=== PATIENT | female | born 1945 | race Caucasian/White ===

== ENCOUNTER → 2016-12-17 | Outpatient (CLI) | payer OTHER ==
[~2016-12-17] MED LIST: ATOR-22 PO; CHOL1TAB42 PO; CLMTP25; CYAN10002 IM; CZR50 PO; EFFSR/75 PO; LEVO25TA5 PO; LINA72CA; OMEP40CA PO; PROG1CAP2 PO
--- NOTE | 2016-12-17 11:09 | DIAGNOSTIC IMAGING REPORT ---
RIGHT HAND MIN 3 VIEWS ROUTINE CLINICAL HISTORY: Right hand pain status post trauma COMPARISON: None. DISCUSSION: The bones are osteopenic. There are erosive osteoarthritic changes most pronounced the level of the distal interphalangeal joints. There is a 4.5 mm intra-articular chip fracture arising from the radial base of the proximal phalanx of the fifth finger. The fracture fragment is distracted x 2 mm. IMPRESSION: 1. Intra-articular chip fracture arising from the radial base of the proximal phalanx of the fifth finger 2. Osteopenia 3. Erosive osteoarthritic changes Electronically signed by: Raúl Hurley M.D. 12/17/2016 11:07 AM Dictated Date/Time: 12/17/2016 11:05 AM
== END | disposition home or self-care (01) ==
LOC: C.RADBC 10:35
PROVIDERS: ATTEND Anesthesiology
DX: M79.641 Pain in right hand (principal); W19.XXXA Unspecified fall, initial encounter

== ENCOUNTER 2023-07-24 12:31 | Observation (INO) ==
[2023-07-24 13:34] LABS: Basophils # (auto) 0.05 K/uL (0.00-0.20); Basophils % (auto) 0.5 %; Eosinophils # (auto) 0.09 K/uL (0.00-0.50); Eosinophils % (auto) 0.8 %; Hematocrit (blood only) 44.8 % (37.0-47.0); Hemoglobin 15.6 g/dl (12.0-16.0); Immature Granulocytes # (auto) 0.22 K/uL (0.01-0.20); Immature Granulocytes % (auto) 2.1 %; Lymphocytes # (auto) 1.42 K/uL (1.20-3.40); Lymphocytes % (auto) 13.3 %; Mean Corpuscular Hemoglobin 32.4 pg (25.0-34.0); Mean Corpuscular Hgb Conc 34.8 g/dL (32.0-36.0); Mean Corpuscular Volume 92.9 fL (80.0-100.0); Mean Platelet Volume 9.3 fL (9.4-12.4); Monocytes # (auto) 0.79 K/uL (0.11-0.59); Monocytes % (auto) 7.4 %; Neutrophils # (auto) 8.09 K/uL (1.40-6.50); Neutrophils % (auto) 75.9 %; Platelet Count 365 K/uL (130-400); RDW Coefficient of Variation 14.3 % (11.5-14.5); RDW Standard Deviation 49.1 fL (36.4-46.3); Red Blood Count 4.82 M/uL (4.20-5.40); White Blood Count 10.66 K/ul (4.8-10.8)
[2023-07-24] MEDS: dilTIAZem HCl 5 MG/ML 5 ML VIAL IV STA ×2 (13:57→16:45)
--- NOTE | 2023-07-24 14:01 | Emergency Department Note ---
Impression & Plan Atrial flutter with rapid ventricular response, Weakness ED Provider Note Provider: Denver Corona MD DATE OF SERVICE: 07/24/2023 CHIEF COMPLAINT: Weakness, medication changes, dyspnea on exertion/sweating HISTORY OF PRESENT ILLNESS: Patient is a 77-year-old female history of hypertension, anxiety, TIA, and hypothyroidism presenting here today complaining of weakness issues. States that over the last several weeks she has been having significant increased weakness. Did run out of her thyroid medicine for a week or 2 and thinks this may be related. To 2 extra tablets after she refilled her prescription of thyroid medicine yesterday. Denies chest pain. Does report some dyspnea on exertion and sweating when she goes to even do minimal activities. Again no chest pain. Some slight lower abdominal cramping at times but no significant continuous abdominal pain. Not eating or drinking very much. No significant leg swelling. Has had a slight cough recently. Training her dog and not weak enough to walk around with the clinical trainer yesterday or even help her self up off the ground. No significant trauma or falls reported. No significant cardiac disease reported. Noted her heart was elevated and called her doctor and referred here today. Unsure how long her heart rate may have been elevated. PAST MEDICAL HISTORY: As noted above MEDICATIONS: Reviewed home medications just restarted Synthroid SOCIAL HISTORY: PHYSICAL EXAM: GENERAL: alert and oriented in no acute distress on stretcher Head: normocephalic and atraumatic EYES: No injection, discharge or icterus. NECK: Trachea midline. ENT: Mucous membranes pink and moist. LUNGS: Airway patent. No retractions. Breath sounds clear HEART: Regular tachycardia rate and rhythm. No chest wall tenderness ABDOMEN: Soft and non-tender, without guarding or rebound. SKIN: Acyanotic, warm, dry, without rashes EXTREMITIES: Without swelling, tenderness or deformity NEUROLOGICAL: No focal deficits. No aphasia. No facial droop or slurred speech. Ambulatory. EK bpm with appears to be atrial flutter with no notable PVC and a right bundle branch block noted. Question of some anterior T wave inversions. EK bpm appears to be in atrial flutter variable conduction without acute ST segment elevation and nonspecific T wave changes right bundle branch block. EK bpm atrial flutter variable conduction without acute ST segment elevation or depression. Right bundle branch block persist as well as a QTc of 470. CONTINUOUS CARDIAC MONITORING: was ordered and showed a heart rate of 80s-140s bpm in atrial flutter Patient's laboratory studies and imaging reviewed. Differential includes Infection, dehydration, metabolic abnormality, hypo/hyperglycemia, electrolyte disturbance, anemia, hypoxia, cardiac sources, intracerebral event, toxicologic, neurologic, as well as other pathologies. IMPRESSION/MEDICAL DECISION MAKING: Patient with generalized weakness and some fast heart beating sensation over the past week. Heart rate steady at 140 with little variability. Believe likely represents a flutter. Trial of a dose of diltiazem does affect heart rate improvement and what appears to be flutter waves. Given some IV fluid. Will place on a diltiazem drip and heparin drip for anticoagulation and some rate control. Given that she is not in anticoagulation and has been in this rhythm for an unknown amount of time and possibly a week not pursue aggressive cardioversion scheme at this time. Has had some changes of dosing of her thyroid medicine and took extra yesterday. Unsure if related. TSH sent. Electrolytes and blood work completed as she has had some decreased intake. Benign abdomen on exam. Lower suspicion for URI but has had a slight cough. There and respiratory viral panel sent. Chest x-ray per radiology report reviewed without significant acute pulmonary findings. Doubt this represents dissection or PE. Doubt acute intra-abdominal pathology given her reassuring abdominal exam. Troponin minimally elevated likely demand rather than true ACS. No severe electrolyte abnormalities. TSH actually returns normal. This time will bring in for her symptomatic new onset rapid atrial flutter. Will likely need long- term rate control and anticoagulation. For tonight again heparin drip and diltiazem will be utilized. Hospitalist team contacted. Will titrate diltiazem drip for rate control and bolus as needed DIAGNOSIS: New onset atrial flutter with rapid ventricular response, weakness DISPOSITION: Hospitalist will evaluate Patient was agreeable with this plan. Critical Care I have personally spent 44 minutes of critical care time in the direct management of this patient. This includes bedside care, interpretation of diagnostic studies, and testing, discussion with consultants, patient, and family members, and other required patient management activities. These 44 minutes is in excess of all separately billable procedures. Past Med/Surg History Medical History (Updated 07/24/23 @ 16:16 by MERLY Lockhart) New onset atrial fibrillation Atrial fibrillation Hypothyroidism Osteoporosis HTN (hypertension) Surgical History History of tonsillectomy and adenoidectomy 1950 H/O hernia repair 2007 Hx of appendectomy 2006 S/P cholecystectomy 2004 Family History Father Hearing loss Stroke Prostate cancer Mother Hypertension Aunt Pancreatic cancer Other No family history of adverse response to anesthesia No family history of bleeding disorder Social History Smoking Status: Never smoker Do You Dip or Chew Tobacco: No; Hx Alcohol Use: No Hx Substance Use: No Preferred Language: Portuguese marital status: current occupational status: employed 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 Feels Safe at Home: Yes Allergies Allergies Allergy/AdvReac Type Severity Reaction Status Date / Time iodine Allergy Unknown Verified 09/13/20 11:34 shellfish derived AdvReac Mild NAUSEA/VOMI Verified 09/13/20 11:34 TTING Cephalosporins AdvReac Unknown UPSET Verified 09/13/20 11:34 STOMACH WITH CEPHALEXIN Home Meds Home Medications Medication Instructions Recorded Confirmed losartan 50 mg tablet 50 mg PO QAM 10/06/19 07/24/23 cholecalciferol (vitamin D3) 125 125 mcg PO DAILY 07/24/23 07/24/23 mcg (5,000 unit) capsule diclofenac sodium 1 % topical gel 2 g topical QID PRN Pain 07/24/23 07/24/23 fish, borage, flaxseed oils-omega 1,200 cap PO DAILY 07/24/23 07/24/23 3,6,9 comb no.1 1,200 mg capsule (Forrest 3-6-9) magnesium citrate,mag oxide 250 mg 500 mg PO BID 07/24/23 07/24/23 capsule melatonin 5 mg tablet 5 mg PO HS PRN Pain 07/24/23 07/24/23 venlafaxine 37.5 mg 37.5 mg PO QAM 07/24/23 07/24/23 capsule,extended release 24 hr venlafaxine 75 mg capsule,extended 75 mg PO QAM 07/24/23 07/24/23 release 24 hr (Effexor XR) vitamins A,C,G-eprm-yhcxla 4,296 1 cap PO QAM 07/24/23 07/24/23 mcg-226 mg-90 mg capsule (PreserVision AREDS) vortioxetine 5 mg tablet 20 mg PO 5XWK 07/24/23 07/24/23 (Trintellix) Previous Rx's Medication Instructions Recorded prednisone 10 mg tablet 10 mg PO DAILY #34 tabs 12/18/22 tizanidine 4 mg tablet 4 mg PO BID PRN muscle spasticity 12/30/22 #30 tabs tramadol 50 mg tablet 50 mg PO BID PRN pain #30 tabs 12/30/22 Results & Data (ED) Vital Signs Vital Signs - 24 hr 07/24/23 12:40 07/24/23 12:40 07/24/23 12:45 Temperature 36.3 C L Temperature Source Temporal Artery Scan Pulse Rate 142 H 141 H Pulse Rate from SpO2 Sensor Respiratory Rate 22 Respiratory Effort / Characteristics Non-Labored Respiratory Depth Normal Blood Pressure 101/92 Blood Pressure Mean 95 Pulse Oximetry 98 98 100 Oxygen Delivery Method Room Air Room Air Oxygen Flow Rate 0 Sepsis Recent Fever Within 48 Hours No Sepsis New/Unexplained Change in Mental Status N/A Sepsis Action Taken by Nursing No Action Required 07/24/23 13:37 07/24/23 13:41 07/24/23 13:50 Temperature Temperature Source Pulse Rate 143 H 142 H 140 H Pulse Rate from SpO2 Sensor 142 H 140 H Respiratory Rate 15 19 Respiratory Effort / Characteristics Respiratory Depth Blood Pressure 128/94 Blood Pressure Mean 105 Pulse Oximetry 100 98 Oxygen Delivery Method Oxygen Flow Rate Sepsis Recent Fever Within 48 Hours Sepsis New/Unexplained Change in Mental Status Sepsis Action Taken by Nursing 07/24/23 14:00 07/24/23 14:00 07/24/23 14:03 Temperature Temperature Source Pulse Rate 114 H Pulse Rate from SpO2 Sensor 116 H Respiratory Rate 18 Respiratory Effort / Characteristics Respiratory Depth Blood Pressure 144/89 H 144/91 H Blood Pressure Mean 118 98 Pulse Oximetry 100 Oxygen Delivery Method Oxygen Flow Rate Sepsis Recent Fever Within 48 Hours Sepsis New/Unexplained Change in Mental Status Sepsis Action Taken by Nursing 07/24/23 14:03 07/24/23 14:06 07/24/23 14:06 Temperature Temperature Source Pulse Rate 112 H 114 H Pulse Rate from SpO2 Sensor 113 H 116 H Respiratory Rate 24 16 Respiratory Effort / Characteristics Respiratory Depth Blood Pressure 140/103 H Blood Pressure Mean 105 Pulse Oximetry 96 99 Oxygen Delivery Method Oxygen Flow Rate Sepsis Recent Fever Within 48 Hours Sepsis New/Unexplained Change in Mental Status Sepsis Action Taken by Nursing 07/24/23 14:10 07/24/23 14:10 07/24/23 14:20 Temperature Temperature Source Pulse Rate 94 H 105 H Pulse Rate from SpO2 Sensor 96 H 100 H Respiratory Rate 18 24 Respiratory Effort / Characteristics Respiratory Depth Blood Pressure 152/79 H Blood Pressure Mean 83 Pulse Oximetry 99 87 L Oxygen Delivery Method Oxygen Flow Rate Sepsis Recent Fever Within 48 Hours Sepsis New/Unexplained Change in Mental Status Sepsis Action Taken by Nursing 07/24/23 14:30 07/24/23 14:30 07/24/23 14:40 Temperature Temperature Source Pulse Rate 107 H 107 H Pulse Rate from SpO2 Sensor 107 H 104 H Respiratory Rate 11 L 18 Respiratory Effort / Characteristics Respiratory Depth Blood Pressure 147/99 H Blood Pressure Mean 120 Pulse Oximetry 99 98 Oxygen Delivery Method Oxygen Flow Rate Sepsis Recent Fever Within 48 Hours Sepsis New/Unexplained Change in Mental Status Sepsis Action Taken by Nursing Laboratory Data 07/24/23 12:44 07/24/23 12:44 Lab Results 07/24/23 07/24/23 07/24/23 Range/Units 12:44 12:44 12:44 WBC 10.66 (4.8-10.8) K/ul RBC 4.82 (4.20-5.40) M/uL Hgb 15.6 (12.0-16.0) g/dl Hct 44.8 (37.0-47.0) % MCV 92.9 (80.0-100.0) fL MCH 32.4 (25.0-34.0) pg MCHC 34.8 (32.0-36.0) g/dL RDW Std Deviation 49.1 H (36.4-46.3) fL RDW Coeff of Ish 14.3 (11.5-14.5) % Plt Count 365 (130-400) K/uL MPV 9.3 L (9.4-12.4) fL Immature Gran % (Auto) 2.1 % Neut % (Auto) 75.9 % Lymph % (Auto) 13.3 % Howell % (Auto) 7.4 % Eos % (Auto) 0.8 % Baso % (Auto) 0.5 % Neut # (Auto) 8.09 H (1.40-6.50) K/uL Lymph # (Auto) 1.42 (1.20-3.40) K/uL Howell # (Auto) 0.79 H (0.11-0.59) K/uL Eos # (Auto) 0.09 (0.00-0.50) K/uL Baso # (Auto) 0.05 (0.00-0.20) K/uL Immature Gran # (Auto) 0.22 H (0.01-0.20) K/uL PT 10.8 (9.0-12.0) Seconds INR 1.0 (0.9-1.1) APTT 26 (21-31) Seconds PTT Ratio 0.9 Sodium 133 L (136-145) mmol/L Potassium 4.1 (3.5-5.1) mmol/L Chloride 100 (98-107) mmol/L Carbon Dioxide 23 (21-32) mmol/L Anion Gap 10 (3-11) BUN 17 (6-23) mg/dl Creatinine 0.84 (0.6-1.2) mg/dl Est Cr Clr Drug Dosing Not Reportable Est GFR ( Amer) 77.2 ml/min Est GFR (Non-Af Amer) 66.6 ml/min BUN/Creatinine Ratio 20.2 H (10-20) Glucose 110 H (70-99(Fasting)) mg/dl Calcium 9.4 (8.6-10.3) mg/dl Magnesium 2.2 Cancelled (1.7-2.4) mg/dl Total Bilirubin 1.0 (0.2-1.0) mg/dl AST 27 (13-39) U/L ALT 29 (7-52) U/L Alkaline Phosphatase 112 H (34-104) U/L Total Creatine Kinase 38 Cancelled (26-192) U/L Troponin I High Sens 34.6 H (0-14) pg/ml Total Protein 7.9 (6.0-8.3) gm/dl Albumin 4.1 (3.4-5.0) gm/dl Globulin 3.8 (2.5-4.0) gm/dl Albumin/Globulin Ratio 1.1 (0.9-2) Lipase 25 (11-82) U/L TSH (0.300-4.500) uIu/ml Adenovirus (PCR) (NotDetected) B. pertussis DNA (PCR) (NotDetected) B.parapertussis DNA PCR (NotDetected) C. pneumoniae DNA (PCR) (NotDetected) Coronavirus OC43 (PCR) (NotDetected) Coronavirus HKU1 (PCR) (NotDetected) Coronavirus 229E (PCR) (NotDetected) SARS-CoV-2 (PCR) (NotDetected) Coronavirus NL63 (PCR) (NotDetected) Human Metapneumovir PCR (NotDetected) Influenza Type A (PCR) (NotDetected) Influenza Type B (PCR) (NotDetected) M. pneumoniae (PCR) (NotDetected) Parainfluenza 1 (PCR) (NotDetected) Parainfluenza 2 (PCR) (NotDetected) Parainfluenza 3 (PCR) (NotDetected) Parainfluenza 4 (PCR) (NotDetected) RSV (PCR) (NotDetected) Entero/Rhino (PCR) (NotDetected) 07/24/23 07/24/23 07/24/23 Range/Units 12:44 12:44 Unknown WBC (4.8-10.8) K/ul RBC (4.20-5.40) M/uL Hgb (12.0-16.0) g/dl Hct (37.0-47.0) % MCV (80.0-100.0) fL MCH (25.0-34.0) pg MCHC (32.0-36.0) g/dL RDW Std Deviation (36.4-46.3) fL RDW Coeff of Ish (11.5-14.5) % Plt Count (130-400) K/uL MPV (9.4-12.4) fL Immature Gran % (Auto) % Neut % (Auto) % Lymph % (Auto) % Howell % (Auto) % Eos % (Auto) % Baso % (Auto) % Neut # (Auto) (1.40-6.50) K/uL Lymph # (Auto) (1.20-3.40) K/uL Howell # (Auto) (0.11-0.59) K/uL Eos # (Auto) (0.00-0.50) K/uL Baso # (Auto) (0.00-0.20) K/uL Immature Gran # (Auto) (0.01-0.20) K/uL PT (9.0-12.0) Seconds INR (0.9-1.1) APTT (21-31) Seconds PTT Ratio Sodium (136-145) mmol/L Potassium (3.5-5.1) mmol/L Chloride (98-107) mmol/L Carbon Dioxide (21-32) mmol/L Anion Gap (3-11) BUN (6-23) mg/dl Creatinine (0.6-1.2) mg/dl Est Cr Clr Drug Dosing Est GFR ( Amer) ml/min Est GFR (Non-Af Amer) ml/min BUN/Creatinine Ratio (10-20) Glucose (70-99(Fasting)) mg/dl Calcium (8.6-10.3) mg/dl Magnesium (1.7-2.4) mg/dl Total Bilirubin (0.2-1.0) mg/dl AST (13-39) U/L ALT (7-52) U/L Alkaline Phosphatase (34-104) U/L Total Creatine Kinase (26-192) U/L Troponin I High Sens (0-14) pg/ml Total Protein (6.0-8.3) gm/dl Albumin (3.4-5.0) gm/dl Globulin (2.5-4.0) gm/dl Albumin/Globulin Ratio (0.9-2) Lipase Cancelled (11-82) U/L TSH 2.936 Cancelled (0.300-4.500) uIu/ml Adenovirus (PCR) Not Detected (NotDetected) B. pertussis DNA (PCR) Not Detected (NotDetected) B.parapertussis DNA PCR Not Detected (NotDetected) C. pneumoniae DNA (PCR) Not Detected (NotDetected) Coronavirus OC43 (PCR) Not Detected (NotDetected) Coronavirus HKU1 (PCR) Not Detected (NotDetected) Coronavirus 229E (PCR) Not Detected (NotDetected) SARS-CoV-2 (PCR) Not Detected (NotDetected) Coronavirus NL63 (PCR) Not Detected (NotDetected) Human Metapneumovir PCR Not Detected (NotDetected) Influenza Type A (PCR) Not Detected (NotDetected) Influenza Type B (PCR) Not Detected (NotDetected) M. pneumoniae (PCR) Not Detected (NotDetected) Parainfluenza 1 (PCR) Not Detected (NotDetected) Parainfluenza 2 (PCR) Not Detected (NotDetected) Parainfluenza 3 (PCR) Not Detected (NotDetected) Parainfluenza 4 (PCR) Not Detected (NotDetected) RSV (PCR) Not Detected (NotDetected) Entero/Rhino (PCR) Not Detected (NotDetected) Administered Medications Diltiazem HCl (Diltiazem Hcl 5 Mg/Ml 5 Ml Vial) 5 mg IV NOW STA Stop: 07/24/23 16:44 Last Admin: 07/24/23 16:45 Dose: 5 mg Documented By: ANNIE Co-signed By: SKINNY Diltiazem HCl 125 mg/ Dextrose 125 mls @ 5 mls/hr IV .Q24H LEXII; Protocol Stop: 08/23/23 15:14 Last Admin: 07/24/23 16:39 Dose: 5 mg/hr, 5 mls/hr Documented By: ANNIE Co-signed By: JUDI Ondansetron HCl (Ondansetron Inj 2 Mg/Ml 2 Ml Vial) 4 mg IV Q6H PRN PRN Reason: Nausea Stop: 08/23/23 15:55 Last Admin: 07/24/23 16:20 Dose: 4 mg Documented By: ANNIE Discontinued Medications Diltiazem HCl (Diltiazem Hcl 5 Mg/Ml 5 Ml Vial) 10 mg IV NOW STA Stop: 07/24/23 13:53 Last Admin: 07/24/23 13:57 Dose: 10 mg Documented By: ANNIE Co-signed By: JORGE Sodium Chloride (Nss) 500 mls @ 999 mls/hr IV .Q31M ONE Stop: 07/24/23 14:27 Last Infusion: 07/24/23 14:32 Dose: Infused Documented By: Admin: 07/24/23 14:03 Dose: 999 mls/hr Documented By: ANNIE Imaging Data Radiologist's Impression: Chest X-Ray 07/24/23 12:45 XR chest 1V not portable HISTORY: 77 years-old Female Chest pain, nonspecific COMPARISON: 03/24/2020 TECHNIQUE: PA view of the chest FINDINGS: Cardiac silhouette is unchanged. Calcified mediastinal and hilar lymph nodes are redemonstrated. Unchanged biapical predominant pulmonary nodules. No pneumothorax, large pleural effusion or overt pulmonary edema. Cholecystectomy. Degenerative changes of the shoulders and spine. IMPRESSION: 1. No acute process. 2. Prior granulomatous disease with unchanged biapical predominant pulmonary nodules. ACT 112: Negative or not required by law. The above report was generated using voice recognition software. It may contain grammatical, syntax or spelling errors. Electronically signed by: Tono Lorenzo M.D. 07/24/2023 2:23 PM Discharge Plan Visit Data Chief Complaint: Shortness of Breath/Dyspnea Stated Complaint: TROUBLE BREATHING, 140 BPM, LIGHT HEADED ED Provider: Denver Corona Discharge Problem: Atrial flutter with rapid ventricular response, Weakness Patient Disposition: Being Evaluated by Hospitalist Forms Stand Alone Forms: [facility] Prescriptions Prescriptions: No Action prednisone 10 mg tablet 10 mg PO DAILY Qty: 34 0RF Rx Instructions: 3 by mouth twice a day for 3 days, then 2 by mouth twice a day for 3 days, then 1 by mouth twice a day for 2 days, then stop tizanidine 4 mg tablet 4 mg PO BID PRN (Reason: muscle spasticity) Qty: 30 1RF tramadol 50 mg tablet 50 mg PO BID PRN (Reason: pain) Qty: 30 0RF Rx Instructions: In addition to the tramadol, take acetaminophen either regular strength or extra, 2 pills. losartan 50 mg Tablet 50 mg PO QAM venlafaxine [Effexor XR] 75 mg capsule,extended release 24hr 75 mg PO QAM Rx Instructions: take with 37.5 mg every morning. MUST BE NAME BRAND. venlafaxine 37.5 mg Capsule,Extended Release 24hr 37.5 mg PO QAM Rx Instructions: TAKE WITH 75MG IN AM. MUST BE NAME BRAND. Trintellix 5 mg Tablet 20 mg PO 5XWK Rx Instructions: TAKE FOUR 5 MG TABLETS FRIDAY THRU FRIDAY diclofenac sodium 1 % Gel 2 g TOPICAL QID PRN (Reason: Pain) melatonin 5 mg Tablet 5 mg PO HS PRN (Reason: Pain) magnesium citrate,mag oxide 250 mg Capsule 500 mg PO BID cholecalciferol (vitamin D3) 125 mcg (5,000 unit) Capsule 125 mcg PO DAILY PreserVision AREDS 4,296 mcg-226 mg-90 mg Capsule 1 cap PO QAM Forrest 3-6-9 1,200 mg Capsule 1,200 cap PO DAILY Referrals Referrals: Evangelista Moran MD [Primary Care Provider] -
[2023-07-24] MEDS: SODIUM CHLORIDE 0.9% 500 ML IV ONE (14:03)
--- NOTE | 2023-07-24 14:24 | XRay Report ---
XR chest 1V not portable HISTORY: 77 years-old Female Chest pain, nonspecific COMPARISON: 03/24/2020 TECHNIQUE: PA view of the chest FINDINGS: Cardiac silhouette is unchanged. Calcified mediastinal and hilar lymph nodes are redemonstrated. Unch anged biapical predominant pulmonary nodules. No pneumothorax, large pleural effusion or overt pulmon nadiya edema. Cholecystectomy. Degenerative changes of the shoulders and spine. IMPRESSION: 1. No acute process. 2. Prior granulomatous disease with unchanged biapical predominant pulmonary nodules. ACT 112: Negative or not required by law. The above report was generated using voice recognition software. It may contain grammatical, syntax o r spelling errors. Electronically signed by: Tono Lorenzo M.D. 07/24/2023 2:23 PM
[2023-07-24 14:40] LABS: Partial Thromboplastin Ratio 0.9; Partial Thromboplastin Time 26 Seconds (21-31); Prothrombin Time 10.8 Seconds (9.0-12.0)
[2023-07-24 14:41] LABS: Albumin Level 4.1 gm/dl (3.4-5.0); Anion Gap 10 (3-11); Calcium 9.4 mg/dl (8.6-10.3); Carbon Dioxide 23 mmol/L (21-32); Chloride 100 mmol/L (98-107); Magnesium 2.2 mg/dl (1.7-2.4); Potassium 4.1 mmol/L (3.5-5.1); Sodium 133 mmol/L (136-145)
[2023-07-24 14:47] LABS: Alanine Aminotransferase 29 U/L (7-52); Albumin Globulin Ratio 1.1 (0.9-2); Alkaline Phosphatase 112 U/L (34-104); Aspartate Aminotransferase 27 U/L (13-39); BUN Creatinine Ratio 20.2 (10-20); Blood Urea Nitrogen 17 mg/dl (6-23); Creatine Kinase 38 U/L (26-192); Est GFR (African American) 77.2 ml/min; Est GFR (Non-African American) 66.6 ml/min; Globulin 3.8 gm/dl (2.5-4.0); Glucose 110 mg/dl (70-99(Fasting)); Lipase 25 U/L (11-82); Total Protein 7.9 gm/dl (6.0-8.3)
[2023-07-24 14:49] LABS: Troponin I High Sensitivity 34.6 pg/ml (0-14)
[2023-07-24 14:58] LABS: Thyroid Stimulating Hormone 2.936 uIu/ml (0.300-4.500)
[2023-07-24] MEDS ORDERED: Heparin IV Adult Wt-Based Low-Dose w/ INITIAL Bolus Protocol IV STA (15:13)
[2023-07-24] MEDS ORDERED: HEPARIN SOD (PORCINE) 1000 UNIT/ML IV ONE (15:28)
[2023-07-24] MEDS ORDERED: MAGNESIUM HYDROXIDE SUSP 30 ML UDC PO PRN (15:56)
[2023-07-24] MEDS ORDERED: ALUMINUM/MAGNESIUM SUSP 30 ML UDC PO PRN (15:56)
[2023-07-24] MEDS ORDERED: POLYETHYLENE (MIRALAX) 17 GM PACK PO PRN (15:56)
[2023-07-24] MEDS ORDERED: ACETAMINOPHEN 325 MG TAB PO PRN (15:56)
[2023-07-24 16:04] LABS: Adenovirus PCR Not Detected (NotDetected); Bordetella parapertussis PCR Not Detected (NotDetected); Bordetella pertussis PCR Not Detected (NotDetected); Chlamydia pneumoniae PCR Not Detected (NotDetected); Coronavirus 229E PCR Not Detected (NotDetected); Coronavirus CoV-2 (COVID19)PCR Not Detected (NotDetected); Coronavirus HKU1 PCR Not Detected (NotDetected); Coronavirus NL63 PCR Not Detected (NotDetected); Coronavirus OC43PCR Not Detected (NotDetected); Human Metapneumovirus PCR Not Detected (NotDetected); Influenza A PCR Not Detected (NotDetected); Influenza B PCR Not Detected (NotDetected); Mycoplasma pneumoniae PCR Not Detected (NotDetected); Parainfluenza Virus 1 PCR Not Detected (NotDetected); Parainfluenza Virus 2 PCR Not Detected (NotDetected); Parainfluenza Virus 3 PCR Not Detected (NotDetected); Parainfluenza Virus 4 PCR Not Detected (NotDetected); Respiratory Syncytial VirusPCR Not Detected (NotDetected); Rhinovirus/Enterovirus PCR Not Detected (NotDetected)
--- NOTE | 2023-07-24 16:06 | History & Physical Report ---
Date of Service July 24, 2023 Assessment & Plan (1) New onset atrial fibrillation: (2) Weakness: (3) HTN (hypertension): (4) Hypothyroidism: (5) Hyperlipidemia: (6) Depression: Plan Ms. Tapia presented to the ED today with symptoms including QUIGLEY and weakness. She snowbirds in [place] and stopped taking her levothyroxine approximately 5-6 weeks ago. Over the past few days started to have increased weakness and fatigu e with each day feeling worse and worse; including worsening appetite. Additional PMH includes H/O TIA x3 (20 years ago), Left brain aneurysm 12/2021 (s/p stent/coil x2 and one remaining smaller aneurysm on the right), HTN, hypothyroidism, H/O T12 compression fracture s/p kyphoplasty, and osteoporosis. In the ED, slight leukocytosis WBC 10.66, otherwise BMP and CBC unremarkable. Troponin slightly elevated 34.6; suspect more ischemic demand, rather than ACS. TSH 2.9 and BioFire and lactate pending.CHaDs VaSC: 4. No previous AMI or CVA. Pt denies tobacco, alcohol, and recreational drug use. Patients father had a CVA. ECG first degree AVB with bigeminy and underlying conduction disease. Patient will be admitted to PCU for further evaluation and management of new onset AF. Started on Diltiazem gtt with 10 mg IV bolus, ordered metoprolol 25 mg p.o. twice daily. Due to the patient's history of brain aneurysm in [address] prior to heparin drip initiation. Will order ECHO, trend troponin, check Mg+/Phos+ and await biofire results. Will keep NPO after MN pending any procedures with cardiology. Discussed on the phone with Dr. Cardenas. New onset atrial fibrillation: acute suspect secondary to not taking levothyroxine; however, TSH 2.9 Continue to rule out organic causes Chads Vasc: 4 moderate to high risk of CVA. No history of AMI or CVA HR 140s on arrival Diltiazem 10 mg IV once in ED and started on a Diltiazem gtt Heparin gtt pending negative head CT Started Metoprolol 25 mg once now; will continue BID CXR negative for acute cardiopulmonary process ECHO ordered Cardiology consult placed H/O TIA: Chronic 20 + years ago Does not follow with Neurology H/O Brain aneurysm: Chronic s/p stent/coil x 2 One smaller aneurysm remains Was taking Plavix; stopped 07/04 Takes baby aspirin; continue Follows with [facility] Most recent MRA 06/2022 HTN: chronic takes losartan; continue Hypothyroidism: chronic possible contributor to new onset af TSH 2.9 Takes levothyroxine; stopped 6 weeks ago; restarted yesterday when she returned [place] Depression: chronic takes Effexor; continue Disposition: PCP: Dr. Moran Code Status: Full code VTE Prophylaxis: Heparin gtt once head ct done I spent a total of 87 minutes coordinating, documenting, and providing care for this patient excluding time spent in the performance of separately billed services. All of the aforementioned completed while collaborating with the assigned attending physician for a full treatment plan. Please see their addendum for further details. History of Present Illness Chief Complaint: new onset atrial fibrillation Primary Care Provider: Evangelista Moran MD Ms. Tapia presented to the ED today with symptoms including QUIGLEY and weakness. She snow[place] in [place] and stopped taking her levothyroxine approximately 5-6 weeks ago. Over the past few days started to have increased weakness and fatigue with each day feeling worse and worse; including worsening appetite. Additional PMH includes H/O TIA x3 (20 years ago), Left brain aneurysm 12/2021 (s/p stent/coil x2 and one remaining smaller aneurysm on the right), HTN, hypothyroidism, H/O T12 compression fracture s/p kyphoplasty, and osteoporosis. In the ED, slight leukocytosis WBC 10.66, otherwise BMP and CBC unremarkable. Troponin slightly elevated 34.6; suspect more ischemic demand, rather than ACS. TSH 2.9 and BioFire and lactate pending. CHaDs VaSC: 4; indicating moderate to high stroke risk (age, sex, HTN). No known history of AMI or CVA. Pt denies tobacco, alcohol, and recreational drug use. Patients father had a CVA. ECG first degree AVB with bigeminy and underlying conduction disease. Patient complains of temporal/ocular headache, denies dizziness, shortness of breath, chest pain, palpitations, nausea, vomiting, diarrhea, dysuria, bowel or bladder changes, recent falls or trauma. She is sitting in her hospital bed in no apparent distress; heart monitor showing 130-140 despite Diltiazem gtt. She is euvolemic on examination. CTA lung sounds and irregular heart sounds. Patient will be admitted to PCU for further evaluation and management of new onset AF. Started on Diltiazem gtt with 10 mg IV bolus, ordered metoprolol 25 mg p.o. twice daily. Due to the patient's history of brain aneurysm in [address] prior to heparin drip initiation. Will order ECHO, trend troponin, check Mg+/Phos+ and await biofire results. Will keep NPO after MN pending any procedures with cardiology. Discussed on the phone with Dr. Cardenas. Allergies Allergy/AdvReac Type Severity Reaction Status Date / Time shellfish derived AdvReac Mild NAUSEA/VOMI Verified 07/24/23 17:12 TTING Cephalosporins AdvReac Unknown UPSET Verified 07/24/23 17:13 STOMACH WITH CEPHALEXIN amoxicillin [From Augmentin] AdvReac Vomiting Verified 07/24/23 17:14 clavulanic acid AdvReac Vomiting Verified 07/24/23 17:14 [From Augmentin] ezetimibe [From Zetia] AdvReac Weakness Verified 07/24/23 17:13 Home Medications Medication Instructions Recorded Confirmed Type losartan 50 mg tablet 50 mg PO QAM 10/06/19 07/24/23 History aspirin 81 mg tablet,delayed 81 mg PO DAILY 07/24/23 07/24/23 History release calcium 275 mg-D3 12.5 mcg-K2 2 cap PO QAM 07/24/23 07/24/23 History 22.5 mcg and choline-silicon capsules cholecalciferol (vitamin D3) 125 125 mcg PO DAILY 07/24/23 07/24/23 History mcg (5,000 unit) capsule cyanocobalamin (vitamin B-12) 1,000 mcg IM MONTHLY 07/24/23 07/24/23 History 1,000 mcg/mL injection solution diclofenac sodium 1 % topical gel 2 g topical QID PRN Pain 07/24/23 07/24/23 History fish, borage, flaxseed oils-omega 1,200 cap PO DAILY 07/24/23 07/24/23 History 3,6,9 comb no.1 1,200 mg capsule ([place] 3-6-9) ibuprofen 400 mg tablet 400 mg PO Q8H PRN Pain 07/24/23 07/24/23 History ibuprofen 600 mg tablet 600 mg PO Q8H PRN Pain 07/24/23 07/24/23 History levothyroxine 50 mcg tablet 50 mcg PO DAILYBB 07/24/23 07/24/23 History magnesium citrate,mag oxide 250 mg 500 mg PO BID 07/24/23 07/24/23 History capsule melatonin 5 mg tablet 5 mg PO HS PRN Pain 07/24/23 07/24/23 History venlafaxine 37.5 mg 37.5 mg PO QAM 07/24/23 07/24/23 History capsule,extended release 24 hr venlafaxine 75 mg capsule,extended 75 mg PO QAM 07/24/23 07/24/23 History release 24 hr (Effexor XR) vitamins A,C,U-rsyj-elrlck 4,296 1 cap PO QAM 07/24/23 07/24/23 History mcg-226 mg-90 mg capsule (PreserVision AREDS) vortioxetine 5 mg tablet 20 mg PO 5XWK 07/24/23 07/24/23 History (Trintellix) Past Med/Surg History Medical History New onset atrial fibrillation Atrial fibrillation Hypothyroidism Osteoporosis HTN (hypertension) Surgical History History of tonsillectomy and adenoidectomy 1950 H/O hernia repair 2007 Hx of appendectomy 2006 S/P cholecystectomy 2004 Family History Father Hearing loss Stroke Prostate cancer Mother Hypertension Aunt Pancreatic cancer Other No family history of adverse response to anesthesia No family history of bleeding disorder Social History Smoking Status: Never smoker Do You Dip or Chew Tobacco: No; Hx Alcohol Use: Yes Alcohol type: wine Hx Substance Use: No Preferred Language: Turkish Communication Ability: Effective Spooling 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 Operator Required: No Beliefs That Will Affect Care: None marital status: Current Living Situation: Spouse Current Living Situation Comment: Single level condo current occupational status: employed 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 Feels Safe at Home: Yes Safety Concerns: Feels Safe At This Time Assistive Devices: None Review of Systems Review of Systems: Neuro: (-) Falls, trauma, slurred speech HEENT: (+) [place]U, (-) dizziness, dysphagia, visual or auditory changes CV: (-) CP, palpitations, swelling Resp: (-) SOB GI: (-) appetite changes, N/V/D, bowel changes : (-) urinary changes Skin: (-) rashes Psych: (-) anxiety, depression Physical Exam Physical Exam: Neuro: AAOx4, PERRLA, no aphagia, memory changes, CNII-XII grossly intact HEENT: head normocephalic, moist mucus membranes CV: Irregularly irregular, (-) M/G/R, (-) edema, cap refill < 3 seconds Resp: Lungs CTA in all holliday. On RA GI: Abdomen S/NT/ND, Ax4 bowel sounds, (-) CVA tenderness Musculoskeletal: 5/5 B/L UE strength, 5/5 B/L LE strength. No gait disturbance Skin: (-) rashes , (-) erythema. Psych: euthymic mood Results & Data Results & Data Vital Signs (Past 12 Hours) Vital Signs Temp Pulse Resp BP Pulse Ox O2 Del Method O2 Flow Rate 07/24/23 14:40 107 H 18 98 07/24/23 14:30 107 H 11 L 99 07/24/23 14:30 147/99 H 07/24/23 14:20 105 H 24 87 L 07/24/23 14:10 94 H 18 99 07/24/23 14:10 152/79 H 07/24/23 14:06 140/103 H 07/24/23 14:06 114 H 16 99 07/24/23 14:03 112 H 24 96 07/24/23 14:03 144/91 H 07/24/23 14:00 114 H 18 100 07/24/23 14:00 144/89 H 07/24/23 13:50 140 H 19 98 07/24/23 13:41 142 H 07/24/23 13:37 143 H 15 128/94 100 07/24/23 12:45 141 H 100 Room Air 07/24/23 12:40 98 Room Air 0 07/24/23 12:40 36.3 C L 142 H 22 101/92 98 Laboratory Results Short CBC 07/24/23 Range/Units 12:44 WBC 10.66 (4.8-10.8) K/ul Hgb 15.6 (12.0-16.0) g/dl Hct 44.8 (37.0-47.0) % Plt Count 365 (130-400) K/uL BMP 07/24/23 12:44 Sodium 133 L Potassium 4.1 Chloride 100 Carbon Dioxide 23 BUN 17 Creatinine 0.84 Glucose 110 H Calcium 9.4 Cardiac Enzymes 07/24/23 03 Range/Units 12:44 12:44 Total Creatine Kinase 38 Cancelled (26-192) U/L Liver Function 07/24/23 Range/Units 12:44 Total Bilirubin 1.0 (0.2-1.0) mg/dl AST 27 (13-39) U/L ALT 29 (7-52) U/L Alkaline Phosphatase 112 H (34-104) U/L Albumin 4.1 (3.4-5.0) gm/dl Diagnostic Findings Chest X-Ray 07/24/23 12:45 XR chest 1V not portable HISTORY: 77 years-old Female Chest pain, nonspecific COMPARISON: 03/24/2020 TECHNIQUE: PA view of the chest FINDINGS: Cardiac silhouette is unchanged. Calcified mediastinal and hilar lymph nodes are redemonstrated. Unchanged biapical predominant pulmonary nodules. No pneumothorax, large pleural effusion or overt pulmonary edema. Cholecystectomy. Degenerative changes of the shoulders and spine. IMPRESSION: 1. No acute process. 2. Prior granulomatous disease with unchanged biapical predominant pulmonary nodules. ACT 112: Negative or not required by law. The above report was generated using voice recognition software. It may contain grammatical, syntax or spelling errors. Electronically signed by: Tono Lorenzo M.D. 07/24/2023 2:23 PM Code Status & VTE Plan Code Status Full Code in the event of cardiac or respiratory arrest VTE Prophylaxis Plan VTE Prophylaxis will be ordered: Yes Supervising Physician Co-Signing Physician Notes Pt was seen and examined. Agreed with Shirin MORELAND exam, assessment and plan. 77 yo khmer Female with PMH TIA, left brain aneurysm, HTN, hypothyroidism, osteoporosis presented to the ED to the ER with generalized weakness and SOB w ith minimal exertion. Pt said that she has been feeling weak in the last 2 weeks. She denies any chest pain or palpitation. She said that she did not take her Levothyroxine for about 5 weeks. Denies any recent infection, chest pain, dysuria, diarrhea, palpitation. EKG on admission showed atrial flutter. Started on cardizem drip. Will get a CT head to r/o any intracranial bleeding due to ongoing headache before resuming the heparin drip. Cardiology consult. Will start on Metoprol 25mg BID. Will get resting echo. Will make NPO after midnight. Will continue monitor closely in telemetry. MD Jana (3) HTN (hypertension) Hypertension type: unspecified Qualified Code(s): I10 - Essential (primary) hypertension
[2023-07-24] MEDS: ONDANSETRON INJ 2 MG/ML 2 ML VIAL IV PRN (16:20)
[2023-07-24] MEDS: dilTIAZem HCL 125 MG in DEXTROSE 5% 100 ML IV SCH (16:39)
[2023-07-24] MEDS: HEPARIN SODIUM/DEXTROSE 25,000 UNITS/500 ML BAG IV SCH (17:25)
[2023-07-24] MEDS: HEPARIN SOD (PORCINE) 1000 UNIT/ML IV ONE (17:26)
[2023-07-24] MEDS: METOPROLOL SUCC 25MG EXT REL TAB PO ONE (17:29)
[2023-07-24 18:00] LABS: Chol HDL Ratio 2.4 (0-5); Magnesium 2.2 mg/dl (1.7-2.4); Phosphorus 2.5 mg/dl (2.5-4.9)
[2023-07-24 18:07] LABS: Troponin I High Sensitivity 32.3 pg/ml (0-14)
[2023-07-24] MEDS ORDERED: MELATONIN 3 MG TAB PO PRN (18:30)
[2023-07-24] MEDS: STAT IV Infusion **Titration per Protocol STA (18:41)
--- NOTE | 2023-07-24 19:08 | CT Scan Report ---
CT OF THE HEAD WITHOUT CONTRAST CLINICAL HISTORY: previous aneurysm COMPARISON STUDY: Head CT November 22, 2011. CT DOSE: 547.75 mGy.cm TECHNIQUE: Helical axial images of the head were obtained without IV contrast. Automated exposure con trol was utilized for the study. A dose lowering technique was utilized adhering to the principles o f ALARA. FINDINGS: No acute intracranial hemorrhage, midline shift or mass effect is present. Ventricular syst em is normal. Basal cisterns are patent. There are no extra axial collections. White matter hypodensi ties suggest small vessel disease. There is moderate intracranial vascular calcification. Vascular st ent within the left cavernous carotid extending into the proximal left MCA is noted. There is an minh tional intraluminal device within the left MCA. There are postoperative findings within the sinuses. No calvarial fractures are present. IMPRESSION: 1. No acute intracranial findings. 2. Postprocedural findings within the left cavernous carotid and MCA, as described above. ACT 112: Negative or not required by law. Electronically signed by: Te Joy M.D. 07/24/2023 7:06 PM
[2023-07-24] MEDS: METOPROLOL SUCC 25MG EXT REL TAB PO SCH (21:51)
[2023-07-24] MEDS: MAGNESIUM OXIDE 400 MG TAB PO SCH (21:51)
[2023-07-24 23:46] LABS: ANTI-Xa, UFH(UnfractionatedHep 0.32 IU/ml (0.3-0.7)
[2023-07-25] MEDS ORDERED: APIXABAN 5 MG TABLET PO SCH
[2023-07-25] MEDS: LEVOTHYROXINE SODIUM 50 MCG TABLET PO SCH (06:37)
[2023-07-25 07:51] LABS: Hemoglobin 12.7 g/dl (12.0-16.0); Mean Corpuscular Hemoglobin 32.2 pg (25.0-34.0); Mean Corpuscular Hgb Conc 35.3 g/dL (32.0-36.0); Mean Corpuscular Volume 91.1 fL (80.0-100.0); Platelet Count 297 K/uL (130-400); RDW Coefficient of Variation 14.2 % (11.5-14.5); RDW Standard Deviation 47.7 fL (36.4-46.3); Red Blood Count 3.95 M/uL (4.20-5.40); White Blood Count 7.61 K/ul (4.8-10.8)
[2023-07-25 08:08] LABS: Albumin Globulin Ratio 1.3 (0.9-2); Albumin Level 3.4 gm/dl (3.4-5.0); BUN Creatinine Ratio 20.8 (10-20); Bilirubin,Total 0.7 mg/dl (0.2-1.0); Calcium 8.6 mg/dl (8.6-10.3); Creatinine Clr Calc Pharmacy 60.5 ml/min; Est GFR (Non-African American) 80.2 ml/min; Globulin 2.7 gm/dl (2.5-4.0); Potassium 4.1 mmol/L (3.5-5.1); Total Protein 6.1 gm/dl (6.0-8.3)
[2023-07-25 08:11] LABS: ANTI-Xa, UFH(UnfractionatedHep 0.19 IU/ml (0.3-0.7)
[2023-07-25] MEDS: ASPIRIN 81 MG ECTAB PO SCH (08:15)
[2023-07-25] MEDS: CHOLECALCIFEROL 125 MCG (5,000 UNITS) TAB PO SCH (08:19)
[2023-07-25] MEDS: LOSARTAN POTASSIUM 50 MG TAB PO SCH (08:19)
[2023-07-25] MEDS: VENLAFAXINE HCL XR 75 MG CAPXR PO SCH (08:21)
[2023-07-25] MEDS: VENLAFAXINE HCL XR 37.5 MG CAPXR PO SCH (08:21)
[2023-07-25] MEDS ORDERED: HEPARIN SOD (PORCINE) 1000 UNIT/ML IV ONE (08:52)
--- NOTE | 2023-07-25 09:46 | Cardiology Consultation ---
Date of Consultation July 25, 2023 Assessment & Plan (1) Atrial flutter with rapid ventricular response: (2) TIA (transient ischemic attack): Plan New onset atrial fibrillation/atrial flutter noted. Patient's [id number] score is 4 given risk factors of age over than 75 years (2 points) hypertension, and female sex. This predicts a moderate to high risk of cardioembolic stroke in the setting of atrial fibrillation/flutter. Patient does have a history of cerebral aneurysms with embolization of two areas as noted performed in 2021. The patient follows with neurosurgery at [facility]. She had recently had a repeat MRA performed in [place] and she states that she received word back from her provider at the clinic clinic that the findings were stable. A CT of the brain last evening revealed stable findings. Continue aspirin for now. Patient is on heparin for stroke prophylaxis with likely plan to transition her to a direct oral anticoagulation such as Eliquis. Patient has a history of bifascicular block (left anterior fascicular block plus right bundle branch block) as noted on previous EKG dating back to November,. Thus far she has tolerated IV diltiazem which is infusing at 5 mg/h as well as addition of metoprolol succinate 25 mg twice daily. Patient with symptoms of debilitating shortness of breath with exertion x 2 weeks in duration. High-sensitivity troponin levels minimally elevated likely due to myocardial strain in setting of tachycardia. Echocardiogram reveals no regional wall motion abnormalities normal LVEF. Recommend proceeding with a transesophageal echocardiogram guided direct-current cardioversion. Anesthesia has been consulted, and will hopefully be able to accommodate ending the procedure onto the schedule today. Patient is to be n.p.o. in the meantime. Her blood pressure is well-controlled on her outpatient regimen including losartan 50 mg daily, and as noted the metoprolol diltiazem has been added acutely. The patient's cholesterol is much improved compared to the previous outpatient measurement with LDL cholesterol in the 170s at the time of previous outpatient measurement several months ago. History of Present Illness Attending Physician: Giovanna Barnes MD History of Present Illness Keisha Tapia is a 77 year old female seen in cardiology consultation per the request of MERLY De for the evaluation of shortness of breath with exertion and newly diagnosed atrial fibrillation/ flutter. Patient seen in outpatient cardiology consultation by Dr Simmons in November with history as noted below. Had recently spent two months in [place], [place] and noted that she self weaned her levothyroxine over a one month interval in June. She present to the ED at [place] on 07/23/22 with history of progressive shortness of breath with exertion x 2 weeks. Denies octavio chest discomfort or subjective palpitations. Found to be in atrial fibrillation / flutter with rapid ventricular response with ventricular rates in the 140s on initial EKG. Rate improved to the 70s overnight and is currently comfortable in bed on a diltiazem infusion at 5 mg /hr. Past Cardiac / Vascular History: 1. Hypertension 2. Hyperlipidemia with markedly elevated LDL with statin intolerance -declined PCSK9 inhibitor therapy in 2022. 3. Multiple brain aneurysms. Right ICA, left MCA and Left supraclinoid status post web embolization left middle cerebral artery bifurcation aneurysm and stenting of the left supraclinoid aneurysm , January, 4. 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 Granulomatous lung disease/sarcoid 6. Bifascicular heart block right bundle-branch block, left anterior fascicular 7. 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 Allergies Allergy/AdvReac Type Severity Reaction Status Date / Time shellfish derived AdvReac Mild NAUSEA/VOMI Verified 07/24/23 17:12 TTING Cephalosporins AdvReac Unknown UPSET Verified 07/24/23 17:13 STOMACH WITH CEPHALEXIN amoxicillin [From Augmentin] AdvReac Vomiting Verified 07/24/23 17:14 clavulanic acid AdvReac Vomiting Verified 07/24/23 17:14 [From Augmentin] ezetimibe [From Zetia] AdvReac Weakness Verified 07/24/23 17:13 Home Medications Medication Instructions Recorded Confirmed Type losartan 50 mg tablet 50 mg PO QAM 10/06/19 07/24/23 History aspirin 81 mg tablet,delayed 81 mg PO DAILY 07/24/23 07/24/23 History release calcium 275 mg-D3 12.5 mcg-K2 2 cap PO QAM 07/24/23 07/24/23 History 22.5 mcg and choline-silicon capsules cholecalciferol (vitamin D3) 125 125 mcg PO DAILY 07/24/23 07/24/23 History mcg (5,000 unit) capsule cyanocobalamin (vitamin B-12) 1,000 mcg IM MONTHLY 07/24/23 07/24/23 History 1,000 mcg/mL injection solution diclofenac sodium 1 % topical gel 2 g topical QID PRN Pain 07/24/23 07/24/23 History fish, borage, flaxseed oils-omega 1,200 cap PO DAILY 07/24/23 07/24/23 History 3,6,9 comb no.1 1,200 mg capsule ([place] 3-6-9) ibuprofen 400 mg tablet 400 mg PO Q8H PRN Pain 07/24/23 07/24/23 History ibuprofen 600 mg tablet 600 mg PO Q8H PRN Pain 07/24/23 07/24/23 History levothyroxine 50 mcg tablet 50 mcg PO DAILYBB 07/24/23 07/24/23 History magnesium citrate,mag oxide 250 mg 500 mg PO BID 07/24/23 07/24/23 History capsule melatonin 5 mg tablet 5 mg PO HS PRN Pain 07/24/23 07/24/23 History venlafaxine 37.5 mg 37.5 mg PO QAM 07/24/23 07/24/23 History capsule,extended release 24 hr venlafaxine 75 mg capsule,extended 75 mg PO QAM 07/24/23 07/24/23 History release 24 hr (Effexor XR) vitamins A,C,V-auab-nmyssv 4,296 1 cap PO QAM 07/24/23 07/24/23 History mcg-226 mg-90 mg capsule (PreserVision AREDS) vortioxetine 5 mg tablet 20 mg PO 5XWK 07/24/23 07/24/23 History (Trintellix) Patient History Medical History New onset atrial fibrillation Atrial fibrillation Hypothyroidism Osteoporosis HTN (hypertension) Surgical History History of tonsillectomy and adenoidectomy 1950 H/O hernia repair 2007 Hx of appendectomy 2006 S/P cholecystectomy 2004 Family History Father Hearing loss Stroke Prostate cancer Mother Hypertension Aunt Pancreatic cancer Other No family history of adverse response to anesthesia No family history of bleeding disorder Social History Smoking Status: Never smoker Do You Dip or Chew Tobacco: No; Hx Alcohol Use: Yes Alcohol type: wine Hx Substance Use: No Preferred Language: Lao Communication Ability: Effective Breaker Tender Required: No Beliefs That Will Affect Care: None marital status: Current Living Situation: Spouse Current Living Situation Comment: Single level condo current occupational status: employed 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 Feels Safe at Home: Yes Safety Concerns: Feels Safe At This Time Assistive Devices: None Review of Systems Review of Systems: All systems reviewed & are unremarkable except as noted in HPI & below Physical Exam Constitutional: WD/WN, vitals as above Eyes: PERRL, conjunctivae normal, anicteric sclerae Respiratory: normal respiratory effort, lungs clear to auscultation Cardiovascular: RRR, no murmur, no edema Gastrointestinal (Abdomen): normal bowel sounds, soft, nontender, no hepatosplenomegaly Neurologic: PERRL, EOMI, accommodation nl, no face palsy, no dysarthria Results & Data Vital Signs (Past 12 Hours) Vital Signs Temp Pulse Pulse Resp BP Pulse Ox O2 Del Method 07/25/23 08:00 76 07/25/23 07:58 36.7 C 75 19 128/80 97 Room Air 07/25/23 03:04 36.7 C 75 18 119/79 96 Room Air 07/24/23 23:21 36.9 C 101 H 20 133/74 93 Room Air 07/24/23 22:00 100 H Laboratory Results Cardiac Enzymes 07/24/23 07/24/23 07/25/23 Range/Units 12:44 17:17 07:07 AST 27 23 (13-39) U/L Troponin I High Sens 34.6 H 32.3 H (0-14) pg/ml Coagulation 07/24/23 Range/Units 12:44 PT 10.8 (9.0-12.0) Seconds APTT 26 (21-31) Seconds Lipids 07/24/23 Range/Units 17:17 Triglycerides 111 (0-150) mg/dl Cholesterol 244 H (0-200) mg/dl HDL Cholesterol 102 mg/dl Cholesterol/HDL Ratio 2.4 (0-5) CBC 07/24/23 07/25/23 Range/Units 12:44 07:07 WBC 10.66 7.61 (4.8-10.8) K/ul RBC 4.82 3.95 L (4.20-5.40) M/uL Hgb 15.6 12.7 D (12.0-16.0) g/dl Hct 44.8 36.0 L (37.0-47.0) % Plt Count 365 297 (130-400) K/uL Neut # (Auto) 8.09 H (1.40-6.50) K/uL Lymph # (Auto) 1.42 (1.20-3.40) K/uL Bacon # (Auto) 0.79 H (0.11-0.59) K/uL Eos # (Auto) 0.09 (0.00-0.50) K/uL Baso # (Auto) 0.05 (0.00-0.20) K/uL Comprehensive Metabolic Panel 07/24/23 07/25/23 Range/Units 12:44 07:07 Sodium 133 L 135 L (136-145) mmol/L Potassium 4.1 4.1 (3.5-5.1) mmol/L Chloride 100 107 (98-107) mmol/L Carbon Dioxide 23 22 (21-32) mmol/L BUN 17 15 (6-23) mg/dl Creatinine 0.84 0.72 (0.6-1.2) mg/dl Glucose 110 H 105 H (70-99(Fasting)) mg/dl Calcium 9.4 8.6 (8.6-10.3) mg/dl AST 27 23 (13-39) U/L ALT 29 26 (7-52) U/L Alkaline Phosphatase 112 H 87 (34-104) U/L Total Protein 7.9 6.1 D (6.0-8.3) gm/dl Albumin 4.1 3.4 (3.4-5.0) gm/dl Total cholesterol 244 LDL 120 HDL 102 TGs 111 TSH: 2.936 Viral respiratory panel is normal Diagnostic Findings Non contrast CT head 07/23/22: FINDINGS: No acute intracranial hemorrhage, midline shift or mass effect is present. Ventricular system is normal. Basal cisterns are patent. There are no extra axial collections. White matter hypodensities suggest small vessel disease. There is moderate intracranial vascular calcification. Vascular stent within the left cavernous carotid extending into the proximal left MCA is noted. There is an additional intraluminal device within the left MCA. There are postoperative findings within the sinuses. No calvarial fractures are present. Chest X ray: no acute cardiopulmonary process, prior granulomatous disease with unchanged biapical predominant pulmonary nodules EKG tracings performed x 3 on 07/24/2023 revealed atrial fibrillation/flutter with rapid ventricular response in the 140s initially and down to 94 bpm, right bundle branch block Echocardiogram performed 07/25/2023: Borderline concentric left ventricular hypertrophy LVEF in the range of 55-60 Moderate tricuspid regurgitation The pulmonary artery systolic pressure is estimated be 35 mmHg (upper limit of normal).
[2023-07-25] MEDS: HEPARIN IV BOLUS 2,000 UNITS in SYRINGE 0 ML IV ONE (09:59)
[2023-07-25] MEDS: BENZOCAINE/TETRACAIN/BUTAM 50 APPLN/5 GM CAN EXT ONE (11:17)
--- NOTE | 2023-07-25 11:17 | Anesthesiology Consultation ---
Date of Service July 25, 2023 Assessment & Plan Chart Review Chart Review: Acceptable Risk for Surgery and Patient NOT seen in Pre Admission Testing Consults Requested none ASA ASA2 Proposed Anesthesia Anesthesia Type: MAC Risk / Benefits Reviewed With: PT / POA / Parent / Guardian, Accepts Plan and Informed Consent Obtained History Surgery Operation Date: 07/25/23 13:00 Proposed Procedures p Cardioversion [facility] Specialist w/Anesthesia - Eric Cardenas DO s Transesophageal Echo w/Anesthesia - Eric Cardenas DO Height/Weight Height: 5 ft 1 in Weight: 77.1 kg Allergies Allergy/AdvReac Type Severity Reaction Status Date / Time shellfish derived AdvReac Mild NAUSEA/VOMI Verified 07/24/23 17:12 TTING Cephalosporins AdvReac Unknown UPSET Verified 07/24/23 17:13 STOMACH WITH CEPHALEXIN amoxicillin [From Augmentin] AdvReac Vomiting Verified 07/24/23 17:14 clavulanic acid AdvReac Vomiting Verified 07/24/23 17:14 [From Augmentin] ezetimibe [From Zetia] AdvReac Weakness Verified 07/24/23 17:13 Medications Home Medications Medication Instructions Recorded Confirmed Last Taken losartan 50 mg tablet 50 mg PO QAM 10/06/19 07/24/23 10/06/19 aspirin 81 mg tablet,delayed 81 mg PO DAILY 07/24/23 07/24/23 Unknown release calcium 275 mg-D3 12.5 mcg-K2 2 cap PO QAM 07/24/23 07/24/23 Unknown 22.5 mcg and choline-silicon capsules cholecalciferol (vitamin D3) 125 125 mcg PO DAILY 07/24/23 07/24/23 Unknown mcg (5,000 unit) capsule cyanocobalamin (vitamin B-12) 1,000 mcg IM MONTHLY 07/24/23 07/24/23 Unknown 1,000 mcg/mL injection solution diclofenac sodium 1 % topical gel 2 g topical QID PRN Pain 07/24/23 07/24/23 Unknown fish, borage, flaxseed oils-omega 1,200 cap PO DAILY 07/24/23 07/24/23 Unknown 3,6,9 comb no.1 1,200 mg capsule ([place] 3-6-9) ibuprofen 400 mg tablet 400 mg PO Q8H PRN Pain 07/24/23 07/24/23 Unknown ibuprofen 600 mg tablet 600 mg PO Q8H PRN Pain 07/24/23 07/24/23 Unknown levothyroxine 50 mcg tablet 50 mcg PO DAILYBB 07/24/23 07/24/23 Unknown magnesium citrate,mag oxide 250 mg 500 mg PO BID 07/24/23 07/24/23 Unknown capsule melatonin 5 mg tablet 5 mg PO HS PRN Pain 07/24/23 07/24/23 Unknown venlafaxine 37.5 mg 37.5 mg PO QAM 07/24/23 07/24/23 Unknown capsule,extended release 24 hr venlafaxine 75 mg capsule,extended 75 mg PO QAM 07/24/23 07/24/23 Unknown release 24 hr (Effexor XR) vitamins A,C,C-aipb-nromul 4,296 1 cap PO QAM 07/24/23 07/24/23 Unknown mcg-226 mg-90 mg capsule (PreserVision AREDS) vortioxetine 5 mg tablet 20 mg PO 5XWK 07/24/23 07/24/23 Unknown (Trintellix) Active Medications Generic Name Dose Route Start Last Admin Trade Name Freq PRN Reason Stop Dose Admin Aspirin 81 mg 07/25/23 09:00 07/25/23 08:15 Aspirin 81 Mg Ectab PO 08/24/23 08:59 Not Given DAILY LEXII Diltiazem HCl 125 mg/ Dextrose 125 mls @ 5 mls/hr 07/24/23 15:15 07/25/23 07:05 IV 08/23/23 15:14 5 mg/hr .Q24H LEXII 5 mls/hr Titration Protocol 5 MG/HR Heparin Sodium/Dextrose 25,000 units in 500 mls @ 16 mls/hr 07/24/23 15:30 07/25/23 08:54 Heparin Sodium/Dextrose IV 08/23/23 15:29 800 units/hr .Q24H LEXII 16 mls/hr Titration Protocol 800 UNITS/HR Levothyroxine Sodium 50 mcg 07/25/23 06:30 07/25/23 06:37 Levothyroxine Sodium 50 Mcg Tablet PO 08/24/23 06:29 50 mcg DAILYBB LEXII Administration Losartan Potassium 50 mg 07/25/23 09:00 07/25/23 08:19 Losartan Potassium 50 Mg Tab PO 08/24/23 08:59 50 mg QAM LEXII Administration Magnesium Oxide 400 mg 07/24/23 21:00 07/25/23 08:18 Magnesium Oxide 400 Mg Tab PO 08/23/23 20:59 400 mg BID LEXII Administration Metoprolol Succinate 25 mg 07/24/23 21:00 07/25/23 08:18 Metoprolol Succ 25mg Ext Rel Tab PO 08/23/23 20:59 25 mg BID LEXII Administration Miscellaneous 1 each 07/25/23 00:00 07/25/23 08:20 Order Awaiting Action: Vortioxetine [Trintellix] 5 Mg Tablet N/A 08/24/23 00:00 Not Given QS LEXII Ondansetron HCl 4 mg 07/24/23 15:56 07/24/23 16:20 Ondansetron Inj 2 Mg/Ml 2 Ml Vial IV 08/23/23 15:55 4 mg Q6H PRN Administration Nausea Venlafaxine HCl 37.5 mg 07/25/23 09:00 07/25/23 08:21 Venlafaxine Hcl Xr 37.5 Mg Capxr PO 08/24/23 08:59 Not Given QAM LEXII Venlafaxine HCl 75 mg 07/25/23 09:00 07/25/23 08:21 Venlafaxine Hcl Xr 75 Mg Capxr PO 08/24/23 08:59 Not Given QAM LEXII Vitamin D 125 mcg 07/25/23 09:00 07/25/23 08:19 Cholecalciferol 125 Mcg (5,000 Units) Tab PO 08/24/23 08:59 125 mcg DAILY LEXII Administration Past Medical History Medical History New onset atrial fibrillation Atrial fibrillation Hypothyroidism Osteoporosis HTN (hypertension) Exercise / Class Metabolic Activity II 4-5 Yardwork/Stairs/Walk up hill Past Family History Family History Father Hearing loss Stroke Prostate cancer Mother Hypertension Aunt Pancreatic cancer Other No family history of adverse response to anesthesia No family history of bleeding disorder Past Surgical History Surgical History History of tonsillectomy and adenoidectomy 1950 H/O hernia repair 2007 Hx of appendectomy 2006 S/P cholecystectomy 2004 Past Anesthesia History No Hx of Anesthesia Complications and No Family Hx of Anesthesia Complications History of PONV No Hx of PONV and No Hx of Motion Sickness Social History Smoking Status: Never smoker Do You Dip or Chew Tobacco: No Hx Alcohol Use: Yes Alcohol type: wine alcohol intake frequency: a few times a week Hx Substance Use: No Physical Exam Vital Signs Last Vital Signs Temp 36.5 C 07/25/23 10:48 Pulse 77 07/25/23 11:11 Resp 16 07/25/23 11:11 BP 134/73 07/25/23 11:11 Pulse Ox 96 07/25/23 11:11 O2 Del Method Room Air 07/25/23 11:11 O2 Flow Rate 0 07/24/23 12:40 ENMT Mouth: no dentition abnormality Thyromental Distance: > or= 3.5 Finger Breadths Mallampati Class: II Neck normal visual inspection Respiratory normal respiratory effort Auscultation: lungs clear to auscultation bilaterally Cardiovascular Rate/Rhythm: regular rate; + abnormal rhythm (aflutter on monitor) Psychiatric Orientation: alert Testing Laboratory Results 07/25/23 07:07 07/25/23 07:07 PT 10.8 Seconds (9.0-12.0) 07/24/23 12:44 INR 1.0 (0.9-1.1) 07/24/23 12:44 APTT 26 Seconds (21-31) 07/24/23 12:44
--- NOTE | 2023-07-25 11:56 | Cardioversion ---
Date of Service July 25, 2023 Electrical Cardioversion Rpt Electrical Cardioversion Report Operation Date: 07/25/23 13:00 Procedure Preprocedure diagnosis: Symptomatic atrial flutter with rapid ventricular response, rule out left atrial/left atrial appendage thrombus Post procedure diagnosis: No left atrial appendage or left atrial thrombus, successful conversion to sinus rhythm Transesophageal echocardiogram direct-current cardioversion procedure note: After informed consent was obtained and a timeout was performed the patient was sedated with the assistance of the anesthesia service. A focused, goal-directed transesophageal echocardiogram was performed for risk stratification prior to direct-current cardioversion. The KEISHA probe was initially placed, and then removed due to transient hypoxia that required supplemental oxygen via [id number] performed by Dr. Rooney of anesthesia. With stabilization of the oxygen saturation, the transesophageal echocardiogram was once again placed in the midesophagus. The left atrial appendage was well-visualized with no evidence of thrombus. The left atrial appendage was hypercontractile. Direct-current cardioversion was then performed with the patient receiving a single dose of 200 J of biphasic energy with successful conversion to sinus rhythm. Enterostomal Nurse Eric Cardenas DO Shade Maker Bianca Leavitt, IZZY Estimated Blood Loss 0 Findings Consistent with Post-Op Diagnosis as noted above Complications none
--- NOTE | 2023-07-25 12:00 | Communication Note ---
Date of Service: July 25, 2023 Post procedure EKG revealed sinus rhythm in the 60s to 70s with right bundle branch block. Plan: Continue metoprolol succinate 25 mg twice daily Discontinue IV diltiazem. Continue unfractionated heparin at current dose. Plan to start first dose of Eliquis this evening at 1800 at which time heparin infusion will be discontinued. If patient does well recovering today, anticipate discharge to home after the 1800 dose of Eliquis. Armando Cardenas, DO
--- NOTE | 2023-07-25 12:01 | Anesthesiology Progress Note ---
Date of Service July 25, 2023 Anesthesia Post Procedure Vital Signs Vital Signs: Temp Pulse Pulse Resp BP BP BP 07/25/23 11:55 72 16 104/69 07/25/23 11:40 67 16 94/60 L 07/25/23 11:11 77 16 134/73 07/25/23 10:48 36.5 C 78 20 145/81 H 07/25/23 08:00 76 07/25/23 07:58 36.7 C 75 19 128/80 07/25/23 03:04 36.7 C 75 18 119/79 07/24/23 23:21 36.9 C 101 H 20 133/74 07/24/23 22:00 100 H 07/24/23 19:10 36.6 C 110 H 18 108/79 07/24/23 17:43 126 H 07/24/23 15:58 124 H 20 07/24/23 14:40 107 H 18 07/24/23 14:30 107 H 11 L 07/24/23 14:30 147/99 H 07/24/23 14:20 105 H 24 07/24/23 14:10 94 H 18 07/24/23 14:10 152/79 H 07/24/23 14:06 140/103 H 07/24/23 14:06 114 H 16 07/24/23 14:03 112 H 24 07/24/23 14:03 144/91 H 07/24/23 14:00 114 H 18 07/24/23 14:00 144/89 H 07/24/23 13:50 140 H 19 07/24/23 13:41 142 H 07/24/23 13:37 143 H 15 128/94 07/24/23 12:45 141 H 07/24/23 12:40 07/24/23 12:40 36.3 C L 142 H 22 101/92 Pulse Ox O2 Del Method O2 Flow Rate 07/25/23 11:55 96 Room Air 07/25/23 11:40 96 Room Air 07/25/23 11:11 96 Room Air 07/25/23 10:48 95 Room Air 07/25/23 08:00 07/25/23 07:58 97 Room Air 07/25/23 03:04 96 Room Air 07/24/23 23:21 93 Room Air 07/24/23 22:00 07/24/23 19:10 92 Room Air 07/24/23 17:43 07/24/23 15:58 94 Room Air 07/24/23 14:40 98 07/24/23 14:30 99 07/24/23 14:30 07/24/23 14:20 87 L 07/24/23 14:10 99 07/24/23 14:10 07/24/23 14:06 07/24/23 14:06 99 07/24/23 14:03 96 07/24/23 14:03 07/24/23 14:00 100 07/24/23 14:00 07/24/23 13:50 98 07/24/23 13:41 07/24/23 13:37 100 07/24/23 12:45 100 Room Air 07/24/23 12:40 98 Room Air 0 07/24/23 12:40 98 Transfer of Care Handoff Completed per policy Notes Mental Status: alert / awake / arousable Patient Amnestic to Procedure: Yes Nausea / Vomiting: adequately controlled Pain: adequately controlled Airway Patency, RR, SpO2: stable & adequate BP & HR: stable & adequate Hydration State: stable & adequate Anesthetic Complications: no major complications apparent
[2023-07-25] MEDS: PROPOFOL IV EMULSION 10 MG/ML 20 ML VIAL IV ONE (12:05)
[2023-07-25] MEDS: fentaNYL citrate PF 100 MCG/2 ML VIAL ONE (12:05)
[2023-07-25] MEDS: LIDOCAINE 2% 2 ML VIAL/AMP(20MG/ML) INFIL ONE (12:05)
--- OUTSIDE RECORDS SUMMARY | 2023-07-25 13:58 | External Medical Summary | Summary of Care ---
Author Name Unknown Organization [facility] Address [address] [place] [address] Phone [phone] Care Team Providers Care Hosiery Knitter Name Role Phone Evangelista Moran MD Primary Care Provider + Encounter Details Date Type Department Care Team (Late st Contact Info) Description 07/16/2023 11:30 AM EST Nurse Only Ancillary [facility] [address] [place] [id number] Nurse, [facility] Med [address] [facility] [place] [address] Allergies Active Allergy Reactions Criticality Noted Date Comments Cephalexin Low 04/28/1997 GI upset Corticosteroids Medium 03/08/2019 Palpitations Shellfish Allergy Nausea/vomiting Medium 06/25/2010 Hard shelled shell fish Ezetimibe 04/10/2022 Myalgias documented as of this encounter (statuses as of 07/16/2023) Medications Medication Sig Dispensed Refills Start Date End Date Status VITAMIN D3 5000 UNIT PO CAPS one daily 0 Active Magnesium 500 MG Capsule Take 1 Capsule by mouth in the morning. 1000mg daily. 60 Cap 0 03/31/2017 Active Multiple Vitamins-Minerals (PRESERVISION AREDS) Tablet Take 1 Tablet by mouth in the morning. 0 Active Melatonin 5 MG Tablet Take 1 Tablet by mouth at bedtime. 0 Active [place]-3 Fatty Acids (FISH OIL CONCENTRATE) 1000 MG CAPS Take 1300 mg by mouth daily. 0 Active Misc Natural Products (TURMERIC CURCUMIN) CAPS 1200 mg by mouth daily 0 Active Trintellix 5 MG Oral Tablet (Vortioxetine HBr) Take 4 Tablets by mouth in the morning. 0 Active Nurtec 75 MG Oral Tablet Disintegrating As needed 0 03/06/2022 Act dave Diclofenac Sodium 1 % External Gel (Voltaren)Indications :Generalized osteoarthritis APPLY 2 GRAMS TO JOINT 4 TIMES A DAY NEEDED FOR PAIN 350 g 1 03/27/2022 Active Mometasone Furoate 0.1 % External Solution (Elocon)Indications:I tching in the vaginal area Apply topically to affected area daily. To affected area. 30 mL 5 03/27/2022 Active Additional Information Patient taking differently:Topical Daily(AM),To affected area. As needed, Reported on 09/27/2022 Levothyroxine Sodium 50 MCG Oral Tablet (Levoxyl)Indications: Acquired hypothyroidism Take 1 Tablet by mouth daily first thing in the morning. (at least 30 min prior to breakfast or other meds) 90 Tablet 3 11/22/2022 Active Ibuprofen 600 MG Oral Tablet (Motrin) TAKE BY MOUTH 1 TABLET EVERY 8 HOURS NEEDED (PAIN). WITH FOOD FOR PAIN 90 Tablet 1 01/06/2023 Active Ventolin HFA 108 (90 Base) MCG/ACT Inhalation Aerosol SolutionIndications:A cute bronchitis, antibiotics not indicated Inhale 2 Puffs by mouth every 4 hours as needed for Wheezing. 8 g 0 03/04/2023 Active Ibuprofen 400 MG Oral Tablet (Motrin) Take 1 Tablet by mouth every 8 hours as needed for Pain, Severe. Do not take the same day you take 600 mg tablets 30 Tablet 6 03/20/2023 Active Losartan Potassium 50 MG Oral Tablet (Cozaar)Indications:H TN, goal below 140/90 TAKE 1 TABLET BY MOUTH EVERY DAY IN THE MORNING 90 Tablet 1 03/22/2023 Active Aspirin 81 MG Oral Capsule Take by mouth. 0 Active Venlafaxine HCl ER 75 MG Oral Capsule Extended Release 24 Hour (Effexor XR) Take 1 Capsule by mouth in the morning. Take with 37.5. 0 Active Venlafaxine HCl ER 37.5 MG Oral Capsule Extended Release 24 Hour (Effexor XR) Take 1 Capsule by mouth in the morning. Take with 75mg. 0 Active Calcium 600+D3 Plus Minerals 600-800 MG-UNIT Oral Tablet Take by mouth. 0 A ctive Cyanocobalamin 1000 MCG/ML Injection Solution (Cyanocobalamin)Indic ations:Vitamin B12 deficiency Inject 1,000 mcg as directed every 30 days. 1 mL 2 04/24/2023 Active Syringe/Needle (Disp) 23G X 1" 3 MLIndications:Vitamin B12 deficiency Use to inject Vitamin B12 monthly 1 Each 11 04/24/2023 Active Hospital, Clinic, or Other Facility Administered Medication Ordered Dose Route Frequency Start Date End Date Status vitamin b-12 (Cyanocobalamin) inj 1,000 mcgIndications:Vitamin B12 deficiency 1000 mcg IM [id number] 04/24/2023 03/25/2024 Active documented as of this encounter (statuses as of 07/16/2023) Active Problems Problem Noted Date Diagnosed Date Age-related osteoporosis with current pathologic al fracture 02/06/2023 Senile osteoporosis 02/06/2023 Prediabetes 10/21/2022 Overview: Per Prediabetes protocol Migraine without aura 03/27/2022 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 11/08/2021 Overview: 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 11/08/2021 Overview: 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 Overview: Left side Non ruptured Vitamin B12 deficiency 10/05/2021 JANIA (generalized anxiety disorder) 08/30/2021 Fibromyalgia 04/24/2021 Obesity, Class I, BMI 30.0-34.9 (see actual BMI) 09/20/2020 Recurrent major depressive disorder, in partial remission 09/04/2020 Pulmonary sarcoidosis 02/23/2020 Granulomatous lung disease 10/27/2019 Mixed hyperlipidemia 03/31/2019 Hx of actinic keratosis 10/12/2018 Chronic insomnia 09/07/2018 Acquired hypothyroidism 08/20/2017 Hx of nonmelanoma skin cancer 01/31/2017 Overview: SCCIS R chest 10/2018, SCCIS R wrist 01/2017,BCC L neck 09/2016, SCC L chest 2015 Generalized osteoarthritis 05/08/2015 HTN, goal below 140/90 08/14/1998 documented as of this encounter (statuses as of 07/16/2023) Resolved Problems Problem Noted Date Diagnosed Date Resolved Date Disorder of arteries and art erioles, unspecified 08/30/2021 08/30/2021 Lung granuloma 01/06/2020 11/29/2020 Major depression in partial remission 04/14/2019 03/27/2022 Chronic right hip pain 04/14/201903/27 High risk for fracture due t o osteoporosis by DEXA scan 10/20/2018 04/24/2023 Adverse effect of hydrochlorothiazide 05/13/2018 07/17/2018 Overview: Muscle aches Iatrogenic [place]'s syndrome 10/14/2017 12/09/2018 Alcohol ingestion, 1-4 drink s per day on alcohol screening 08/20/2017 09/25/2017 Pure hypercholesterolemia 03/31/2017 Pes anserine bursitis 12/16/20162021 Osteoarthrosis, localized, p rimary, involving lower leg 05/08/2015 03/27/2022 Overview: ICD-10 update of inactive term Anxiety state 04/28/2015 08/30/2021 Hyperlipidemia 04/28/2015 03/31/2017 BMI 35-39 ISOLATED (SEE ACTUAL BMI) 08/07/2009 04/24/2023 Overview: Per Obesity Taxonomy Dyslipidemia, goal to be determined 04/26/2009 04/09/2013 Overview: Per Lipid Taxonomy. Incisional hernia 09/08/2006 07/17/2018 ADVANCE DIRECTIVE INFORMATION 09/06/2004 11/17/2017 Overview: Yes, Patient instructed to provide copy of advance directive for provider to review and to be scanned into Electronic Medical Record Calculus of gallbladder with out mention of cholecystitis or obstruction 01/06/2003 03/08/2003 Mixed dyslipidemia 12/03/2001 9 Overview: Per Lipid Taxonomy. Menopause 12/30/2000 04/24/2023 OBESITY, UNSPECIFIED 01/11/1999 010 Overview: Per Obesity Taxonomy ANXIETY STATE NOS 08/14/1998 04/28/2015 Myalgia and myositis 08/14/1998 018 documented as of this encounter (statuses as of 07/16/2023) Immunizations Name Administration Dates Next Due COVID-19 mRNA, LNP-s, No Pre serve, 2-Dose Series (Pfizer) 08/16/2020,07/26/2020 Pneumococcal Conjugate Vacc, 13 Valent (Prevnar) 04/28/2015 Pneumococcal Polysaccharide PPV23 (Pneumovax) 11/22/2009,05/12/2004 Seasonal Influenza, Quadriva lent Hd (Fluzone Hd) 02/26/2023 Seasonal Influenza, Split, I IV3, With Preserve, Inj 02/19/2014,02/08/2013,03/10/2012,01/11,01/22/2010,01/30/2009,02/23/20 08,03/12/2007 03/08/2004 Seasonal Influenza, Trivalen t, High Dose, No Preserve, IM 03/20/2022,03/10/2015 TDAP (age 11 and older)(Adacel) 06/21/2008 Varicella Zoster Vaccine (Adult) 10/21/2004 Zoster Vaccine Recombinant (Shingrix) 02/08/2019 ,12/07/2018 documented as of this encounter Social History Tobacco Use Types Packs/Day Years Used Date Smoking Tobacco: Never Smokeless Tobacco: Never Alcohol Use Standard Drinks/Week Comments Yes 14 (1 standard drink = 0.6 oz pu re alcohol) Occ. PHQ-2 Answer Date Recorded PHQ Adult Total Score 0 03/27/2022 Hunger Vital Sign Answer Date Recorded Worried About Running Out of Food in the Last Ye ar Never true 02/25/2020 Ran Out of Food in the Last Year Never true 02/25/2020 Sex and Gender Information Value Date Recorded Sex Assigned at Female 09/07/2018 1:43 PM EDT Gender Identity Female 09/07/2018 1:43 PM EDT Sexual Orientation Straight 09/07/2018 1: 43 PM EDT Job Start Date Occupation Industry Not on file Not on file Not on file documented as of this encounter Nursing Notes * Brittany Alcazar LPN - 07/16/2023 11:43 AM EST Pre-Administration Time Out Procedure Performed: Yes Patient Identified (Ask Name/Date of ): Yes Does the patient have a fever greater than 101 degrees today? No Patient allergic to latex? No Has the patient ever fainted after receiving an injection? No VFC Stock: No Injection(s) verified: Yes, Injection Name: B-12 Verified Side and Site: Yes Verified Shot(s) with Parent(s)/Patient: Yes documented in this encounter Plan of Treatment Upcoming Encounters Date Type Department Care Team (Late st Contact Info) Description 08/13/2023 11:30 AM EDT Nurse Only Ancillary [facility] [place] [address] [facility] [place] [address] Nurse, Int Med [address] [place] [address] 08/29/2023 2:45 PM EDT Office Visit Dermatology [facility] [place] [address] [place] [address] Evangelista Barraza MD [address] [facility] [place] [address] 09/10/2023 11:30 AM EDT Nurse Only Ancillary [facility] [place] [address] [place] [address] Nurse, Int Med [address] [place] [address] 10/08/2023 11:30 AM EDT Nurse Only Ancillary [facility] [place] [address] [place] [address] Nurse, Int Med [address] [place] [address] 10/29/2023 2:40 PM EDT Office Visit General Internal Medicine [facility] [place] [address] [place] [address] Evangelista Moran MD [address] [facility] [place] [address] 11/05/2023 11:30 AM EDT Nurse Only Ancillary [facility] [place] [address] [place] [address] Nurse, Int Med [address] [facility] [place] [address] 02/09/2024 1:20 PM EDT Office Visit Rheumatology [place] [address] [facility] [place] [address] Karl Conrad MD [address] [place] [address] Health Maintenance Due Date Last Done Comments DTaP,Tdap,and Td Vaccines (2 - Td or Tdap) 06/21/2018 06/21/2008 COVID-19 Vaccine (3 - season) 2023 08/16/2020, 07/26/2020 TSH 10/15/2023 10/14/2022, 09/09, 05/14/2022, Additional history exists GFR 01/22/2024 01/21/2023, 09/09, 01/29/2022, Additional history exists HbA1c 01/22/2024 01/21/2023, 09/2022, 08/30/2021, Additional history exists Depression Screening 04/24/2024 04/24/2023 DXA Scan 04/23/2025 04/23/2023, 10/10, 10/19/2018, Additional history exists Albumin/Creatinine Ratio 05/14/2025 05/14/2022 Pneumococcal Vaccine: 65+ Years Completed 04/28/2015, 11/22/2009, 05/12/2004 Zoster Vaccines Completed 02/08/2019, 11/10, 10/21/2004 VITAMIN D LEVEL ONCE IN A LIFETIME-USE SMARTSET# [id number] Completed 01/21/2023, 08/30/2021, 10/27/2019, Additional history exists Influenza Vaccine (FLU shot) Completed , 03/20/2022, 03/20/2022, Additional history exists GARDASIL-HPV IMMUNIZATION SERIES Aged Out No longer eligible based on patient's age to complete this topic Hepatitis B Aged Out No longer eligi ble based on patient's age to complete this topic MENINGOCOCCAL (MENACTRA/MENVEO) Aged Out No longer eligible based on patient's age to complete this topic documented as of this encounter Medical Devices Implanted Type Area Dry Mixer Device Identifier Shelf Expiration Date Model / Serial / Lot Lens Intraoc 22.0 - [id number] - [id number] Implanted:Qty: 1 on 09/29/2019 by Edwin Carbone MD at OR [facility] Left: Eye [employer]CH [employer]OMB 03/11/2024 [id number] / [id number] / [id number] Lens Intraoc 20.5 - [id number] - [id number] Implanted:Qty: 1 on 10/05/2019 by Edwin Carbone MD at OR [facility] Right: Eye [employer] LOMB 03/11/2024 [id number] / [id number] / [id number] Cement Hv-R C01a - [id number] Implanted:Qty: 1 on 01/29/2023 by Mak Galloway MD at OR [facility] Spine Thoracic [employer] : NEURO CARE 07/09/2025 [id number] / / [id number] Description:1.5 ml right 1.5 ml left documented as of this encounter Visit Diagnoses Diagnosis Vitamin B12 deficiency- Primary Other B-complex deficiencies documented in this encounter Administered Medications Active Administered Medications - up to 3 most recent administrations Medication Order MAR Action Action Date Dose Rate Site vitamin b-12 (Cyanocobalamin) inj 1,000 mcg 1,000 mcg, Intramuscular, [id number], First dose on Nu 04/24/23 at 1445, Last dose on Nu 02/26/24 at 1445, For 12 doses Given 07/16/2023 11:39 AM EST 1,000 mcg Deltoid Left Lower Given 04/24/2023 2:14 PM EST 1,000 mcg De ltoid Left Upper documented in this encounter Advance Directives Latest Code Status on File Code Status Date Activated Date Inactivated Comments Full Code 01/29/2023 12:32 PM 01/29/2023 7:58 PM This order reflects the patients wishes and were consensually agreed upon. Question Answer Comments Discussion of Advance Directives occurred with: Patient Care Teams Hosiery Knitter Relationship Specialty Start Date End Date Evangelista Moran MD [address] [place] [address] PCP - General Internal Medicine 08/27/17 documented as of this encounter
--- OUTSIDE RECORDS SUMMARY | 2023-07-25 13:58 | External Medical Summary | Summary of Care ---
Author Name Unknown Organization [facility] Address [address] [place] [address] Phone [phone] Care Team Providers Care Press Tender Short Goods Name Role Phone Evangelista Moran MD Primary Care Provider + Reason for Visit * Reason Comments Follow Up 6 month follow up. P atient denied any new concerns. 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; Mixed hyperlipidemia; Pulmonary sarcoidosis (HCC); Granulomatous lung disease (HCC); Recurrent major depressive disorder, in partial remission (HCC); Vitamin B12 deficiency Allergies Active Allergy Reactions Criticality Noted Date Comments Cephalexin Low 04/28/1997 GI upset Corticosteroids Medium 03/08/2019 Palpitations Shellfish Allergy Nausea/vomiting Medium 06/25/2010 Hard shelled shell fish Ezetimibe 04/10/2022 Myalgias documented as of this encounter (statuses as of 04/24/2023) Medications Medication Sig Dispensed Refills Start Date End Date Status VITAMIN D3 5000 UNIT PO CAPS one daily 0 Active Magnesium 500 MG Capsule Take 1 Capsule by mouth in the morning. 1000mg daily. 60 Cap 0 7 Active Multiple Vitamins-Minerals (PRESERVISION AREDS) Tablet Take 1 Tablet by mouth in the morning. 0 Active Melatonin 5 MG Tablet Take 1 Tablet by mouth at bedtime. 0 Active Ramona-3 Fatty Acids (FISH OIL CONCENTRATE) 1000 MG CAPS Take 1300 mg by mouth daily. 0 Active Misc Natural Products (TURMERIC CURCUMIN) CAPS 1200 mg by mouth daily 0 Active Trintellix 5 MG Oral Tablet (Vortioxetine HBr) Take 4 Tablets by mouth in the morning. 0 Active Nurtec 75 MG Oral Tablet Disintegrating As needed 0 2 Active Diclofenac Sodium 1 % External Gel (Voltaren)Indicati ons:Generalized osteoarthritis APPLY 2 GRAMS TO JOINT 4 TIMES A DAY NEEDED FOR PAIN 350 g 1 2 Active Mometasone Furoate 0.1 % External Solution (Elocon)Indication s:Itching in the vaginal area Apply topically to affected area daily. To affected area. 30 mL 5 2 Active Additional Information Patient taking differently:Topical Daily(AM),To affected area. As needed, Reported on 09/27/2022 Levothyroxine Sodium 50 MCG Oral Tablet (Levoxyl)Indicatio ns:Acquired hypothyroidism Take 1 Tablet by mouth daily first thing in the morning. (at least 30 min prior to breakfast or other meds) 90 Tablet 3 3 Active Ibuprofen 600 MG Oral Tablet (Motrin) TAKE BY MOUTH 1 TABLET EVERY 8 HOURS NEEDED (PAIN). WITH FOOD FOR PAIN 90 Tablet 1 3 Active Ventolin HFA 108 (90 Base) MCG/ACT Inhalation Aerosol SolutionIndication s:Acute bronchitis, antibiotics not indicated Inhale 2 Puffs by mouth every 4 hours as needed for Wheezing. 8 g 0 3 Active Ibuprofen 400 MG Oral Tablet (Motrin) Take 1 Tablet by mouth every 8 hours as needed for Pain, Severe. Do not take the same day you take 600 mg tablets 30 Tablet 6 3 Active Losartan Potassium 50 MG Oral Tablet (Cozaar)Indication s:HTN, goal below 140/90 TAKE 1 TABLET BY MOUTH EVERY DAY IN THE MORNING 90 Tablet 1 3 Active Aspirin 81 MG Oral Capsule Take [...] MG-UNIT Oral Tablet Take by mouth. 0 Active Cyanocobalamin 1000 MCG/ML Injection Solution (Cyanocobalamin)In dications:Vitamin B12 deficiency Inject 1,000 mcg as directed every 30 days. 1 mL 2 3 Active Syringe/Needle (Disp) 23G X 1" 3 MLIndications:Esther min B12 deficiency Use to inject Vitamin B12 monthly 1 Each 11 3 Active EFFEXOR XR 75 MG CP24 1 Capsule. Takes with a 37.5 mg daily 2 8 023 Discontinued Famotidine 20 MG Oral Tablet (Pepcid) Take 1 Tablet by mouth every night at bedtime. 34 Tablet 5 3 023 Discontinued(Pa tient preference/disc ontinuation) Syringe/Needle (Disp) 23G X 1" 3 MLIndications:Esther min B12 deficiency Use to inject Vitamin B12 monthly 1 Each 11 3 023 Discontinued(Re fill) Aspirin 325 MG Oral Tablet Take 1 Tablet by mouth in the morning. 30 Tablet 5 3 023 Discontinued(Pa tient preference/disc ontinuation) Amoxicillin-Pot Clavulanate 875-125 MG Oral Tablet (Augmentin)Indicat ions:Acute bronchitis, antibiotics not indicated Take 1 Tablet by mouth in the morning and 1 Tablet before bedtime. Do all this for 10 days. 20 Tablet 0 3 023 Discontinued(Pa tient preference/disc ontinuation) Benzonatate 100 MG Oral Capsule (Tessalon Perles)Indications :Acute bronchitis, antibiotics not indicated Take 1 Capsule by mouth 3 times a day as needed for Cough. Do not cut, crush, or chew. 50 Capsule 1 3 023 Discontinued(Pa tient preference/disc ontinuation) Cephalexin 500 MG Oral Capsule (Keflex) 1 capsule twice daily for 1 week 14 Capsule 0 3 023 Discontinued(Pa tient preference/disc ontinuation) Hospital, Clinic, or Other Facility Administered Medication Ordered Dose Route Frequency Start Date End Date Status vitamin b-12 (Cyanocobalamin) inj 1,000 mcgIndications:Vitami n B12 deficiency 1000 mcg IM [id number] 04/24/2023 03/25/2024 Active vitamin b-12 (Cyanocobalamin) inj 1,000 mcgIndications:Vitami n B12 deficiency 1000 mcg IM [id number] 01/19/2023 04/24/2023 Disconti nued documented as of this encounter (statuses as of 04/24/2023) Active Problems Problem Noted Date Diagnosed Date [...] 01/2017,BCC L neck 09/2016, SCC L chest 2016 Generalized osteoarthritis 05/08/2015 HTN, goal below 140/90 08/14/1998 documented as of this encounter (statuses as of 04/24/2023) Resolved Problems Problem Noted Date Diagnosed Date Resolved Date Disorder of arteries and art erioles, unspecified 08/30/2021 08/30/2021 Lung granuloma 01/06/2020 11/29/2020 Major depression in partial remission 04/14/2019 03/27/2022 Chronic right hip pain 04/14/201903/27 High risk for fracture due t o osteoporosis by DEXA scan 10/20/2018 04/24/2023 Adverse effect of hydrochlorothiazide 05/13/2018 07/17/2018 Overview: Muscle aches 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 12/09/2018 Alcohol ingestion, 1-4 drink [...] as of this encounter (statuses as of 04/24/2023) Immunizations Name Administration Dates Next Due COVID-19 [...] Date Smoking Tobacco: Never Smokeless Tobacco: Never Tobacco Cessation:Counseling Given: Not Answered Alcohol Use Standard Drinks/Week Comments Yes 14 [...] on file documented as of this encounter Last Filed Vital Signs Vital Sign Reading Time Taken Comments Blood Pressure 120/68 04/24/2023 1:42 PM EST Pulse 92 04/24/2023 1:42 PM EST Temperature 36.5 C (97.7 F) 04/24/2023 1:42 PM ES T Respiratory Rate - - Oxygen Saturation 98% 04/24/2023 1:42 PM EST Inhaled Oxygen Concentration - - Weight 80.4 kg (177 lb 3.2 oz) 04/24/2023 1:42 P M EST Height 152.4 cm (5') 04/24/2023 1:42 PM EST Body Mass Index 34.61 04/24/2023 1:42 PM EST documented in this encounter Patient Instructions * Patient Instructions* Tam Pittman CMA - 04/24/2023 1:45 PM EST Patient Instructions - Fall Prevention (This education is for all patients over 65 regardless of symptoms) Remember to take your current medications as prescribed. In order to prevent falls, you are encouraged to: Exercise Utilize assistive/adaptive devices Avoid multifocal lenses when walking Avoid hazards in home Maintain a regular toileting schedule Any questions please contact our office. Preventing Falls in the Home (This education is for all patients over 65 regardless of symptoms) As you get older, falls are more likely. Thats because your reaction time slows. Your muscles and joints may also get stiffer, making them less flexible. Illness, medications, and vision changes can also affect your balance. A fall could leave you unable to live on your own. To make your home safer, follow these tips: Floors Put nonskid pads under area rugs Remove throw rugs Replace worn floor coverings Tack carpets firmly to each step on carpeted stairs. Put nonskid strips on the edges of uncarpeted stairs Keep floors and stairs free of clutter and cords Arrange furniture so there are clear pathways Clean up any spills right away Bathrooms Install grab bars in the tub or shower Apply nonskid strips or put a nonskid rubber mat in the tub or shower Sit on a bath chair to bathe Use bathmats with nonskid backing Lighting Keep a flashlight in each room Put a nightlight along the pathway between the bedroom and the bathroom [employer] Patient Education Copyright 2008 - 2010 [employer] except where otherwise noted Preventing Falls: Exercises to Improve Balance, Flexibility, Strength, and Staying Power (This education is for all patients over 65 regardless of symptoms) Certain types of exercises may help make you less likely to fall. Try the ones below. Or do other exercises that your healthcare provider suggests. Depending on your health, you may need to start slowly. Dont let that stop you. Even small amounts of exercise can help you. Be sure to talk to yourhealthcare provider before starting any exercise program. Improve Balance Many types of exercise can help improve balance. Matt chi and yoga are good examples. Heres another one to try. You can do it anytime and almost anywhere. Stand next to a counter or solid support. Push yourself up onto your tiptoes. Hold for 5 seconds. If you start to lose your balance, hold on to the counter. Rest and repeat 5 times. Work up to holding for 20 to 30 seconds, if you can. Increase Flexibility Being more flexible makes it easier for you to move around safely. Try exercises like the seated hamstring stretch. Sit in a chair and put one foot on a stool. Straighten your leg and reach with both hands down either side of your leg. Reach as far down your leg as you can. Hold for about 20 seconds. Go back to the starting position. Then repeat 5 times. Switch legs. Build Strength Resistance exercises help build strength. You can do them without equipment. Or you can use weights, elastic bands, or special machines. One such exercise is called the biceps curl. You can hold a 1 pound weight or even a can of soup. Do this exercise at least 3 times a week. Strive for everyday. Sit up straight in a chair. Keep your elbow close to your body and your wrist straight. Bend your arm, moving your hand up to your shoulder. Then slowly lower your arm. Repeat 5 times. Switch to the other arm. Build Your Staying Power Aerobic exercises make your heart and lungs stronger so you can keep moving longer. Walking and swimming are two of the best types of exercises you can do. Using a stationary bike is great, too. Find an aerobic exercise that you enjoy. Start slowly and build up. Even 5 minutes is helpful. Aimfor a goal of 30 minutes, at least 3 times a week. You dont have to do 30 minutes in one session. Break it up and walk a little throughout the day. More Helpful Tips Start easy. Slowly work up to doing more. Talk with your healthcare provider about the best exercises for you. Call senior centers or health clubs about exercise programs. If needed, have a family member watch you walk every so often to check your stability. Exercise with a friend. Choose an activity you both enjoy. Try exercises that you can do anytime, anywhere. Here are two examples. Have someone with you when you first try these: Practice walking by placing one foot right in front of the other. Stand up and sit down 10 times. Repeat this throughout the day. [employer] Patient Education Copyright 2009 - 2010 [employer] except where otherwise noted. Preventing Falls: Moving Safely Using a Cane or Walker (This education is for all patients over 65 regardless of symptoms) Keep the cane away from your feet so you dont trip. A walking aid, such as a cane or walker, can help you stay more independent and avoid falls. Remember to keep your walking aid within easy reach when youre in a chair or in bed. And learn how to use it safely so you dont injure yourself. Using a Cane If you have a stronger side, hold the cane on that side. Get your balance. Move the cane and your weaker leg forward. Support your weight on both the cane and your weaker side. Step with your stronger leg. Start again from step 1. If youre using a folding walker, be sure you know how to lock it open. Check that its locked open before each use. Using a Walker Roll the walker (or lift it, if youre using one without wheels) forward about 12 inches. Step forward with your weaker leg first. Use the walker to help keep your balance. Bring your other foot forward to the center of the walker. Start again from step 1. Helpful Tips Check with your healthcare provider about the right walking aid to use. Ask about a walker with a seat attached. Check the tips of your cane or walker to make sure they have nonskid covers. Move slowly from room to room. Dont moreno. Sit down to get dressed. Use a gonzalo pack or backpack to keep your hands free. Get help for jobs that mean climbing, even on a stepstool. [employer] Patient Education Copyright 2008 - 2010 [employer] except where otherwise noted. Urinary Incontinence Plan of Care Documentation: (This education is for all patients over 65 regardless of symptoms) Current medications reconciled. Patient encouraged to: Practice kegal exercises Provide education materials Use the restroom every 2 hours throughout the day Limit caffeine, alcohol, spicy foods and acidic foods Keep a bladder diary Limit fluid intake 3-4 hours before bed Lose weight Prevent constipation Take fluid pills at a time when you can get to the bathroom quickly Control sugar better if diabetic Limit fluid intake to 60 oz. per day Wear support stockings (TEDs)if you have edema Tam Pittman CMA 04/24/2023 Kegel Exercises Kegel exercises dont require special clothing or equipment. Theyre easy to learn and simple to do. And if you do them right, no one can tell youre doing them, so they can be done almost anywhere. Your doctor, nurse, or physical therapist can answer any questions you have and help you get started. A Weak Pelvic Floor The pelvic floor muscles may weaken due to aging, and vaginal childbirth, injury, surgery, chronic cough, or lack of exercise. If the pelvic floor is weak, your bladder and other pelvic organs may sag out of place. The urethra may also open too easily and allow urine to leak out. Kegel exercises can help you strengthen your pelvic floor muscles so they can better support the pelvic organs and control urine flow. How Kegel Exercises Are Done Try each of the Kegel exercises described below. When youre doing them, try not to move your leg, buttock, or stomach muscles. While youre urinating, try to stop the flow of urine. Start and stop it as often as you can. Contract as if you were stopping your urine stream, but do it when youre not urinating. Tighten your rectum as if trying not to pass gas. Contract your anus, but dont move your buttocks. Helpful Hints Do your Kegels as often as you can. The more you do them, the faster youll feel the results. Pick an activity you do often as a reminder. For instance, do your Kegels every time you sit down. Tighten your pelvic floor before you sneeze, get up from a chair, cough, laugh, or lift. This protects your pelvic floor from injury and can help prevent urine leakage. Try to hold each Kegel for a slow count to five. You probably wont be able to hold them for thatlong at first, but keep practicing. It will get easier as your pelvic floor gets stronger. Eventually, special weights that you place in your vagina may be recommended to help make your Kegels even more effective. [employer] Patient Education Copyright 2008 - 2010 [employer] except where otherwise noted. Here are some helpful tips for your urinary incontinence: (This education is for all patients over 65 regardless of symptoms) Practice Kegel exercises Use the restroom every 2 hours throughout the day Limit caffeine, alcohol, spicy foods, and acidic foods Keep a bladder diary Limit fluid intake 3-4 hours before bed Lose weight Prevent constipation Take fluid pills at a time when can get to the bathroom quickly Control sugar better if diabetic Limit fluid intake to 60 oz. per day Any questions, please feel free to contact our office. documented in this encounter Progress Notes * Evangelista Moran MD - 04/24/2023 2:20 PM EST Chief Complaint Patient presents with Follow Up 6 month follow up. Patient denied any new concerns. SUBJECTIVE: Keisha Tapia is a 77 year old female with PMH as below who presents for follow up htn, hypothyroidism, osteoporosis, sarcoid. No cp, pressure, palpitations. Feels a little deconditioned since had a fall this spring and then back pain from t12 compression fx, did pt and then needed surgery 01/29/23 (had kyphoplasty), pain has resolved there, but wasn't walking as much when had severe pain t12, so feels a little deconditioned. No cough, wheezing, sob. Mood is good, getting new psychiatrist soon as Mela Ralph is moving on. No n/v/d. Is seeing hiroc here and [facility] for osteoporosis, aware she has and med needed, but deferring after sees dmd next week wants their opinion. Has decided not to take Repatha or more med for lipids. Anxiety is stable. Chronic lower back pain better with massage, and pt, will see specialist when goes to [place]. Tremor also improved. 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 1000mg daily. 60 Cap 0 Multiple Vitamins-Minerals (PRESERVISION AREDS) Tablet Take 1 Tablet by mouth in the morning. Melatonin 5 MG Tablet Take 1 Tablet by mouth at bedtime. Ramona-3 Fatty Acids (FISH OIL CONCENTRATE) 1000 MG CAPS Take 1300 mg by mouth daily. Misc Natural Products (TURMERIC CURCUMIN) CAPS 1200 mg by mouth daily Trintellix 5 MG Oral Tablet (Vortioxetine HBr) Take 4 Tablets by mouth in the morning. Levothyroxine Sodium 50 MCG Oral Tablet (Levoxyl) Take 1 Tablet by mouth daily first thing in the morning. (at least 30 min prior to breakfast or other meds) 90 Tablet 3 Ibuprofen 600 MG Oral Tablet (Motrin) TAKE BY MOUTH 1 TABLET EVERY 8 HOURS NEEDED (PAIN). WITH FOOD FOR PAIN 90 Tablet 1 Ibuprofen 400 MG Oral Tablet (Motrin) Take 1 Tablet by mouth every 8 hours as needed for Pain, Severe. Do not take the same day you take 600 mg tablets 30 Tablet 6 Losartan Potassium 50 MG Oral Tablet (Cozaar) TAKE 1 TABLET BY MOUTH EVERY DAY IN THE MORNING 90 Tablet 1 Aspirin 81 MG Oral Capsule Take by mouth. Venlafaxine HCl ER 75 MG Oral Capsule Extended Release 24 Hour (Effexor XR) Take 1 Capsule by mouthin the morning. Take with 37.5. Venlafaxine HCl ER 37.5 MG Oral Capsule Extended Release 24 Hour (Effexor XR) Take 1 Capsule by mouth in the morning. Take with 75mg. Calcium 600+D3 Plus Minerals 600-800 MG-UNIT Oral Tablet Take by mouth. Cyanocobalamin 1000 MCG/ML Injection Solution (Cyanocobalamin) Inject 1,000 mcg as directed every 30 days. 1 mL 2 Syringe/Needle (Disp) 23G X 1" 3 ML Use to inject Vitamin B12 monthly 1 Each 11 Nurtec 75 MG Oral Tablet Disintegrating As needed (Patient not taking: Reported on 03/04/2023) Diclofenac Sodium 1 % External Gel (Voltaren) APPLY 2 GRAMS TO JOINT 4 TIMES A DAY NEEDED FOR PAIN 350 g 1 Mometasone Furoate 0.1 % External Solution (Elocon) Apply topically to affected area daily. To affected area. (Patient taking differently: Apply topically to affected area daily. To affected area. Asneeded) 30 mL 5 Ventolin HFA 108 (90 Base) MCG/ACT Inhalation Aerosol Solution Inhale 2 Puffs by mouth every 4 hours as needed for Wheezing. 8 g 0 Current Facility-Administered Medications Medication Dose Route Frequency Provider Last Rate Last Admin vitamin b-12 (Cyanocobalamin) inj 1,000 mcg 1,000 mcg Intramuscular Q4 Weeks Evangelista Moran MD 1,000 mcg at 04/24/23 1414 Review of patient's allergies indicates: Allergen Reactions Corticosteroids Palpitations Shellfish Allergy Nausea/vomiting Hard shelled shell fish Zetia [Ezetimibe] Myalgias Cephalexin GI upset Health Maintenance Due Topic Date Due DTaP,Tdap,and Td Vaccines (2 - Td or Tdap) 06/21/2018 *BISPHONATE OR OTHER ACCEPTABLE MEDICATION NEEDED FOR OSTEOPOROSIS (REFER TO SMARTSET #1146) Never done COVID-19 Vaccine () 01/10/2023 Depression Screening 03/27/2023 ROS: CONSTITUTIONAL: No change in weight, No weakness, and No fevers, sweats, or chills EYE: No recent significant change in vision, No eye pain, redness, discharge, and No diplopia EARS: No ear pain, No drainage, No tinnitus or vertigo, and No recent change in hearing PULMONARY: No recent change in breathing CARDIOVASCULAR: No chest pain, No orthopnea, No paroxysmal nocturnal dyspnea, No edema, No palpitations, and No syncope GASTROINTESTINAL: No abdominal pain, No change in bowel habits, No significant heartburn, No significant change in appetite, No nausea, vomiting, diarrhea, or constipation, No hematemesis, No blood in stools or black tarry stools, No abdominal bloating or early satiety, and No dysphagia ALL OTHER SYSTEMS NEGATIVE I reviewed social, PMH, PSH, and family history and updated where needed. Social History Socioeconomic History Marital status: Spouse name: Anastacio Number of children: 2 Years of education: Not on file Highest education level: Not on file Occupational History Occupation: [employer] Employer: [employer] Tobacco Use Smoking status: Never Smokeless tobacco: Never Vaping Use Vaping Use: Never used Substance and Sexual Activity Alcohol use: Yes Alcohol/week: 14.0 standard drinks of alcohol Types: 14 5 oz of wine per week Comment: Occ. Drug use: No Sexual activity: Yes Partners: Male Other Topics Concern Service Not Asked Blood Transfusions Not Asked Caffeine Concern Not Asked Occupational Exposure Not Asked Hobby Hazards Not Asked Sleep Concern Not Asked Stress Concern Not Asked Weight Concern Not Asked Special Diet Yes Comment: milk, no Ca, Takes Vit d Back Care Not Asked Exercise Yes Comment: walks 40 min Bike Helmet Not Asked Seat Belt Not Asked Self-Exams Not Asked Social History Narrative Not on file Social Determinants of Health Financial Resource Strain: Not on file Food Insecurity: No Food Insecurity (02/25/2020) Hunger Vital Sign Worried About Running Out of Food in the Last Year: Never true Ran Out of Food in the Last Year: Never true Transportation Needs: Not on file Physical Activity: Not on file Stress: Not on file Social Connections: Not on file Intimate Partner Violence: Not on file Housing Stability: Not on file Past Medical History: Diagnosis Date Acquired hypothyroidism 08/20/2017 Adverse effect of hydrochlorothiazide 05/13/2018 Anxiety state Calculus of gallbladder without mention of cholecystitis or obstruction 01/2003 Gallstones marie 01/2003 CAMPOS II (cervical intraepithelial neoplasia II) Generalized osteoarthritis 05/08/2015 Genital warts Granulomatous lung disease (HCC) 10/27/2019 High risk for fracture due to osteoporosis by DEXA scan 10/20/2018 HTN, goal below 140/90 Hx of nonmelanoma skin cancer 01/31/2017 SCCIS R chest 10/2018, SCCIS R wrist 01/2017, BCC L neck 09/2016, SCC L chest 2016 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 Major depression in partial remission (HCC) 04/14/2019 Menopause Mixed hyperlipidemia 03/31/2019 Sarcoidosis Vitamin B12 deficiency 10/05/2021 Past Surgical History: Procedure Laterality Date BRAIN ANEURYSM,CAROTID CMPLX 01/2022 she underwent DSA with successful WEB embolization of left MCA bifurcation aneurysm and Surpass Evolve stent to left supraclinoid aneurysm at CAROTID (INTERNAL) ARTERY CATHETHER PLACEMENT Right 11/08/2021 CATHETER PLACEMENT INTERNAL CAROTID ARTERY performed by Manuelito Land [place] [facility] [place]COPY 05/16/2005 normal [facility], repeat 10 years COLONOSCOPY, DIAGNOSTIC (RECTUM) 10/27/2015 diverticulitis, diverticulosis/COLONOSCOPY FLEXIBLE PROXIMAL DIAGNOSTIC performed by Isabella Truong MD at ENDOSCOPY [facility] CORONARY ANGIOGRAPHY W/LEFT HEART CATH 08/16/2010 CORONARY ANGIOGRAPHY W/LEFT HEART CATH performed by SKYLAR NEGRON at [place] DEXA SCAN/BONE MINERAL AXIAL 06/14/2013 done in [place] DILATION AND CURETTAGE (D&C) D&C EGD, FLEXIBLE, DIAGNOSTIC 10/21/2015 , repeat 3 mo/inpt [facility] EGD, FLEXIBLE, DIAGNOSTIC 01/16/2016 mild inflammation on bx, gastric polyps/ESOPHAGOGASTRODUODENOSCOPY (EGD), FLEXIBLE, TRANSORAL, DIAGNOSTIC performed by Jermain Harding DO at ENDOSCOPY [facility] INJECTION LUMBAR/SACRAL 11/09/2014 INJECTION SPINE LUMBAR OR SACRAL performed by Hurst Jim Kenney, DO at OR [facility] INJECTION LUMBAR/SACRAL 11/23/2014 INJECTION SPINE LUMBAR OR SACRAL performed by Hurst Jim Kenney, DO at OR [facility] INJECTION LUMBAR/SACRAL 05/23/2015 INJECTION SPINE LUMBAR OR SACRAL performed by Jaxon Jim Kenney, DO at OR [facility] INJECTION LUMBAR/SACRAL 02/22/2016 INJECTION SPINE LUMBAR OR SACRAL performed by [facility] Pablito, DO at OR [facility] IR VERTEBRAL AUGMENTATION THORACIC N/A 01/29/2023 PERCUTANEOUS VERTEBRAL AUGMENTATION THORACIC KYPHOPLASTY performed by Mak Galloway MD at OR [facility] LAPAROSCOPY, CHOLECYSTECTOMY WITH CHOLANGIOGRAPHY 01/12/2003 Cholecystectomy, Laproscopic with cholangiogram with Dr. Pereyra, [facility] [place] MISCELLANEOUS ORDER 1981 Tubal Ligation 1980 PUNCTURE DRAINAGE BREAST CYST Right 2007 benign REMOVAL OF APPENDIX 12/2004 done in [place] REMOVE CATARACT, INSERT LENS PROSTH Left 09/29/2019 left EXTRACAPSULAR CATARACT REMOVAL WITH INTRAOCULAR LENS performed by Edwin Carbone MD at OR [facility] REMOVE CATARACT, INSERT LENS PROSTH Right 10/05/2019 right EXTRACAPSULAR CATARACT REMOVAL WITH INTRAOCULAR LENS performed by Edwin Carbone MD at OR [facility] SACROILIAC JOINT INJECT W/GUIDANCE Left 12/12/2015 INJECTION SACROILIAC JOINT performed by Jaxon Kenney, at OR [facility] STRESS ECHO (EXERCISE) 04/11/2005 normal, [facility], Dr Poonam Simmons UNLISTED LAPAROSCOPY;HERNIA 09/10/[address] Pereyra VERTEBRAL ARTERY CATHETER PLACEMENT Right 11/08/2021 CATHETER PLACEMENT VERTEBRAL ARTERY, performed by Manuelito Land MD [place] [facility] Family History Problem Relation Age of Onset Hypertension Mother Mental Disorder Mother bipolar Allergies Mother Osteo Eye Problems Mother Macular Degeneration Thyroid Disorder Mother Nodule- thyroid removed 40 years ago Cancer Father prostate Heart Disorder Father Stroke Father Stroke in late 70's Cancer Aunt (Unspecified) Maternal pancreatic Mental Disorder Sister depression OBJECTIVE: PHYSICAL EXAM: BP 120/68 | Pulse 92 | Temp 36.5 C (97.7 F) | Ht 1.524 m (5') | Wt 80.4 kg (177 lb 3.2 oz) | SpO2 98% | BMI 34.61 kg/m | BSA 1.84 m General: alert, healthy, and no distress Head: Normocephalic, No masses, lesions, tenderness or abnormalities Eye Exam: conjunctiva are pink and non-injected, sclera clear Ears: External ears normal, Canals clear, TM's Normal Nose: no mucosal erythema, no mucosal edema, no purulent discharge Oropharynx: no exudate, no erythema, lips, buccal mucosa, and tongue normal, and mucous membranes are moist Heart: regular rate & rhythm, no murmur, no gallops, PMI non-displaced, S-1 normal, and S-2 normal Lungs: normal respiratory rate and rhythm, lungs clear to auscultation Back: no large masses, or redness Psych: normal affect, no flight of ideas or tangential thought, good eye contact, no pressured speech 04/23/23 dexa: 1. The fracture risk is HIGH (based on T-score at or below -2.5) 2. The quality of the examination is GOOD. 3. No previous study for comparison. 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 E78.2 Mixed hyperlipidemia D86.0 Pulmonary sarcoidosis (HCC) J84.10 Granulomatous lung disease (HCC) F33.41 Recurrent major depressive disorder, in partial remission (HCC) E53.8 Vitamin B12 deficiency PLAN: Age-related osteoporosis with current pathological fracture with routine healing, subsequent encounter (Primary) Still high risk, also had compression fx (albeit with fall) so would recommend treatment, she is awaiting dmd visit and will get back to us Compression fracture of T12 vertebra, sequela S/p kyphoplasty, doing well Chronic bilateral low back pain without sciatica Sees specialist in [place] Cont massage HTN, goal below 140/90 Cont losartan Risk and functional assessment Acquired hypothyroidism - TSH; Future; Expected date: 04/24/2023 Cont levothyroxine 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 - Syringe/Needle (Disp) 23G X 1" 3 ML; Use to inject Vitamin B12 monthly Follow Up: Return in about 6 months (around 10/24/2023), or if symptoms worsen or fail to improve, for Labs Today. | For: Labs Today Evangelista Moran MD documented in this encounter Nursing Notes * Tam Pittman CMA - 04/24/2023 1:36 PM EST Chief Complaint Patient presents with Follow Up 6 month follow up. Patient denied any new concerns. documented in this encounter Plan of Treatment Upcoming Encounters Date Type Department Care Team (Late st Contact Info) Description 07/16/2023 11:30 AM EST Nurse Only Ancillary [facility] [place] [address] [facility] [address] [place] [address] Nurse, Int Med [address] [facility] [place] [address] 08/27/2023 10:00 AM EDT Office Visit Cardiology, [facility] [address] [facility] [place] [address] Lizz Mcnally PA-C [address] [facility] [place] [address] 10/29/2023 2:40 PM EDT Office Visit General Internal Medicine [facility] [place] [address] [facility] [place] [address] Evangelista Moran MD [address] [facility] [place] [address] 02/09/2024 1:20 PM EDT Office Visit Rheumatology [address] [place] [address] Karl Conrad MD [facility] [place] [address] Scheduled Orders Name Type Priority Associated Diagnoses Orde r Schedule TSH Lab Routine Acquired hypothyroidism Expected: 04/24/2023 (Approximate), Expires: 04/23/2024 VITAMIN B12 Lab Routine Vitamin B12 deficiency Expected: 04/24/2023 (Approximate), Expires: 04/23/2024 Health Maintenance Due Date Last Done Comments DTaP,Tdap,and Td Vaccines (2 - Td or Tdap) 06/21/2018 06/21/2008 *BISPHONATE OR OTHER ACCEPTABLE MEDICATION NEEDED FOR OSTEOPOROSIS (REFER TO SMARTSET #1146) 10/22/2018 COVID-19 Vaccine (3 - season) 2023 08/16/2020, 07/26/2020 Depression Screening 03/27/2023 04/24/2023 TSH 10/15/2023 10/14/2022, 09/09, 05/14/2022, Additional history exists GFR 01/22/2024 01/21/2023, 09/09, 01/29/2022, Additional history exists HbA1c 01/22/2024 01/21/2023, 09/2022, 08/30/2021, Additional history exists DXA Scan 04/23/2025 04/23/2023, 10/10, 10/19/2018, Additional history exists Albumin/Creatinine Ratio 05/14/2025 05/14/2022 Pneumococcal Vaccine: 65+ Years Completed 04/28/2015, 11/22/2009, 05/12/2004 Zoster Vaccines Completed 02/08/2019, 11/10, 10/21/2004 VITAMIN D LEVEL ONCE IN A LIFETIME-USE SMARTSET# [id number] Completed 01/21/2023, 08/30/2021, 10/27/2019, Additional history exists [...] this encounter Medical Devices Implanted Type Area Maintenance Supervisor Mechanical Device Identifier Shelf Expiration Date Model / Serial / Lot Lens Intraoc 22.0 - [id number] - [id number] Implanted:Qty: 1 on 09/29/2019 by Edwin Carbone MD at OR [facility] Left: Eye [employer]OM[employer] 03/11/2024 [id number] / [id number] / [id number] Lens Intraoc 20.5 - [id number] - [id number] Implanted:Qty: 1 on 10/05/2019 by Edwin Carbone MD at OR [facility] Right: Eye [employer]OMB 03/11/2024 [id number] / [id number] / [id number] Cement Hv-R C01a - [id number] Implanted:Qty: 1 on 01/29/2023 by Mak Galloway MD at OR [facility] Spine Thoracic [employer] : NEURO CARE 07/09/2025 C01A / / [id number] Description:1.5 ml right 1.5 ml left documented as of this encounter Visit Diagnoses Diagnosis Age-related osteoporosis with current pathological fracture with routine healing, subsequent encounter- Primary Compression fracture of T12 vertebra, sequela Chronic bilateral low back pain without sciatica HTN, goal below 140/90 Unspecified essential hypertension Risk and functional assessment Screening for unspecified condition Acquired hypothyroidism Unspecified hypothyroidism 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 Mixed hyperlipidemia Pulmonary sarcoidosis (HCC) Sarcoidosis Granulomatous lung disease (HCC) Other diseases of lung, not elsewhere classified Recurrent major depressive disorder, in partial remission (HCC) Vitamin B12 deficiency Other B-complex deficiencies documented in this encounter Administered Medications Active Administered Medications - up to 3 most recent administrations Medication Order MAR Action Action Date Dose Rate Site vitamin b-12 (Cyanocobalamin) inj 1,000 mcg 1,000 mcg, Intramuscular, [id number], First dose on Fri04/24/23 at 1445, Last dose on Fri02/26/24 at 1445, For 12 doses Given 04/24/2023 2:14 PM EST 1,000 mcg Deltoid Left Upper documented in this encounter Advance Directives Latest Code Status on File Code Status Date Activated Date Inactivated Comments Full Code 01/29/2023 12:32 PM 01/29/2023 7:58 PM This order reflects the patients wishes and were consensually agreed upon. Question Answer Comments Discussion of Advance Directives occurred with: Patient Care Teams Press Tender Short Goods Relationship Specialty Start Date End Date Evangelista Moran MD [address] [place] [address] PCP - General Internal Medicine 08/27/17 documented as of this encounter
--- OUTSIDE RECORDS SUMMARY | 2023-07-25 13:59 | External Medical Summary | Summary of Care ---
Author Name Unknown Organization [facility] [address] [facility] [address] Phone [phone] Care Team Providers Care Line Servicer Name Role Phone Evangelista Moran MD Primary Care Provider + Reason for Visit * Reason Onset Date Comments Test Results 03/28/2023 Encounter Details Date Type Department Care Team (Late st Contact Info) Description 03/28/2023 Telephone Cardiology, [facility] [address] [place] [address] Dayton Simmons MD [address] [place] [address] Test Results Allergies Active Allergy Reactions Criticality Noted Date Comments Cephalexin Low 04/28/1997 GI upset Corticosteroids Medium 03/08/2019 Palpitations Shellfish Allergy Nausea/vomiting Medium 06/25/2010 Hard shelled shell fish Ezetimibe 04/10/2022 Myalgias documented as of this encounter (statuses as of 03/28/2023) Medications Medication Sig Dispensed Refills Start Date End Date Status VITAMIN D3 5000 UNIT PO CAPS one daily 0 Active Magnesium 500 MG Capsule Take 1 Capsule by mouth in the morning. 1000mg daily. 60 Cap 0 03/31/2017 Active Multiple Vitamins-Minerals (PRESERVISION AREDS) Tablet Take 1 Tablet by mouth in the morning. 0 Active EFFEXOR XR 75 MG CP24 1 Capsule. Takes with a 37.5 mg daily 2 03/30/2018 Active Melatonin 5 MG Tablet Take 1 Tablet by mouth at bedtime. 0 Active Howe-3 Fatty Acids (FISH OIL CONCENTRATE) 1000 MG CAPS Take 1300 mg by mouth daily. 0 Active Misc Natural Products (TURMERIC CURCUMIN) CAPS 1200 mg by mouth daily 0 Active Trintellix 5 MG Oral Tablet (Vortioxetine HBr) Take 4 Tablets by mouth in the morning. 0 Active Nurtec 75 MG Oral Tablet Disintegrating As needed 0 03/06/2022 Active Diclofenac Sodium 1 % External Gel (Voltaren)Indication s:Generalized osteoarthritis APPLY 2 GRAMS TO JOINT 4 TIMES A DAY NEEDED FOR PAIN 350 g 1 03/27/2022 Active Mometasone Furoate 0.1 % External Solution (Elocon)Indications: Itching in the vaginal area Apply topically to affected area daily. To affected area. 30 mL 5 03/27/2022 Active Additional Information Patient taking differently:Topical Daily(AM),To affected area. As needed, Reported on 09/27/2022 Famotidine 20 MG Oral Tablet (Pepcid) Take 1 Tablet by mouth every night at bedtime. 34 Tablet 5 11/08/2022 Active Syringe/Needle (Disp) 23G X 1" 3 MLIndications:Vitami n B12 deficiency Use to inject Vitamin B12 monthly 1 Each 11 11/22/2022 Active Levothyroxine Sodium 50 MCG Oral Tablet (Levoxyl)Indications :Acquired hypothyroidism Take 1 Tablet by mouth daily first thing in the morning. (at least 30 min prior to breakfast or other meds) 90 Tablet 3 11/22/2022 Active Aspirin 325 MG Oral Tablet Take 1 Tablet by mouth in the morning. 30 Tablet 5 11/26/2022 Active Additional Information Patient taking differently: 81 mgOral Daily(AM), Reported on 01/23/2023 Ibuprofen 600 MG Oral Tablet (Motrin) TAKE BY MOUTH 1 TABLET EVERY 8 HOURS NEEDED (PAIN). WITH FOOD FOR PAIN 90 Tablet 1 01/06/2023 Active Ventolin HFA 108 (90 Base) MCG/ACT Inhalation Aerosol SolutionIndications: Acute bronchitis, antibiotics not indicated Inhale 2 Puffs by mouth every 4 hours as needed for Wheezing. 8 g 0 03/04/2023 Active Benzonatate 100 MG Oral Capsule (Tessalon Perles)Indications:A cute bronchitis, antibiotics not indicated Take 1 Capsule by mouth 3 times a day as needed for Cough. Do not cut, crush, or chew. 50 Capsule 1 03/10/2023 Active Cephalexin 500 MG Oral Capsule (Keflex) 1 capsule twice daily for 1 week 14 Capsule 0 03/13/2023 Active Ibuprofen 400 MG Oral Tablet (Motrin) Take 1 Tablet by mouth every 8 hours as needed for Pain, Severe. Do not take the same day you take 600 mg tablets 30 Tablet 6 03/20/2023 Active Losartan Potassium 50 MG Oral Tablet (Cozaar)Indications: HTN, goal below 140/90 TAKE 1 TABLET BY MOUTH EVERY DAY IN THE MORNING 90 Tablet 1 03/22/2023 Active Hospital, Clinic, or Other Facility Administered Medication Ordered Dose Route Frequency Start Date End Date Status vitamin b-12 (Cyanocobalamin) inj 1,000 mcgIndications:Vitamin B12 deficiency 1000 mcg IM [id number] 01/19/2023 12/21/2023 Active documented as of this encounter (statuses as of 03/28/2023) Active Problems Problem Noted Date Diagnosed Date [...] Granulomatous lung disease 10/27/2019 Mixed hyperlipidemia 03/31/2019 High risk for fracture due to osteoporosis by DE XA scan 10/20/2018 Hx of actinic keratosis 10/12/2018 Chronic insomnia 09/07/2018 Acquired hypothyroidism 08/20/2017 Hx of nonmelanoma skin cancer 01/31/2017 Overview: SCCIS R chest 10/2018, SCCIS R wrist 01/2017,BCC L neck 09/2016, SCC L chest 2016 Generalized osteoarthritis 05/08/2015 BMI 35-39 ISOLATED (SEE ACTUAL BMI) 08/07/2009 Overview: Per Obesity Taxonomy Menopause 12/30/2000 HTN, goal below 140/90 08/14/1998 documented as of this encounter (statuses as of 03/28/2023) Resolved Problems Problem Noted Date Diagnosed Date Resolved Date Disorder of arteries and art erioles, unspecified 08/30/2021 08/30/2021 Lung granuloma 01/06/2020 11/29/2020 Major depression in partial remission 04/14/2019 03/27/2022 Chronic right hip pain 04/14/201903/27 Adverse effect of hydrochlorothiazide 05/13/2018 07/17/2018 Overview: Muscle aches Iatrogenic [place]'s syndrome 10/14/2017 12/09/2018 Alcohol ingestion, 1-4 drink s per day on alcohol screening 08/20/2017 09/25/2017 Pure hypercholesterolemia 03/31/2017 Pes anserine bursitis 12/16/20162021 Osteoarthrosis, localized, p rimary, involving lower leg 05/08/2015 03/27/2022 Overview: ICD-10 update of inactive term Anxiety state 04/28/2015 08/30/2021 Hyperlipidemia 04/28/2015 03/31/2017 Dyslipidemia, goal to be determined 04/26/2009 04/09/2013 Overview: Per Lipid Taxonomy. Incisional hernia 09/08/2006 07/17/2018 ADVANCE DIRECTIVE INFORMATION 09/06/2004 11/17/2017 Overview: Yes, Patient instructed to provide copy of advance directive for provider to review and to be scanned into Electronic Medical Record Calculus of gallbladder with out mention of cholecystitis or obstruction 01/06/2003 03/08/2003 Mixed dyslipidemia 12/03/2001 12/16/200 9 Overview: Per Lipid Taxonomy. OBESITY, UNSPECIFIED 01/11/1999 010 Overview: Per Obesity Taxonomy ANXIETY STATE NOS 08/14/1998 04/28/2015 Myalgia and myositis 08/14/1998 018 documented as of this encounter (statuses as of 03/28/2023) Immunizations Name Administration Dates Next Due COVID-19 [...] on file documented as of this encounter Miscellaneous Notes * Telephone Encounter - Mel Torres CMA - 03/28/2023 12:26 PM EST Scheduled for August. Message to pt to confirm. * Telephone Encounter - Mel Torres CMA - 03/28/2023 12:24 PM EST ----- Message from Dayton Simmons MD sent at 03/27/2023 12:36 PM EST ----- Cardiology appointment 3 to 6 months ----- Message ----- From: Shakira Cook [facility] Sent: 03/13/2023 9:26 AM EST To: Dayton Simmons MD; Evangelista Moran MD Will forward to PCP and cardiology provider Patient declined PCSK9 (see myG messages) and doesn't wish to follow with MTM any longer documented in this encounter Plan of Treatment Upcoming Encounters Date Type Department Care Team (Late st Contact Info) Description 04/22/2023 10:45 AM EST Office [facility] [address] [place] [address] [place] [address] Mak Galloway MD [address] [place] [address] [place] [address] 04/23/2023 2:30 PM EST Imaging Radiology, [facility] [address] [place] [address] 04/24/2023 1:40 PM EST Office Visit General Internal Medicine [facility] [place] [address] [place] [address] Evangelista Moran MD [address] [facility] [place] [address] 05/16/2023 10:45 AM EST Office Visit Orthopaedics Spine Surgery, [facility] [address] [facility] [place] [address] Mak Galloway MD [address] [place] [address] [place] [address] 08/27/2023 10:00 AM EDT Office Visit Cardiology, [facility] [address] [facility] [place] [address] Lizz Mcnally PA-C [address] [place] [id number] 02/09/2024 1:20 PM EDT Office Visit Rheumatology [place] [address] [employer] [place] [address] Karl Conrad MD [facility] [employer] [place] [address] Health Maintenance Due Date Last Done Comments DTaP,Tdap,and Td Vaccines (2 - Td or Tdap) 06/21/2018 06/21/2008 *BISPHONATE OR OTHER ACCEPTABLE MEDICATION NEEDED FOR OSTEOPOROSIS (REFER TO SMARTSET #1146) 10/22/2018 DXA Scan 10/19/2020 10/19/2018, 10/10, 01/09/2010, Additional history exists COVID-19 Vaccine ( season) 2023 08/16/2020, 07/26/2020 Depression Screening 03/27/2023 03/27/2022 TSH 10/15/2023 10/14/2022, 09/09, 05/14/2022, Additional history exists GFR 01/22/2024 01/21/2023, 09/09, 01/29/2022, Additional history exists HbA1c 01/22/2024 01/21/2023, 06/09/2022, 08/30/2021, Additional history exists Albumin/Creatinine Ratio 05/14/2025 05/14/2022 Pneumococcal Vaccine: 65+ Years Completed 04/28/2015, 11/22/2009, 05/12/2004 Zoster Vaccines Completed 02/08/2019, 11/10, 10/21/2004 VITAMIN D LEVEL ONCE IN A LIFETIME-USE SMARTSET# [id number] Completed 01/21/2023, 08/30/2021, 10/27/2019, Additional history exists [...] this encounter Medical Devices Implanted Type Area Curtains And Draperies Salesperson Device Identifier Shelf Expiration Date Model / Serial / Lot Lens Intraoc 22.0 - [id number] - [id number] Implanted:Qty: 1 on 09/29/2019 by Edwin Carbone MD at OR [facility] Left: Eye [employer]OM[employer] 03/11/2024 [id number] / [id number] / [id number] Lens Intraoc 20.5 - [id number] - [id number] Implanted:Qty: 1 on 10/05/2019 by Edwin Carbone MD at OR [facility] Right: Eye [employer] LOMB 03/11/2024 [id number] / [id number] / [id number] Cement Hv-R C01a - [id number] Implanted:Qty: 1 on 01/29/2023 by Mak Galloway MD at OR [facility] Spine Thoracic [employer] : NEURO CARE 07/09/2025 C01A / / [id number] Description:1.5 ml right 1.5 ml left documented as of this encounter Advance Directives Latest Code Status on File Code Status Date Activated Date Inactivated Comments Full Code 01/29/2023 12:32 PM 01/29/2023 7:58 PM This order reflects the patients wishes and were consensually agreed upon. Question Answer Comments Discussion of Advance Directives occurred with: Patient Care Teams Line Servicer Relationship Specialty Start Date End Date Evangelista Moran MD [address] [facility] [place] [address] PCP - General Internal Medicine 08/27/17 documented as of this encounter
--- OUTSIDE RECORDS SUMMARY | 2023-07-25 13:59 | External Medical Summary | Summary of Care ---
Author Name Unknown Organization [facility] Address [address] [place] [address] Phone [phone] Care Team Providers Care Yarder Name Role Phone Evangelista Moran MD Primary Care Provider + Encounter Details Date Type Department Care Team (Late st Contact Info) Description 03/21/2023 Patient Reported Data Patient Survey Ortho OBERD Allergies Active Allergy Reactions Criticality Noted Date Comments Cephalexin Low 04/28/1997 GI upset Corticosteroids Medium 03/08/2019 Palpitations Shellfish Allergy Nausea/vomiting Medium 06/25/2010 Hard shelled shell fish Ezetimibe 04/10/2022 Myalgias documented as of this encounter (statuses as of 03/21/2023) Medications Medication Sig Dispensed Refills Start Date [...] Tablet by mouth at bedtime. 0 Active [place]-3 Fatty Acids (FISH OIL CONCENTRATE) 1000 MG [...] FOR PAIN 90 Tablet 1 01/06/2023 Active Losartan Potassium 50 MG Oral Tablet (Cozaar)Indications: HTN, goal below 140/90 TAKE 1 TABLET BY MOUTH EVERY DAY IN THE MORNING 90 Tablet 1 01/31/2023 Active Ventolin HFA 108 (90 Base) MCG/ACT [...] mg tablets 30 Tablet 6 03/20/2023 Active Hospital, Clinic, or Other Facility Administered Medication Ordered Dose Route Frequency Start Date End Date Status vitamin b-12 (Cyanocobalamin) inj 1,000 mcgIndications:Vitamin B12 deficiency 1000 mcg IM [id number] 01/19/2023 12/21/2023 Active documented as of this encounter (statuses as of 03/21/2023) Active Problems Problem Noted Date Diagnosed Date [...] SCC L chest 2015 Generalized osteoarthritis 05/08/2015 BMI 35-39 ISOLATED (SEE ACTUAL BMI) 08/07/2009 Overview: Per Obesity Taxonomy Menopause 12/30/2000 HTN, goal below 140/90 08/14/1998 documented as of this encounter (statuses as of 03/21/2023) Resolved Problems Problem Noted Date Diagnosed Date Resolved Date Disorder of arteries and art erioles, unspecified 08/30/2021 08/30/2021 Lung granuloma 01/06/2020 11/29/2020 Major depression in partial remission 04/14/2019 03/27/2022 Chronic right hip pain 04/14/201903/27 Adverse effect of hydrochlorothiazide 05/13/2018 07/17/2018 Overview: Muscle aches 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 OBESITY, UNSPECIFIED 01/11/1999 010 Overview: Per Obesity Taxonomy ANXIETY STATE NOS 08/14/1998 04/28/2015 Myalgia and myositis 08/14/1998 018 documented as of this encounter (statuses as of 03/21/2023) Immunizations Name Administration Dates Next Due COVID-19 [...] on file documented as of this encounter Plan of Treatment Upcoming Encounters Date Type Department Care Team (Late st Contact Info) Description 04/22/2023 10:45 AM EST Office Visit Orthopaedics Spine Surgery, [facility] [address] [place] [address] Mak Galloway MD [address] [place] [address] [place] [address] 04/23/2023 2:30 PM EST Imaging Radiology, [address] [place] [address] 04/24/2023 1:40 PM EST Office Visit General Internal Medicine [facility] [address] [facility] [place] [address] Evangelista Moran MD [address] [facility] [place], [place] [address] 05/16/2023 10:45 AM EST Office Visit Orthopaedics Spine Surgery, [facility] [address] [place] [address] Mak Galloway MD [address] [place] [address] 02/09/2024 1:20 PM EDT Office Visit Rheumatology [address] [place], [place] [address] Karl Conrad MD [address] [place] [address] [place], [place] [address] Health Maintenance Due Date Last Done Comments DTaP,Tdap,and Td Vaccines (2 - Td or Tdap) 06/21/2018 06/21/2008 *BISPHONATE OR OTHER ACCEPTABLE MEDICATION NEEDED FOR OSTEOPOROSIS (REFER TO SMARTSET #1146) 10/22/2018 DXA Scan 10/19/2020 10/19/2018, 12/12, 01/09/2010 COVID-19 Vaccine ( season) 2023 08/16/2020, 07/26/2020 Depression Screening 03/27/2023 03/27/2022 TSH 10/15/2023 10/14/2022, 09/09, 05/14/2022, Additional history exists GFR 01/22/2024 01/21/2023, 09/09, 01/29/2022, Additional history exists HbA1c 01/22/2024 01/21/2023, 09/2022, 08/30/2021, Additional history exists Albumin/Creatinine Ratio 05/14/2025 05/14/2022 Pneumococcal Vaccine: 65+ Years Completed 04/28/2015, 11/22/2009, 05/12/2004 Zoster Vaccines Completed 02/08/2019, 11/10, 10/21/2004 VITAMIN D LEVEL ONCE IN A LIFETIME-USE SMARTSET# [id number] Completed 01/21/2023, 08/30/2021, 10/27/2019, Additional history exists Influenza Vaccine (FLU shot) Completed , 03/20/2022, 03/10/2015, Additional history exists GARDASIL-HPV IMMUNIZATION SERIES Aged Out No longer eligible based on patient's age to complete this topic Hepatitis B Aged Out No longer eligi ble based on patient's age to complete this topic MENINGOCOCCAL (MENACTRA/MENVEO) Aged Out No longer eligible based on patient's age to complete this topic documented as of this encounter Medical Devices Implanted Type Area Deep Submergence Vehicle Operator Device Identifier Shelf Expiration Date Model / Serial / Lot Lens Intraoc 22.0 - [id number] - [id number] Implanted:Qty: 1 on 09/29/2019 by Edwin Carbone MD at OR [facility] Left: Eye BAUSCH & LOMB 03/11/2024 [id number] / [id number] / [id number] Lens Intraoc 20.5 - [id number] - [id number] Implanted:Qty: 1 on 10/05/2019 by Edwin Carbone MD at OR [facility] Right: Eye BAUSCH & LOMB 03/11/2024 [id number] / [id number] / [id number] Cement Hv-R C01a - [id number] Implanted:Qty: 1 on 01/29/2023 by Mak Galloway MD at OR [facility] Spine Thoracic [employer] : NEURO CARE 07/09/2025 C01A / / [id number] Description:1.5 ml right 1.5 ml left documented as of this encounter Advance Directives Latest Code Status on File Code Status Date Activated Date Inactivated Comments Full Code 01/29/2023 12:32 PM 01/29/2023 7:58 PM This order reflects the patients wishes and were consensually agreed upon. Question Answer Comments Discussion of Advance Directives occurred with: Patient Care Teams Yarder Relationship Specialty Start Date End Date Evangelista Moran MD [address] [place] [address] PCP - General Internal Medicine 08/27/17 documented as of this encounter
--- OUTSIDE RECORDS SUMMARY | 2023-07-25 13:59 | External Medical Summary | Summary of Care ---
Author Name Unknown Organization [facility] Address [address] [place] [address] Phone [phone] Care Team Providers Care Pegger Dobby Looms Name Role Phone Evangelista Moran MD Primary Care Provider + Reason for Visit * Reason Onset Date Comments Adult Annual Wellness Visit, Initial Visit 02/20 Encounter Details Date Type Department Care Team (Late st Contact Info) Description 02/20/2023 Telephone Ancillary [facility] [place] [address] [place] [address] Elba Vergara, JACKIE Adult Annual Wellness Visit, Initial Visit Allergies Active Allergy Reactions Criticality Noted Date Comments Cephalexin Low 04/28/1997 GI upset Corticosteroids Medium 03/08/2019 Palpitations Shellfish Allergy Nausea/vomiting Medium 06/25/2010 Hard shelled shell fish Ezetimibe 04/10/2022 Myalgias documented as of this encounter (statuses as of 03/24/2023) Medications Medication Sig Dispensed Refills Start Date [...] Tablet by mouth at bedtime. 0 Active [place]-3 Fatty Acids (FISH OIL CONCENTRATE) 1000 MG [...] Active Levothyroxine Sodium 50 MCG Oral Tablet (Levoxyl)Indications: [...] FOR PAIN 90 Tablet 1 01/06/2023 Active Hospital, Clinic, or Other Facility Administered Medication Ordered Dose Route Frequency Start Date End Date Status vitamin b-12 (Cyanocobalamin) inj 1,000 mcgIndications:Vitamin B12 deficiency 1000 mcg IM [id number] 01/19/2023 12/21/2023 Active documented as of this encounter (statuses as of 03/24/2023) Active Problems Problem Noted Date Diagnosed Date [...] as of this encounter (statuses as of 03/24/2023) Resolved Problems Problem Noted Date Diagnosed Date [...] as of this encounter (statuses as of 03/24/2023) Immunizations Name Administration Dates Next Due COVID-19 mRNA, LNP-s, No Pre serve, 2-Dose Series (Pfizer) 08/16/2020,07/26/2020 Pneumococcal Conjugate Vacc, 13 Valent (Prevnar) 04/28/2015 Pneumococcal Polysaccharide PPV23 (Pneumovax) 11/22/2009,05/12/2004 Seasonal Influenza, Split, I IV3, With Preserve, [...] Orthopaedics Spine Surgery, [facility] [address] [place] [address] [place] [address] Mak Galloway MD [address] [place] [address] [place] [address] 04/23/2023 2:30 PM EST Imaging Radiology, [facility] [address] [facility] [place] [address] 04/24/2023 1:40 PM EST Office Visit General Internal Medicine [facility] [address] [place], [place] [address] Evangelista Moran MD 200 [facility] [place], [place] [address] 05/16/2023 10:45 AM EST Office Visit Orthopaedics Spine Surgery, [address] [place] [address] Mak Galloway MD [address] [place] [address] [place] [address] 02/09/2024 1:20 PM EDT Office Visit Rheumatology [place] [address] [facility] [place] [address] Karl Conrad MD [address] [place] [address] Health Maintenance Due Date Last Done Comments DTaP,Tdap,and Td Vaccines (2 - Td or Tdap) 06/21/2018 06/21/2008 *BISPHONATE OR OTHER ACCEPTABLE MEDICATION NEEDED FOR OSTEOPOROSIS (REFER TO SMARTSET #1146) 10/22/2018 DXA Scan 10/19/2020 10/19/2018, 12/12, 01/09/2010 COVID-19 Vaccine (2022- season) 2023 08/16/2020, 07/26/2020 Depression Screening 03/27/2023 03/27/2022 TSH 10/15/2023 10/14/2022, 09/09, 05/14/2022, Additional history exists GFR 01/22/2024 01/21/2023, 09/09, 01/29/2022, Additional history exists HbA1c 01/22/2024 01/21/2023, 0609/2022, 08/30/2021, Additional history exists Albumin/Creatinine Ratio 05/14/2025 05/14/2022 Pneumococcal Vaccine: 65+ Years Completed 04/28/2015, 11/22/2009, 05/12/2004 Zoster Vaccines Completed 02/08/2019, 11/10, 10/21/2004 VITAMIN D LEVEL ONCE IN A LIFETIME-USE SMARTSET# [id number] Completed 01/21/2023, 08/30/2021, 10/27/2019, Additional history exists [...] this encounter Medical Devices Implanted Type Area Cashier Device Identifier Shelf Expiration Date Model / Serial / Lot Lens Intraoc 22.0 - [id number] - [id number] Implanted:Qty: 1 on 09/29/2019 by Edwin Carbone MD at OR [facility] Left: Eye BAUSCH & LOMB 03/11/2024 [id number] / [id number] / [id number] Lens Intraoc 20.5 - [id number] - [id number] Implanted:Qty: 1 on 10/05/2019 by Edwin Carbone MD at OR [facility] Right: Eye BAUSCH & LOMB 03/11/2024 [id number] / [id number] / [id number] Cement Hv-R C01a - [id number] Implanted:Qty: 1 on 01/29/2023 by Mak Galloway MD at OR [facility] Spine Thoracic [employer] : NEURO CARE 07/09/2025 C01A / / [id number] Description:1.5 ml right 1.5 ml left documented as of this encounter Additional Health Concerns Infection Onset Date Last Indicated Resolved Time Respiratory Rule-Out 03/04/2023 03/04/2023 023 5:43 PM EDT documented as of this encounter Advance Directives Latest Code Status on File Code Status Date Activated Date Inactivated Comments Full Code 01/29/2023 12:32 PM 01/29/2023 7:58 PM This order reflects the patients wishes and were consensually agreed upon. Question Answer Comments Discussion of Advance Directives occurred with: Patient Care Teams Pegger Dobby Looms Relationship Specialty Start Date End Date Evangelista Moran MD [address] [place] [address] PCP - General Internal Medicine 08/27/17 documented as of this encounter
--- OUTSIDE RECORDS SUMMARY | 2023-07-25 13:59 | External Medical Summary | Summary of Care ---
Author Name Unknown Organization [facility] Address [address] [place] [facility] [place] [address] Phone [phone] Care Team Providers Care Transmission Engineer Name Role Phone Evangelista Moran MD Primary Care Provider + Encounter Details Date Type Department Care Team (Late st Contact Info) Description 12/31/2022 Telephone [facility] Critical Care Medicine [address] [facility] [place] [address] Marquez Reyes MD [address] [facility] [place] [id number] Allergies Active Allergy Reactions Criticality Noted Date Comments Cephalexin Low 04/28/1997 GI upset Corticosteroids Medium 03/08/2019 Palpitations Shellfish Allergy Nausea/vomiting Medium 06/25/2010 Hard shelled shell fish Ezetimibe 04/10/2022 Myalgias documented as of this encounter (statuses as of 04/01/2023) Medications Medication Sig Dispensed Refills Start Date [...] Tablet by mouth at bedtime. 0 Active [place]-3 Fatty Acids (FISH OIL CONCENTRATE) 1000 MG [...] differently: 81 mgOral Daily(AM), Reported on 01/23/2023 documented as of this encounter (statuses as of 04/01/2023) Active Problems Problem Noted Date Diagnosed Date [...] as of this encounter (statuses as of 04/01/2023) Resolved Problems Problem Noted Date Diagnosed Date [...] as of this encounter (statuses as of 04/01/2023) Immunizations Name Administration Dates Next Due COVID-19 [...] drink = 0.6 oz pu re alcohol) PHQ-2 Answer Date Recorded PHQ Adult Total [...] [address] [place] [address] Mak Galloway MD [address] [place] [address] [place] [address] 04/23/2023 2:30 PM EST Imaging Radiology, [facility] [address] [facility] [place] [address] 04/24/2023 1:40 PM EST Office Visit General Internal Medicine [facility] 200 [facility] [place] [address] Evangelista Moran MD [address] [facility] [place] [address] 05/16/2023 10:45 AM EST Office Visit Orthopaedics Spine Surgery, [facility] [address] [facility] [place] [address] Mak Galloway MD [address] [place] [address] [place] [address] 08/27/2023 10:00 AM EDT Office Visit Cardiology, [facility] [address] [facility] [place] [address] Lizz Mcnally PA-C [address] [place] [id number] 02/09/2024 1:20 PM EDT Office Visit Rheumatology [place] [address] [facility] [place] [address] Karl Conrad MD [facility] [place] [address] Health Maintenance Due Date Last Done Comments [...] D LEVEL ONCE IN A LIFETIME-USE SMARTSET# [id number] Completed 01/21/2023, 08/30/2021, 10/27/2019, Additional history exists [...] encounter Medical Devices Implanted Type Area Dry Pan Operator Device Identifier Shelf Expiration Date Model / Serial / Lot Lens Intraoc 22.0 - [id number] - [id number] Implanted:Qty: 1 on 09/29/2019 by Edwin Carbone MD at OR [facility] Left: Eye BAUSCH & LOMB 03/11/2024 [id number] / [id number] / [id number] Lens Intraoc 20.5 - [id number] - [id number] Implanted:Qty: 1 on 10/05/2019 by Ediwn Carbone MD at OR [facility] Right: Eye BAUSCH & LOMB 03/11/2024 [id number] / [id number] / [id number] Cement Hv-R C01a - [id number] Implanted:Qty: 1 on 01/29/2023 by Mak Galloway MD at OR [facility] Spine Thoracic [employer] : NEURO CARE 07/09/2025 C01A / / [id number] Description:1.5 ml right 1.5 ml left documented [...] Advance Directives occurred with: Patient Care Teams Transmission Engineer Relationship Specialty Start Date End Date Evangelista Moran MD [address] [place] [address] PCP - General Internal Medicine 08/27/17 documented as of this encounter
--- OUTSIDE RECORDS SUMMARY | 2023-07-25 13:59 | External Medical Summary | Summary of Care ---
Author Name Unknown Organization [facility] Address [address] [place] [address] Phone [phone] Care Team Providers Care Environmental Tech Name Role Phone Evangelista Moran MD Primary Care Provider + Encounter Details Date Type Department Care Team ([facility] st Contact Info) Description 12/25/2022 Telephone [facility], [address] [address] Medication, [facility], [address] [address] Allergies Active Allergy Reactions Criticality Noted Date Comments Cephalexin Low 04/28/1997 GI upset Corticosteroids Medium 03/08/2019 Palpitations Shellfish Allergy Nausea/vomiting Medium 06/25/2010 Hard shelled shell fish Ezetimibe 04/10/2022 Myalgias documented as of this encounter (statuses as of 03/26/2023) Medications Medication Sig Dispensed Refills Start Date [...] Tablet by mouth at bedtime. 0 Active [place]-3 Fatty Acids (FISH OIL CONCENTRATE) 1000 MG [...] as of this encounter (statuses as of 03/26/2023) Active Problems Problem Noted Date Diagnosed Date [...] as of this encounter (statuses as of 03/26/2023) Resolved Problems Problem Noted Date Diagnosed Date [...] as of this encounter (statuses as of 03/26/2023) Immunizations Name Administration Dates Next Due COVID-19 mRNA, LNP-s, No Pre serve, 2-Dose Series (Virtualmin) 08/16/2020,07/26/2020 Pneumococcal Conjugate Vacc, 13 Valent (Prevnar) [...] [facility] Hebert [address] [place] [address] Mak Galloway MD [address] [place] [address] [place] [address] 04/23/2023 2:30 PM EST Imaging Radiology, [address] [place] [address] 04/24/2023 1:40 PM EST Office Visit General Internal Medicine [facility] [address] [place] [address] Evangelista Moran MD 200 [facility] [place] [address] 05/16/2023 10:45 AM EST Office Visit Orthopaedics Spine Surgery, [facility] [address] [facility] [place] [address] Mak Galloway MD [address] [place] [address] 02/09/2024 1:20 PM EDT Office Visit Rheumatology [place] [address] [address] [place] [address] Karl Conrad MD [address] [employer] [place] [address] Health Maintenance Due Date Last Done Comments [...] D LEVEL ONCE IN A LIFETIME-USE SMARTSET# [id number] Completed 01/21/2023, 08/30/2021, 10/27/2019, Additional history exists [...] this encounter Medical Devices Implanted Type Area Septic Tank Cleaner Device Identifier Shelf Expiration Date Model / Serial / Lot Lens Intraoc 22.0 - [id number] - [id number] Implanted:Qty: 1 on 09/29/2019 by Edwin Carbone MD at OR [facility] Left: Eye BAUSCH & LOMB 03/11/2024 [id number] / [id number] / [id number] Lens Intraoc 20.5 - [id number] - [id number] Implanted:Qty: 1 on 10/05/2019 by Edwin Carbone MD at OR [facility] Right: Eye BAUSCH & LOMB 03/11/2024 [id number] / [id number] / [id number] Cement Hv-R C01a - [id number] Implanted:Qty: 1 on 01/29/2023 by Mak Galloway MD at OR [facility] Spine Thoracic [employer] : NEURO CARE 07/09/2025 C01A / / [id number] Description:1.5 ml right 1.5 ml left documented [...] Advance Directives occurred with: Patient Care Teams Environmental Tech Relationship Specialty Start Date End Date Evangelista Moran MD [address] [place] [address] PCP - General Internal Medicine 08/27/17 documented as of this encounter
--- OUTSIDE RECORDS SUMMARY | 2023-07-25 13:59 | External Medical Summary | Summary of Care ---
Author Name Unknown Organization [facility] Address [address] [place] [address] Phone [phone] Care Team Providers Care German Professor Name Role Phone Evangelista Moran MD Primary Care Provider + Reason for Visit * Reason Onset Date Comments Order Request 01/17/2023 B12 Encounter Details Date Type Department Care Team (Late st Contact Info) Description 01/17/2023 Telephone General Internal Medicine [facility] [address] [place] [address] Evangelista Moran MD [address] [place] [address] Order Request (B12) Allergies Active Allergy Reactions Criticality Noted Date Comments Cephalexin Low 04/28/1997 GI upset Corticosteroids Medium 03/08/2019 Palpitations Shellfish Allergy Nausea/vomiting Medium 06/25/2010 Hard shelled shell fish Ezetimibe 04/10/2022 Myalgias documented as of this encounter (statuses as of 04/18/2023) Medications Medication Sig Dispensed Refills Start Date End Date Status VITAMIN D3 5000 UNIT PO CAPS one daily 0 Active Magnesium 500 MG Capsule Take 1 Capsule by mouth in the morning. 1000mg daily. 60 Cap 0 03/31/20 17 Active Multiple Vitamins-Minerals (PRESERVISION AREDS) Tablet Take 1 Tablet by mouth in the morning. 0 Active EFFEXOR XR 75 MG CP24 1 Capsule. Takes with a 37.5 mg daily 2 03/30/20 18 Active Melatonin 5 MG Tablet Take 1 Tablet by mouth at bedtime. 0 Active [place]-3 Fatty Acids (FISH OIL CONCENTRATE) 1000 MG CAPS Take 1300 mg by mouth daily. 0 Active Misc Natural Products (TURMERIC CURCUMIN) CAPS 1200 mg by mouth daily 0 Active Trintellix 5 MG Oral Tablet (Vortioxetine HBr) Take 4 Tablets by mouth in the morning. 0 Active Nurtec 75 MG Oral Tablet Disintegrating As needed 0 03/06/20 22 Active Diclofenac Sodium 1 % External Gel (Voltaren)Indicati ons:Generalized osteoarthritis APPLY 2 GRAMS TO JOINT 4 TIMES A DAY NEEDED FOR PAIN 350 g 1 03/27/20 22 Active Mometasone Furoate 0.1 % External Solution (Elocon)Indication s:Itching in the vaginal area Apply topically to affected area daily. To affected area. 30 mL 5 03/27/20 22 Active Additional Information Patient taking differently:Topical Daily(AM),To affected area. As needed, Reported on 09/27/2022 Famotidine 20 MG Oral Tablet (Pepcid) Take 1 Tablet by mouth every night at bedtime. 34 Tablet 5 11/09/19 23 Active Syringe/Needle (Disp) 23G X 1" 3 MLIndications:Esther min B12 deficiency Use to inject Vitamin B12 monthly 1 Each 11 11/23/19 23 Active Levothyroxine Sodium 50 MCG Oral Tablet (Levoxyl)Indicatio ns:Acquired hypothyroidism Take 1 Tablet by mouth daily first thing in the morning. (at least 30 min prior to breakfast or other meds) 90 Tablet 3 11/23/19 23 Active Aspirin 325 MG Oral Tablet Take 1 Tablet by mouth in the morning. 30 Tablet 5 11/27/19 23 Active Additional Information Patient taking differently: 81 mgOral Daily(AM), Reported on 01/23/2023 Ibuprofen 600 MG Oral Tablet (Motrin) TAKE BY MOUTH 1 TABLET EVERY 8 HOURS NEEDED (PAIN). WITH FOOD FOR PAIN 90 Tablet 1 01/07/20 23 Active Vitamin C 1000 MG Oral Tablet Take 1 Tablet by mouth in the morning. 0 023 Discontinued Oopnvydcft-CDTT-Hr ffeine 50-325-40 MG Oral CapsuleIndications :Other vascular headache Take by mouth 1 Capsule every 8 hours as needed for Headache. 18 Capsule 0 02/23/20 22 023 Discontinued Eysuvis 0.25 % Ophthalmic Suspension 0 03/27/20 22 023 Discontinued Cyanocobalamin 1000 MCG/ML Injection Solution (Cyanocobalamin)In dications:Vitamin B12 deficiency Inject 1,000 mcg as directed every 30 days. 3 mL 3 05/08/20 22 023 Discontinued(Me dication/Dose Changed) Ibuprofen 400 MG Oral Tablet (Motrin) Take 1 Tablet by mouth every 8 hours as needed for Pain, Severe. 30 Tablet 6 11/09/19 23 023 Discontinued Azelastine HCl 0.1 % Nasal Solution (Astelin) Administer 1 Daykin into nostril in the morning and 1 Daykin before bedtime. 30 mL 12 11/09/19 23 023 Discontinued Losartan Potassium 50 MG Oral Tablet (Cozaar)Indication s:HTN, goal below 140/90 TAKE 1 TABLET BY MOUTH EVERY DAY IN THE MORNING 90 Tablet 0 11/23/19 23 023 Discontinued Celecoxib 200 MG Oral Capsule (CeleBREX)Indicati ons:Generalized osteoarthritis Take 1 Capsule by mouth in the morning. For pain. 30 Capsule 5 11/23/19 23 023 Discontinued Repatha SureClick 140 MG/ML Subcutaneous Solution Auto-injector (evolocumab) Inject 140 mg (1 pen) under the skin every 14 days. Remove from refrigerator 30 minutes prior to injection. 6 mL 3 12/26/19 23 023 Discontinued tiZANidine HCl 4 MG Oral Capsule Take 1 Capsule by mouth in the morning and 1 Capsule at noon and 1 Capsule before bedtime. 0 023 Discontinued Hospital, Clinic, or Other Facility Administered Medication Ordered Dose Route Frequency Start Date End Date Status vitamin b-12 (Cyanocobalamin) inj 1,000 mcgIndications:Vitamin B12 deficiency 1000 mcg IM [id number] 01/19/2023 12/21/2023 Active documented as of this encounter (statuses as of 04/18/2023) Active Problems Problem Noted Date Diagnosed Date [...] as of this encounter (statuses as of 04/18/2023) Resolved Problems Problem Noted Date Diagnosed Date Resolved Date Disorder of arteries and art erioles, unspecified 08/30/2021 08/30/2021 Lung granuloma 01/06/2020 11/29/2020 Major depression in partial remission 04/14/2019 03/27/2022 Chronic right hip pain 04/14/201903/27 Adverse effect of hydrochlorothiazide 05/13/2018 07/17/2018 Overview: Muscle aches 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 Check when patient had her last shot and schedule 4 weeks from thatdate. * Telephone Encounter - Rebecca Moreno MD - 01/19/2023 10:12 PM EDT Done * Telephone Encounter - Alla Nicole OSA - 01/17/2023 11:16 AM EDT Pt is requesting an order for a B12 shot added to her chart. Last seen by PCP 09/2022//has been doing them at home//now would rather be seen in clinic by nurse Please place order//check with head nurse SP she is aware documented in this encounter Plan of Treatment Upcoming Encounters Date Type Department Care Team (Late st Contact Info) Description 04/23/2023 2:30 PM EST Imaging Radiology, [place] [id number] [facility] [place] [address] 04/24/2023 1:40 PM EST Office Visit General Internal Medicine [facility] [address] [facility] [place] [address] Evangelista Moran MD [address] [facility] [place] [address] 08/27/2023 10:00 AM EDT Office Visit Cardiology, [facility] [address] [facility] [place] [address] Lizz Mcnally PA-C [address] [place] [address] 02/09/2024 1:20 PM EDT Office Visit Rheumatology [address] [place] [address] Karl Conrad MD [address] [place] [address] [place] [address] Health Maintenance Due Date Last Done Comments [...] D LEVEL ONCE IN A LIFETIME-USE SMARTSET# [id number] Completed 01/21/2023, 08/30/2021, 10/27/2019, Additional history exists [...] this encounter Medical Devices Implanted Type Area Collections Technician Device Identifier Shelf Expiration Date Model / Serial / Lot Lens Intraoc 22.0 - [id number] - [id number] Implanted:Qty: 1 on 09/29/2019 by Edwin Carbone MD at OR [facility] Left: Eye BAUSCH & LOMB 03/11/2024 [id number] / [id number] / [id number] Lens Intraoc 20.5 - [id number] - [id number] Implanted:Qty: 1 on 10/05/2019 by Edwin Carbone MD at OR [facility] Right: Eye BAUSCH & LOMB 03/11/2024 [id number] / [id number] / [id number] Cement Hv-R C01a - [id number] Implanted:Qty: 1 on 01/29/2023 by Mak Galloway MD at OR [facility] Spine Thoracic [employer] : NEURO CARE 07/09/2025 C01A / / [id number] Description:1.5 ml right 1.5 ml left documented as of this encounter Visit Diagnoses Diagnosis Vitamin B12 deficiency- Primary Other B-complex deficiencies documented in this encounter Additional Health Concerns Infection Onset [...] Advance Directives occurred with: Patient Care Teams German Professor Relationship Specialty Start Date End Date Evangelista Moran MD [address] [place] [address] PCP - General Internal Medicine 08/27/17 documented as of this encounter
--- OUTSIDE RECORDS SUMMARY | 2023-07-25 13:59 | External Medical Summary | Summary of Care ---
Author Name Unknown Organization [facility] Address [address] [place] [address] Phone [phone] Care Team Providers Care Manager Gas Name Role Phone Evangelista Moran MD Primary Care Provider + Reason for Visit * Reason Onset Date Comments Medication Refill 03/21/2023 Encounter Details Date Type Department Care Team (Late st Contact Info) Description 03/21/2023 Refill General Internal Medicine [facility] [place] 200 [facility] [place] [address] Rebecca Moreno MD 200 [place] [address] HTN, goal below 140/90 Allergies Active Allergy Reactions Criticality Noted Date Comments Cephalexin Low 04/28/1997 GI upset Corticosteroids Medium 03/08/2019 Palpitations Shellfish Allergy Nausea/vomiting Medium 06/25/2010 Hard shelled shell fish Ezetimibe 04/10/2022 Myalgias documented as of this encounter (statuses as of 03/22/2023) Medications Medication Sig Dispensed Refills Start Date [...] Tablet by mouth at bedtime. 0 Active [place]-3 Fatty Acids (FISH OIL CONCENTRATE) 1000 MG CAPS Take 1300 mg by mouth daily. 0 Active Misc Natural Products (TURMERIC CURCUMIN) CAPS 1200 mg by mouth daily 0 Active Trintellix 5 MG Oral Tablet (Vortioxetine HBr) Take 4 Tablets by mouth in the morning. 0 Active Nurtec 75 MG Oral Tablet Disintegrating As needed 0 03/06/2022 Active Diclofenac Sodium 1 % External Gel (Voltaren)Indicatio ns:Generalized osteoarthritis APPLY 2 GRAMS TO JOINT 4 TIMES A DAY NEEDED FOR PAIN 350 g 1 03/27/2022 Active Mometasone Furoate 0.1 % External Solution (Elocon)Indications :Itching in the vaginal area Apply topically to affected area daily. To affected area. 30 mL 5 03/27/2022 Active Additional Information Patient taking differently:Topical Daily(AM),To affected area. As needed, Reported on 09/27/2022 Famotidine 20 MG Oral Tablet (Pepcid) Take 1 Tablet by mouth every night at bedtime. 34 Tablet 5 11/08/2022 Active Syringe/Needle (Disp) 23G X 1" 3 MLIndications:Vitam in B12 deficiency Use to inject Vitamin B12 monthly 1 Each 11 11/22/2022 Active Levothyroxine Sodium 50 MCG Oral Tablet (Levoxyl)Indication s:Acquired hypothyroidism Take 1 Tablet by mouth daily [...] HFA 108 (90 Base) MCG/ACT Inhalation Aerosol SolutionIndications :Acute bronchitis, antibiotics not indicated Inhale 2 Puffs by mouth every 4 hours as needed for Wheezing. 8 g 0 03/04/2023 Active Benzonatate 100 MG Oral Capsule (Tessalon Perles)Indications: Acute bronchitis, antibiotics not indicated Take 1 Capsule [...] Active Losartan Potassium 50 MG Oral Tablet (Cozaar)Indications :HTN, goal below 140/90 TAKE 1 TABLET BY MOUTH EVERY DAY IN THE MORNING 90 Tablet 1 03/22/2023 Active Losartan Potassium 50 MG Oral Tablet (Cozaar)Indications :HTN, goal below 140/90 TAKE 1 TABLET BY MOUTH EVERY DAY IN THE MORNING 90 Tablet 1 01/31/2023 3 Discontinu ed(Refill) Hospital, Clinic, or Other Facility Administered Medication Ordered Dose Route Frequency Start Date End Date Status vitamin b-12 (Cyanocobalamin) inj 1,000 mcgIndications:Vitamin B12 deficiency 1000 mcg IM [id number] 01/19/2023 12/21/2023 Active documented as of this encounter (statuses as of 03/22/2023) Active Problems Problem Noted Date Diagnosed Date [...] as of this encounter (statuses as of 03/22/2023) Resolved Problems Problem Noted Date Diagnosed Date [...] as of this encounter (statuses as of 03/22/2023) Immunizations Name Administration Dates Next Due COVID-19 [...] encounter Miscellaneous Notes * Telephone Encounter - [facility] - 03/22/2023 7:17 AM ESTSigned Prescriptions: Disp Refills Losartan Potassium 50 MG Oral Tablet (Coza*90 Tab*1 Sig: TAKE 1 TABLET BY MOUTH EVERY DAY IN THE MORNINGAuthorizing Provider: Francis MORENO User: ANANT MCQUEEN * Telephone Encounter - [facility] - 03/22/2023 7:17 AM EST Rx resent. documented in this encounter Plan of Treatment Upcoming Encounters Date Type Department Care Team (Late st Contact Info) Description 04/22/2023 10:45 AM EST Office Visit Orthopaedics Spine Surgery, [facility] [address] [place] [address] [place] [address] Mak Galloway MD [address] [place] [address] [place] [address] 04/23/2023 2:30 PM EST Imaging Radiology, [facility] [address] [facility] [place] [address] 04/24/2023 1:40 PM EST Office Visit General Internal Medicine [facility] [address] [place] [address] Evangelista Moran MD [address] [place] [address] 05/16/2023 10:45 AM EST Office Visit Orthopaedics Spine Surgery, [facility] 132 [facility] [place] [address] Mak Galloway MD [address] [place] [address] [place] [address] 02/09/2024 1:20 PM EDT Office Visit Rheumatology [facility] [address] [employer] [place], [place] [address] Karl Conrad MD [address] [place], [place] [address] Health Maintenance Due Date Last Done Comments [...] D LEVEL ONCE IN A LIFETIME-USE SMARTSET# [id number] Completed 01/21/2023, 08/30/2021, 10/27/2019, Additional history exists [...] this encounter Medical Devices Implanted Type Area Air Brake Adjuster Device Identifier Shelf Expiration Date Model / Serial / Lot Lens Intraoc 22.0 - [id number] - [id number] Implanted:Qty: 1 on 09/29/2019 by Edwin Carbone MD at OR [facility] Left: Eye BAUSCH & LOMB 03/11/2024 [id number] / [id number] / [id number] Lens Intraoc 20.5 - [id number] - [id number] Implanted:Qty: 1 on 10/05/2019 by Edwin Carbone MD at OR [facility] Right: Eye BAUSCH & LOMB 03/11/2024 [id number] / [id number] / [id number] Cement Hv-R C01a - [id number] Implanted:Qty: 1 on 01/29/2023 by Mak Galloway MD at OR [facility] Spine Thoracic [employer] : NEURO CARE 07/09/2025 C01A / / [id number] Description:1.5 ml right 1.5 ml left documented as of this encounter Visit Diagnoses Diagnosis HTN, goal below 140/90 Unspecified essential hypertension documented in this encounter Advance Directives Latest Code Status on File Code Status Date Activated Date Inactivated Comments Full Code 01/29/2023 12:32 PM 01/29/2023 7:58 PM This order reflects the patients wishes and were consensually agreed upon. Question Answer Comments Discussion of Advance Directives occurred with: Patient Care Teams Manager Gas Relationship Specialty Start Date End Date Evangelista Moran MD [address] [place] [address] [place], [place] [address] PCP - General Internal Medicine 08/27/17 documented as of this encounter
--- OUTSIDE RECORDS SUMMARY | 2023-07-25 14:00 | External Medical Summary | Summary of Care ---
Author Name Unknown Organization [facility] Address [address] [place] [address] Phone [phone] Care Team Providers Care Product Development Consultant Name Role Phone Evangelista Moran MD Primary [...] Tablet by mouth at bedtime. 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 12/09/2018 Alcohol ingestion, 1-4 drink [...] [address] [place] [address] [place] [address] 04/23/2023 2:30 PM EST Imaging Radiology, [address] [place] [address] 04/24/2023 1:40 PM EST Office Visit General Internal Medicine [facility] [address] [facility] [place] [address] Evangelista Moran MD [address] [facility] [place], [place] [address] 05/16/2023 10:45 AM EST Office Visit Orthopaedics Spine Surgery, [facility] 132 [place] [address] Mak Galloway MD [address] [place] [address] [place] [address] 02/09/2024 1:20 PM EDT Office Visit Rheumatology [address] [place], [place] [address] Karl Conrad MD [address] [place] [address] [place], [place] [address] Health Maintenance Due Date Last Done Comments [...] D LEVEL ONCE IN A LIFETIME-USE SMARTSET# [id number] Completed 01/21/2023, 08/30/2021, 10/27/2019, Additional history exists [...] this encounter Medical Devices Implanted Type Area Assistant Produce Manager Device Identifier Shelf Expiration Date Model / Serial / Lot Lens Intraoc 22.0 - [id number] - [id number] Implanted:Qty: 1 on 09/29/2019 by Edwin Carbone MD at OR [facility] Left: Eye BAUSCH & LOMB 03/11/2024 [id number] / [id number] / [id number] Lens Intraoc 20.5 - [id number] - [id number] Implanted:Qty: 1 on 10/05/2019 by Edwin Carbone MD at OR [facility] Right: Eye BAUSCH & LOMB 03/11/2024 [id number] / [id number] / [id number] Cement Hv-R C01a - [id number] Implanted:Qty: 1 on 01/29/2023 by Mak Galloway MD at OR [facility] Spine Thoracic [employer] : NEURO CARE 07/09/2025 C01A / / [id number] Description:1.5 ml right 1.5 ml left documented as of this encounter Advance Directives Latest Code Status on File Code Status Date Activated Date Inactivated Comments Full Code 01/29/2023 12:32 PM 01/29/2023 7:58 PM This order reflects the patients wishes and were consensually agreed upon. Question Answer Comments Discussion of Advance Directives occurred with: Patient Care Teams Product Development Consultant Relationship Specialty Start Date End Date Evangelista Moran MD [address] [place] [address] PCP - General Internal Medicine 08/27/17 documented as of this encounter
--- OUTSIDE RECORDS SUMMARY | 2023-07-25 14:00 | External Medical Summary | Summary of Care ---
Author Name Unknown Organization [facility] Address [address] [place] [address] Phone [phone] Care Team Providers Care Retail Client Solutions Analyst Name Role Phone Evangelista Moran MD Primary [...] Tablet by mouth at bedtime. 0 Active [place]-3 Fatty Acids (FISH OIL CONCENTRATE) 1000 MG [...] 1,000 mcgIndications:Vitamin B12 deficiency 1000 mcg IM [id number] 01/19/2023 12/21/2023 Active documented as of this [...] hydrochlorothiazide 05/13/2018 07/17/2018 Overview: Muscle aches Iatrogenic [place]'s syndrome 10/14/2017 12/09/2018 Alcohol ingestion, 1-4 drink [...] [address] [place] [address] [place] [address] 04/23/2023 2:30 PM EST Imaging Radiology, [address] [place] [address] 04/24/2023 1:40 PM EST Office Visit General Internal Medicine [facility] [address] [facility] [place] [address] Evangelista Moran MD [address] [facility] [place], [place] [address] 05/16/2023 10:45 AM EST Office Visit Orthopaedics Spine Surgery, [facility] 132 [place] [address] Mak Galloway MD [address] [place] [address] [place] [address] 02/09/2024 1:20 PM EDT Office Visit Rheumatology [address] [place], [place] [address] Karl Conrad MD [address] [place] [address] [place], [place] [address] Health Maintenance Due Date Last Done Comments [...] D LEVEL ONCE IN A LIFETIME-USE SMARTSET# [id number] Completed 01/21/2023, 08/30/2021, 10/27/2019, Additional history exists [...] this encounter Medical Devices Implanted Type Area Research Environmental Scientist Device Identifier Shelf Expiration Date Model / Serial / Lot Lens Intraoc 22.0 - [id number] - [id number] Implanted:Qty: 1 on 09/29/2019 by Edwin Carbone MD at OR [facility] Left: Eye BAUSCH & LOMB 03/11/2024 [id number] / [id number] / [id number] Lens Intraoc 20.5 - [id number] - [id number] Implanted:Qty: 1 on 10/05/2019 by Edwin Carbone MD at OR [facility] Right: Eye BAUSCH & LOMB 03/11/2024 [id number] / [id number] / [id number] Cement Hv-R C01a - [id number] Implanted:Qty: 1 on 01/29/2023 by Mak Galloway MD at OR [facility] Spine Thoracic [employer] : NEURO CARE 07/09/2025 C01A / / [id number] Description:1.5 ml right 1.5 ml left documented as of this encounter Advance Directives Latest Code Status on File Code Status Date Activated Date Inactivated Comments Full Code 01/29/2023 12:32 PM 01/29/2023 7:58 PM This order reflects the patients wishes and were consensually agreed upon. Question Answer Comments Discussion of Advance Directives occurred with: Patient Care Teams Retail Client Solutions Analyst Relationship Specialty Start Date End Date Evangelista Moran MD [address] [facility] [place] [address] PCP - General Internal Medicine 08/27/17 documented as of this encounter
--- OUTSIDE RECORDS SUMMARY | 2023-07-25 14:00 | External Medical Summary | Summary of Care ---
Author Name Unknown Organization [facility] Address [address] [place] [address] Phone [phone] Care Team Providers Care Cassandra Consultant Name Role Phone Evangelista Moran MD Primary Care Provider + Reason for Visit * Reason Onset Date Comments Test Results Biopsy 03/17/2023 Encounter Details Date Type Department Care Team (Late st Contact Info) Description 03/17/2023 Telephone Dermatology [facility] [place] [address] [facility] [place] [address] Lidya Jackson MD 200 [place] [address] Test Results Biopsy Allergies Active Allergy Reactions Criticality Noted Date Comments Cephalexin Low 04/28/1997 GI upset Corticosteroids Medium 03/08/2019 Palpitations Shellfish Allergy Nausea/vomiting Medium 06/25/2010 Hard shelled shell fish Ezetimibe 04/10/2022 Myalgias documented as of this encounter (statuses as of 03/17/2023) Medications Medication Sig Dispensed Refills Start Date [...] Tablet by mouth at bedtime. 0 Active [place]-3 Fatty Acids (FISH OIL CONCENTRATE) 1000 MG [...] to inject Vitamin B12 monthly 1 Each 11/22/2022 Active Levothyroxine Sodium 50 MCG Oral [...] 1 week 14 Capsule 0 03/13/2023 Active Hospital, Clinic, or Other Facility Administered Medication Ordered Dose Route Frequency Start Date End Date Status vitamin b-12 (Cyanocobalamin) inj 1,000 mcgIndications:Vitamin B12 deficiency 1000 mcg IM [id number] 01/19/2023 12/21/2023 Active documented as of this encounter (statuses as of 03/17/2023) Active Problems Problem Noted Date Diagnosed Date [...] as of this encounter (statuses as of 03/17/2023) Resolved Problems Problem Noted Date Diagnosed Date Resolved Date Disorder of arteries and art erioles, unspecified 08/30/2021 08/30/2021 Lung granuloma 01/06/2020 11/29/2020 Major depression in partial remission 04/14/2019 03/27/2022 Chronic right hip pain 04/14/201903/27 Adverse effect of hydrochlorothiazide 05/13/2018 07/17/2018 Overview: Muscle aches 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 Told her that the culture came back as a staph infection. She saidthat the area on her ankle is not as red and so far that is the only difference she sees. She says she will give the antibiotic another couple of days and if it isn't much of a change she will let usknow. She said she doesn't want another antibiotic right now she will be patient and see what this one does. Oriana Stiles LPN 03/17/2023 3:10 PM * Telephone Encounter - Oriana Stiles LPN - 03/17/2023 3:09 PM EST ----- Message from Lidya Jackson MD sent at 03/17/2023 2:48 PM EST ----- Patient Phone Numbers Please let pt know staph infx culture, are things improving with Abx? documented in this encounter Plan of Treatment Upcoming Encounters Date Type Department Care Team (Late st Contact Info) Description 04/22/2023 10:45 AM EST Office Visit Orthopaedics Spine Surgery, [facility] [address] [place] [address] [place] [address] Mak Galloway MD [address] [place] [address] [place] [address] 04/23/2023 2:30 PM EST Imaging Radiology, [facility] [address] [facility] [place] [address] 04/24/2023 1:40 PM EST Office Visit General Internal Medicine [facility] [place] [address] [place] [address] Evangelista Moran MD [address] [facility] [place] [address] 05/16/2023 10:45 AM EST Office Visit Orthopaedics Spine Surgery, [facility] [address] [facility] [place] [address] Mak Galloway MD [address] [place] [address] [place] [address] 02/09/2024 1:20 PM EDT Office Visit Rheumatology [place] [address] [employer] [place] [address] Karl Conrad MD [address] [place] [address] Health Maintenance Due Date Last Done Comments [...] D LEVEL ONCE IN A LIFETIME-USE SMARTSET# [id number] Completed 01/21/2023, 08/30/2021, 10/27/2019, Additional history exists [...] this encounter Medical Devices Implanted Type Area Telephone Quotation Clerk Device Identifier Shelf Expiration Date Model / Serial / Lot Lens Intraoc 22.0 - [id number] - [id number] Implanted:Qty: 1 on 09/29/2019 by Edwin Carbone MD at OR [facility] Left: Eye BAUSCH & LOMB 03/11/2024 [id number] / [id number] / [id number] Lens Intraoc 20.5 - [id number] - [id number] Implanted:Qty: 1 on 10/05/2019 by Edwin Carbone MD at OR [facility] Right: Eye BAUSCH & LOMB 03/11/2024 [id number] / [id number] / [id number] Cement Hv-R C01a - [id number] Implanted:Qty: 1 on 01/29/2023 by Mak Galloway MD at OR [facility] Spine Thoracic [employer] : NEURO CARE 07/09/2025 C01A / / [id number] Description:1.5 ml right 1.5 ml left documented as of this encounter Advance Directives Latest Code Status on File Code Status Date Activated Date Inactivated Comments Full Code 01/29/2023 12:32 PM 01/29/2023 7:58 PM This order reflects the patients wishes and were consensually agreed upon. Question Answer Comments Discussion of Advance Directives occurred with: Patient Care Teams Cassandra Consultant Relationship Specialty Start Date End Date Evangelista Moran MD 200 [facility] [place] [address] PCP - General Internal Medicine 08/27/17 documented as of this encounter
--- OUTSIDE RECORDS SUMMARY | 2023-07-25 14:00 | External Medical Summary | Summary of Care ---
Author Name Unknown Organization [facility] Address [address] [place] [address] Phone [phone] Care Team Providers Care Handkerchief Folder Name Role Phone Evangelista Moran MD Primary [...] Tablet by mouth at bedtime. 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 10/14/2017 12/09/2018 Alcohol ingestion, 1-4 drink [...] [address] [place] [address] [place] [address] 04/23/2023 2:30 PM EST Imaging Radiology, [address] [place] [address] 04/24/2023 1:40 PM EST Office Visit General Internal Medicine [facility] 200 [facility] [place] [address] Evangelista Moran MD 200 [facility] [place], [place] [address] 05/16/2023 10:45 AM EST Office Visit Orthopaedics Spine Surgery, [facility] [address] [place] [address] Mak Galloway MD [address] [place] [address] 02/09/2024 1:20 PM EDT Office Visit Rheumatology [address] [place], [place] [address] Karl Conrad MD [address] [place] [address] [place], [place] [address] Health Maintenance Due Date Last Done Comments [...] D LEVEL ONCE IN A LIFETIME-USE SMARTSET# [id number] Completed 01/21/2023, 08/30/2021, 10/27/2019, Additional history exists [...] this encounter Medical Devices Implanted Type Area Field Nurse Case Manager Device Identifier Shelf Expiration Date Model / Serial / Lot Lens Intraoc 22.0 - [id number] - [id number] Implanted:Qty: 1 on 09/29/2019 by Edwin Carbone MD at OR [facility] Left: Eye BAUSCH [employer] LOMB 03/11/2024 [id number] / [id number] / [id number] Lens Intraoc 20.5 - [id number] - [id number] Implanted:Qty: 1 on 10/05/2019 by Edwin Carbone MD at OR [facility] Right: Eye BAUSCH & LOMB 03/11/2024 [id number] / [id number] / [id number] Cement Hv-R C01a - [id number] Implanted:Qty: 1 on 01/29/2023 by Mak Galloway MD at OR [facility] Spine Thoracic [employer] : NEURO CARE 07/09/2025 C01A / / [id number] Description:1.5 ml right 1.5 ml left documented as of this encounter Advance Directives Latest Code Status on File Code Status Date Activated Date Inactivated Comments Full Code 01/29/2023 12:32 PM 01/29/2023 7:58 PM This order reflects the patients wishes and were consensually agreed upon. Question Answer Comments Discussion of Advance Directives occurred with: Patient Care Teams Handkerchief Folder Relationship Specialty Start Date End Date Evangelista Moran MD 200 [place] [address] PCP - General Internal Medicine 08/27/17 documented as of this encounter
--- OUTSIDE RECORDS SUMMARY | 2023-07-25 14:01 | External Medical Summary ---
Author Name Unknown Address Unknown Organization K09:[facility] [place] [address] Laboratory Report Ordering Provider Test Date Status TORI CRUZ 03/12/2023 11:22:13 Final Observation Date Value Abnormality Reference (Units ) Status Phosphate 03/12/2023 11:22:13 4.7 2.5-4.8 (m g/dL) Final Performing Location [facility] [place] [address]
--- OUTSIDE RECORDS SUMMARY | 2023-07-25 14:01 | External Medical Summary | Summary of Care ---
Author Name Unknown Organization [facility] Address [address] [place] [address] Phone [phone] Care Team Providers Care Underground Conduit Installer Name Role Phone Evangelista Moran MD Primary Care Provider + Reason for Visit * Reason Comments Outpatient Testing Encounter Details Date Type Department Care Team (Late st Contact Info) Description 03/12/2023 11:10 AM EDT Laboratory Laboratory [facility] [address] [place] [phone] [facility] Lab Scen[address] [place] [address] Mixed hyperlipidemia; Age-related osteoporosis with current pathological fracture, initial encounter; Osteoporosis Allergies Active Allergy Reactions Criticality Noted Date Comments Cephalexin Low 04/28/1997 GI upset Corticosteroids Medium 03/08/2019 Palpitations Shellfish Allergy Nausea/vomiting Medium 06/25/2010 Hard shelled shell fish Ezetimibe 04/10/2022 Myalgias documented as of this encounter (statuses as of 03/12/2023) Medications Medication Sig Dispensed Refills Start Date [...] Tablet by mouth at bedtime. 0 Active [place]-3 Fatty Acids (FISH OIL CONCENTRATE) 1000 MG [...] for Wheezing. 8 g 0 03/04/2023 Active Amoxicillin-Pot Clavulanate 875-125 MG Oral Tablet (Augmentin)Indicatio ns:Acute bronchitis, antibiotics not indicated Take 1 Tablet by mouth in the morning and 1 Tablet before bedtime. Do all this for 10 days. 20 Tablet 0 03/05/2023 Active Benzonatate 100 MG Oral Capsule (Shazia Escalante)Indications:A cute bronchitis, antibiotics not indicated Take 1 Capsule by mouth 3 times a day as needed for Cough. Do not cut, crush, or chew. 50 Capsule 1 03/10/2023 Active Hospital, Clinic, or Other Facility Administered Medication Ordered Dose Route Frequency Start Date End Date Status vitamin b-12 (Cyanocobalamin) inj 1,000 mcgIndications:Vitamin B12 deficiency 1000 mcg IM [id number] 01/19/2023 12/21/2023 Active documented as of this encounter (statuses as of 03/12/2023) Active Problems Problem Noted Date Diagnosed Date [...] as of this encounter (statuses as of 03/12/2023) Resolved Problems Problem Noted Date Diagnosed Date Resolved Date Disorder of arteries and art erioles, unspecified 08/30/2021 08/30/2021 Lung granuloma 01/06/2020 11/29/2020 Major depression in partial remission 04/14/2019 03/27/2022 Chronic right hip pain 04/14/201903/27 Adverse effect of hydrochlorothiazide 05/13/2018 07/17/2018 Overview: Muscle aches 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 10/14/2017 12/09/2018 Alcohol ingestion, 1-4 drink [...] as of this encounter (statuses as of 03/12/2023) Immunizations Name Administration Dates Next Due COVID-19 [...] [address] [place] [address] [place] [address] Mak Galloway MD [address] [place] [address] [place] [address] 04/23/2023 2:30 PM EST Imaging Radiology, [address] [place], [place] [address] 04/24/2023 1:40 PM EST Office Visit General Internal Medicine [facility] 200 [facility] [place] [address] Evangelista Moran MD 200 [facility] [place] [address] 05/16/2023 10:45 AM EST Office Visit Orthopaedics Spine Surgery, [facility] [address] [place] [address] Mak Galloway MD [address] [place] [address] [place] [address] 02/09/2024 1:20 PM EDT Office Visit Rheumatology [address] [place], [place] [address] Karl Conrad MD [address] [place] [address] [place] [address] Pending Results Name Type Priority Associated Diagnoses Date /Time LIPID PANEL WITH DIRECT LDL IF TG IS HIGH Lab Routine Mixed hyperlipidemia 03/12/2023 11:07 AM EDT PTH Lab Routine Age-related osteoporosis with current pathological fracture, initial encounter 03/12/2023 11:07 AM EDT PHOSPHORUS Lab Routine Osteoporosis 03/12/2023 11:22 AM EDT PTH Lab Routine Osteoporosis 03/12/2023 11:22 AM EDT Health Maintenance Due Date Last Done Comments DTaP,Tdap,and Td Vaccines (2 - Td or Tdap) 06/21/2018 06/21/2008 *BISPHONATE OR OTHER ACCEPTABLE MEDICATION NEEDED FOR OSTEOPOROSIS (REFER TO SMARTSET #1146) 10/22/2018 DXA Scan 10/19/2020 10/19/2018, 12/12, 01/09/2010 COVID-19 Vaccine (3 - season) 2023 08/16/2020, 07/26/2020 Depression Screening 03/27/2023 03/27/2022 TSH 10/15/2023 10/14/2022, 09/09, 05/14/2022, Additional history exists GFR 01/22/2024 01/21/2023, 09/09, 01/29/2022, Additional history exists HbA1c 01/22/2024 01/21/2023, 09/2022, 08/30/2021, Additional history exists Albumin/Creatinine Ratio 05/14/2025 05/14/2022 Pneumococcal Vaccine: 65+ Years Completed 04/28/2015, 11/22/2009, 05/12/2004 Zoster Vaccines Completed 02/08/2019, 11/10, 10/21/2004 VITAMIN D LEVEL ONCE IN A LIFETIME-USE SMARTSET# [id number] Completed 01/21/2023, 08/30/2021, 10/27/2019, Additional history exists [...] this encounter Medical Devices Implanted Type Area Button Sawyer Device Identifier Shelf Expiration Date Model / Serial / Lot Lens Intraoc 22.0 - [id number] - [id number] Implanted:Qty: 1 on 09/29/2019 by Edwin Carbone MD at OR [facility] Left: Eye BAUSCH & LOMB 03/11/2024 [id number] / [id number] / [id number] Lens Intraoc 20.5 - [id number] - [id number] Implanted:Qty: 1 on 10/05/2019 by Edwin Carbone MD at OR [facility] Right: Eye BAUSCH & LOMB 03/11/2024 [id number] / [id number] / [id number] Cement Hv-R C01a - [id number] Implanted:Qty: 1 on 01/29/2023 by Mak Galloway MD at OR [facility] Spine Thoracic [employer] : NEURO CARE 07/09/2025 C01A / / [id number] Description:1.5 ml right 1.5 ml left documented as of this encounter Visit Diagnoses Diagnosis Mixed hyperlipidemia Age-related osteoporosis with current pathological fracture, initial encounter Osteoporosis Osteoporosis, unspecified documented in this encounter Advance Directives Latest Code Status on File Code Status Date Activated Date Inactivated Comments Full Code 01/29/2023 12:32 PM 01/29/2023 7:58 PM This order reflects the patients wishes and were consensually agreed upon. Question Answer Comments Discussion of Advance Directives occurred with: Patient Care Teams Underground Conduit Installer Relationship Specialty Start Date End Date Evangelista Moran MD 200 [facility] [place] [address] PCP - General Internal Medicine 08/27/17 documented as of this encounter
--- OUTSIDE RECORDS SUMMARY | 2023-07-25 14:01 | External Medical Summary | Summary of Care ---
Author Name Unknown Organization [facility] Address [address] [place] [address] Phone [phone] Care Team Providers Care Safety Patrol Officer Name Role Phone Evangelista Moran MD Primary Care Provider + Reason for Visit * Reason Comments Outpatient Testing Encounter Details Date Type Department Care Team (Late st Contact Info) Description 03/12/2023 11:10 AM EDT Laboratory Laboratory [facility] [address] [place] [phone] [facility] Lab Scenery [address] [place] [address] Mixed hyperlipidemia; Age-related osteoporosis with current pathological [...] Tablet by mouth at bedtime. 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 10/14/2017 12/09/2018 Alcohol ingestion, 1-4 drink [...] [address] [place] [address] [place] [address] Mak Galloway MD [address] [place] [address] [place] [address] 04/23/2023 2:30 PM EST Imaging Radiology, [address] [place], [place] [address] 04/24/2023 1:40 PM EST Office Visit General Internal Medicine [facility] 200 [facility] [place] [address] Evangelista Moran MD 200 [facility] [place] [address] 05/16/2023 10:45 AM EST Office Visit Orthopaedics Spine Surgery, [facility] [address] [place] [address] Mak Galloway MD [address] [place] [address] [place] [address] 02/09/2024 1:20 PM EDT Office Visit Rheumatology [address] [place], [place] [address] Karl Conrad MD [address] [place] [address] [place] [address] Pending Results Name Type Priority Associated Diagnoses [...] D LEVEL ONCE IN A LIFETIME-USE SMARTSET# [id number] Completed 01/21/2023, 08/30/2021, 10/27/2019, Additional history exists [...] this encounter Medical Devices Implanted Type Area Ms Sql Dba Device Identifier Shelf Expiration Date Model / Serial / Lot Lens Intraoc 22.0 - [id number] - [id number] Implanted:Qty: 1 on 09/29/2019 by Edwin Carobne MD at OR [facility] Left: Eye BAUSCH & LOMB 03/11/2024 [id number] / [id number] / [id number] Lens Intraoc 20.5 - [id number] - [id number] Implanted:Qty: 1 on 10/05/2019 by Edwin Carbone MD at OR [facility] Right: Eye BAUSCH & LOMB 03/11/2024 [id number] / [id number] / [id number] Cement Hv-R C01a - [id number] Implanted:Qty: 1 on 01/29/2023 by Mak Galloway MD at OR [facility] Spine Thoracic [employer] : NEURO CARE 07/09/2025 C01A / / [id number] Description:1.5 ml right 1.5 ml left documented [...] Advance Directives occurred with: Patient Care Teams Safety Patrol Officer Relationship Specialty Start Date End Date Evangelista Moran MD 200 [place] [address] PCP - General Internal Medicine 08/27/17 documented as of this encounter
--- OUTSIDE RECORDS SUMMARY | 2023-07-25 14:01 | External Medical Summary | Summary of Care ---
Author Name Unknown Organization [facility] Address [address] [place] [address] Phone [phone] Care Team Providers Care Sales Product Manager Name Role Phone Evangelista Moran MD Primary Care Provider + Encounter Details Date Type Department Care Team (Late st Contact Info) Description 03/12/[address] [facility] [address] [place] [address] Aline Guadarrama CRNP [address] [place] [address] Osteoporosis* Allergies Active Allergy Reactions Criticality Noted Date [...] Tablet by mouth at bedtime. 0 Active [place]-3 Fatty Acids (FISH OIL CONCENTRATE) 1000 MG [...] 1,000 mcgIndications:Vitamin B12 deficiency 1000 mcg IM [id number] 01/19/2023 12/21/2023 Active documented as of this [...] [address] [place] [address] [place] [address] Mak Galloway MD [address] [place] [address] [place] [address] 04/23/2023 2:30 PM EST Imaging Radiology, [address] [place] [address] 04/24/2023 1:40 PM EST Office Visit General Internal Medicine [facility] 200 [facility] [place] [address] Evangelista Moran MD 200 [facility] [place] [address] 05/16/2023 10:45 AM EST Office Visit Orthopaedics [address]ine Surgery, [address] [address] Mak Galloway MD [address] [place] [address] [facility] [place] [address] 02/09/2024 1:20 PM EDT Office Visit Rheumatology [address] [place] [address] Karl Conrad MD [address] [place] [address] [place], [place] [address] Pending Results Name Type Priority Associated Diagnoses Date /Time PTH Lab Routine Osteoporosis 03/12/2023 11:22 AM EDT Scheduled Orders Name Type Priority Associated Diagnoses Orde r Schedule PTH Lab Routine Osteoporosis Expected: 03/12/2023, Expires: Health Maintenance Due Date Last Done Comments DTaP,Tdap,and Td Vaccines (2 - Td or Tdap) 06/21/2018 06/21/2008 *BISPHONATE OR OTHER ACCEPTABLE MEDICATION NEEDED FOR OSTEOPOROSIS (REFER TO SMARTSET #1146) 10/22/2018 DXA Scan 10/19/2020 10/19/2018, 0805/2009, 01/09/2010 COVID-19 Vaccine ( season) 2023 08/16/2020, 07/26/2020 Depression Screening 03/27/2023 03/27/2022 TSH 10/15/2023 10/14/2022, 09/09, 05/14/2022, Additional history exists GFR 01/22/2024 01/21/2023, 09/09, 01/29/2022, Additional history exists HbA1c 01/22/2024 01/21/2023, 09/2022, 08/30/2021, Additional history exists Albumin/Creatinine Ratio 05/14/2025 05/14/2022 Pneumococcal Vaccine: 65+ Years Completed 04/28/2015, 11/22/2009, 05/12/2004 Zoster Vaccines Completed 02/08/2019, 11/10, 10/21/2004 VITAMIN D LEVEL ONCE IN A LIFETIME-USE SMARTSET# [id number] Completed 01/21/2023, 08/30/2021, 10/27/2019, Additional history exists [...] this encounter Medical Devices Implanted Type Area Financial Dealers Device Identifier Shelf Expiration Date Model / Serial / Lot Lens Intraoc 22.0 - [id number] - [id number] Implanted:Qty: 1 on 09/29/2019 by Edwin Carbone MD at [facility] Left: Eye BAUSCH & LOMB 03/11/2024 [id number] / [id number] / [id number] Lens Intraoc 20.5 - [id number] - [id number] Implanted:Qty: 1 on 10/05/2019 by Edwin Carbone MD at OR [facility] Right: Eye BAUSCH & LOMB 03/11/2024 [id number] / [id number] / [id number] Cement Hv-R C01a - [id number] Implanted:Qty: 1 on 01/29/2023 by Mak Galloway MD at OR [facility] Spine Thoracic [employer] : NEURO CARE 07/09/2025 C01A / / [id number] Description:1.5 ml right 1.5 ml left documented as of this encounter Results * PHOSPHORUS (03/12/2023 11:22 AM EDT) Phosphorus 4.7 2.5 - 4.8 mg/dL 03/12/2023 12:18 PM EDT [facility] 56-02 Blood Venous blood specimen / Unknown Venipuncture / Unknown 03/12/2023 11:22 AM EDT 03/12/2023 11:22 AM EDT Aline [facility] B LOOD ORDERABLES [facility] 56-02 [address] [facility] [address] documented in this encounter Visit Diagnoses Diagnosis Osteoporosis- Primary Osteoporosis, unspecified documented in this encounter Advance Directives Latest Code Status on File Code Status Date Activated Date Inactivated Comments Full Code 01/29/2023 12:32 PM 01/29/2023 7:58 PM This order reflects the patients wishes and were consensually agreed upon. Question Answer Comments Discussion of Advance Directives occurred with: Patient Care Teams Sales Product Manager Relationship Specialty Start Date End Date Evangelista Moran MD [facility] [id number] PCP - General Internal Medicine 08/27/17 documented as of this encounter
--- OUTSIDE RECORDS SUMMARY | 2023-07-25 14:01 | External Medical Summary | Summary of Care ---
Author Name Unknown Organization [facility] Address [address] [place] [address] Phone [phone] Care Team Providers Care Business Support Liaison Name Role Phone Evangelista Moran MD Primary Care Provider + Reason for Visit * Reason Comments Outpatient Testing Encounter Details Date Type Department Care Team (Late st Contact Info) Description 03/12/2023 11:10 AM EDT Laboratory Laboratory [facility] [address] [place] [id number] [facility] [address] [place] [address] Mixed hyperlipidemia; Age-related osteoporosis with current pathological [...] Tablet by mouth at bedtime. 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 [address] [facility] [place] [address] Evangelista Moran MD [address] [facility] [place] [address] 05/16/2023 10:45 AM EST Office Visit Orthopaedics Spine Surgery, [facility] [address] [place] [address] Mak Galloway MD [address] [place] [address] [place] [address] 02/09/2024 1:20 PM EDT Office Visit Rheumatology [address] [place], [place] [address] Karl Conrad MD [address] [place] [address] [place] [address] Pending Results Name Type Priority Associated Diagnoses [...] D LEVEL ONCE IN A LIFETIME-USE SMARTSET# [id number] Completed 01/21/2023, 08/30/2021, 10/27/2019, Additional history exists [...] this encounter Medical Devices Implanted Type Area Elevator Constructor Supervisor Device Identifier Shelf Expiration Date Model / Serial / Lot Lens Intraoc 22.0 - [id number] - [id number] Implanted:Qty: 1 on 09/29/2019 by Edwin Carbone MD at OR [facility] Left: Eye BAUSCH & LOMB 03/11/2024 [id number] / [id number] / [id number] Lens Intraoc 20.5 - [id number] - [id number] Implanted:Qty: 1 on 10/05/2019 by Edwin Carbone MD at OR [facility] Right: Eye BAUSCH & LOMB 03/11/2024 [id number] / [id number] / [id number] Cement Hv-R C01a - [id number] Implanted:Qty: 1 on 01/29/2023 by Mak Galloway MD at OR [facility] Spine Thoracic [employer] : NEURO CARE 07/09/2025 C01A / / [id number] Description:1.5 ml right 1.5 ml left documented [...] Advance Directives occurred with: Patient Care Teams Business Support Liaison Relationship Specialty Start Date End Date Evangelista Moran MD [address] [place] [address] PCP - General Internal Medicine 08/27/17 documented as of this encounter
--- OUTSIDE RECORDS SUMMARY | 2023-07-25 14:01 | External Medical Summary ---
Author Name Unknown Address Unknown Organization [id number]:LABORATORY [facility] - [address] [facility] [address] Laboratory Report Ordering Provider Test Date Status FELECIA MAR 03/12/2023 11:07:57 Final Observation Date Value Abnormality Reference (Units ) Status Triglyceride 03/12/2023 11:07:57 231 Above high normal <=174 (mg/dL) Final Triglyceride Reference Range s (mg/dL):
<150 Acceptable
150-174 Borderline high
175-499 High
>=500 Very high Cholesterol 03/12/2023 11:07:57 285 Above high normal <200 (mg/dL) Final Total Cholesterol Reference Ranges (mg/dL):
<200 Desirable
200-239 Borderline high
>=240 High HDL 03/12/2023 11:07:57 65 >49 (mg/dL ) Final HDL Cholesterol Reference Ra nges (mg/dL):
>=60 High (Desirable)
<50 Low (Undesirable) For Females
<40 Low (Undesirable) For Males NON-HDL CHOLESTEROL 03/12/2023 11:07:57 220 Above high normal <=159 (mg/dL) Final Non-HDL Cholesterol Referenc e Range (mg/dL):
<100 Target level for high risk ASCVD patient
<130 Optimal for general population
130-159 Near optimal for general population
160-189 Borderline High
190-219 High
>=220 Very High LDL, (calculated) 03/12/2023 11:07:57 174 Above high n ormal <=129 (mg/dL) Final LDL Cholesterol Reference Ra nges (mg/dL):
<70 Target level for high risk ASCVD patient
<100 Optimal for general population
100-129 Near optimal for general population
130-159 Borderline high
160-189 High
>=190 Very high Performing Location LABORATORY [facility] - [address] [facility] [address]
--- OUTSIDE RECORDS SUMMARY | 2023-07-25 14:01 | External Medical Summary ---
Author Name Unknown Address Unknown Organization K01:LABORATORY [facility] - [address] [place] [address] Laboratory Report Ordering Provider Test Date Status ABDIRASHID CHAU 03/13/2023 14:45:52 Final Light growth normal mari Observation Date Value Abnormality Reference (Units) Status Bacteria identified in Specimen by Culture 03/13/2023 14:45:52 [id number]^STAPHYLOCO CCUS LUGDUNENSIS Abnormal Final Few Staphylococcus lugdunens is Performing Location LABORATORY [facility] - [address] [facility] [address] [place] [address] Ordering Provider Test Date Status ABDIRASHID CHAU 03/13/2023 14:45:52 Final Observation Date Value Abnormality Reference (Units ) Status Clindamycin 03/13/2023 14:45:52 <=0.25 Susceptible Final Erythromycin susceptibility 03/13/2023 14:45:52 <=0.25 Susceptible Final Oxacillinsusceptibility 03/13/2023 14:45:52 0.5 Susceptible Final Penicillin susceptibility 03/13/2023 14:45:52 Resistant Final Tetracyclinesusceptibility 03/13/2023 14:45:52 <=1 Susceptible Final TMP-SMZ susceptibility 03/13/2023 14:45:52 <=10 Susceptible Final Vancomycinsusceptibility 03/13/2023 14:45:52 <=0.5 Susceptible Final Test: Culture, Wound, Super ficial, Aerobic
Specimen Source: Leg, Right
Specimen Type: Superficial Wound
Specimen Date: 03/13/2023 2:45 PM
Result Date: 03/16/2023 1:23 PM
Result Status: Final result
Abnormal: Yes
Resulting Lab: LABORATORY [facility]
[address]
[place] [address]

CULTURE

Few Staphylococcus lugdunensis (Abnormal)

Light growth normal mari

SUSCEPTIBILITY

Staphylococcus
lugdunensis
METHOD MICROBROTH
DILUTIONS

CLINDAMYCIN <=0.25 Susceptible
ERYTHROMYCIN <=0.25 Susceptible
OXACILLIN 0.5 Susceptible
PENICILLIN G -- Resistant
TETRACYCLINE <=1 Susceptible
TRIMETH/SULFAMETHOXAZOLE <=10 Susceptible
VANCOMYCIN <=0.5 Susceptible

[facility] Location LABORATORY [facility] - [address] [facility] [address]
--- OUTSIDE RECORDS SUMMARY | 2023-07-25 14:01 | External Medical Summary | Summary of Care ---
Author Name Unknown Organization [facility] Address [address] [facility] [place] [address] Phone [phone] Care Team Providers Care Reproduction Artist Name Role Phone Evangelista Moran MD Primary Care Provider + Reason for Visit * Reason Comments Wound Recheck Pt here for recheck of wounds on right shoulder and left lower leg. Encounter Details Date Type Department Care Team (Late st Contact Info) Description 03/13/2023 2:00 PM EDT Nurse Only Dermatology [facility] [address] [facility] [place] [place] [address] Sp, Nurse Dermatology 200 [facility] [place] [address] Wound Recheck (Pt here for recheck of woun... Allergies Active Allergy Reactions Criticality Noted Date Comments Cephalexin Low 04/28/1997 GI upset Corticosteroids Medium 03/08/2019 Palpitations Shellfish Allergy Nausea/vomiting Medium 06/25/2010 Hard shelled shell fish Ezetimibe 04/10/2022 Myalgias documented as of this encounter (statuses as of 03/13/2023) Medications Medication Sig Dispensed Refills Start Date [...] Tablet by mouth at bedtime. 0 Active [place]-3 Fatty Acids (FISH OIL CONCENTRATE) 1000 MG [...] 03/05/2023 Active Benzonatate 100 MG Oral Capsule (Tessalthomas Perloswaldo)Indications:A cute bronchitis, antibiotics not indicated Take 1 [...] 1,000 mcgIndications:Vitamin B12 deficiency 1000 mcg IM [id number] 01/19/2023 12/21/2023 Active documented as of this encounter (statuses as of 03/13/2023) Active Problems Problem Noted Date Diagnosed Date [...] as of this encounter (statuses as of 03/13/2023) Resolved Problems Problem Noted Date Diagnosed Date Resolved Date Disorder of arteries and art erioles, unspecified 08/30/2021 08/30/2021 Lung granuloma 01/06/2020 11/29/2020 Major depression in partial remission 04/14/2019 03/27/2022 Chronic right hip pain 04/14/201903/27 Adverse effect of hydrochlorothiazide 05/13/2018 07/17/2018 Overview: Muscle aches 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 Wound on shoulder is healing , no present s/s of infection. No drainage noted. vaseline applied to healing wound. Wound on left lower leg was painful and red, Dr Jackson ordered antibiotic and swab taken. Instructed on continued wound care. No further concerns. Will call if problems or concerns arise. Scheduled for return visit documented in this encounter Plan of Treatment Upcoming Encounters Date Type Department Care Team (Late st Contact Info) Description 04/22/2023 10:45 AM EST Office Visit Orthopaedics Spine Surgery, [facility] [address] [place] [address] [place] [address] Mak Galloway MD [address] [place] [address] [place] [address] 04/23/2023 2:30 PM EST Imaging Radiology, [facility] [address] [facility] [place] [address] 04/24/2023 1:40 PM EST Office Visit General Internal Medicine [facility] [address] [facility] [place] [address] Evangelista Moran MD [address] [facility] [place] [address] 05/16/2023 10:45 AM EST Office Visit Orthopaedics Spine Surgery, [address] [place] [address] Mak Galloway MD [address] [place] [address] [place] [address] 02/09/2024 1:20 PM EDT Office Visit Rheumatology [facility] [address] [place] [address] Karl Conrad MD [address] [place] [address] Scheduled Orders Name Type Priority Associated Diagnoses Orde r Schedule CULTURE, WOUND, SUPERFICIAL, AEROBIC Lab Routine Secondary impetiginization Ordered: 03/13/2023 Health Maintenance Due Date Last Done Comments [...] D LEVEL ONCE IN A LIFETIME-USE SMARTSET# [id number] Completed 01/21/2023, 08/30/2021, 10/27/2019, Additional history exists [...] this encounter Medical Devices Implanted Type Area Machine Trimmer Device Identifier Shelf Expiration Date Model / Serial / Lot Lens Intraoc 22.0 - [id number] - [id number] Implanted:Qty: 1 on 09/29/2019 by Edwin Carbone MD at OR [facility] Left: Eye BAUSCH & LOMB 03/11/2024 [id number] / [id number] / [id number] Lens Intraoc 20.5 - [id number] - [id number] Implanted:Qty: 1 on 10/05/2019 by Edwin Carbone MD at OR [facility] Right: Eye BAUSCH & LOMB 03/11/2024 [id number] / [id number] / [id number] Cement Hv-R C01a - [id number] Implanted:Qty: 1 on 01/29/2023 by Mak Galloway MD at OR [facility] Spine Thoracic [employer] : NEURO CARE 07/09/2025 C01A / / [id number] Description:1.5 ml right 1.5 ml left documented as of this encounter Visit Diagnoses Diagnosis Secondary impetiginization- Primary Impetigo documented in this encounter Advance Directives Latest Code Status on File Code Status Date Activated Date Inactivated Comments Full Code 01/29/2023 12:32 PM 01/29/2023 7:58 PM This order reflects the patients wishes and were consensually agreed upon. Question Answer Comments Discussion of Advance Directives occurred with: Patient Care Teams Reproduction Artist Relationship Specialty Start Date End Date Evangelista Moran MD [address] [facility] [place] [address] PCP - General Internal Medicine 08/27/17 documented as of this encounter
--- OUTSIDE RECORDS SUMMARY | 2023-07-25 14:01 | External Medical Summary ---
Author Name Unknown Address Unknown Organization K01:LABORATORY [facility] - [address] [facility] [place] [address] Laboratory Report Ordering Provider Test Date Status TORI CRUZ 03/12/2023 11:22:13 Final Observation Date Value Abnormality Reference (Units ) Status Parathyrin.intact [Mass/volume] in Serum or Plasma 03/12/2023 11:22:13 39 15-65 (pg/mL) Final Performing Location LABORATORY [facility] - [address] [facility] [address]
--- OUTSIDE RECORDS SUMMARY | 2023-07-25 14:01 | External Medical Summary ---
Author Name Unknown Address Unknown Organization K01:[facility] - [address] [facility] [place] [address] Laboratory Report Ordering Provider Test Date Status EZIO STRATTON 03/12/2023 11:07:57 Final Observation Date Value Abnormality Reference (Units ) Status Parathyrin.intact [Mass/volume] in Serum or Plasma 03/12/2023 11:07:57 38 15-65 (pg/mL) Final Performing Location [facility] - [address] [facility] [address]
--- OUTSIDE RECORDS SUMMARY | 2023-07-25 14:02 | External Medical Summary | Summary of Care ---
Author Name Unknown Organization [facility] Address [address] [place] [address] Phone [phone] Care Team Providers Care Plug Cutter Name Role Phone Evangelista Moran MD Primary Care Provider + Reason for Visit * Reason Onset Date Comments Medical Records Request 03/06/[address] Connor Arthur Encounter Details Date Type Department Care Team (Late st Contact Info) Description 03/06/2023 Telephone General Internal Medicine [facility] [address] [place] [address] Evangelista Moran MD 200 [facility] [place] [address] Medical Records Request (Med Rec from ... Allergies Active Allergy Reactions Criticality Noted Date Comments Cephalexin Low 04/28/1997 GI upset Corticosteroids Medium 03/08/2019 Palpitations Shellfish Allergy Nausea/vomiting Medium 06/25/2010 Hard shelled shell fish Ezetimibe 04/10/2022 Myalgias documented as of this encounter (statuses as of 03/06/2023) Medications Medication Sig Dispensed Refills Start Date [...] Tablet by mouth at bedtime. 0 Active [place]-3 Fatty Acids (FISH OIL CONCENTRATE) 1000 MG [...] for 10 days. 20 Tablet 0 03/05/2023 03/15/2023 Active Hospital, Clinic, or Other Facility Administered Medication Ordered Dose Route Frequency Start Date End Date Status vitamin b-12 (Cyanocobalamin) inj 1,000 mcgIndications:Vitamin B12 deficiency 1000 mcg IM [id number] 01/19/2023 12/21/2023 Active documented as of this encounter (statuses as of 03/06/2023) Active Problems Problem Noted Date Diagnosed Date [...] as of this encounter (statuses as of 03/06/2023) Resolved Problems Problem Noted Date Diagnosed Date Resolved Date Disorder of arteries and art erioles, unspecified 08/30/2021 08/30/2021 Lung granuloma 01/06/2020 11/29/2020 Major depression in partial remission 04/14/2019 03/27/2022 Chronic right hip pain 04/14/201903/27 Adverse effect of hydrochlorothiazide 05/13/2018 07/17/2018 Overview: Muscle aches 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 10/14/2017 12/09/2018 Alcohol ingestion, 1-4 drink [...] as of this encounter (statuses as of 03/06/2023) Immunizations Name Administration Dates Next Due COVID-19 [...] encounter Miscellaneous Notes * Telephone Encounter - Hakan Alcazar, [employer] - 03/06/2023 10:41 AM EDT Medical Record Request Med Rec from Connor Arthur in Anesthesiology Med Rec forwarded to G/ documented in this encounter Plan of Treatment Upcoming Encounters Date Type Department Care Team (Late st Contact Info) Description 04/22/2023 10:45 AM EST Office Visit Orthopaedics Spine Surgery, [place] [address] [place] [address] [place] [address] Mak Galloway MD [address] [place] [address] [facility] [place] [address] 04/23/2023 2:30 PM EST Imaging Radiology, [address] [place], [place] [address] 04/24/2023 1:40 PM EST Office Visit General Internal Medicine [facility] 200 [facility] [place] [address] Evangelista Moran MD [address] [facility] [place], [place] [address] 05/16/2023 10:45 AM EST Office Visit Orthopaedics Spine Surgery, [address] [place] [address] Mak Galloway MD [address] [place] [address] 02/09/2024 1:20 PM EDT Office Visit Rheumatology [address] [place] [address] Karl Conrad MD [address] [place] [address] [place] [address] Health Maintenance Due Date Last Done Comments [...] D LEVEL ONCE IN A LIFETIME-USE SMARTSET# [id number] Completed 01/21/2023, 08/30/2021, 10/27/2019, Additional history exists [...] this encounter Medical Devices Implanted Type Area Spooler Operator Device Identifier Shelf Expiration Date Model / Serial / Lot Lens Intraoc 22.0 - [id number] - [id number] Implanted:Qty: 1 on 09/29/2019 by Edwin Carbone MD at [facility] Left: Eye BAUSCH & LOMB 03/11/2024 [id number] / [id number] / [id number] Lens Intraoc 20.5 - [id number] - [id number] Implanted:Qty: 1 on 10/05/2019 by Edwin Carbone MD at OR [facility] Right: Eye BAUSCH & LOMB 03/11/2024 [id number] / [id number] / [id number] Cement Hv-R C01a - [id number] Implanted:Qty: 1 on 01/29/2023 by Mak Galloway MD at OR [facility] Spine Thoracic [employer] : NEURO CARE 07/09/2025 C01A / / [id number] Description:1.5 ml right 1.5 ml left documented as of this encounter Advance Directives Latest Code Status on File Code Status Date Activated Date Inactivated Comments Full Code 01/29/2023 12:32 PM 01/29/2023 7:58 PM This order reflects the patients wishes and were consensually agreed upon. Question Answer Comments Discussion of Advance Directives occurred with: Patient Care Teams Plug Cutter Relationship Specialty Start Date End Date Evangelista Moran MD 200 [facility] [place] [address] PCP - General Internal Medicine 08/27/17 documented as of this encounter
--- OUTSIDE RECORDS SUMMARY | 2023-07-25 14:02 | External Medical Summary | Summary of Care ---
Author Name Unknown Organization [facility] Address [address] [place] [address] Phone [phone] Care Team Providers Care Organizational Effectiveness Director Name Role Phone Evangelista Moran MD Primary Care Provider + Reason for Visit * Reason Onset Date Comments Test Results Biopsy 03/04/2023 Encounter Details Date Type Department Care Team (Late st Contact Info) Description 03/04/[address] [facility] [place] [address] [facility] [place] [address] Lidya Jackson MD [address] [facility] [place] [address] Test Results Biopsy Allergies Active Allergy Reactions Criticality Noted Date Comments Cephalexin Low 04/28/1997 GI upset Corticosteroids Medium 03/08/2019 Palpitations Shellfish Allergy Nausea/vomiting Medium 06/25/2010 Hard shelled shell fish Ezetimibe 04/10/2022 Myalgias documented as of this encounter (statuses as of 03/04/2023) Medications Medication Sig Dispensed Refills Start Date [...] Tablet by mouth at bedtime. 0 Active [place]-3 Fatty Acids (FISH OIL CONCENTRATE) 1000 MG [...] for Wheezing. 8 g 0 03/04/2023 Active Hospital, Clinic, or Other Facility Administered Medication Ordered Dose Route Frequency Start Date End Date Status vitamin b-12 (Cyanocobalamin) inj 1,000 mcgIndications:Vitamin B12 deficiency 1000 mcg IM [id number] 01/19/2023 12/21/2023 Active documented as of this encounter (statuses as of 03/04/2023) Active Problems Problem Noted Date Diagnosed Date [...] as of this encounter (statuses as of 03/04/2023) Resolved Problems Problem Noted Date Diagnosed Date [...] as of this encounter (statuses as of 03/04/2023) Immunizations Name Administration Dates Next Due COVID-19 mRNA, LNP-s, No Pre serve, 2-Dose Series (Pfizer) 08/16/2020,07/26/2020 Pneumococcal Conjugate Vacc, 13 Valent (Prevnar) 04/28/2015 Pneumococcal Polysaccharide PPV23 (Pneumovax) 11/22/2009,05/12/2004 Seasonal Influenza, Quadriva lent Hd (Fluzone Hd) 02/26/2023 Seasonal Influenza, Split, I IV3, With Preserve, Inj 02/19/2014,02/08/2013,03/10/2012,01/11,01/22/2010,01/30/2009,02/23/20,03/12/2007 03/08/2004 Seasonal Influenza, Trivalen t, High Dose, [...] Telephone Encounter - Oriana Stiles LPN - 03/04/2023 11:46 AM EDT Patient returned my call and I gave her biopsy results. She said the only area that is bothering her is her shoulder since that was a larger area. She said it's just sore. I told her to keep the vaseline on it and that will help with the healing process. Oriana Stiles LPN 03/04/2023 11:47 AM * Telephone Encounter - Oriana Stiles LPN - 03/04/2023 11:46 AM EDT ----- Message from Lidya Jackson MD sent at 03/04/2023 10:08 AM EDT ----- Patient Phone Numbers Please let pt know scalp was precancer, R arm was early basal cell, and L leg early squamous cell, but all 3 were curetted at visit and will be monitored at F/U. Is everything healing well? A. Skin, crown, shave: Actinic keratosis B. Skin, R upper arm/shoulder, shave: Basal cell carcinoma, superficial multifocal type, pigmented, with background solar lentigo (see comment) Comment: Sox10 highlights junctional melanocytes, without demonstrating confluence or upward scatter within the lentigo. C. 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, consistent with Lee subtype documented in this encounter Plan of Treatment Upcoming Encounters Date Type Department Care Team (Late st Contact Info) Description 04/22/2023 10:45 AM EST Office Visit Orthopaedics Spine Surgery, [facility] [address] [place] [address] [place] [address] Mak Galloway MD [address] [place] [address] [place] [address] 04/23/2023 2:30 PM EST Imaging Radiology, [facility] [address] [facility] [place] [address] 04/24/2023 1:40 PM EST Office Visit General Internal Medicine [facility] [address] [place] [address] Evangelista Moran MD 200 [facility] [place] [address] 05/16/2023 10:45 AM EST Office Visit Orthopaedics Spine Surgery, [facility] [address] [facility] [place] [address] Mak Galloway MD [address] [place] [address] [place] [address] 02/09/2024 1:20 PM EDT Office Visit Rheumatology [place] [id number] [facility] [place] [address] Karl Conrad MD [address] [place] [address] Health Maintenance Due Date Last Done Comments [...] D LEVEL ONCE IN A LIFETIME-USE SMARTSET# [id number] Completed 01/21/2023, 08/30/2021, 10/27/2019, Additional history exists [...] this encounter Medical Devices Implanted Type Area Operator Receptionist Device Identifier Shelf Expiration Date Model / Serial / Lot Lens Intraoc 22.0 - [id number] - [id number] Implanted:Qty: 1 on 09/29/2019 by Edwin Carbone MD at OR [facility] Left: Eye BAUSCH & LOMB 03/11/2024 [id number] / [id number] / [id number] Lens Intraoc 20.5 - [id number] - [id number] Implanted:Qty: 1 on 10/05/2019 by Edwin Carbone MD at OR [facility] Right: Eye BAUSCH & LOMB 03/11/2024 [id number] / [id number] / [id number] Cement Hv-R C01a - [id number] Implanted:Qty: 1 on 01/29/2023 by Mak Galloway MD at OR [facility] Spine Thoracic [employer] : NEURO CARE 07/09/2025 C01A / / [id number] Description:1.5 ml right 1.5 ml left documented as of this encounter Additional Health Concerns Infection Onset Date Last Indicated Resolved Time Respiratory Rule-Out 03/04/2023 03/04/2023 documented as of this encounter Advance Directives Latest Code Status on File Code Status Date Activated Date Inactivated Comments Full Code 01/29/2023 12:32 PM 01/29/2023 7:58 PM This order reflects the patients wishes and were consensually agreed upon. Question Answer Comments Discussion of Advance Directives occurred with: Patient Care Teams Organizational Effectiveness Director Relationship Specialty Start Date End Date Evangelista Moran MD [address] [place] [address] PCP - General Internal Medicine 08/27/17 documented as of this encounter
--- OUTSIDE RECORDS SUMMARY | 2023-07-25 14:02 | External Medical Summary | Summary of Care ---
Author Name Unknown Organization [facility] Address [address] [place] [address] Phone [phone] Care Team Providers Care Mail Machine Operator Name Role Phone Evangelista Moran MD Primary Care Provider + Reason for Visit * Reason Comments Congestion X's 5 days Cough Sore Throat Achiness Encounter Details Date Type Department Care Team (Late st Contact Info) Description 03/04/2023 11:20 AM EDT Office Visit General Internal Medicine [facility] [address] [place] [address] Jayy Levin PA-C [address] [place] [address] Acute bronchitis, antibiotics not indicated* Allergies Active Allergy Reactions Criticality Noted Date [...] with a 37.5 mg daily 2 8 Active Melatonin 5 MG Tablet Take 1 Tablet by mouth at bedtime. 0 Active [place]-3 Fatty Acids (FISH OIL CONCENTRATE) 1000 MG [...] night at bedtime. 34 Tablet 5 3 Active Syringe/Needle (Disp) 23G X 1" 3 MLIndications:Vitam in B12 deficiency Use to inject Vitamin B12 monthly 1 Each 3 Active Levothyroxine Sodium 50 MCG Oral Tablet (Levoxyl)Indication s:Acquired hypothyroidism Take 1 Tablet by mouth daily first thing in the morning. (at least 30 min prior to breakfast or other meds) 90 Tablet 3 3 Active Aspirin 325 MG Oral Tablet Take 1 Tablet by mouth in the morning. 30 Tablet 5 3 Active Additional Information Patient taking differently: 81 mgOral Daily(AM), Reported on 01/23/2023 Ibuprofen 600 MG Oral Tablet (Motrin) TAKE BY MOUTH 1 TABLET EVERY 8 HOURS NEEDED (PAIN). WITH FOOD FOR PAIN 90 Tablet 1 3 Active Losartan Potassium 50 MG Oral Tablet (Cozaar)Indications :HTN, goal below 140/90 TAKE 1 TABLET BY MOUTH EVERY DAY IN THE MORNING 90 Tablet 1 3 Active Ventolin HFA 108 (90 Base) MCG/ACT Inhalation Aerosol SolutionIndications :Acute bronchitis, antibiotics not indicated Inhale 2 Puffs by mouth every 4 hours as needed for Wheezing. 8 g 0 3 Active Ibuprofen 400 MG Oral Tablet (Motrin) Take 1 Tablet by mouth every 8 hours as needed for Pain, Severe. 30 Tablet 6 3 03/04/20 23 Discontinued Hospital, Clinic, or Other Facility Administered Medication Ordered Dose Route Frequency Start Date End Date Status vitamin b-12 (Cyanocobalamin) inj 1,000 mcgIndications:Vitamin B12 deficiency 1000 mcg IM [id number] 01/19/2023 12/21/2023 Active documented as of this [...] Sign Reading Time Taken Comments Blood Pressure 128/78 03/04/2023 11:16 AM EDT Pulse 83 03/04/2023 11:16 AM EDT Temperature 37.9 C (100.2 F) 03/04/2023 11:16 AM EDT Respiratory Rate - - Oxygen Saturation 99% 03/04/2023 11:16 AM EDT Inhaled Oxygen Concentration - - Weight 81 kg (178 lb 9.6 oz) 03/04/2023 11:16 AM EDT Height 153.7 cm (5' 0.51") 03/04/2023 11:16 AM E DT Body Mass Index 34.29 03/04/2023 11:16 AM EDT documented in this encounter Progress Notes * Jayy Levin PA-C - 03/04/2023 11:18 AM EDT Subjective: Keisha Tapia is a 77 year old female. Chief Complaint Patient presents with Congestion X's 5 days Cough Sore Throat Achiness HPI: 77 y/o female with HTN, hypothyroidism, insomnia, osteoporosis, sarcoidosis, HLD, JANIA, fibromyalgia seen today with complaint of sore throat, achy, chills, cough. Did lose voice, but returning. Taking 600 mg BID. Started last . Worst Friday and Friday. PMH: Patient Active Problem List Diagnosis Code HTN, goal below 140/90 I10 Menopause Z78.0 BMI 35-39 ISOLATED (SEE ACTUAL BMI) E66.9 Generalized osteoarthritis M15.9 Hx of nonmelanoma skin cancer Z85.828 Acquired hypothyroidism E03.9 Chronic insomnia F51.04 Hx of actinic keratosis Z87.2 High risk for fracture due to osteoporosis by DEXA scan M81.0 Mixed hyperlipidemia E78.2 Granulomatous lung disease (HCC) [...] 1 Tablet by mouth in the morning. EFFEXOR XR 75 MG CP24 1 Capsule. Takes with a 37.5 mg daily 2 Melatonin 5 MG Tablet Take 1 Tablet by mouth at bedtime. [place]-3 Fatty Acids (FISH OIL CONCENTRATE) 1000 MG CAPS Take 1300 mg by mouth daily. Misc Natural Products (TURMERIC CURCUMIN) CAPS 1200 mg by mouth daily Trintellix 5 MG Oral Tablet (Vortioxetine HBr) Take 4 Tablets by mouth in the morning. Diclofenac Sodium 1 % External Gel (Voltaren) APPLY 2 GRAMS TO JOINT 4 TIMES A DAY NEEDED FOR PAIN 350 g 1 Mometasone Furoate 0.1 % External Solution (Elocon) Apply topically to affected area daily. To affected area. (Patient taking differently: Apply topically to affected area daily. To affected area. Asneeded) 30 mL 5 Famotidine 20 MG Oral Tablet (Pepcid) Take 1 Tablet by mouth every night at bedtime. 34 Tablet 5 Syringe/Needle (Disp) 23G X 1" 3 ML Use to inject Vitamin B12 monthly 1 Each 11 Levothyroxine Sodium 50 MCG Oral Tablet (Levoxyl) Take 1 Tablet by mouth daily first thing in the morning. (at least 30 min prior to breakfast or other meds) 90 Tablet 3 Aspirin 325 MG Oral Tablet Take 1 Tablet by mouth in the morning. (Patient taking differently: Take81 mg by mouth in the morning.) 30 Tablet 5 Ibuprofen 600 MG Oral Tablet (Motrin) TAKE BY MOUTH 1 TABLET EVERY 8 HOURS NEEDED (PAIN). WITH FOOD FOR PAIN 90 Tablet 1 Losartan Potassium 50 MG Oral Tablet (Cozaar) TAKE 1 TABLET BY MOUTH EVERY DAY IN THE MORNING 90 Tablet 1 Ventolin HFA 108 (90 Base) MCG/ACT Inhalation Aerosol Solution Inhale 2 Puffs by mouth every 4 hours as needed for Wheezing. 8 g 0 Nurtec 75 MG Oral Tablet Disintegrating As needed (Patient not taking: Reported on 03/04/2023) Current Facility-Administered Medications Medication Dose Route Frequency Provider Last Rate Last Admin vitamin b-12 (Cyanocobalamin) inj 1,000 mcg 1,000 mcg Intramuscular Q4 Weeks Rebecca Moreno MD 1,000 mcg at 02/19/23 1050 Review of patient's allergies indicates: Allergen Reactions Corticosteroids Palpitations Shellfish Allergy Nausea/vomiting Hard shelled shell fish Zetia [Ezetimibe] Myalgias Cephalexin GI upset All other review of systems reviewed and negative other than mentioned in HPI. Objective: BP 128/78 | Pulse 83 | Temp 37.9 C (100.2 F) | Ht 1.537 m (5' 0.51") | Wt 81 kg (178 lb 9.6 oz)| SpO2 99% | BMI 34.29 kg/m | BSA 1.86 m Physical Exam Constitutional: General: She is not in acute distress. Appearance: Normal appearance. She is normal weight. She is not ill-appearing or toxic-appearing. HENT: Head: Normocephalic and atraumatic. Right Ear: Tympanic membrane normal. Left Ear: Tympanic membrane normal. Mouth/Throat: Mouth: Mucous membranes are moist. Pharynx: Oropharynx is clear. No oropharyngeal exudate or posterior oropharyngeal erythema. Eyes: Extraocular Movements: Extraocular movements intact. Conjunctiva/sclera: Conjunctivae normal. Pupils: Pupils are equal, round, and reactive to light. Cardiovascular: Rate and Rhythm: Normal rate and regular rhythm. Heart sounds: Normal heart sounds. No murmur heard. No friction rub. No gallop. Pulmonary: Effort: Pulmonary effort is normal. Breath sounds: Wheezing present. No rhonchi or rales. Abdominal: General: Bowel sounds are normal. There is no distension. Palpations: Abdomen is soft. There is no mass. Tenderness: There is no abdominal tenderness. There is no guarding or rebound. Neurological: Mental Status: She is alert. ASSESSMENT: Acute bronchitis, antibiotics not indicated (Primary) - RESPIRATORY PATHOGEN PANEL, PCR; Future; Expected date: 03/04/2023 - Ventolin HFA 108 (90 Base) MCG/ACT Inhalation Aerosol Solution; Inhale 2 Puffs by mouth every 4 hours as needed for Wheezing. - RESPIRATORY PATHOGEN PANEL, PCR Does not tolerate steroids well so will hold off and use albuterol. Obtain above to evaluate. Can add in therapy pending result. Follow Up: Return if symptoms worsen or fail to improve. Jayy Levin PA-C documented in this encounter Nursing Notes * Kathryn Carrillo LPN - 03/04/2023 11:16 AM EDT Chief Complaint Patient presents with Congestion X's 5 days Cough Sore Throat Achiness documented in this encounter Plan of Treatment Upcoming Encounters Date Type Department Care Team (Late st Contact Info) Description 04/22/2023 10:45 AM EST Office Visit Orthopaedics Spine Surgery, [facility] [address] [place] [address] [place] [address] Mak Galloway MD [address] [place] [address] [place] [address] 04/23/2023 2:30 PM EST Imaging Radiology, [address] [place] [address] 04/24/2023 1:40 PM EST Office Visit General Internal Medicine [facility] [address] [facility] [place] [address] Evangelista Moran MD [address] [facility] [place] [address] 05/16/2023 10:45 AM EST Office Visit Orthopaedics Spine Surgery, [address] [place] [address] Mak Galloway MD [address] [place] [address] [place] [address] 02/09/2024 1:20 PM EDT Office Visit Rheumatology [address] [place] [address] Karl Conrad MD [facility] [employer] [place] [address] Pending Results Name Type Priority Associated Diagnoses Date /Time RESPIRATORY PATHOGEN PANEL, PCR Lab Routine Acute bronchitis, antibiotics not indicated 03/04/2023 11:36 AM EDT Scheduled Orders Name Type Priority Associated Diagnoses Orde r Schedule RESPIRATORY PATHOGEN PANEL, PCR Lab Routine Acute bronchitis, antibiotics not indicated Expected: 03/04/2023 (Approximate), Expires: 03/03/2024 Health Maintenance Due Date Last Done Comments [...] D LEVEL ONCE IN A LIFETIME-USE SMARTSET# [id number] Completed 01/21/2023, 08/30/2021, 10/27/2019, Additional history exists [...] this encounter Medical Devices Implanted Type Area District Engineer Device Identifier Shelf Expiration Date Model / Serial / Lot Lens Intraoc 22.0 - [id number] - [id number] Implanted:Qty: 1 on 09/29/2019 by Edwin Carbone MD at OR [facility] Left: Eye BAUSCH [employer] LOMB 03/11/2024 [id number] / [id number] / [id number] Lens Intraoc 20.5 - [id number] - [id number] Implanted:Qty: 1 on 10/05/2019 by Edwin Carbone MD at OR [facility] Right: Eye BAUSCH & LOMB 03/11/2024 [id number] / [id number] / [id number] Cement Hv-R C01a - [id number] Implanted:Qty: 1 on 01/29/2023 by Mak Galloway MD at OR [facility] Spine Thoracic [employer] : NEURO CARE 07/09/2025 C01A / / [id number] Description:1.5 ml right 1.5 ml left documented as of this encounter Visit Diagnoses Diagnosis Acute bronchitis, antibiotics not indicated- Primary Acute bronchitis documented in this encounter Additional Health Concerns [...] Advance Directives occurred with: Patient Care Teams Mail Machine Operator Relationship Specialty Start Date End Date Evangelista Moran MD [address] [facility] [place], [place] [address] PCP - General Internal Medicine 08/27/17 documented as of this encounter
--- OUTSIDE RECORDS SUMMARY | 2023-07-25 14:02 | External Medical Summary | Summary of Care ---
Author Name Unknown Organization [facility] Address [address] [place] [address] Phone [phone] Care Team Providers Care Psychological Operations Name Role Phone Evangelista Moran MD Primary Care Provider + Reason for Visit * Reason Comments Congestion X's 5 days Cough Sore Throat Achiness Encounter Details Date Type Department Care Team (Late st Contact Info) Description 03/04/2023 11:20 AM EDT Office Visit General Internal Medicine [facility] [address] [place] [address] Jayy Levin PA-C [address] [place] [address] Acute bronchitis, antibiotics not indicated* Allergies Active [...] Tablet by mouth at bedtime. 0 Active [place]-3 Fatty Acids (FISH OIL CONCENTRATE) 1000 MG [...] 1,000 mcgIndications:Vitamin B12 deficiency 1000 mcg IM [id number] 01/19/2023 12/21/2023 Active documented as of this [...] Take 1 Tablet by mouth at bedtime. [place]-3 Fatty Acids (FISH OIL CONCENTRATE) 1000 MG [...] [address] [place] [address] [place] [address] Mak Galloway MD [address] [place] [address] [place] [address] 04/23/2023 2:30 PM EST Imaging Radiology, [address] [place] [address] 04/24/2023 1:40 PM EST Office Visit General Internal Medicine [facility] [address] [facility] [place] [address] Evangelista Moran MD [address] [facility] [place] [address] 05/16/2023 10:45 AM EST Office Visit Orthopaedics Spine Surgery, [address] [place] [address] Mak Galloway MD [address] [place] [address] [place] [address] 02/09/2024 1:20 PM EDT Office Visit Rheumatology [address] [place] [address] Karl Conrad MD [facility] [employer] [place] [address] Pending Results Name Type Priority Associated Diagnoses [...] D LEVEL ONCE IN A LIFETIME-USE SMARTSET# [id number] Completed 01/21/2023, 08/30/2021, 10/27/2019, Additional history exists [...] this encounter Medical Devices Implanted Type Area Industrial Truck Mechanic Device Identifier Shelf Expiration Date Model / Serial / Lot Lens Intraoc 22.0 - [id number] - [id number] Implanted:Qty: 1 on 09/29/2019 by Edwin Carbone MD at OR [facility] Left: Eye BAUSCH & LOMB 03/11/2024 [id number] / [id number] / [id number] Lens Intraoc 20.5 - [id number] - [id number] Implanted:Qty: 1 on 10/05/2019 by Edwin Carbone MD at OR [facility] Right: Eye BAUSCH & LOMB 03/11/2024 [id number] / [id number] / [id number] Cement Hv-R C01a - [id number] Implanted:Qty: 1 on 01/29/2023 by Mak Galloway MD at OR [facility] Spine Thoracic [employer] : NEURO CARE 07/09/2025 C01A / / [id number] Description:1.5 ml right 1.5 ml left documented [...] Advance Directives occurred with: Patient Care Teams Psychological Operations Relationship Specialty Start Date End Date Evangelista Moran MD [address] [facility] [place], [place] [address] PCP - General Internal Medicine 08/27/17 documented as of this encounter
--- OUTSIDE RECORDS SUMMARY | 2023-07-25 14:02 | External Medical Summary | Summary of Care ---
Author Name Unknown Organization [facility] Address [address] [place] [address] Phone [phone] Care Team Providers Care Wastewater Treatment Supervisor Name Role Phone Evangelista Moran MD Primary Care Provider + Reason for Visit * Reason Comments Congestion X's 5 days Cough Sore Throat Achiness Encounter Details Date Type Department Care Team (Late st Contact Info) Description 03/04/2023 11:20 AM EDT Office Visit General Internal Medicine [facility] [address] [facility] [place] [address] Jef Tejeda PA-C [address] [facility] [place] [address] Acute bronchitis, antibiotics not indicated* Allergies Active Allergy Reactions Criticality Noted Date Comments Cephalexin Low 04/28/1997 GI upset Corticosteroids Medium 03/08/2019 Palpitations Shellfish Allergy Nausea/vomiting Medium 06/25/2010 Hard shelled shell fish Ezetimibe 04/10/2022 Myalgias documented as of this encounter (statuses as of 03/05/2023) Medications Medication Sig Dispensed Refills Start Date [...] Tablet by mouth at bedtime. 0 Active [place]-3 Fatty Acids (FISH OIL CONCENTRATE) 1000 MG [...] for Wheezing. 8 g 0 3 Active Amoxicillin-Pot Clavulanate 875-125 MG Oral Tablet (Augmentin)Indicati ons:Acute bronchitis, antibiotics not indicated Take 1 Tablet by mouth in the morning and 1 Tablet before bedtime. Do all this for 10 days. 20 Tablet 0 3 03/15/20 23 Active Ibuprofen 400 MG Oral Tablet (Motrin) Take 1 Tablet by mouth every 8 hours as needed for Pain, Severe. 30 Tablet 6 3 03/04/20 23 Discontinued Hospital, Clinic, or Other Facility Administered Medication Ordered Dose Route Frequency Start Date End Date Status vitamin b-12 (Cyanocobalamin) inj 1,000 mcgIndications:Vitamin B12 deficiency 1000 mcg IM [id number] 01/19/2023 12/21/2023 Active documented as of this encounter (statuses as of 03/05/2023) Active Problems Problem Noted Date Diagnosed Date [...] as of this encounter (statuses as of 03/05/2023) Resolved Problems Problem Noted Date Diagnosed Date Resolved Date Disorder of arteries and art erioles, unspecified 08/30/2021 08/30/2021 Lung granuloma 01/06/2020 11/29/2020 Major depression in partial remission 04/14/2019 03/27/2022 Chronic right hip pain 04/14/201903/27 Adverse effect of hydrochlorothiazide 05/13/2018 07/17/2018 Overview: Muscle aches 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 [place]-3 Fatty Acids (FISH OIL CONCENTRATE) 1000 MG [...] if symptoms worsen or fail to improve. Jef Tejeda PA-C documented in this encounter Nursing Notes * Kathryn Carrillo LPN - 03/04/2023 11:16 AM EDT Chief Complaint Patient presents with Congestion X's 5 days Cough Sore Throat Achiness documented in this encounter Miscellaneous Notes * Addendum Note - Jef Tejeda PA-C - 03/05/2023 9:07 AM EDTAddended by: JEF TEJEDA on: 03/05/2023 09:07 AM Modules accepted: Orders documented in this encounter Plan of Treatment Upcoming Encounters Date Type Department Care Team (Late st Contact Info) Description 04/22/2023 10:45 AM EST Office Visit Orthopaedics Spine Surgery, [facility] [address] [place] [address] [place] [address] Mak Galloway MD [address] [place] [address] [facility] [place] [address] 04/23/2023 2:30 PM EST Imaging Radiology, [facility] [address] [facility] [place], [place] [address] 04/24/2023 1:40 PM EST Office Visit General Internal Medicine [facility] [place] [address] [facility] [place] [address] Evangelista Moran MD 200 [facility] [place] [address] 05/16/2023 10:45 AM EST Office Visit Orthopaedics Spine Surgery, [facility] [address] [facility] [place] [address] Mak Galloway MD [address] [place] [address] [place] [address] 02/09/2024 1:20 PM EDT Office [address] [place] [address] Karl Conrad MD [address] [place] [address] Health Maintenance Due Date Last Done Comments [...] D LEVEL ONCE IN A LIFETIME-USE SMARTSET# [id number] Completed 01/21/2023, 08/30/2021, 10/27/2019, Additional history exists [...] this encounter Medical Devices Implanted Type Area Director Of Institutional Research Device Identifier Shelf Expiration Date Model / Serial / Lot Lens Intraoc 22.0 - [id number] - [id number] Implanted:Qty: 1 on 09/29/2019 by Edwin Carbone MD at OR [facility] Left: Eye [employer]OM[employer] 03/11/2024 [id number] / [id number] / [id number] Lens Intraoc 20.5 - [id number] - [id number] Implanted:Qty: 1 on 10/05/2019 by Edwin Carbone MD at OR [facility] Right: Eye BAUSCH [employer] LOMB 03/11/2024 [id number] / [id number] / [id number] Cement Hv-R C01a - [id number] Implanted:Qty: 1 on 01/29/2023 by Mak Galloway MD at OR [facility] Spine Thoracic [employer] : NEURO CARE 07/09/2025 C01A / / [id number] Description:1.5 ml right 1.5 ml left documented as of this encounter Procedures Procedure Name Priority Date/Time Associated Diagnosis Comments RESPIRATORY PATHOGEN PANEL, PCR Routine 03/04/2023 11:36 AM EDT Acute bronchitis, antibiotics not indicated documented in this encounter Results * RESPIRATORY PATHOGEN PANEL, PCR (03/04/2023 11:36 AM EDT) Adenovirus by PCR Negative Negative 023 5:43 PM EDT [facility] Coronavirus 229E by PCR Negative Negative 03/04/2023 5:43 PM EDT [facility] Coronavirus HKU1 by PCR Negative Negative 03/04/2023 5:43 PM EDT [facility] Coronavirus NL63 by PCR Negative Negative 03/04/2023 5:43 PM EDT [facility] Coronavirus OC43 by PCR Negative Negative 03/04/2023 5:43 PM EDT [facility] Coronavirus SARS-CoV-2 by PCR Negative Negative 03/04/2023 5:43 PM EDT [facility] Human Metapneumovirus by PCR Negative Negative 03/04/2023 5:43 PM EDT [facility] Rhinovirus/Enterovi roque by PCR Negative Negative 03/04/2023 5:43 PM EDT [facility] Influenza A Virus by PCR Negative Negative 03/04/2023 5:43 PM EDT [facility] Influenza B Virus by PCR Negative Negative 03/04/2023 5:43 PM EDT [facility] Parainfluenza Virus 1 by PCR Negative Negative 03/04/2023 5:43 PM EDT [facility] Parainfluenza Virus 2 by PCR Negative Negative 03/04/2023 5:43 PM EDT [facility] Parainfluenza Virus 3 by PCR Negative Negative 03/04/2023 5:43 PM EDT [facility] Parainfluenza Virus 4 by PCR Negative Negative 03/04/2023 5:43 PM EDT [facility] Respiratory Syncytial Virus by PCR Negative Negative 03/04/2023 5:43 PM EDT [facility] Bordetella pertussis by PCR Negative Negative 03/04/2023 5:43 PM EDT [facility] Chlamydia pneumoniae by PCR Negative Negative 03/04/2023 5:43 PM EDT [facility] Mycoplasma pneumoniae by PCR Negative Negative 03/04/2023 5:43 PM EDT [facility] Bordetella parapertussis by PCR Negative Negative 03/04/2023 5:43 PM EDT [facility] Comment: The primers that detect Rhinovirus may cross react with some Enterorviruses. The validation of bronchial specimens, tracheal aspirates, and throats for this assay was developed and performance characteristics determined by [employer]. The validation of alternate specimen types has not been cleared or approved by the U.S. Food and Drug Administration (FDA). It has been determined that such clearance or approval is not necessary. Upper Respiratory Nasopharyngeal swab / Unknown Non-blood Collection / Unknown 03/04/2023 11:36 AM EDT 03/04/2023 11:41 AM EDT Jef Tejeda PA-C LAB MICRO - GENERA L ORDERABLES [facility] [address] [place] [address] documented in this encounter Visit Diagnoses Diagnosis Acute bronchitis, [...] Advance Directives occurred with: Patient Care Teams Wastewater Treatment Supervisor Relationship Specialty Start Date End Date Evangelista Moran MD [address] [facility] [place] [address] PCP - General Internal Medicine 08/27/17 documented as of this encounter
--- OUTSIDE RECORDS SUMMARY | 2023-07-25 14:02 | External Medical Summary | Summary of Care ---
Author Name Unknown Organization [facility] [address] [facility] [address] Phone [phone] Care Team Providers Care Ballistic Technician Name Role Phone Evangelista Moran MD Primary Care Provider + Reason for Visit * Reason Onset Date Comments FYI 03/05/2023 Encounter Details Date Type Department Care Team (Late st Contact Info) Description 03/05/2023 Telephone Orthopaedics Spine Surgery, [facility] [address] [place] [address] Mak Galloway MD [address] [place] [address] FYI Allergies Active Allergy Reactions Criticality Noted Date [...] Tablet by mouth at bedtime. 0 Active [place]-3 Fatty Acids (FISH OIL CONCENTRATE) 1000 MG [...] 1,000 mcgIndications:Vitamin B12 deficiency 1000 mcg IM [id number] 01/19/2023 12/21/2023 Active documented as of this [...] encounter Miscellaneous Notes * Telephone Encounter - NATO Escalera - 03/05/2023 3:22 PM EDT Call received from [facility] requesting the pain medicine referral and the last office notes for the patient. Referral and office notes printed and faxed to [phone] documented in this encounter Plan of Treatment Upcoming Encounters Date Type Department Care Team (Late st Contact Info) Description 04/22/2023 10:45 AM EST Office Visit Orthopaedics Spine Surgery, [facility] He[facility] [address] [place] [address] [place] [address] Mak Galloway MD [address] [facility] [place] [address] 04/23/2023 2:30 PM EST Imaging Radiology, [address] [place] [address] 04/24/2023 1:40 PM EST Office Visit General Internal Medicine [facility] [address] [facility] [place] [address] Evangelista Moran MD [address] [facility] [place] [address] 05/16/2023 10:45 AM EST Office Visit Orthopaedics Spine Surgery, [address] [address] Mak Galloway MD [address] [place] [address] 02/09/2024 1:20 PM EDT Office Visit Rheumatology [address] [place] [address] Karl Conrad MD [address] [place] [address] [place] [address] Health Maintenance Due Date Last Done Comments [...] D LEVEL ONCE IN A LIFETIME-USE SMARTSET# [id number] Completed 01/21/2023, 08/30/2021, 10/27/2019, Additional history exists [...] this encounter Medical Devices Implanted Type Area Shellfish Bed Worker Device Identifier Shelf Expiration Date Model / Serial / Lot Lens Intraoc 22.0 - [id number] - [id number] Implanted:Qty: 1 on 09/29/2019 by Edwin Carbone MD at [facility] Left: Eye [employer]OMB 03/11/2024 [id number] / [id number] / [id number] Lens Intraoc 20.5 - [id number] - [id number] Implanted:Qty: 1 on 10/05/2019 by Edwin Carbone MD at OR [facility] Right: Eye BAUSCH [employer] LOMB 03/11/2024 [id number] / [id number] / [id number] Cement Hv-R C01a - [id number] Implanted:Qty: 1 on 01/29/2023 by Mak Galloway MD at OR [facility] Spine Thoracic [employer] : NEURO CARE 07/09/2025 C01A / / [id number] Description:1.5 ml right 1.5 ml left documented as of this encounter Advance Directives Latest Code Status on File Code Status Date Activated Date Inactivated Comments Full Code 01/29/2023 12:32 PM 01/29/2023 7:58 PM This order reflects the patients wishes and were consensually agreed upon. Question Answer Comments Discussion of Advance Directives occurred with: Patient Care Teams Ballistic Technician Relationship Specialty Start Date End Date Evangelista Moran MD [address] [facility] [place] [address] PCP - General Internal Medicine 08/27/17 documented as of this encounter
--- OUTSIDE RECORDS SUMMARY | 2023-07-25 14:03 | External Medical Summary | Summary of Care ---
Author Name Unknown Organization [facility] Address [address] [place] [address] Phone [phone] Care Team Providers Care Children'S Tutor Name Role Phone Evangelista Moran MD Primary Care Provider + Reason for Visit * Reason Onset Date Comments Test Results Biopsy 03/04/2023 Encounter Details Date Type Department Care Team (Late st Contact Info) Description 03/04/2023 Telephone Dermatology [facility] [place] [address] [facility] [place] [address] Lidya Jackson MD 200 [place] [address] Test Results Biopsy Allergies Active Allergy Reactions [...] Tablet by mouth at bedtime. 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 Oriana Stiles LPN 03/04/2023 11:25 AM * Telephone Encounter - Oriana Stiles LPN - 03/04/2023 11:25 AM EDT ----- Message from Lidya Jackson [...] [address] [place] [address] Mak Galloway MD [address] [place] [address] 04/23/2023 2:30 PM EST Imaging Radiology, [address] [place] [address] 04/24/2023 1:40 PM EST Office Visit General Internal Medicine [facility] [place] [address] Evangelista Moran MD 200 [facility] [place] [address] 05/16/2023 10:45 AM EST Office Visit Orthopaedics Spine Surgery, [facility] [address] [facility] [place] [address] Mak Galloway MD [address] [place] [address] [place] [address] 02/09/2024 1:20 PM EDT Office Visit Rheumatology [facility] [address] [facility] [place] [address] Karl Conrad MD [address] [facility] [place] [address] Health Maintenance Due Date Last Done Comments [...] D LEVEL ONCE IN A LIFETIME-USE SMARTSET# [id number] Completed 01/21/2023, 08/30/2021, 10/27/2019, Additional history exists [...] this encounter Medical Devices Implanted Type Area Tester Sound Device Identifier Shelf Expiration Date Model / Serial / Lot Lens Intraoc 22.0 - [id number] - [id number] Implanted:Qty: 1 on 09/29/2019 by Edwin Carbone MD at OR [facility] Left: Eye BAUSCH [employer] LOMB 03/11/2024 [id number] / [id number] / [id number] Lens Intraoc 20.5 - [id number] - [id number] Implanted:Qty: 1 on 10/05/2019 by Edwin Carbone MD at OR [facility] Right: Eye BAUSCH & LOMB 03/11/2024 [id number] / [id number] / [id number] Cement Hv-R C01a - [id number] Implanted:Qty: 1 on 01/29/2023 by Mak Galloway MD at OR [facility] Spine Thoracic [employer] : NEURO CARE 07/09/2025 C01A / / [id number] Description:1.5 ml right 1.5 ml left documented as of this encounter Advance Directives Latest Code Status on File Code Status Date Activated Date Inactivated Comments Full Code 01/29/2023 12:32 PM 01/29/2023 7:58 PM This order reflects the patients wishes and were consensually agreed upon. Question Answer Comments Discussion of Advance Directives occurred with: Patient Care Teams Children'S Tutor Relationship Specialty Start Date End Date Evangelista Moran MD [address] [place] [address] PCP - General Internal Medicine 08/27/17 documented as of this encounter
--- OUTSIDE RECORDS SUMMARY | 2023-07-25 14:03 | External Medical Summary | Summary of Care ---
Author Name Unknown Organization [facility] Address [address] [facility] [address] Phone [phone] Care Team Providers Care Coffee Grower Name Role Phone Evangelista Moran MD Primary Care Provider + Reason for Visit * Reason Onset Date Comments Advice 02/21/2023 Family Concerns 02/21/2023 Encounter Details Date Type Department Care Team Description 02/21/2023 Telephone Orthopaedics Spine Surgery, [facility] [address] [place] [address] Mak Galloway MD [address] [place] [address] Advice; Family Concerns Allergies Active Allergy Reactions Severity Noted Date Comments Cephalexin Low 04/28/1997 GI upset Corticosteroids Medium 03/08/2019 Palpitations Shellfish Allergy Nausea/vomiting Medium 06/25/2010 Hard shelled shell fish Ezetimibe 04/10/2022 Myalgias documented as of this encounter (statuses as of 02/21/2023) Medications Medication Sig Dispensed Refills Start Date [...] Tablet by mouth at bedtime. 0 Active [place]-3 Fatty Acids (FISH OIL CONCENTRATE) 1000 MG [...] at bedtime. 34 Tablet 5 11/08/2022 Active Ibuprofen 400 MG Oral Tablet (Motrin) Take 1 Tablet by mouth every 8 hours as needed for Pain, Severe. 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 11/08/2021 Overview: Non ruptured Incedental Aneurysm of intracranial portion of righ t internal carotid artery 11/08/2021 Overview: 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 Vitamin B12 deficiency 10/05/2021 JANIA (generalized anxiety disorder) 08/30 Fibromyalgia 04/24/2021 Obesity, Class I, BMI 30.0-34.9 (see act ual BMI) 09/20/2020 Recurrent major depressive disorder, in partial remission 09/04/2020 Pulmonary sarcoidosis 02/23/2020 Granulomatous lung disease 10/27/2019 Mixed hyperlipidemia 03/31/2019 High risk for fracture due to osteoporos is by DEXA scan 10/20/2018 Hx of actinic keratosis 10/12/2018 Chronic insomnia 09/07/2018 Acquired hypothyroidism 08/20/2017 Hx of nonmelanoma skin cancer 01/31/2017 Overview: SCCIS R chest 10/2018, SCCIS R wrist 01/2017,BCC L neck 09/2016, SCC L chest 2015 Generalized osteoarthritis 05/08/2015 BMI 35-39 ISOLATED (SEE ACTUAL BMI) 07/11 Overview: Per Obesity Taxonomy Menopause 12/30/2000 HTN, goal below 140/90 08/14/1998 documented as of this encounter (statuses as of 02/21/2023) Resolved Problems Problem Noted Date Resolved Date Disorder of arteries and arterioles, unspecified 08/30/2021 08/30/2021 Lung granuloma 01/06/2020 11/29/2020 Major depression in partial remission 04/14/2019 03/27/2022 Chronic right hip pain 04/14/2019 2 Adverse effect of hydrochlorothiazide 05/13/2018 07/17/2018 Overview: Muscle aches 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 Incisional hernia 09/08/2006 07/17/2018 ADVANCE DIRECTIVE INFORMATION 09/06/2004 Overview: Yes, Patient instructed to provide copy of advance directive for provider to review and to be scanned into Electronic Medical Record Calculus of gallbladder with out mention of cholecystitis or obstruction 01/06/2003 03/08/2003 Mixed dyslipidemia 12/03/2001 04/26/2009 Overview: Per Lipid Taxonomy. OBESITY, UNSPECIFIED 01/11/1999 08/07/2009 Overview: Per Obesity Taxonomy ANXIETY STATE NOS 08/14/1998 04/28/2015 Myalgia and myositis 08/14/1998 11/17/2017 documented as of this encounter (statuses as of 02/21/2023) Immunizations Name Administration Dates Next Due COVID-19 mRNA, LNP-s, No Pre serve, 2-Dose Series (Petnet) 08/16/2020,07/26/2020 Pneumococcal Conjugate Vacc, 13 Valent (Prevnar) [...] = 0.6 oz pu re alcohol) Occ. Food Insecurity Answer Date Recorded Within the past 12 months, y ou worried that your food would run out before you got money to buy more. Never true 02/25/2020 Within the past 12 months, t he food you bought just didn't last and you didn't have money to get more. Never true 02/25/2020 Sex Assigned at Date Recorded Female 09/07/2018 1:43 PM EDT Job Start Date Occupation Industry Not on file Not on file Not on file documented as of this encounter Miscellaneous Notes * Telephone Encounter - NATO Best - 02/21/2023 1:14 PM EDT Forms are at every check-in/out desk. Will be ready to assist in filling out form. * Telephone Encounter - Evangelista Moran MD - 02/21/2023 10:52 AM EDT Please see below and assist * Telephone Encounter - NATO Escalera - 02/21/2023 10:42 AM EDT Patient called [facility] office asking about having her records sent [place] [facility]. Patient stated that it is closer for her to go to her PCP,'s office to fill out and sign the authorization to release medical information form . Would someone in your office/ motel front desk clerk be able to have the form ready for her if she comes in to your office? documented in this encounter Plan of Treatment Upcoming Encounters Date Type Specialty Care Team Description 02/25/2023 Office Visit Dermatology Lidya Jackson MD [address] [facility] [place] [address] 02/26/2023 Immunization Ancillary Sp, Flu Shot Clinic [address] [facility] [place] [address] 03/28/2023 Office Visit Cardiology [facility] Cardiology Fl[place] [address] [place] [address] 04/15/2023 Office Visit Pain Medicine Danny Wallace DO [address] [place] [phone] 04/22/2023 Office Visit Orthopedic Surgery Mak Galloway MD [address] [place] [address] 04/23/2023 Imaging Radiology 04/24/2023 Office Visit Internal Medicine Evangelista Moran MD [address] [facility] [place] [address] 05/16/2023 Office Visit Orthopedic Surgery Mak Galloway MD [address] [place] [address] 02/09/2024 Office Visit Rheumatology Karl Conrad MD [address] [facility], [place] [address] Health Maintenance Due Date Last Done Comments DTaP,Tdap,and Td Vaccines (2 - Td or Tdap) 06/21/2018 06/21/2008 *BISPHONATE OR OTHER ACCEPTABLE MEDICATION NEEDED FOR OSTEOPOROSIS (REFER TO SMARTSET #1146) 10/22/2018 DXA Scan 10/19/2020 10/19/2018, 12/12, 01/09/2010 COVID-19 Vaccine ( season) 2023 08/16/2020, 07/26/2020 Influenza Vaccine (FLU shot) (#1) 2023 03/20/2022, 03/10/2015, 02/19/2014, Additional history exists Depression Screening 03/27/2023 03/27/2022 TSH 10/15/2023 10/14/2022, 09/09, 05/14/2022, Additional history exists GFR 01/22/2024 01/21/2023, 09/09, 01/29/2022, Additional history exists HbA1c 01/22/2024 01/21/2023, 0609/2022, 08/30/2021, Additional history exists Albumin/Creatinine Ratio 05/14/2025 05/14/2022 Pneumococcal Vaccine: 65+ Years Completed 04/28/2015, 11/22/2009, 05/12/2004 Zoster Vaccines Completed 02/08/2019, 11/10, 10/21/2004 VITAMIN D LEVEL ONCE IN A LIFETIME-USE SMARTSET# [id number] Completed 01/21/2023, 08/30/2021, 10/27/2019, Additional history exists GARDASIL-HPV IMMUNIZATION SERIES Aged Out No longer eligible based on patient's age to complete this topic Hepatitis B Aged Out No longer eligi ble based on patient's age to complete this topic MENINGOCOCCAL (MENACTRA/MENVEO) Aged Out No longer eligible based on patient's age to complete this topic documented as of this encounter Medical Devices Implanted Type Area Milieu Coordinator Device Identifier Shelf Expiration Date Model / Serial / Lot Lens Intraoc 22.0 - [id number] - [id number] Implanted:Qty: 1 on 09/29/2019 by Edwin Carbone MD at OR [facility] Left: Eye [employer]OMB 03/11/2024 [id number] / [id number] / [id number] Lens Intraoc 20.5 - [id number] - [id number] Implanted:Qty: 1 on 10/05/2019 by Edwin Carbone MD at OR [facility] Right: Eye [employer] LOMB 03/11/2024 [id number] / [id number] / [id number] Cement Hv-R C01a - [id number] Implanted:Qty: 1 on 01/29/2023 by Mak Galloway MD at OR [facility] Spine Thoracic [employer] : NEURO CARE 07/09/2025 C01A / / [id number] Description:1.5 ml right 1.5 ml left documented as of this encounter Advance Directives Latest Code Status on File Code Status Date Activated Date Inactivated Comments Full Code 01/29/2023 12:32 PM 01/29/2023 7:58 PM This order reflects the patients wishes and were consensually agreed upon. Question Answer Comments Discussion of Advance Directives occurred with: Patient Care Teams Coffee Grower Relationship Specialty Start Date End Date Evangelista Moran MD [address] [place] [address], [place] [address] PCP - General Internal Medicine 08/27/17 documented as of this encounter
--- OUTSIDE RECORDS SUMMARY | 2023-07-25 14:03 | External Medical Summary | Summary of Care ---
Author Name Unknown Organization [facility] Address [address] [facility] [address] Phone [phone] Care Team Providers Care Hat Cone Inspector Name Role Phone Evangelista Moran MD Primary Care Provider + Reason for Visit * Reason Onset Date Comments Advice 02/21/2023 Family Concerns 02/21/2023 Encounter Details Date Type Department Care Team Description 02/21/2023 Telephone Orthopaedics Spine Surgery, [facility] [address] [place] [address] Mak Galloway MD [address] [employer] [address] [place] [address] Advice; Family Concerns Allergies Active Allergy [...] by mouth at bedtime. 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 Patient stated that it is closer for her to go to her PCP,'s office to fill out and sign the authorization to release medical information form . Would someone in your office/ front desk team member be able to have the form ready for her if she comes in to your office? documented in this encounter Plan of Treatment Upcoming Encounters Date Type Specialty Care Team Description 02/25/2023 Office Visit Dermatology Lidya Jackson MD [address] [facility] [place] [address] 02/26/2023 Immunization Ancillary Sp, Flu Shot Clinic [address] [facility] [place] [address] 03/28/2023 Office Visit Cardiology [facility] Cardiology Fl[place] [address] [place] [address] 04/15/2023 Office Visit Pain Medicine Danny Wallace DO [address] [place] [phone] 04/22/2023 Office Visit Orthopedic Surgery Mak Galloway MD [address] [place] [address] 04/23/2023 Imaging Radiology 04/24/2023 Office Visit Internal Medicine Evangelista Moran MD [address] [facility] [place] [address] 05/16/2023 Office Visit Orthopedic Surgery Mak Galloway MD [address] [place] [address] 02/09/2024 Office Visit Rheumatology Karl Conrad MD [address] [place] [address] [place], [place] [address] Health Maintenance Due Date Last Done Comments [...] D LEVEL ONCE IN A LIFETIME-USE SMARTSET# [id number] Completed 01/21/2023, 08/30/2021, 10/27/2019, Additional history exists [...] this encounter Medical Devices Implanted Type Area Structural Steel Equipment Erector Device Identifier Shelf Expiration Date Model / Serial / Lot Lens Intraoc 22.0 - [id number] - [id number] Implanted:Qty: 1 on 09/29/2019 by Edwin Carbone MD at OR [facility] Left: Eye [employer]USCH [employer] LOMB 03/11/2024 [id number] / [id number] / [id number] Lens Intraoc 20.5 - [id number] - [id number] Implanted:Qty: 1 on 10/05/2019 by Edwin Carbone MD at OR [facility] Right: Eye BAUSCH [employer] LOMB 03/11/2024 [id number] / [id number] / [id number] Cement Hv-R C01a - [id number] Implanted:Qty: 1 on 01/29/2023 by Mak Galloway MD at OR [facility] Spine Thoracic [employer] : NEURO CARE 07/09/2025 C01A / / [id number] Description:1.5 ml right 1.5 ml left documented as of this encounter Advance Directives Latest Code Status on File Code Status Date Activated Date Inactivated Comments Full Code 01/29/2023 12:32 PM 01/29/2023 7:58 PM This order reflects the patients wishes and were consensually agreed upon. Question Answer Comments Discussion of Advance Directives occurred with: Patient Care Teams Hat Cone Inspector Relationship Specialty Start Date End Date Evangelista Moran MD [address] [place] [address] [place] [address] PCP - General Internal Medicine 08/27/17 documented as of this encounter
--- OUTSIDE RECORDS SUMMARY | 2023-07-25 14:03 | External Medical Summary | Summary of Care ---
Author Name Unknown Organization [facility] Address [address] [facility] [address] Phone [phone] Care Team Providers Care Mimeographer Name Role Phone Evangelista Moran MD Primary Care Provider + Reason for Visit * Reason Onset Date Comments Advice 02/21/2023 Family Concerns 02/21/2023 Encounter Details Date Type Department Care Team Description 02/21/2023 Telephone Orthopaedics Spine Surgery, [facility] [address] [place] [address] Mak Galloway MD [address] [place] [address] Advice; Family Concerns Allergies Active Allergy [...] Tablet by mouth at bedtime. 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 Alcohol ingestion, 1-4 drinks per [...] mRNA, LNP-s, No Pre serve, 2-Dose Series ([email or web address]) 08/16/2020,07/26/2020 Pneumococcal Conjugate Vacc, 13 Valent (Prevnar) [...] at Date Recorded Female 09/07/2018 1:43 PM E DT Job Start Date Occupation Industry Not on file Not on file Not on file documented as of this encounter Miscellaneous Notes * Telephone Encounter - Evangelista Moarn MD - 02/21/2023 10:52 AM EDT Please see below and assist * Telephone Encounter - NATO Escalera - 02/21/2023 10:42 AM EDT Patient called [facility] office asking about having her records sent to [facility]. Patient stated that it is closer for her to go to her PCP,'s office to fill out and sign the authorization to release medical information form . Would someone in your office/ front end drupal developer be able to have the form ready for her if she comes in to your office? documented in this encounter Plan of Treatment Upcoming Encounters Date Type Specialty Care Team Description 02/25/2023 Office Visit Dermatology Lidya Jackson MD [address] [facility] [place] [address] 02/26/2023 Immunization Ancillary Sp, Flu Shot Clinic [address] [facility] [place] [address] 03/28/2023 Office Visit Cardiology [facility] Cardiology Fl[place] [address] [place] [address] 04/15/2023 Office Visit Pain Medicine Danny Wallace DO [address] [place] [phone] 04/22/2023 Office Visit Orthopedic Surgery Mak Galloway MD [address] [place] [address] 04/23/2023 Imaging Radiology 04/24/2023 Office Visit Internal Medicine Evangelista Moran MD [address] [facility] [place] [address] 05/16/2023 Office Visit Orthopedic Surgery Mak Galloway MD [address] [facility] [place] [address] 02/09/2024 Office Visit Rheumatology Karl Conrad MD [address] [place] [address] [place], [place] [address] Health Maintenance Due Date Last Done Comments [...] D LEVEL ONCE IN A LIFETIME-USE SMARTSET# [id number] Completed 01/21/2023, 08/30/2021, 10/27/2019, Additional history exists [...] this encounter Medical Devices Implanted Type Area Quality Assurance Supervisor Chassis Device Identifier Shelf Expiration Date Model / Serial / Lot Lens Intraoc 22.0 - [id number] - [id number] Implanted:Qty: 1 on 09/29/2019 by Edwin Carbone MD at OR [facility] Left: Eye BAUSCH & LOMB 03/11/2024 [id number] / [id number] / [id number] Lens Intraoc 20.5 - [id number] - [id number] Implanted:Qty: 1 on 10/05/2019 by Edwin Carbone MD at OR [facility] Right: Eye BAUSCH & LOMB 03/11/2024 [id number] / [id number] / [id number] Cement Hv-R C01a - [id number] Implanted:Qty: 1 on 01/29/2023 by Mak Galloway MD at OR [facility] Spine Thoracic [employer] : NEURO CARE 07/09/2025 C01A / / [id number] Description:1.5 ml right 1.5 ml left documented as of this encounter Advance Directives Latest Code Status on File Code Status Date Activated Date Inactivated Comments Full Code 01/29/2023 12:32 PM 01/29/2023 7:58 PM This order reflects the patients wishes and were consensually agreed upon. Question Answer Comments Discussion of Advance Directives occurred with: Patient Care Teams Mimeographer Relationship Specialty Start Date End Date Evangelista Moran MD [address] [place] [address] [place] [address] PCP - General Internal Medicine 08/27/17 documented as of this encounter
--- OUTSIDE RECORDS SUMMARY | 2023-07-25 14:03 | External Medical Summary | Summary of Care ---
Author Name Unknown Organization [facility] Address [address] [facility] [place] [address] Phone [phone] Care Team Providers Care Maintenance Worker Name Role Phone Evangelista Moran MD Primary Care Provider + Reason for Visit * Reason Comments Follow Up * Evaluate & Treat - Unlimited Visits (Within 30 days (routine)) - Authorized Specialty Diagnoses / Procedures Referred By Sheridan cristobal Referred To Contact Otolaryngology Diagnoses Impacted cerumen, unspecified laterality Rebecca Moreno MD [address] [place] [address] Referral ID Status Reason Start Date Expiration Date Visits Requested Visits Authorized [id number] Authorized Specialty Services Required 01/17/2023 999 999 Encounter Details Date Type Department Care Team Description 02/19/2023 Office Visit Otolaryngology [facility] [address] [facility] [place] [address] Hakan Olivas DO 132 [facility] [place] [address] Bilateral impacted cerumen*; Impacted cerumen, unspecified laterality [H61.20 (ICD-10-CM)] Allergies Active Allergy Reactions Severity Noted Date Comments Cephalexin Low 04/28/1997 GI upset Corticosteroids Medium 03/08/2019 Palpitations Shellfish Allergy Nausea/vomiting Medium 06/25/2010 Hard shelled shell fish Ezetimibe 04/10/2022 Myalgias documented as of this encounter (statuses as of 02/19/2023) Medications Medication Sig Dispensed Refills Start Date [...] Tablet by mouth at bedtime. 0 Active [place]-3 Fatty Acids (FISH OIL CONCENTRATE) 1000 MG [...] 1,000 mcgIndications:Vitamin B12 deficiency 1000 mcg IM [id number] 01/19/2023 12/21/2023 Active documented as of this encounter (statuses as of 02/19/2023) Active Problems Problem Noted Date Age-related osteoporosis [...] as of this encounter (statuses as of 02/19/2023) Resolved Problems Problem Noted Date Resolved Date Disorder of arteries and arterioles, unspecified 08/30/2021 08/30/2021 Lung granuloma 01/06/2020 11/29/2020 Major depression in partial remission 04/14/2019 03/27/2022 Chronic right hip pain 04/14/2019 Adverse effect of hydrochlorothiazide 05/13/2018 07/17/2018 Overview: Muscle aches 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 Alcohol ingestion, 1-4 drinks per [...] as of this encounter (statuses as of 02/19/2023) Immunizations Name Administration Dates Next Due COVID-19 [...] Sign Reading Time Taken Comments Blood Pressure - - Pulse - - Temperature 36.9 C (98.5 F) 02/19/2023 11:37 AM E DT Respiratory Rate - - Oxygen Saturation - - Inhaled Oxygen Concentration - - Weight 80.3 kg (177 lb) 02/19/2023 11:37 AM EDT Height 153.7 cm (5' 0.51") 02/19/2023 11:37 AM E DT Body Mass Index 33.99 02/19/2023 11:37 AM EDT documented in this encounter Progress Notes * Hakan Olivas DO - 02/19/2023 12:00 PM EDT Otolaryngology Head and Neck Surgery. 02/19/2023 Procedure: Cerumen removal Attention directed to the right ear. Under brendan-microscopic guidance the impacted cerumen was removed with a suction atraumatically. The tympanic membrane was intact and the middle ear was healthy appearing. The same procedure was performed on the other side. Patient tolerated the procedure well. Procedure: In order to assess ears in further detail, the patient was brought to the microscope room and the ears were evaluated under the operating microscope. The findings are as noted in the above procedure note Assessment: 77-year-old female with bilateral cerumen impaction. Plan: Cerumen removed as above Follow-up p.r.n. documented in this encounter Nursing Notes * Natasha Glover LPN - 02/19/2023 11:38 AM EDT Patient presents today for wax removal. States she has decreased hearing. Has hearing aids but is not using them. documented in this encounter Plan of Treatment Upcoming Encounters Date Type Specialty Care Team Description 02/25/2023 Office Visit Dermatology Lidya Jacksno MD 200 [place] [address] 02/26/2023 Immunization Ancillary Sp, Flu Shot Clinic 200 [place] [address] 03/28/[address] [facility] Cardiology Florencio [address] [place] [address] 04/22/2023 Office Visit Orthopedic Surgery Mak Galloway MD [address] [place] [address] [place] [address] 04/23/2023 Imaging Radiology 04/24/2023 Office Visit Internal Medicine Evangelista Moran MD [address] [place] [address] 05/16/2023 Office Visit Orthopedic Surgery Mak Galloway MD [address] [place] [address] [facility] [address] 02/09/2024 Office Visit Rheumatology Karl Conrad MD [facility] [place] [address] Scheduled Referrals Name Type Priority Associated Diagnoses Orde r Schedule OTOLARYNGOLOGY REFERRAL OP Referral Within 30 days (routine) Impacted cerumen, unspecified laterality Ordered: 01/17/2023 Health Maintenance Due Date Last Done Comments [...] D LEVEL ONCE IN A LIFETIME-USE SMARTSET# 91249 Completed 01/21/2023, 08/30/2021, 10/27/2019, Additional history exists [...] this encounter Medical Devices Implanted Type Area Top Steep Tender Device Identifier Shelf Expiration Date Model / Serial / Lot Lens Intraoc 22.0 - [id number] - [id number] Implanted:Qty: 1 on 09/29/2019 by Edwin Carbone MD at OR [facility] Left: Eye BAUSCH & LOMB 03/11/2024 [id number] / [id number] / [id number] Lens Intraoc 20.5 - [id number] - [id number] Implanted:Qty: 1 on 10/05/2019 by Edwin Carbone MD at OR [facility] Right: Eye BAUSCH & LOMB 03/11/2024 [id number] / [id number] / [id number] Cement Hv-R C01a - [id number] Implanted:Qty: 1 on 01/29/2023 by Mak Galloway MD at OR [facility] Spine Thoracic [employer] : NEURO CARE 07/09/2025 C01A / / [id number] Description:1.5 ml right 1.5 ml left documented as of this encounter Visit Diagnoses Diagnosis Bilateral impacted cerumen- Primary Impacted cerumen Impacted cerumen, unspecified laterality [H61.20 (ICD-10-CM)] documented in this encounter Advance Directives Latest Code Status on File Code Status Date Activated Date Inactivated Comments Full Code 01/29/2023 12:32 PM 01/29/2023 7:58 PM This order reflects the patients wishes and were consensually agreed upon. Question Answer Comments Discussion of Advance Directives occurred with: Patient Care Teams Maintenance Worker Relationship Specialty Start Date End Date Evangelista Moran MD [address] [place] [address] [id number] PCP - General Internal Medicine 08/27/17 documented as of this encounter
--- OUTSIDE RECORDS SUMMARY | 2023-07-25 14:03 | External Medical Summary | Summary of Care ---
Author Name Unknown Organization [facility] Address [address] [facility] [address] Phone [phone] Care Team Providers Care Grain Elevator Operator Name Role Phone Evangelista Moran MD Primary Care Provider + Reason for Visit * Reason Onset Date Comments Advice 02/21/2023 Family Concerns 02/21/2023 Encounter Details Date Type Department Care Team Description 02/21/2023 Telephone Orthopaedics Spine Surgery, Laurence He[facility] [address] [place] [address] Mak Galloway MD [address] [place] [address] Advice; Family Concerns Allergies Active Allergy Reactions Severity Noted Date Comments Cephalexin Low 04/28/1997 GI upset Corticosteroids Medium 03/08/2019 Palpitations Shellfish Allergy Nausea/vomiting Medium 06/25/2010 Hard shelled shell fish Ezetimibe 04/10/2022 Myalgias documented as of this encounter (statuses as of 02/26/2023) Medications Medication Sig Dispensed Refills Start Date [...] Tablet by mouth at bedtime. 0 Active [place]-3 Fatty Acids (FISH OIL CONCENTRATE) 1000 MG [...] 1,000 mcgIndications:Vitamin B12 deficiency 1000 mcg IM [id number] 01/19/2023 12/21/2023 Active documented as of this encounter (statuses as of 02/26/2023) Active Problems Problem Noted Date Age-related osteoporosis [...] as of this encounter (statuses as of 02/26/2023) Resolved Problems Problem Noted Date Resolved Date Disorder of arteries and arterioles, unspecified 08/30/2021 08/30/2021 Lung granuloma 01/06/2020 11/29/2020 Major depression in partial remission 04/14/2019 03/27/2022 Chronic right hip pain 04/14/2019 2 Adverse effect of hydrochlorothiazide 05/13/2018 07/17/2018 Overview: Muscle aches 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 Patient stated that it is closer for her to go to her PCP,'s office to fill out and sign the authorization to release medical information form . Would someone in your office/ front office medical assistant be able to have the form ready for her if she comes in to your office? documented in this encounter Plan of Treatment Upcoming Encounters Date Type Specialty Care Team Description 02/26/2023 Immunization Ancillary Sp, Flu Shot Clinic 200 [facility] [place] [address] 03/28/2023 Office Visit Cardiology [facility] Cardiology [facility] [address] [place] [address] 04/15/2023 Office Visit Pain Medicine Danny Wallace DO [address] [place] [phone] 04/22/2023 Office Visit Orthopedic Surgery Mak Galloway MD [address] [place] [address] [place] [address] 04/23/2023 Imaging Radiology 04/24/2023 Office Visit Internal Medicine Evangelista Moran MD [address] [facility] [place] [address] 05/16/2023 Office Visit Orthopedic Surgery Mak Galloway MD [address] [place] [address] 02/09/2024 Office Visit Rheumatology Karl Conrad MD [address] [place] [address] [place] [address] Health Maintenance Due Date Last Done Comments DTaP,Tdap,and Td Vaccines (2 - Td or Tdap) 06/21/2018 06/21/2008 *BISPHONATE OR OTHER ACCEPTABLE MEDICATION NEEDED FOR OSTEOPOROSIS (REFER TO SMARTSET #1146) 10/22/2018 DXA Scan 10/19/2020 10/19/2018, 12/12, 01/09/2010 COVID-19 Vaccine (3 - season) 2023 08/16/2020, 07/26/2020 Influenza Vaccine (FLU shot) (#1) 2023 03/20/2022, 03/10/2015, 02/19/2014, Additional history exists Depression Screening 03/27/2023 03/27/2022 TSH 10/15/2023 10/14/2022, 09/09, 05/14/2022, Additional history exists GFR 01/22/2024 01/21/2023, 09/09, 01/29/2022, Additional history exists HbA1c 01/22/2024 01/21/2023, 06/0 09/2022, 08/30/2021, Additional history exists Albumin/Creatinine Ratio 05/14/2025 05/14/2022 Pneumococcal Vaccine: 65+ Years Completed 04/28/2015, 11/22/2009, 05/12/2004 Zoster Vaccines Completed 02/08/2019, 11/10, 10/21/2004 VITAMIN D LEVEL ONCE IN A LIFETIME-USE SMARTSET# [id number] Completed 01/21/2023, 08/30/2021, 10/27/2019, Additional history exists [...] this encounter Medical Devices Implanted Type Area Pmp Certified Project Manager Device Identifier Shelf Expiration Date Model / Serial / Lot Lens Intraoc 22.0 - [id number] - [id number] Implanted:Qty: 1 on 09/29/2019 by Edwin Carbone MD at OR [facility] Left: Eye BAUSCH & LOMB 03/11/2024 [id number] / [id number] / [id number] Lens Intraoc 20.5 - [id number] - [id number] Implanted:Qty: 1 on 10/05/2019 by Edwin Carbone MD at OR [facility] Right: Eye BAUSCH & LOMB 03/11/2024 [id number] / [id number] / [id number] Cement Hv-R C01a - [id number] Implanted:Qty: 1 on 01/29/2023 by Mak Galloway MD at OR [facility] Spine Thoracic [employer] : NEURO CARE 07/09/2025 C01A / / [id number] Description:1.5 ml right 1.5 ml left documented as of this encounter Advance Directives Latest Code Status on File Code Status Date Activated Date Inactivated Comments Full Code 01/29/2023 12:32 PM 01/29/2023 7:58 PM This order reflects the patients wishes and were consensually agreed upon. Question Answer Comments Discussion of Advance Directives occurred with: Patient Care Teams Grain Elevator Operator Relationship Specialty Start Date End Date Evangelista Moran MD [address] [place] [address], [place] [address] PCP - General Internal Medicine 08/27/17 documented as of this encounter
--- OUTSIDE RECORDS SUMMARY | 2023-07-25 14:03 | External Medical Summary | Summary of Care ---
Author Name Unknown Organization [facility] Address [address] [place] [address] Phone [phone] Care Team Providers Care Scuba Dive Training Instructor Name Role Phone Evangelista Moran MD Primary Care Provider + Reason for Visit * Reason Comments Follow Up Pt here for 5 month f/u for full skin exam. Hx of non-melanoma skin cancer. Pt concerned with lesions on chest, back, and L ankle. Pt states that back and ankle lesions were previously frozen, but came back. Encounter Details Date Type Department Care Team Description 02/25/2023 Office Visit Dermatology [facility] [address] [place] [address] Lidya Jackson MD [address] [place] [address] Scar*; Hx of actinic keratosis; Inflamed seborrheic keratosis; Hx of nonmelanoma skin cancer; Skin tumor Allergies Active Allergy Reactions Severity Noted Date Comments Cephalexin Low 04/28/1997 GI upset Corticosteroids Medium 03/08/2019 Palpitations Shellfish Allergy Nausea/vomiting Medium 06/25/2010 Hard shelled shell fish Ezetimibe 04/10/2022 Myalgias documented as of this encounter (statuses as of 02/25/2023) Medications Medication Sig Dispensed Refills Start Date [...] Tablet by mouth at bedtime. 0 Active [place]-3 Fatty Acids (FISH OIL CONCENTRATE) 1000 MG [...] 1,000 mcgIndications:Vitamin B12 deficiency 1000 mcg IM [id number] 01/19/2023 12/21/2023 Active documented as of this encounter (statuses as of 02/25/2023) Active Problems Problem Noted Date Age-related osteoporosis [...] as of this encounter (statuses as of 02/25/2023) Resolved Problems Problem Noted Date Resolved Date [...] as of this encounter (statuses as of 02/25/2023) Immunizations Name Administration Dates Next Due COVID-19 [...] on file documented as of this encounter Progress Notes * Lidya Jackson MD - 02/25/2023 1:28 PM EDT SUBJECTIVE: History of Present Illness: Keisha Tapia is a 77 year old female seen today for follow up - skin check. Date Last Appointment: 09/23/2022 (in office), Visit date not found (telemedicine) A few new scaly spots on upper body x months. 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 HEME/LYMPH: No new or enlarging lumps or bumps. MEDICA TIONS: Current Outpatient Medications Medication Sig Dispense Refill [...] Take 1 Tablet by mouth at bedtime. [place]-3 Fatty Acids (FISH OIL CONCENTRATE) 1000 MG CAPS Take 1300 mg by mouth daily. Misc Natural Products (TURMERIC CURCUMIN) CAPS 1200 mg by mouth daily Trintellix 5 MG Oral Tablet (Vortioxetine HBr) Take 4 Tablets by mouth in the morning. Nurtec 75 MG Oral Tablet Disintegrating As needed Diclofenac Sodium 1 % External Gel (Voltaren) [...] every night at bedtime. 34 Tablet 5 Ibuprofen 400 MG Oral Tablet (Motrin) Take 1 Tablet by mouth every 8 hours as needed for Pain, Severe. 30 Tablet 6 Syringe/Needle (Disp) 23G X 1" 3 ML [...] DAY IN THE MORNING 90 Tablet 1 Current Facility-Administered Medications Medication Dose Route Frequency Provider Last Rate Last Admin vitamin b-12 (Cyanocobalamin) inj 1,000 mcg 1,000 mcg Intramuscular Q4 Weeks Rebecca Moreno MD 1,000 mcg at 02/19/23 1050 ALLERG IES: Corticosteroids, Shellfish allergy, Zetia [ezetimibe], and Cephalexin OBJECTIVE: GEN: Healthy, alert, no distress, appears oriented, pleasant, and cooperative. SKIN: Detailed exam of hair, face including lids and lips, neck, chest, abdomen, back, bilateral upper ext. (arm, hand, fingers), bilateral lower ext. (leg, foot, toes), and palpation of scalp completed and are normal except: [place] - lichenified scaly pink-murguia 4 mm papule R upper arm border of scar has scaly pink papules 3. L medial lower leg - multilobed scaly pink 5 mm plaque 4. Scars - upper body 5. Forehead, upper chest - waxy murguia papules ASSESS MENT/PLAN: 1. AK vs. NMSC vs. LSC or SK 2. Site of prior ISK and AK - R/O NMSC 3. NMSC vs. AK vs. ISK vs. Lichenoid - Shave of the lesion noted above to remove and confirm diagnosis. The procedure, risks, benefits, alternatives and expected outcomes were discussed with the patient and consent was obtained. Time out called. Patient identified, procedure verified, site identified and verified. Patient and staff present in agreement. Area prepped with alcohol and anesthetized using 0.5% lidocaine with epinephrine at 1:200,000 concentration. Shave of lesion performed. 20% AlCl and bandaging applied. Specimen sent to pathology. Patient instructed in routine post-op care. *curetted afterward - hold billing for path, final length of wound 6 mm, 2 cm, 8 mm 4. Scars - Hx NMSC - no evidence of recurrence Discussed sun protection with patient including proper use of sunscreens and protective clothing. ABCDs explained. 5. ISK - Cryosurgery explained to the patient, verbal consent obtained, patient, site and procedureverified, time-out called, and then cryotherapy was performed with Liquid Nitrogen via cryo spray unit to 2 lesions. Location noted in physical exam. Post op course explained. Follow-up: 6 months There were no barriers tolearning and no other pain was related to today's visit. The patient and/or person accompanying patient demonstrates understanding of the visit and treatment. Lidya Jackson MD 02/25/2023 1:28 PM documented in this encounter Nursing Notes * Ambika Kilgore LPN - 02/25/2023 1:18 PM EDT Patient identified by full name and date of Chief Complaint Patient presents with Follow Up Pt here for 5 month f/u for full skin exam. Hx of non-melanoma skin cancer. Pt concerned with lesions on chest, back, and L ankle. Pt states that back and ankle lesions were previously frozen, but came back. documented in this encounter Plan of Treatment Upcoming Encounters Date Type Specialty Care Team Description 02/26/2023 Immunization Ancillary Sp, Flu Shot Clinic 200 [facility] [place] [address] 03/28/2023 Office Visit Cardiology [facility] Cardiology Flore[place]io [address] [place] [address] 04/15/2023 Office Visit Pain Medicine Danny Wallace DO [address] [place] [phone] 04/22/2023 Office Visit Orthopedic Surgery Mak Galloway MD [address] [place] [address] [place] [id number] 04/23/2023 Imaging Radiology 04/24/2023 Office Visit Internal Medicine Evangelista Moran MD [address] [facility] [place] [address] 05/16/2023 Office Visit Orthopedic Surgery Mak Galloway MD [address] [place] [address] 02/09/2024 Office Visit Rheumatology Karl Conrad MD [address] [place] [address] Pending Results Name Type Priority Associated Diagnoses Date /Time SURGICAL PATHOLOGY Pathology Routine Skin tumor 02/25/2023 2:15 PM EDT Health Maintenance Due Date Last Done [...] D LEVEL ONCE IN A LIFETIME-USE SMARTSET# [id number] Completed 01/21/2023, 08/30/2021, 10/27/2019, Additional history exists [...] this encounter Medical Devices Implanted Type Area Ebay Reseller Device Identifier Shelf Expiration Date Model / Serial / Lot Lens Intraoc 22.0 - [id number] - [id number] Implanted:Qty: 1 on 09/29/2019 by Edwin Carbone MD at OR [facility] Left: Eye BAUSCH & LOMB 03/11/2024 [id number] / [id number] / [id number] Lens Intraoc 20.5 - [id number] - [id number] Implanted:Qty: 1 on 10/05/2019 by Edwin Carbone MD at OR [facility] Right: Eye BAUSCH & LOMB 03/11/2024 [id number] / [id number] / [id number] Cement Hv-R C01a - [id number] Implanted:Qty: 1 on 01/29/2023 by Mak Galloway MD at OR [facility] Spine Thoracic [employer] : NEURO CARE 07/09/2025 C01A / / [id number] Description:1.5 ml right 1.5 ml left documented as of this encounter Visit Diagnoses Diagnosis Scar- Primary Scar condition and fibrosis of skin Hx of actinic keratosis Personal history of diseases of skin and subcutaneous tissue Inflamed seborrheic keratosis Hx of nonmelanoma skin cancer Personal history of other malignant neoplasm of skin Skin tumor Neoplasm of uncertain behavior of skin documented in this encounter Advance Directives Latest Code Status on File Code Status Date Activated Date Inactivated Comments Full Code 01/29/2023 12:32 PM 01/29/2023 7:58 PM This order reflects the patients wishes and were consensually agreed upon. Question Answer Comments Discussion of Advance Directives occurred with: Patient Care Teams Scuba Dive Training Instructor Relationship Specialty Start Date End Date Evangelista Moran MD [address] [facility] [place] [address] PCP - General Internal Medicine 08/27/17 documented as of this encounter
--- OUTSIDE RECORDS SUMMARY | 2023-07-25 14:03 | External Medical Summary ---
Author Name Unknown Address Unknown Organization K01:LABORATORY [facility] - [address] [facility] [address] Laboratory Report Ordering Provider Test Date Status NIKHIL FUCHS 03/04/2023 11:36:46 Final Observation Date Value Abnormality Reference (Units ) Status Adenovirus DNA [Presence] in Nasopharynx by ANGLE with non-probe detection 03/04/2023 11:36:46 Negative Negative Final Human coronavirus 229E RNA [Presence] in Nasopharynx by ANGLE with non-probe detection 03/04/2023 11:36:46 Negative Negative Final Human coronavirus HKU1 RNA [Presence] in Nasopharynx by ANGLE with non-probe detection 03/04/2023 11:36:46 Negative Negative Final Human coronavirus NL63 RNA [Presence] in Nasopharynx by ANGLE with non-probe detection 03/04/2023 11:36:46 Negative Negative Final Human coronavirus OC43 RNA [Presence] in Nasopharynx by ANGLE with non-probe detection 03/04/2023 11:36:46 Negative Negative Final SARS-CoV-2 (COVID-19) RNA [Presence] in Nasopharynx by ANGLE with non-probe detection 03/04/2023 11:36:46 Negative Negative Final Human metapneumovirus RNA [Presence] in Nasopharynx by ANGLE with non-probe detection 03/04/2023 11:36:46 Negative Negative Final Rhinovirus+Enterovirus RNA [Presence] in Nasopharynx by ANGLE with non-probe detection 03/04/2023 11:36:46 Negative Negative Final Influenza virus A RNA [Presence] in Nasopharynx by ANGLE with non-probe detection 03/04/2023 11:36:46 Negative Negative Final Influenza virus B RNA [Presence] in Nasopharynx by ANGLE with non-probe detection 03/04/2023 11:36:46 Negative Negative Final Parainfluenza virus 1 RNA [Presence] in Nasopharynx by ANGLE with non-probe detection 03/04/2023 11:36:46 Negative Negative Final Parainfluenza virus 2 RNA [Presence] in Nasopharynx by ANGLE with non-probe detection 03/04/2023 11:36:46 Negative Negative Final Parainfluenza virus 3 RNA [Presence] in Nasopharynx by ANGLE with non-probe detection 03/04/2023 11:36:46 Negative Negative Final Parainfluenza virus 4 RNA [Presence] in Nasopharynx by ANGLE with non-probe detection 03/04/2023 11:36:46 Negative Negative Final Respiratory syncytial virus RNA [Presence] in Nasopharynx by ANGLE with non-probe detection 03/04/2023 11:36:46 Negative Negative Final Bordetella pertussis.pertussis toxin promoter region [Presence] in Nasopharynx by ANGLE with non-probe detection 03/04/2023 11:36:46 Negative Negative Final Chlamydophila pneumoniae DNA [Presence] in Nasopharynx by ANGLE with non-probe detection 03/04/2023 11:36:46 Negative Negative Final Mycoplasma pneumoniae DNA [Presence] in Nasopharynx by ANGLE with non-probe detection 03/04/2023 11:36:46 Negative Negative Final Bordetella parapertussis [id number] DNA [Presence] in Nasopharynx by ANGLE with non-probe detection 03/04/2023 11:36:46 Negative Negative Final
The primers that detect Rhinovirus may cross react with some Enterorviruses. The validation of bronchial specimens, tracheal aspirates, and throats for this assay was developed and performance characteristics determined by [employer]. The validation of alternate specimen types has not been cleared or approved by the U.S. Food and Drug Administration (FDA). It has been determined that such clearance or approval is not necessary. [facility] - [address] [facility] [address] [facility] [address]
--- OUTSIDE RECORDS SUMMARY | 2023-07-25 14:03 | External Medical Summary | Summary of Care ---
Author Name Unknown Organization [facility] Address [address] [place] [address] Phone [phone] Care Team Providers Care Chair Frame Builder Name Role Phone Evangelista Moran MD Primary Care Provider + Encounter Details Date Type Department Care Team Description 02/26/2023 Immunization Ancillary [facility] 200 [facility] [place] [address] Sp, Flu Shot Clinic 200 [place] [address] Arrived Allergies Active Allergy Reactions Severity Noted Date [...] Tablet by mouth at bedtime. 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 Alcohol ingestion, 1-4 drinks per [...] Encounters Date Type Specialty Care Team Description 03/28/2023 Office Visit Cardiology [facility] Cardiology [place] [address] [place] [address] 04/15/2023 Office Visit Pain Medicine Danny Wallace DO [address] [place] [phone] 04/22/2023 Office Visit Orthopedic Surgery Mak Galloway MD [address] [place] [address] [place] [address] 04/23/2023 Imaging Radiology 04/24/2023 Office Visit Internal Medicine Evangelista Moran, MD [address] [facility] [place] [address] 05/16/2023 Office Visit Orthopedic Surgery Mak Galloway MD [address] [place] [address] [place] [address] 02/09/2024 Office Visit Rheumatology Karl Conrad MD [address] [facility] [place] [place] [address] Health Maintenance Due Date Last Done Comments DTaP,Tdap,and Td Vaccines (2 - Td or Tdap) 06/21/2018 06/21/2008 *BISPHONATE OR OTHER ACCEPTABLE MEDICATION NEEDED FOR OSTEOPOROSIS (REFER TO SMARTSET #1146) 10/22/2018 DXA Scan 10/19/2020 10/19/2018, 12/12, 01/09/2010 COVID-19 Vaccine ( season) 2023 08/16/2020, 07/26/2020 Influenza Vaccine (FLU shot) (#1) 2023 02/26/2023, 03/20/2022, 03/10/2015, Additional history exists Depression Screening 03/27/2023 03/27/2022 TSH 10/15/2023 10/14/2022, 09/09, 05/14/2022, Additional history exists GFR 01/22/2024 01/21/2023, 09/09, 01/29/2022, Additional history exists HbA1c 01/22/2024 01/21/2023, 06/09/2022, 08/30/2021, Additional history exists Albumin/Creatinine Ratio 05/14/2025 05/14/2022 Pneumococcal Vaccine: 65+ Years Completed 04/28/2015, 11/22/2009, 05/12/2004 Zoster Vaccines Completed 02/08/2019, 11/10, 10/21/2004 VITAMIN D LEVEL ONCE IN A LIFETIME-USE SMARTSET# [id number] Completed 01/21/2023, 08/30/2021, 10/27/2019, Additional history exists [...] this encounter Medical Devices Implanted Type Area Hand Buffing Wheel Former Device Identifier Shelf Expiration Date Model / Serial / Lot Lens Intraoc 22.0 - [id number] - [id number] Implanted:Qty: 1 on 09/29/2019 by Ediwn Carbone MD at OR [facility] Left: Eye BAUSCH & LOMB 03/11/2024 [id number] / [id number] / [id number] Lens Intraoc 20.5 - [id number] - [id number] Implanted:Qty: 1 on 10/05/2019 by Edwin Carbone MD at OR [facility] Right: Eye BAUSCH & LOMB 03/11/2024 [id number] / [id number] / [id number] Cement Hv-R C01a - [id number] Implanted:Qty: 1 on 01/29/2023 by Mak Galloway MD at OR [facility] Spine Thoracic [employer] : NEURO CARE 07/09/2025 [id number] / / [id number] Description:1.5 ml right 1.5 ml left documented as of this encounter Advance Directives Latest Code Status on File Code Status Date Activated Date Inactivated Comments Full Code 01/29/2023 12:32 PM 01/29/2023 7:58 PM This order reflects the patients wishes and were consensually agreed upon. Question Answer Comments Discussion of Advance Directives occurred with: Patient Care Teams Chair Frame Builder Relationship Specialty Start Date End Date Evangelista Moran MD [address] [place] [address], [place] [address] PCP - General Internal Medicine 08/27/17 documented as of this encounter
--- OUTSIDE RECORDS SUMMARY | 2023-07-25 14:04 | External Medical Summary | Summary of Care ---
Author Name Unknown Organization [facility] Address [address] [place] [address] Phone [phone] Care Team Providers Care Cross Cut Saw Operator Name Role Phone Evangelista Moran MD Primary Care Provider + Encounter Details Date Type Department Care Team Description 02/19/2023 Nurse Only Ancillary [facility] Camilla Gorham [address] [place] [address] Nurse, Int Med 200 [facility] [place] [address] Arrived Allergies Active Allergy Reactions Severity Noted [...] Tablet by mouth at bedtime. 0 Active [place]-3 Fatty Acids (FISH OIL CONCENTRATE) 1000 MG [...] 1,000 mcgIndications:Vitamin B12 deficiency 1000 mcg IM [id number] 01/19/2023 12/21/2023 Active documented as of this [...] as of this encounter Progress Notes * Kathryn Carrillo LPN - 02/19/2023 10:51 AM EDT Pre-Administration Time Out Procedure Performed: Yes Patient Identified (Ask Name/Date of ): Yes Does the patient have a fever greater than 101 degrees today? No Patient allergic to latex? No Has the patient ever fainted after receiving an injection? No VFC Stock: No Injection(s) verified: Yes, Injection Name: Cyanocobalamin 1000mcg Verified Side and Site: Yes Verified Shot(s) with Parent(s)/Patient: Yes documented in this encounter Plan of Treatment Upcoming Encounters Date Type Specialty Care Team Description 02/19/2023 Office Visit Otolaryngology Hakan Olivas DO [address] [place] [address] 02/25/2023 Office Visit Dermatology Lidya Jackson MD 200 [place] [address] 02/26/2023 Immunization Ancillary Sp, Flu Shot Clinic 200 [place] [address] 03/28/2023 Office Visit Cardiology [facility] Cardiology [facility] 132 [facility] [place] [address] 04/22/2023 Office Visit Orthopedic Surgery Mak Galloway MD [address] [place], [place] [phone] 04/23/2023 Imaging Radiology 04/24/2023 Office Visit Internal Medicine Evangelista Moran MD 200 [place] [address] 05/16/2023 Office Visit Orthopedic Surgery Mak Galloway MD [address] [place] [address] 02/09/2024 Office Visit Rheumatology Karl Conrad MD [facility] [employer] [place] [address] Health Maintenance Due Date Last Done Comments [...] D LEVEL ONCE IN A LIFETIME-USE SMARTSET# [id number] Completed 01/21/2023, 08/30/2021, 10/27/2019, Additional history exists [...] this encounter Medical Devices Implanted Type Area Epic Specialist Device Identifier Shelf Expiration Date Model / Serial / Lot Lens Intraoc 22.0 - [id number] - [id number] Implanted:Qty: 1 on 09/29/2019 by Edwin Carbone MD at OR [facility] Left: Eye BAUSCH & LOMB 03/11/2024 [id number] / [id number] / [id number] Lens Intraoc 20.5 - [id number] - [id number] Implanted:Qty: 1 on 10/05/2019 by Edwin Carbone MD at OR [facility] Right: Eye BAUSCH & LOMB 03/11/2024 [id number] / [id number] / [id number] Cement Hv-R C01a - [id number] Implanted:Qty: 1 on 01/29/2023 by Mak Galloway MD at OR [facility] Spine Thoracic [employer] : NEURO CARE 07/09/2025 C01A / / [id number] Description:1.5 ml right 1.5 ml left documented as of this encounter Administered Medications Active Administered Medications - up to 3 most recent administrations Medication Order MAR Action Action Date Dose Rate Site vitamin b-12 (Cyanocobalamin) inj 1,000 mcg 1,000 mcg, Intramuscular, [id number], First dose on 01/19/23 at 2245, Last dose on 11/23/23 at 2245, For 12 doses Given 02/19/2023 10:50 AM EDT 1,000 mcg Deltoid Left Upper Given 01/23/2023 2:08 PM EDT 1,000 mcg De ltoid Left Upper documented in this encounter Advance Directives Latest Code Status on File Code Status Date Activated Date Inactivated Comments Full Code 01/29/2023 12:32 PM 01/29/2023 7:58 PM This order reflects the patients wishes and were consensually agreed upon. Question Answer Comments Discussion of Advance Directives occurred with: Patient Care Teams Cross Cut Saw Operator Relationship Specialty Start Date End Date Evangelista Moran MD [address] [place] [address], [place] [address] PCP - General Internal Medicine 08/27/17 documented as of this encounter
--- OUTSIDE RECORDS SUMMARY | 2023-07-25 14:04 | External Medical Summary | Summary of Care ---
Author Name Unknown Organization [facility] Address [address] [facility] [address] Phone [phone] Care Team Providers Care Claims Associate Name Role Phone Evangelista Moran MD Primary Care Provider + Encounter Details Date Type Department Care Team Description 02/03/2023 Telephone Orthopaedics Spine Surgery, [facility] [address] [place] [address] Mak Galloway MD [address] [place] [address] Allergies Active Allergy Reactions Severity Noted Date Comments Cephalexin Low 04/28/1997 GI upset Corticosteroids Medium 03/08/2019 Palpitations Shellfish Allergy Nausea/vomiting Medium 06/25/2010 Hard shelled shell fish Ezetimibe 04/10/2022 Myalgias documented as of this encounter (statuses as of 02/03/2023) Medications Medication Sig Dispensed Refills Start Date [...] Tablet by mouth at bedtime. 0 Active [place]-3 Fatty Acids (FISH OIL CONCENTRATE) 1000 MG [...] FOR PAIN 90 Tablet 1 01/06/2023 Active tiZANidine HCl 4 MG Oral Capsule Take 1 Capsule by mouth in the morning and 1 Capsule at noon and 1 Capsule before bedtime. 0 Active Losartan Potassium 50 MG Oral Tablet (Cozaar)Indications:H TN, goal below 140/90 TAKE 1 TABLET BY MOUTH EVERY DAY IN THE MORNING 90 Tablet 1 01/31/2023 Active Hospital, Clinic, or Other Facility Administered Medication Ordered Dose Route Frequency Start Date End Date Status vitamin b-12 (Cyanocobalamin) inj 1,000 mcgIndications:Vitamin B12 deficiency 1000 mcg IM [id number] 01/19/2023 12/21/2023 Active documented as of this encounter (statuses as of 02/03/2023) Active Problems Problem Noted Date Prediabetes 10/21/2022 Overview: Per Prediabetes protocol Migraine [...] as of this encounter (statuses as of 02/03/2023) Resolved Problems Problem Noted Date Resolved Date [...] as of this encounter (statuses as of 02/03/2023) Immunizations Name Administration Dates Next Due COVID-19 [...] encounter Miscellaneous Notes * Telephone Encounter - Keisha Guzman LPN - 02/03/2023 12:22 PM EDT Patient called. All questions and concerns addressed. * Telephone Encounter - NATO Alvarez - 02/03/2023 11:08 AM EDT Patient calling, has a few after surgery questions she would like to ask and would like to speak with Lorenza. Patient can be called back after 1145 today as she is with a client at work until then. States mobile is best to call her on. documented in this encounter Plan of Treatment Upcoming Encounters Date Type Specialty Care Team Description 02/06/2023 Office Visit Rheumatology Karl Conrad MD [address] [place] [address] 02/11/2023 Office Visit Orthopedic Surgery Mak Galloway MD [address] [place] [address] [place] [address] 02/19/2023 Nurse Only Ancillary Nurse, Int Med 200 [facility] [place] [address] 02/19/2023 Office Visit Otolaryngology Hakan Olivas DO [address] [place] [address] 02/25/2023 Office Visit Dermatology Lidya Jackson MD 200 [facility] [place] [address] 03/28/[address] [facility] Cardiology [facility] [address] [place] [address] 04/24/2023 Office Visit [facility] [address] Health Maintenance Due Date Last Done Comments DTaP,Tdap,and Td Vaccines (2 - Td or Tdap) 06/21/2018 06/21/2008 *BISPHONATE OR OTHER ACCEPTABLE MEDICATION NEEDED FOR OSTEOPOROSIS (REFER TO SMARTSET #1146) 10/22/2018 COVID-19 Vaccine (3 - Pfizer series) 10/11/2020 08/16/2020, 07/26/2020 DXA Scan 10/19/2020 10/19/2018, 12/12, 01/09/2010 Influenza Vaccine (FLU shot) (#1) 2023 03/20/2022, [...] D LEVEL ONCE IN A LIFETIME-USE SMARTSET# [id number] Completed 01/21/2023, 08/30/2021, 10/27/2019, Additional history exists [...] this encounter Medical Devices Implanted Type Area Farm Machine Operator Device Identifier Shelf Expiration Date Model / Serial / Lot Lens Intraoc 22.0 - [id number] - [id number] Implanted:Qty: 1 on 09/29/2019 by Edwin Carbone MD at OR [facility] Left: Eye BAUSCH & LOMB 03/11/2024 [id number] / [id number] / [id number] Lens Intraoc 20.5 - [id number] - [id number] Implanted:Qty: 1 on 10/05/2019 by Edwin Carbone MD at OR [facility] Right: Eye BAUSCH & LOMB 03/11/2024 [id number] / [id number] / [id number] Cement Hv-R C01a - [id number] Implanted:Qty: 1 on 01/29/2023 by Mak Galloway MD at OR [facility] Spine Thoracic [employer] : NEURO CARE 07/09/2025 C01A / / [id number] Description:1.5 ml right 1.5 ml left documented as of this encounter Advance Directives Latest Code Status on File Code Status Date Activated Date Inactivated Comments Full Code 01/29/2023 12:32 PM 01/29/2023 7:58 PM This order reflects the patients wishes and were consensually agreed upon. Question Answer Comments Discussion of Advance Directives occurred with: Patient Care Teams Claims Associate Relationship Specialty Start Date End Date Evangelista Moran MD 200 [place] [address] PCP - General Internal Medicine 08/27/17 documented as of this encounter
--- OUTSIDE RECORDS SUMMARY | 2023-07-25 14:04 | External Medical Summary | Summary of Care ---
Author Name Unknown Organization [facility] Address [address] [facility] [address] Phone [phone] Care Team Providers Care Speech Clinician Name Role Phone Evangelista Moran MD Primary Care Provider + Encounter Details Date Type Department Care Team Description 11/08/2022 Telephone Pulmonary Medicine, [facility] 132 [facility] [place] [phone] Marquez Reyes MD [address] [facility] [address] Allergies Active Allergy Reactions Severity Noted Date Comments Cephalexin Low 04/28/1997 GI upset Corticosteroids Medium 03/08/2019 Palpitations Shellfish Allergy Nausea/vomiting Medium 06/25/2010 Hard shelled shell fish Ezetimibe 04/10/2022 Myalgias documented as of this encounter (statuses as of 02/07/2023) Medications Medication Sig Dispensed Refills Start Date [...] Tablet by mouth at bedtime. 0 Active [place]-3 Fatty Acids (FISH OIL CONCENTRATE) 1000 MG [...] at bedtime. 34 Tablet 5 3 Active Ibuprofen 400 MG Oral Tablet (Motrin) Take 1 Tablet by mouth every 8 hours as needed for Pain, Severe. 30 Tablet 6 3 Active Vitamin C 1000 MG Oral Tablet Take 1 Tablet by mouth in the morning. 0 023 Discontinued Syringe/Needle (Disp) 23G X 1" 3 MLIndications:Esther min B12 deficiency Use to inject Vitamin B12 monthly 1 Each 2 023 Discontinued(Re fill) Aspirin 325 MG Oral Tablet Take by mouth 1 Tablet in the morning. 60 Tablet 6 2 023 Discontinued(Re fill) Ibuprofen 600 MG Oral Tablet (Motrin) Take by mouth 1 Tablet every 8 hours as needed (pain). with food for pain 90 Tablet 11 2 023 Discontinued Vljijtnqhn-BEGA-Wn ffeine 50-325-40 MG Oral CapsuleIndications :Other vascular headache Take by mouth 1 Capsule every 8 hours as needed for Headache. 18 Capsule 0 2 023 Discontinued Eysuvis 0.25 % Ophthalmic Suspension 0 2 023 Discontinued Celecoxib 200 MG Oral Capsule (CeleBREX)Indicati ons:Generalized osteoarthritis Take 1 Capsule (200 mg) by mouth in the morning. For pain. 30 Capsule 5 2 023 Discontinued(Re fill) Levothyroxine Sodium 50 MCG Oral Tablet (Levoxyl)Indicatio ns:Acquired hypothyroidism TAKE 1 TABLET BY MOUTH EVERY MORNING AT LEAST 30 MIN PRIOR TO BREAKFAST OR OTHER MEDS 90 Tablet 1 2 023 Discontinued(Re fill) Cyanocobalamin 1000 MCG/ML Injection Solution (Cyanocobalamin)In dications:Vitamin B12 deficiency Inject 1,000 mcg as directed every 30 days. 3 mL 3 2 023 Discontinued(Me dication/Dose Changed) Losartan Potassium 50 MG Oral Tablet (Cozaar)Indication s:HTN, goal below 140/90 TAKE 1 TABLET BY MOUTH EVERY DAY IN THE MORNING 90 Tablet 0 3 023 Discontinued(Re fill) Azelastine HCl 0.1 % Nasal Solution (Astelin) Administer 1 [place] into nostril in the morning and 1 [place] before bedtime. 30 mL 12 3 023 Discontinued Hospital, Clinic, or Other Facility Administered Medication Ordered Dose Route Frequency Start Date End Date Status Albuterol Sulfate (Proventil) (2.5 MG/3ML) 0.083% inhalation solution 2.5 mgIndications:Gran ulomatous lung disease (HCC) 2.5 mg NEBULIZER PRN 11/08/2022 12/04/2022 Discontinue d Albuterol Sulfate (Proventil) (5 MG/ML) 0.5% *conc* inhalation solution 2.5 mgIndications:Gran ulomatous lung disease (HCC) 2.5 mg NEBULIZER PRN 11/08/2022 12/04/2022 Discontinue d documented as of this encounter (statuses as of 02/07/2023) Active Problems Problem Noted Date Age-related osteoporosis [...] as of this encounter (statuses as of 02/07/2023) Resolved Problems Problem Noted Date Resolved Date [...] as of this encounter (statuses as of 02/07/2023) Immunizations Name Administration Dates Next Due COVID-19 mRNA, LNP-s, No Pre serve, 2-Dose Series (I Love QC) 08/16/2020,07/26/2020 Pneumococcal Conjugate Vacc, 13 Valent (Prevnar) [...] drink = 0.6 oz pu re alcohol) Food Insecurity Answer Date Recorded Within the [...] Miscellaneous Notes * Telephone Encounter - NATO Camarillo - 11/14/2022 9:09 AM EDT Patient is scheduled for ct chest at [facility] * Telephone Encounter - NATO Camarillo - 11/13/2022 9:13 AM EDT lmom 11/13 to get patient scheduled for the ct chest on 12/02 * Telephone Encounter - Marquez Reyes MD - 11/08/2022 7:07 PM EDT Please schedule patient for CT chest and 6 minutes walk test (can be done same time as the PFT) Thank you documented in this encounter Plan of Treatment Upcoming Encounters Date Type Specialty Care Team Description 02/11/2023 Office Visit Orthopedic Surgery Mak Galloway MD [address] [place] [address] [place] [id number] 02/19/2023 Nurse Only Ancillary Nurse, Int Med [address] [place] [address] 02/19/2023 Office Visit Otolaryngology Hakan Olivas DO [address] [place] [address] 02/25/2023 Office Visit Dermatology Lidya Jackson MD 200 [facility] [place] [address] 03/28/2023 Office Visit Cardiology [facility] Cardiology Fl[place] [address] [place] [address] 04/23/2023 Imaging Radiology 04/24/2023 Office Visit Internal Medicine Evangelista Moran MD [address] [facility] [place] [address] 02/09/2024 Office Visit Rheumatology Karl Conrad MD [facility] [place] [address] Health Maintenance Due Date Last Done Comments [...] D LEVEL ONCE IN A LIFETIME-USE SMARTSET# [id number] Completed 01/21/2023, 08/30/2021, 10/27/2019, Additional history exists [...] this encounter Medical Devices Implanted Type Area Nitric Acid Plant Operator Device Identifier Shelf Expiration Date Model / Serial / Lot Lens Intraoc 22.0 - [id number] - [id number] Implanted:Qty: 1 on 09/29/2019 by Edwin Carbone MD at OR [facility] Left: Eye BAUSCH & LOMB 03/11/2024 [id number] / [id number] / [id number] Lens Intraoc 20.5 - [id number] - [id number] Implanted:Qty: 1 on 10/05/2019 by Edwin Carbone MD at OR [facility] Right: Eye BAUSCH & LOMB 03/11/2024 [id number] / [id number] / [id number] Cement Hv-R C01a - [id number] Implanted:Qty: 1 on 01/29/2023 by Mak Galloway MD at OR [facility] Spine Thoracic [employer] : NEURO CARE 07/09/2025 C01A / / [id number] Description:1.5 ml right 1.5 ml left documented as of this encounter Advance Directives Latest Code Status on File Code Status Date Activated Date Inactivated Comments Full Code 01/29/2023 12:32 PM 01/29/2023 7:58 PM This order reflects the patients wishes and were consensually agreed upon. Question Answer Comments Discussion of Advance Directives occurred with: Patient Care Teams Speech Clinician Relationship Specialty Start Date End Date Evangelista Moran MD [address] [place] [phone] PCP - General Internal Medicine 08/27/17 documented as of this encounter
--- OUTSIDE RECORDS SUMMARY | 2023-07-25 14:04 | External Medical Summary | Summary of Care ---
Author Name Unknown Organization [facility] Address [address] [place] [address] Phone [phone] Care Team Providers Care Scraper Burrer Name Role Phone Evangelista Moran MD Primary Care Provider + Reason for Visit * Reason Comments Rheum Follow Up Recheck Osteoporosis Encounter Details Date Type Department Care Team Description 02/06/2023 Office Visit Rheumatology [place] [address] [facility] [place] [address] Kral Conrad MD [facility] [place] [address] Age-related osteoporosis with current pathological fracture, initial encounter*; Senile osteoporosis; Fracture of vertebra due to osteoporosis, initial encounter ([facility]) Allergies Active Allergy Reactions Severity Noted Date Comments Cephalexin Low 04/28/1997 GI upset Corticosteroids Medium 03/08/2019 Palpitations Shellfish Allergy Nausea/vomiting Medium 06/25/2010 Hard shelled shell fish Ezetimibe 04/10/2022 Myalgias documented as of this encounter (statuses as of 02/06/2023) Medications Medication Sig Dispensed Refills Start Date [...] Takes with a 37.5 mg daily 2 11/19/201 8 Active Melatonin 5 MG Tablet Take 1 Tablet by mouth at bedtime. 0 Active [place]-3 Fatty Acids (FISH OIL CONCENTRATE) 1000 MG [...] Pain, Severe. 30 Tablet 6 3 Active Syringe/Needle (Disp) 23G X 1" [...] THE MORNING 90 Tablet 1 3 Active tiZANidine HCl 4 MG Oral Capsule Take 1 Capsule by mouth in the morning and 1 Capsule at noon and 1 Capsule before bedtime. 0 02/07/20 23 Discontinued Hospital, Clinic, or Other Facility Administered Medication Ordered Dose Route Frequency Start Date End Date Status vitamin b-12 (Cyanocobalamin) inj 1,000 mcgIndications:Vitamin B12 deficiency 1000 mcg IM [id number] 01/19/2023 12/21/2023 Active documented as of this encounter (statuses as of 02/06/2023) Active Problems Problem Noted Date Age-related osteoporosis [...] as of this encounter (statuses as of 02/06/2023) Resolved Problems Problem Noted Date Resolved Date Disorder of arteries and arterioles, unspecified 08/30/2021 08/30/2021 Lung granuloma 01/06/2020 11/29/2020 Major depression in partial remission 04/14/2019 03/27/2022 Chronic right hip pain 04/14/2019 Adverse effect of hydrochlorothiazide 05/13/2018 07/17/2018 Overview: Muscle aches 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 Alcohol ingestion, 1-4 drinks per [...] as of this encounter (statuses as of 02/06/2023) Immunizations Name Administration Dates Next Due COVID-19 [...] Sign Reading Time Taken Comments Blood Pressure 120/80 02/06/2023 8:47 AM EDT Pulse - - Temperature 36.3 C (97.3 F) 02/06/2023 8:47 AM ED T Respiratory Rate - - Oxygen Saturation - - Inhaled Oxygen Concentration - - Weight 80.7 kg (178 lb) 02/06/2023 8:47 AM EDT Height - - Body Mass Index 34.19 01/23/2023 3:18 PM EDT documented in this encounter Patient Instructions * Patient Instructions* Karl Conrad MD - 02/06/2023 9:08 AM EDT RECLAST - Patient Education Zoledronic Acid Solution for injection Zoledronic Acid Solution for injection [Hypercalcemia of Malignancy] Zoledronic Acid Solution for injection [Pagets Disease] Zoledronic Acid Solution for injection What is this medicine? ZOLEDRONIC ACID (RAJEEV le dron ik id) lowers the amount of calcium loss from bone. It is used to treat Paget's disease and osteoporosis in women. This medicine may be used for other purposes; ask your health care provider or pharmacist if you have questions. What should I tell my health care provider before I take this medicine? They need to know if you have any of these conditions: aspirin-sensitive asthma dental disease kidney disease low levels of calcium in the blood past surgery on the parathyroid gland or intestines an unusual or allergic reaction to zoledronic acid, other medicines, foods, dyes, or preservatives or trying to get breast-feeding How should I use this medicine? This medicine is for infusion into a vein. It is given by a health pediatric acute care unit nurse in a hospital or clinic setting. Talk to your communications programmer regarding the use of this medicine in children. This medicine is not approved for use in children. Overdose: If you think you have taken too much of this medicine contact a poison control center or emergency room at once. NOTE: This medicine is only for you. Do not share this medicine with others. What if I miss a dose? It is important not to miss your dose. Call your doctor or health pediatric acute care unit nurse if you are unable to keep an appointment. What may interact with this medicine? certain antibiotics given by injection NSAIDs, medicines for pain and inflammation, like ibuprofen or naproxen some diuretics like bumetanide, furosemide teriparatide This list may not describe all possible interactions. Give your health care provider a list of all the medicines, herbs, non-prescription drugs, or dietary supplements you use. Also, tell them if yousmoke, drink alcohol, or use illegal drugs. Some items may interact with your medicine. What should I watch for while using this medicine? Visit your doctor for regular check-ups. You will need important blood and lab work tests while youare taking this medicine. Women should inform their doctor if they wish to become or think they might be . There is a potential for serious side effects to an unborn child. Talk to your health pediatric acute care unit nurse or pharmacist for more information. It is important to get the right amount of calcium and vitamin D while you are taking this medicine. Talk to your doctor about the foods you eat and the vitamins you take. Some people who take this medicine have severe bone, joint, and/or muscle pain. Tell your doctor ifyou have pain that does not go away or that gets worse. Be sure you are well hydrated prior to receiving this medication. What side effects may I notice from receiving this medicine? Side effects that you should report to your doctor or health pediatric acute care unit nurse as soon as possible: allergic reactions like skin rash, itching or hives, swelling of the face, lips, or tongue breathing problems changes in vision feeling faint or lightheaded, falls jaw burning, cramping, or pain muscle cramps, stiffness, or weakness trouble passing urine or change in the amount of urine Side effects that usually do not require medical attention (report to your doctor or health pediatric acute care unit nurse if they continue or are bothersome): bone, joint, or muscle pain fever irritation at site where injected loss of appetite nausea, vomiting stomach upset tired This list may not describe all possible side effects. Call your doctor for medical advice about side effects. You may report side effects to FDA at 5-750-UUH-9958. Where should I keep my medicine? This drug is given in a hospital or clinic and will not be stored at home. NOTE:This sheet is a summary. It may not cover all possible information. If you have questions about this medicine, talk to your doctor, pharmacist, or health care provider. Copyright 2011 Gold Standard [facility] ([facility]) Program Denosumab (brand name Prolia ) Why is this medication prescribed? Prolia has convincingly been shown to reduce fracture risk. Osteoporosis is a serious condition, which left untreated can lead to significant pain, disability, and . Most people fear a hip fracture and 40-50% of all patients with a hip fracture have had a previous fracture. Our goal is to reduce fractures. How do I take Prolia ? Prolia is given by subcutaneous injection every 6 months in a doctors office. What are the most common possible side effects of Prolia? Skin infection Skin rashes Back ache Muscle or joint pain Low Blood Calcium What are less common side effects? Atypical femur fracture Osteonecrosis of the jaw documented in this encounter Progress Notes * Karl Conrad MD - 02/06/2023 8:52 AM EDT CONSULT - [facility] ([facility]) - baseline visit REASON FOR CONSULT: Fragility fracture of spine and treatment naive HPI: This is a 77 year old female seen at the request of Dr. Galloway for evaluation and treatment of High Risk Osteoporosis. I seen her in the past for osteoarthritis but not osteoporosis. She had a high risk DEXA based on FRAX in 2019 but did not have any treatment. She is not a big fan of medications. She reports her mother had taken boniva for many years but still had a fracture while at a skilled nursing and so felt it it doesn't help. She reports that she developed worsening back pain this past summer. She does not recall any specific injury. She saw [facility] ortho and was diagnosed with T12 compression fracture noted on MRI. She was sent home with pain management. Eventually saw Dr Galloway and underwent kyphoplasty and this has helped her rib pain. She is functioning better. She is back to walking but about 1/4 mile each day. She does take vit d daily 5000 units. No calcium. Started a calcium supplement this weekend. Taking 2 in the am - 800mg of calcium. She denies any history of chemo or radiation therapy. Denies any dysphagia, kidney stones. She did have blood work normal vitamin-D level calcium level and kidney function. BONE HEALTH SUMMARY: Prevention: Calcium and Vitamin D in adequate doses: Yes for vitamin D Uses assist device for ambulation: No Height loss: yes - 1.5 inches Risks: Family History Fx: Yes Personal History Fx: Yes, Fracture site: Spine, # of fractures 1; Hospitalized for fracture: No Current Smoker: No Chronic Glucocorticoid use: No Rheumatoid Arthritis: No Alcohol 3 or more per day: No Current Outpatient Medications Medication Sig Dispense Refill [...] Take 1 Tablet by mouth at bedtime. 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/2020 Major depression in partial remission (HCC) 04/14/2019 Menopause Mixed hyperlipidemia 03/31/2019 Sarcoidosis Vitamin B12 deficiency 10/05/2021 OSTEOPOROSIS PMH: Reviewed and Negative Past Surgical History: Procedure Laterality Date BRAIN ANEURYSM,CAROTID CMPLX 01/2022 she underwent DSA with successful WEB embolization of left MCA bifurcation aneurysm and Surpass Evolve stent to left supraclinoid aneurysm at CAROTID (INTERNAL) ARTERY CATHETHER PLACEMENT Right 11/08/2021 CATHETER PLACEMENT INTERNAL CAROTID ARTERY performed by Manuelito Land MD at OR [facility] COLONOSCOPY 05/16/2005 normal [facility], repeat 10 years COLONOSCOPY, DIAGNOSTIC (RECTUM) 10/27/2015 diverticulitis, diverticulosis/COLONOSCOPY FLEXIBLE PROXIMAL DIAGNOSTIC performed by Isabella Truong MD at ENDOSCOPY [facility] CORONARY ANGIOGRAPHY W/LEFT HEART CATH 08/16/2010 CORONARY ANGIOGRAPHY W/LEFT HEART CATH performed by SKYLAR NEGRON at CARDIAC LABS [facility] DEXA SCAN/BONE MINERAL AXIAL 06/14/2013 done in [place] DILATION AND CURETTAGE (D&C) D&C EGD, FLEXIBLE, DIAGNOSTIC 10/21/2015 , repeat 3 mo/inpt [facility] EGD, FLEXIBLE, DIAGNOSTIC 01/16/2016 mild inflammation on bx, gastric polyps/ESOPHAGOGASTRODUODENOSCOPY (EGD), FLEXIBLE, TRANSORAL, DIAGNOSTIC performed by Jermain Harding DO at ENDOSCOPY [facility] INJECTION LUMBAR/SACRAL 11/09/2014 INJECTION SPINE LUMBAR OR SACRAL performed by Jaxon Kenney DO at OR [facility] INJECTION LUMBAR/SACRAL 11/23/2014 INJECTION SPINE LUMBAR OR SACRAL performed by Jaxon Kenney DO at OR [facility] INJECTION LUMBAR/SACRAL 05/23/2015 INJECTION SPINE LUMBAR OR SACRAL performed by Jaxon Kenney DO at OR [facility] INJECTION LUMBAR/SACRAL 02/22/2016 INJECTION SPINE LUMBAR OR SACRAL performed by Jaxon Kenney DO at OR [facility] IR VERTEBRAL AUGMENTATION THORACIC N/A 01/29/2023 PERCUTANEOUS VERTEBRAL AUGMENTATION THORACIC KYPHOPLASTY performed by Mak Galloway MD at OR [facility] LAPAROSCOPY, CHOLECYSTECTOMY WITH CHOLANGIOGRAPHY 01/12/2003 Cholecystectomy, Laproscopic with cholangiogram with Dr. Peryera, [facility], [place] MISCELLANEOUS ORDER 1981 Tubal Ligation 1981 PUNCTURE DRAINAGE BREAST CYST Right 2007 benign REMOVAL OF APPENDIX 12/2004 done in [place] REMOVE CATARACT, INSERT LENS PROSTH Left 09/29/2019 left EXTRACAPSULAR CATARACT REMOVAL WITH INTRAOCULAR LENS performed by Edwin Carbone MD at OR [facility] REMOVE CATARACT, INSERT LENS PROSTH Right 10/05/2019 right EXTRACAPSULAR CATARACT REMOVAL WITH INTRAOCULAR LENS performed by Edwin Carbone MD at OR [facility] SACROILIAC JOINT INJECT W/GUIDANCE Left 12/12/2015 INJECTION SACROILIAC JOINT performed by Jaxon Kenney DO at OR [facility] STRESS ECHO (EXERCISE) 04/11/2005 normal, [facility], Dr Poonam Simmons UNLISTED LAPAROSCOPY;HERNIA 09/10/[address] Pereyra VERTEBRAL ARTERY CATHETER PLACEMENT Right 11/08/2021 CATHETER PLACEMENT VERTEBRAL ARTERY, performed by Manuelito Land MD at OR [facility] PAST SURGICAL HISTORY: Kyphoplasty SOCIAL HISTORY: Social History Tobacco Use Smoking status: Never Smokeless tobacco: Never Vaping Use Vaping Use: Never used Substance Use Topics Alcohol use: Yes Alcohol/week: 14.0 standard drinks Types: 14 5 oz of wine per week Comment: Occ. Drug use: No REVIEW OF SYSTEMS: . Constitutional: normal . Head normal . Eyes: normal . Ears, nose, throat, mouth: normal . Cardiovascular: normal . Respiratory: normal . Gastrointestinal: normal . Musculoskeletal: See above . Neurologic: normal . Skin: normal . Psychiatric: normal . Endocrine: normal . Hematologic/lymphatic: normal . Allergic/immunologic: normal . Genitourinary: normal Physical Exam: BP 120/80 | Temp 36.3 C (97.3 F) (Infrared ) | Wt 80.7 kg (178 lb) | BMI 34.19 kg/m | BSA 1.86 m General: alert, healthy, no distress, and well nourished HENT: normocephalic, external ears normal, no mucosal erythema, no mucosal edema, moist mucosa, no oral ulcers Eye Exam: PERRL, EOMI, conjunctiva are pink and non-injected, sclera clear Neck: supple, no adenopathy, thyroid normal size, non-tender, without nodularity Lymph: no palpable lymphadenopathy Heart: regular rate & rhythm, no murmur, and no gallops Lungs: clear to auscultation , no rales, wheezes or rhonchi Abdomen: abdomen soft, non-tender, and normal bowel sounds Skin: skin color, texture, turgor are normal, no rashes or significant lesions Musculoskeletal Exam: Mild thoracic kyphosis Normal strength Some tenderness over lumbar spine Assessment: (M80.00XA) Age-related osteoporosis with current pathological fracture, initial encounter (primary encounter diagnosis) (M81.0) Senile osteoporosis (M80.08XA) Fracture of vertebra due to osteoporosis, initial encounter (HCC) 77 year old female with osteoporosis who has previous known history of osteoporosis without treatment who sustained a T12 compression fracture recently in just underwent kyphoplasty. Needs to get an updated DEXA as her last DEXA was 4 years ago. Regardless needs treatment and would suggest anabolictreatment 1st then followed by anti resorptive. She will not do at home injections so would consider evenity. After 1 year of Evenity would then use an anti resorptive like Fosamax or Reclast possibly Prolia. PLAN: Patient referred for consult and treatment. The following items are ordered and/or in progress: [facility] (topics included disease process, DXA, calcium/vitamin D, osteoporosis medications - including administration instructions and risks/benefits, weight bearing exercise, fall prevention/safety). The patient was provided with [facility] patient education instruction sheet(s): IV Reclast and Prolia and evenity Prevention: . Fall Prevention/Safety Education recommended and discussed . Continue calcium rich foods (goal of 3 servings daily) Osteoporosis medications: Consider evenity 1st Labs: PTH(intact) DXA: ordered Followup: Return to [facility] clinic in 1 year and sooner once she decides which agents she would like to take Karl Conrad MD [facility] Team documented in this encounter Nursing Notes * Tristen Murray LPN - 02/06/2023 8:45 AM EDT Chief Complaint Patient presents with Rheum Follow Up Recheck Osteoporosis documented in this encounter Miscellaneous Notes * Pt Handout (on AVS) - Karl Conrad MD - 02/06/2023 9:07 AM EDT Images from the original note were not included. [id number] Romosozumab Prefilled Syringe Brands: Evenity Uses For bone strength. Instructions This medicine will be given to you at the doctor's office. This medicine is used by injecting it into the skin. Please ask your doctor, nurse or pharmacist for the correct places on your body where this medicine can be injected. This medicine should be given by a trained health care provider. If you miss a dose, contact your doctor for instructions. Drug interactions can change how medicines work or increase risk for side effects. Tell your healthcare providers about all medicines taken. Include prescription and [id number]-pkarsuo medicines, vitamins, and herbal medicines. Speak with your doctor or pharmacist before starting or stopping any medicine. You may need vitamin and mineral supplements while on this medicine. Please speak with your doctor or pharmacist. Visit your dentist regularly. Proper care of your teeth is very important while taking this medicine. [place] your teeth and floss regularly. Keep all appointments for medical exams and tests while on this medicine. Cautions Tell your doctor and pharmacist if you ever had an allergic reaction to a medicine. This medicine is associated with an increased risk of serious heart problems, heart attack, and stroke. Please speak with your doctor about the risks and benefits of using this medicine. Contact yourdoctor immediately if you experience chest pain or difficulty breathing. Tell the doctor or pharmacist if you are , planning to be , or . If you have had a heart attack or a stroke within the past year, talk to your doctor before using this medicine. Some patients have serious side effects from this medicine. Ask your pharmacist to show you the information from the Food and Drug Administration (FDA) and discuss it with you. Side Effects The following is a list of some common side effects from this medicine. Please speak with your doctor about what you should do if you experience these or other side effects. pain in the joints Call your doctor or get medical help right away if you notice any of these more serious side effects: severe or persistent bone, joint or jaw pain chest or jaw pain numbness or tingling in hands and feet muscle aches, spasms or abnormal movements unusual or unexplained pain in hips, thighs or groin shortness of breath symptoms of stroke (such as one-sided weakness, slurred speech, confusion) sudden change or loss of vision A few people may have an allergic reaction to this medicine. Symptoms can include difficulty breathing, skin rash, itching, swelling, or severe dizziness. If you notice any of these symptoms, seek medical help quickly. Extra Please speak with your doctor, nurse, or pharmacist if you have any questions about this medicine. [email or web address] IMPORTANT NOTE: This document tells you briefly how to take your medicine, but it does not tell youall there is to know about it. Your doctor or pharmacist may give you other documents about your medicine. Please talk to them if you have any questions. Always follow their advice. There is a more complete description of this medicine available in [place]. Scan this code on your smartphone or tablet or use the web address below. You can also ask your pharmacist for a printout. If you have any questions, please ask your pharmacist. The display and use of this drug information is subject to Terms of Use. Copyright(c) 2022 [employer] 7186-3646 [employer]. All rights reserved. This information is not intended as a substitute for professional medical care. Always follow your healthcare professional's instructions. documented in this encounter Plan of Treatment Upcoming Encounters Date Type Specialty Care Team Description 02/11/2023 Office Visit Orthopedic Surgery Mak Galloway MD [address] [place] [address] [place] [id number] 02/19/2023 Nurse Only Ancillary Nurse, Int Med [address] [facility] [place] [address] 02/19/2023 Office Visit Otolaryngology Hakan Olivas DO [address] [place] [address] 02/25/2023 Office Visit Dermatology Lidya Jackson MD [address] [facility] [place] [address] 03/28/2023 Office Visit Cardiology [facility] Cardiology Florencio [address] [place] [address] 04/23/2023 Imaging Radiology 04/24/2023 Office Visit Internal Medicine Evangelista Moran MD [address] [facility] [place] [address] 02/09/2024 Office Visit Rheumatology Karl Conrad MD [facility] [place] [address] Scheduled Orders Name Type Priority Associated Diagnoses Orde r Schedule DEXA SCAN/BONE MINERAL AXIAL Medical Imaging Routine Senile osteoporosis Ordered: 02/06/2023 PTH Lab Routine Age-related osteoporosis with current pathological fracture, initial encounter Expected: 02/06/2023, Expires: 02/07/2024 Health Maintenance Due Date Last Done Comments [...] D LEVEL ONCE IN A LIFETIME-USE SMARTSET# [id number] Completed 01/21/2023, 08/30/2021, 10/27/2019, Additional history exists [...] this encounter Medical Devices Implanted Type Area Redye Hand Device Identifier Shelf Expiration Date Model / Serial / Lot Lens Intraoc 22.0 - [id number] - [id number] Implanted:Qty: 1 on 09/29/2019 by Edwin Carbone MD at [facility] Left: Eye [employer] 03/11/2024 [id number] / [id number] / [id number] Lens Intraoc 20.5 - [id number] - [id number] Implanted:Qty: 1 on 10/05/2019 by Edwin Carbone MD at OR [facility] Right: Eye [employer] 03/11/2024 [id number] / [id number] / [id number] Cement Hv-R C01a - [id number] Implanted:Qty: 1 on 01/29/2023 by Mak Galloway MD at OR [facility] Spine Thoracic [employer] : NEURO CARE 07/09/2025 C01A / / [id number] Description:1.5 ml right 1.5 ml left documented as of this encounter Visit Diagnoses Diagnosis Age-related osteoporosis with current pathological fracture, initial encounter- Primary Senile osteoporosis Fracture of vertebra due to osteoporosis, initial encounter ([facility]) documented in this encounter Advance Directives Latest Code Status on File Code Status Date Activated Date Inactivated Comments Full Code 01/29/2023 12:32 PM 01/29/2023 7:58 PM This order reflects the patients wishes and were consensually agreed upon. Question Answer Comments Discussion of Advance Directives occurred with: Patient Care Teams Scraper Burrer Relationship Specialty Start Date End Date Evangelista Moran MD [address] [place] [address], [place] [address] PCP - General Internal Medicine 08/27/17 documented as of this encounter
--- OUTSIDE RECORDS SUMMARY | 2023-07-25 14:04 | External Medical Summary | Summary of Care ---
Author Name Unknown Organization [facility] Address [address] [place] [address] Phone [phone] Care Team Providers Care Production Or Plant Engineer Name Role Phone Evangelista Moran MD Primary Care Provider + Reason for Visit * Reason Onset Date Comments FYI 11/19/2022 Encounter Details Date Type Department Care Team Description 11/19/2022 Telephone General Internal Medicine [facility] [address] [place] [address] Evangelista Moran MD [address] [place] [address] FYI Allergies Active Allergy Reactions Severity Noted Date Comments Cephalexin Low 04/28/1997 GI upset Corticosteroids Medium 03/08/2019 Palpitations Shellfish Allergy Nausea/vomiting Medium 06/25/2010 Hard shelled shell fish Ezetimibe 04/10/2022 Myalgias documented as of this encounter (statuses as of 02/18/2023) Medications Medication Sig Dispensed Refills Start Date [...] Tablet by mouth at bedtime. 0 Active [place]-3 Fatty Acids (FISH OIL CONCENTRATE) 1000 MG [...] Pain, Severe. 30 Tablet 6 11/08/2022 Active documented as of this encounter (statuses as of 02/18/2023) Active Problems Problem Noted Date Age-related osteoporosis [...] as of this encounter (statuses as of 02/18/2023) Resolved Problems Problem Noted Date Resolved Date [...] as of this encounter (statuses as of 02/18/2023) Immunizations Name Administration Dates Next Due COVID-19 mRNA, LNP-s, No Pre serve, 2-Dose Series ([employer]oo) 08/16/2020,07/26/2020 Pneumococcal Conjugate Vacc, 13 Valent (Prevnar) [...] encounter Miscellaneous Notes * Telephone Encounter - Eugenia Goins - 11/19/2022 11:43 AM EDT Pt dropped off lab orders from [facility] Orders were fims and then placed in the LAB mailbox. documented in this encounter Plan of Treatment Upcoming Encounters Date Type Specialty Care Team Description 02/19/2023 Nurse Only Ancillary Nurse, Int Med [address] [place] [address] 02/19/2023 Office Visit Otolaryngology Hakan Olivas DO [address] [address] 02/25/2023 Office Visit Dermatology Lidya Jackson MD [address] [place] [address] 03/28/2023 Office Visit Cardiology [facility] Cardiology [facility] [address] [place] [address] 04/22/2023 Office Visit Orthopedic Surgery Mak Galloway MD [address] [place] [address] [place] [address] 04/23/2023 Imaging Radiology 04/24/2023 Office Visit Internal Medicine Evangelista Moran MD [address] [place] [address] 05/16/2023 Office Visit Orthopedic Surgery Mak Galloway MD [address] [place] [address] [place] [address] 02/09/2024 Office Visit Rheumatology Karl Conrad MD [address] [facility], [place] [address] Health Maintenance Due Date Last Done Comments [...] D LEVEL ONCE IN A LIFETIME-USE SMARTSET# [id number] Completed 01/21/2023, 08/30/2021, 10/27/2019, Additional history exists [...] this encounter Medical Devices Implanted Type Area Store Receiver Device Identifier Shelf Expiration Date Model / Serial / Lot Lens Intraoc 22.0 - [id number] - [id number] Implanted:Qty: 1 on 09/29/2019 by Edwin Carbone MD at OR [facility] Left: Eye BAUSCH & LOMB 03/11/2024 [id number] / [id number] / [id number] Lens Intraoc 20.5 - [id number] - [id number] Implanted:Qty: 1 on 10/05/2019 by Edwin Carbone MD at OR [facility] Right: Eye BAUSCH & LOMB 03/11/2024 [id number] / [id number] / [id number] Cement Hv-R C01a - [id number] Implanted:Qty: 1 on 01/29/2023 by Mak Galloway MD at OR [facility] Spine Thoracic [employer] : NEURO CARE 07/09/2025 C01A / / [id number] Description:1.5 ml right 1.5 ml left documented as of this encounter Advance Directives Latest Code Status on File Code Status Date Activated Date Inactivated Comments Full Code 01/29/2023 12:32 PM 01/29/2023 7:58 PM This order reflects the patients wishes and were consensually agreed upon. Question Answer Comments Discussion of Advance Directives occurred with: Patient Care Teams Production Or Plant Engineer Relationship Specialty Start Date End Date Evangelista Moran MD [address] [place] [address] PCP - General Internal Medicine 08/27/17 documented as of this encounter
--- OUTSIDE RECORDS SUMMARY | 2023-07-25 14:04 | External Medical Summary | Summary of Care ---
Author Name Unknown Organization [facility] Address [address] [place] [address] Phone [phone] Care Team Providers Care Speech Scientist Name Role Phone Evangelista Moran MD Primary Care Provider + Reason for Visit * Reason Comments eRx-Medication Refill Encounter Details Date Type Department Care Team Description 01/31/2023 Refill General Internal Medicine [facility] [place] [address] [facility] [address] Rebecca Moreno MD 200 [facility] [address] HTN, goal below 140/90 Allergies Active Allergy Reactions Severity Noted Date Comments Cephalexin Low 04/28/1997 GI upset Corticosteroids Medium 03/08/2019 Palpitations Shellfish Allergy Nausea/vomiting Medium 06/25/2010 Hard shelled shell fish Ezetimibe 04/10/2022 Myalgias documented as of this encounter (statuses as of 01/31/2023) Medications Medication Sig Dispensed Refills Start Date [...] Tablet by mouth at bedtime. 0 Active [place]-3 Fatty Acids (FISH OIL CONCENTRATE) 1000 MG [...] FOR PAIN 90 Tablet 1 3 Active tiZANidine HCl 4 MG Oral Capsule Take 1 Capsule by mouth in the morning and 1 Capsule at noon and 1 Capsule before bedtime. 0 Active Losartan Potassium 50 MG Oral Tablet (Cozaar)Indications :HTN, goal below 140/90 TAKE 1 TABLET BY MOUTH EVERY DAY IN THE MORNING 90 Tablet 1 3 Active Losartan Potassium 50 MG Oral Tablet (Cozaar)Indications :HTN, goal below 140/90 TAKE 1 TABLET BY MOUTH EVERY DAY IN THE MORNING 90 Tablet 0 3 02/01/20 23 Discontinued Hospital, Clinic, or Other Facility Administered Medication Ordered Dose Route Frequency Start Date End Date Status vitamin b-12 (Cyanocobalamin) inj 1,000 mcgIndications:Vitamin B12 deficiency 1000 mcg IM [id number] 01/19/2023 12/21/2023 Active documented as of this encounter (statuses as of 01/31/2023) Active Problems Problem Noted Date Prediabetes 10/21/2022 [...] as of this encounter (statuses as of 01/31/2023) Resolved Problems Problem Noted Date Resolved Date Disorder of arteries and arterioles, unspecified 08/30/2021 08/30/2021 Lung granuloma 01/06/2020 11/29/2020 Major depression in partial remission 04/14/2019 03/27/2022 Chronic right hip pain 04/14/2019 2 Adverse effect of hydrochlorothiazide 05/13/2018 07/17/2018 Overview: Muscle aches 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 Alcohol ingestion, 1-4 drinks per [...] as of this encounter (statuses as of 01/31/2023) Immunizations Name Administration Dates Next Due COVID-19 [...] encounter Miscellaneous Notes * Telephone Encounter - Pili Best, [facility] - 01/31/2023 2:59 PM EDTSigned Prescriptions: Disp Refills Losartan Potassium 50 MG Oral Tablet (Coza*90 Tab*1 Sig: TAKE 1TABLET BY MOUTH EVERY DAY IN THE MORNINGAuthorizing Provider: Francis MORENO User: PILI BEST documented in this encounter Plan of Treatment Upcoming Encounters Date Type Specialty Care Team Description 02/06/2023 Office Visit Rheumatology Karl Conrad MD [address] [place] [address] 02/11/2023 Office Visit Orthopedic Surgery Mak Galloway MD [address] [place] [address] [place] [id number] 02/19/2023 Nurse Only Ancillary Nurse, Int Med 200 [facility] [place] [address] 02/19/2023 Office Visit Otolaryngology Hakan Olivas DO [address] [place] [address] 02/25/2023 Office Visit Dermatology Lidya Jackson MD 200 [facility] [place] [address] 03/28/2023 Office Visit Cardiology [facility] Cardiology [facility] [address] [place] [address] 04/24/2023 Office Visit Internal Medicine Evangelista Moran MD 200 [facility] [place] [address] Health Maintenance Due Date Last Done Comments DTaP,Tdap,and Td Vaccines (2 - Td or Tdap) 06/21/2018 06/21/2008 *BISPHONATE OR OTHER ACCEPTABLE MEDICATION NEEDED FOR OSTEOPOROSIS (REFER TO SMARTSET #1146) 10/22/2018 COVID-19 Vaccine (3 - Pfizer series) 10/11/2020 08/16/2020, 07/26/2020 DXA Scan 10/19/2020 10/19/2018, 08/05/2009, 01/09/2010 Influenza Vaccine (FLU shot) (#1) 2023 [...] D LEVEL ONCE IN A LIFETIME-USE SMARTSET# [id number] Completed 01/21/2023, 08/30/2021, 10/27/2019, Additional history exists [...] this encounter Medical Devices Implanted Type Area Superintendent Generating Plant Device Identifier Shelf Expiration Date Model / Serial / Lot Lens Intraoc 22.0 - [id number] - [id number] Implanted:Qty: 1 on 09/29/2019 by Edwin Carbone MD at OR [facility] Left: Eye BAUSCH & LOMB 03/11/2024 [id number] / [id number] / [id number] Lens Intraoc 20.5 - [id number] - [id number] Implanted:Qty: 1 on 10/05/2019 by Edwin Carbone MD at OR [facility] Right: Eye BAUSCH & LOMB 03/11/2024 [id number] / [id number] / [id number] Cement Hv-R C01a - [id number] Implanted:Qty: 1 on 01/29/2023 by Mak Galloway MD at OR [facility] Spine Thoracic [employer] : NEURO CARE 07/09/2025 C01A / / [id number] Description:1.5 ml right 1.5 ml left documented [...] Directives occurred with: Patient Care Teams Speech Scientist Relationship Specialty Start Date End Date Evangelista Moran MD [address] [place] [address] PCP - General Internal Medicine 08/27/17 documented as of this encounter
--- OUTSIDE RECORDS SUMMARY | 2023-07-25 14:04 | External Medical Summary | Summary of Care ---
Author Name Unknown Organization [facility] Address [address] [facility] [place] [address] Phone [phone] Care Team Providers Care Thread Drawer Name Role Phone Evangelista Moran MD Primary Care Provider + Encounter Details Date Type Department Care Team Description 02/11/2023 Hospital Encounter Orthopaedics, [address], [place] [address] [place], [place] [phone] Arrived Allergies Active Allergy Reactions Severity Noted Date Comments Cephalexin Low 04/28/1997 GI upset Corticosteroids Medium 03/08/2019 Palpitations Shellfish Allergy Nausea/vomiting Medium 06/25/2010 Hard shelled shell fish Ezetimibe 04/10/2022 Myalgias documented as of this encounter (statuses as of 02/12/2023) Medications Medication Sig Dispensed Refills Start Date [...] Tablet by mouth at bedtime. 0 Active [place]-3 Fatty Acids (FISH OIL CONCENTRATE) 1000 MG [...] 1,000 mcgIndications:Vitamin B12 deficiency 1000 mcg IM [id number] 01/19/2023 12/21/2023 Active documented as of this encounter (statuses as of 02/12/2023) Active Problems Problem Noted Date Age-related osteoporosis [...] as of this encounter (statuses as of 02/12/2023) Resolved Problems Problem Noted Date Resolved Date [...] as of this encounter (statuses as of 02/12/2023) Immunizations Name Administration Dates Next Due COVID-19 [...] Nurse Only Ancillary Nurse, Int Med 200 [facility] [place] [address] 02/19/2023 Office Visit Otolaryngology Hakan Olivas DO [address] [place] [address] 02/25/2023 Office Visit Dermatology Lidya Jackson MD [address] [place] [address] 03/28/2023 Office Visit Cardiology [place], [facility] Cardiology [place] [address] [place] [address] 04/22/2023 Office Visit Orthopedic Surgery Mak Galloway MD [address] [place] [address] [facility] [place] [address] 04/23/2023 Imaging Radiology 04/24/2023 Office Visit Internal Medicine Evangelista Moran MD [address] [facility], [place] [address] 05/16/2023 Office Visit Orthopedic Surgery Mak Galloway MD [address] [place] [address] [place] [address] 02/09/2024 Office Visit Rheumatology Karl Conrad MD [address] [place] [address] Pending Results Name Type Priority Associated Diagnoses Date /Time XR THORACOLUMBAR SPINE MIN 2 VIEWS Medical Imaging Routine S/P kyphoplasty 02/11/2023 9:32 AM EDT Health Maintenance Due Date Last Done Comments DTaP,Tdap,and Td Vaccines (2 - Td or Tdap) 06/21/2018 06/21/2008 *BISPHONATE OR OTHER ACCEPTABLE MEDICATION NEEDED FOR OSTEOPOROSIS (REFER TO SMARTSET #1146) 10/22/2018 DXA Scan 10/19/2020 10/19/2018, 12/12, 01/09/2010 COVID-19 Vaccine ( - 2022- season) 2023 08/16/2020, 07/26/2020 Influenza Vaccine (FLU [...] D LEVEL ONCE IN A LIFETIME-USE SMARTSET# [id number] Completed 01/21/2023, 08/30/2021, 10/27/2019, Additional history exists [...] this encounter Medical Devices Implanted Type Area Quarter Trimmer Device Identifier Shelf Expiration Date Model / Serial / Lot Lens Intraoc 22.0 - [id number] - [id number] Implanted:Qty: 1 on 09/29/2019 by Edwin Carbone MD at OR [facility] Left: Eye BAUSCH & LOMB 03/11/2024 [id number] / [id number] / [id number] Lens Intraoc 20.5 - [id number] - [id number] Implanted:Qty: 1 on 10/05/2019 by Edwin Carbone MD at OR [facility] Right: Eye BAUSCH & LOMB 03/11/2024 [id number] / [id number] / [id number] Cement Hv-R C01a - [id number] Implanted:Qty: 1 on 01/29/2023 by Mak Galloway MD at OR [facility] Spine Thoracic [employer] : NEURO CARE 07/09/2025 C01A / / [id number] Description:1.5 ml right 1.5 ml left documented as of this encounter Advance Directives Latest Code Status on File Code Status Date Activated Date Inactivated Comments Full Code 01/29/2023 12:32 PM 01/29/2023 7:58 PM This order reflects the patients wishes and were consensually agreed upon. Question Answer Comments Discussion of Advance Directives occurred with: Patient Care Teams Thread Drawer Relationship Specialty Start Date End Date Evangelista Moran MD [address] [place] [address], [place] [address] PCP - General Internal Medicine 08/27/17 documented as of this encounter
--- OUTSIDE RECORDS SUMMARY | 2023-07-25 14:04 | External Medical Summary | Summary of Care ---
Author Name Unknown Organization [facility] Address [address] [facility] [address] Phone [phone] Care Team Providers Care Fund Accountant Name Role Phone Evangelista Moran MD Primary Care Provider + Reason for Visit * Reason Onset Date Comments Update 01/30/2023 Encounter Details Date Type Department Care Team Description 01/30/2023 Telephone Orthopaedics Spine Surgery, [place] [address] [place] [address] [place] [address] Mak Galloway MD [address] [place] [address] Update Allergies Active Allergy Reactions Severity Noted Date Comments Cephalexin Low 04/28/1997 GI upset Corticosteroids Medium 03/08/2019 Palpitations Shellfish Allergy Nausea/vomiting Medium 06/25/2010 Hard shelled shell fish Ezetimibe 04/10/2022 Myalgias documented as of this encounter (statuses as of 01/30/2023) Medications Medication Sig Dispensed Refills Start Date [...] Tablet by mouth at bedtime. 0 Active [place]-3 Fatty Acids (FISH OIL CONCENTRATE) 1000 MG [...] B12 monthly 1 Each 11 11/22/2022 Active Losartan Potassium 50 MG Oral Tablet (Cozaar)Indications:H [place], goal below 140/90 TAKE 1 TABLET BY MOUTH EVERY DAY IN THE MORNING 90 Tablet 0 11/22/2022 Active Levothyroxine Sodium 50 MCG Oral [...] and 1 Capsule before bedtime. 0 Active Hospital, Clinic, or Other Facility Administered Medication Ordered Dose Route Frequency Start Date End Date Status vitamin b-12 (Cyanocobalamin) inj 1,000 mcgIndications:Vitamin B12 deficiency 1000 mcg IM [id number] 01/19/2023 12/21/2023 Active documented as of this encounter (statuses as of 01/30/2023) Active Problems Problem Noted Date Prediabetes 10/21/2022 [...] as of this encounter (statuses as of 01/30/2023) Resolved Problems Problem Noted Date Resolved Date Disorder of arteries and arterioles, unspecified 08/30/2021 08/30/2021 Lung granuloma 01/06/2020 11/29/2020 Major depression in partial remission 04/14/2019 03/27/2022 Chronic right hip pain 04/14/2019 2 Adverse effect of hydrochlorothiazide 05/13/2018 07/17/2018 Overview: Muscle aches 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 S/p T12 kyphoplasty with vertebral biopsy 01/29/2023. Reports good reliefof fracture pain. Dressing dry and intact. Up and walking around. Will all if any questions or concerns. documented in this encounter Plan of Treatment Upcoming Encounters Date Type Specialty Care Team Description 02/11/2023 Office Visit Orthopedic Surgery Mak Galloway MD [address] [place] [address] [place] [address] 02/19/2023 Nurse Only Ancillary Nurse, Int Med 200 [facility] [place] [address] 02/19/2023 Office Visit Otolaryngology Hakan Olivas DO [address] [facility] [address] 02/25/2023 Office Visit Dermatology Lidya Jackson MD 200 [facility] [place] [address] 03/28/2023 Office Visit Cardiology [facility] Cardiology [place] [address] [place] [address] 04/24/2023 Office Visit Internal Medicine Evangelista Moran MD 200 [facility] [place] [address] Health Maintenance Due Date Last Done Comments [...] D LEVEL ONCE IN A LIFETIME-USE SMARTSET# [id number] Completed 01/21/2023, 08/30/2021, 10/27/2019, Additional history exists [...] this encounter Medical Devices Implanted Type Area Drug Enforcement Agent Device Identifier Shelf Expiration Date Model / Serial / Lot Lens Intraoc 22.0 - [id number] - [id number] Implanted:Qty: 1 on 09/29/2019 by Edwin Carbone MD at OR [facility] Left: Eye BAUSCH & LOMB 03/11/2024 [id number] / [id number] / [id number] Lens Intraoc 20.5 - [id number] - [id number] Implanted:Qty: 1 on 10/05/2019 by Edwin Carbone MD at OR [facility] Right: Eye BAUSCH & LOMB 03/11/2024 [id number] / [id number] / [id number] Cement Hv-R C01a - [id number] Implanted:Qty: 1 on 01/29/2023 by Mak Galloway MD at OR [facility] Spine Thoracic [employer] : NEURO CARE 07/09/2025 C01A / / [id number] Description:1.5 ml right 1.5 ml left documented as of this encounter Advance Directives Latest Code Status on File Code Status Date Activated Date Inactivated Comments Full Code 01/29/2023 12:32 PM 01/29/2023 7:58 PM This order reflects the patients wishes and were consensually agreed upon. Question Answer Comments Discussion of Advance Directives occurred with: Patient Care Teams Fund Accountant Relationship Specialty Start Date End Date Evangelista Moran MD 200 [place] [address] PCP - General Internal Medicine 08/27/17 documented as of this encounter
--- OUTSIDE RECORDS SUMMARY | 2023-07-25 14:04 | External Medical Summary | Summary of Care ---
Author Name Unknown Organization [facility] Address [address] [place] [address] Phone [phone] Care Team Providers Care Canal Driver Name Role Phone Evangelista Moran MD Primary Care Provider + Reason for Referral * Evaluate & Treat - Unlimited Visits (Within 10 days (routine)) - Authorized Specialty Diagnoses / Procedures Referred By Contac t Referred To Contact Physical Therapy / Physical Medicine And Rehab Diagnoses S/P kyphoplasty Spondylolisthesis of lumbosacral region Spinal stenosis of lumbar region, unspecified whether neurogenic claudication present Mak Galloway MD [address] [place] [address] Referral ID Status Reason Start Date Expiration Date Visits Requested Visits Authorized [id number] Authorized Specialty Services Required 02/11/2023 999 999 Question Answer Referral Priority Within 10 days (routine) Comments Plan: Back core strengthening, stretching, ROM, conditioning, lower extremity strengthening as needed, topicals as needed 2 x a week for 6 weeks Modalities for pain relief Plan: cervical ROM, stretching, strengthening, periscapular strengthening, protraction/retraction exercises, gentle traction only if manual traction is beneficial 2 x week for 6 weeks Modalities for pain relief * Evaluate & Treat - Unlimited Visits (Within 10 days (routine)) - Authorized Specialty Diagnoses / Procedures Referred By Contac t Referred To Contact Pain Management / Pain Medicine Diagnoses Spondylolisthesis of lumbosacral region Spinal stenosis of lumbar region, unspecified whether neurogenic claudication present Mak Galloway MD [address] [place] [address] Referral ID Status Reason Start Date Expiration Date Visits Requested Visits Authorized [id number] Authorized Specialty Services Required 02/11/2023 999 999 Question Answer Referral Priority Within 10 days (routine) Reason for referral? Interventional Pain Management - (Injection) What condition is the patient being referred for? Back Axial What is the preferred location to have this test performed? [facility] Comments Patient Name: Keisha Tapia Date of : 1945 Department Phone Number: MRI or CT (if unable to have a MRI) is recommended if any of the following apply: 1. Patient has neck or back pain with radiation to extremities. A previous MRI will be accepted if symptoms unchanged since prior MRI. 2. Spinal surgery since last MRI. If yes, order a MRI with and without contrast. 3. Hx or ongoing cancer treatment. Patient will need spine x-ray (Ap/Lat) for axial neck or back pain if not done previously. Fax No. [facility] [phone] or contact front load trash truck driver [phone] Fax No. [facility] [phone] or contact front load trash truck driver [phone] Fax No. [facility] [phone] or contact front load trash truck driver [phone] Reason for Visit * Reason Comments Post-Op F/U T12 kyphoplasty with vertebral biopsy 01/29/2023 Encounter Details Date Type Department Care Team Description 02/11/2023 Office Visit Orthopaedics Spine Surgery, Laurence Hebert [address] [place] [address] Mak Galloway MD [address] [place] [address] S/P kyphoplasty*; Osteoporotic compression fracture of vertebra with routine healing, subsequent encounter; Spondylolisthesis of lumbosacral region; Spinal stenosis of lumbar region, unspecified whether neurogenic claudication present Allergies Active Allergy Reactions Severity Noted Date Comments Cephalexin Low 04/28/1997 GI upset Corticosteroids Medium 03/08/2019 Palpitations Shellfish Allergy Nausea/vomiting Medium 06/25/2010 Hard shelled shell fish Ezetimibe 04/10/2022 Myalgias documented as of this encounter (statuses as of 02/11/2023) Medications Medication Sig Dispensed Refills Start Date [...] Tablet by mouth at bedtime. 0 Active [place]-3 Fatty Acids (FISH OIL CONCENTRATE) 1000 MG [...] 1,000 mcgIndications:Vitamin B12 deficiency 1000 mcg IM [id number] 01/19/2023 12/21/2023 Active documented as of this encounter (statuses as of 02/11/2023) Active Problems Problem Noted Date Age-related osteoporosis [...] as of this encounter (statuses as of 02/11/2023) Resolved Problems Problem Noted Date Resolved Date [...] as of this encounter (statuses as of 02/11/2023) Immunizations Name Administration Dates Next Due COVID-19 [...] as of this encounter Progress Notes * Mak Galloway MD - 02/11/2023 9:19 AM EDT Date of service: 02/11/2023 Date of surgery: T12 kyphoplasty with vertebral biopsy 01/29/2023 Keisha Tapia is a 77 year old female presents for a follow up. She is 2 weeks post kyphoplasty procedure and reports relief of the fracture pain. She reports that her chronic back pain and the radiculopathy neurogenic claudication symptoms are bothering her now. Patient has a history of degenerative changes in the back with lumbar spinal stenosis and spondylolisthesis. The patient has been gradually increasing their activity. Patient denies any unusual complaints related to the surgical area and denies any constitutional symptoms. 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) 01/06/2020 Major depression in partial remission (HCC) 04/14/2019 Menopause Mixed hyperlipidemia 03/31/2019 Sarcoidosis Vitamin B12 deficiency 10/05/2021 Patient Active Problem List Diagnosis Code HTN, [...] current pathological fracture M80.00XA Senile osteoporosis M81.0 Past Surgical History: Procedure Laterality Date BRAIN ANEURYSM,CAROTID CMPLX 01/2022 she underwent DSA with successful WEB embolization of left MCA bifurcation aneurysm and Surpass Evolve stent to left supraclinoid aneurysm at CAROTID (INTERNAL) ARTERY CATHETHER PLACEMENT Right 11/08/2021 CATHETER PLACEMENT INTERNAL CAROTID ARTERY performed [place] Manuelito Land [place] [facility]16[place]2005 normal [facility], repeat 10 years COLONOSCOPY, DIAGNOSTIC (RECTUM) 10/27/2015 diverticulitis, diverticulosis/COLONOSCOPY FLEXIBLE PROXIMAL DIAGNOSTIC performed by Isabella Truong MD at ENDOSCOPY [facility] CORONARY ANGIOGRAPHY W/LEFT HEART CATH 08/16/2010 CORONARY ANGIOGRAPHY W/LEFT HEART CATH performed [place] SKYLAR NEGRON [place] [facility] [place]/BONE MINERAL AXIAL 06/14/2013 done in [place] DILATION AND CURETTAGE (D&C) D&C EGD, FLEXIBLE, DIAGNOSTIC 10/21/2015 , repeat 3 mo/inpt [facility] EGD, FLEXIBLE, DIAGNOSTIC 01/16/2016 mild inflammation on bx, gastric polyps/ESOPHAGOGASTRODUODENOSCOPY (EGD), FLEXIBLE, TRANSORAL, DIAGNOSTIC performed by Jermain Harding DO at ENDOSCOPY [facility] INJECTION LUMBAR/SACRAL 11/09/2014 INJECTION SPINE LUMBAR OR SACRAL performed by Jaxon Kenney, DO at OR [facility] INJECTION LUMBAR/SACRAL 11/23/2014 INJECTION SPINE LUMBAR OR SACRAL performed by Jaxon Kenney, DO at OR [facility] INJECTION LUMBAR/SACRAL 05/23/2015 INJECTION SPINE LUMBAR OR SACRAL performed by Jaxon Kenney, DO at OR [facility] INJECTION LUMBAR/SACRAL 02/22/2016 INJECTION SPINE LUMBAR OR SACRAL performed by Jaxon Kenney DO at OR [facility] IR VERTEBRAL AUGMENTATION THORACIC N/A 01/29/2023 PERCUTANEOUS VERTEBRAL AUGMENTATION THORACIC KYPHOPLASTY performed by Mak Galloway MD at OR [facility] LAPAROSCOPY, CHOLECYSTECTOMY WITH CHOLANGIOGRAPHY 01/12/2003 Cholecystectomy, Laproscopic with cholangiogram with Dr. Pereyra, [facility] [place] MISCELLANEOUS ORDER 1981 Tubal Ligation 1981 PUNCTURE DRAINAGE BREAST CYST Right 2007 benign REMOVAL OF APPENDIX 12/2004 done in [place] REMOVE CATARACT, INSERT LENS PROSTH Left 09/29/2019 left EXTRACAPSULAR CATARACT REMOVAL WITH INTRAOCULAR LENS performed by Edwin Carbone MD at OR [facility] REMOVE CATARACT, INSERT LENS PROSTH Right 10/05/2019 right EXTRACAPSULAR CATARACT REMOVAL WITH INTRAOCULAR LENS performed by Edwin Carbone MD at OR [facility] SACROILIAC JOINT INJECT W/GUIDANCE Left 12/12/2015 INJECTION SACROILIAC JOINT performed by Jaxon Kenney DO at OR [facility] STRESS ECHO (EXERCISE) 04/11/2005 normal, [facility], Dr Poonam Simmons UNLISTED LAPAROSCOPY;HERNIA 09/10/[address] Pereyra VERTEBRAL ARTERY CATHETER PLACEMENT Right 11/08/2021 CATHETER PLACEMENT VERTEBRAL ARTERY, performed [place] Manuelito Land [place] [facility] Outpatient Medications Medication Sig Dispense Refill [...] Take 1 Tablet by mouth at bedtime. [place]-3 Fatty Acids (FISH OIL CONCENTRATE) 1000 MG [...] Moreno MD 1,000 mcg at 01/23/23 1408 Allergies: Corticosteroids, Shellfish allergy, Zetia [ezetimibe], and Cephalexin Family History Problem Relation Age of Onset Hypertension Mother Mental Disorder Mother bipolar Allergies Mother Osteo Eye Problems Mother Macular Degeneration Thyroid Disorder Mother Nodule- thyroid removed 40 years ago Cancer Father prostate Heart Disorder Father Stroke Father Stroke in late 70's Cancer Aunt (Unspecified) Maternal pancreatic Mental Disorder Sister depression Social History Socioeconomic History Marital status: Spouse name: Anastacio Number of children: 2 Years of education: Not on file Highest education level: Not on file Occupational History 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 There is no height or weight on file to calculate BMI. Physical Exam: General: alert, healthy, and no distress Constitutional: The general appearance appears normal. Respiratory: Breathing is nonlabored Gait and station: Ambulates with no assistive device Cardiovascular system: Vascularity grossly intact. No significant edema Examination of the spine: No paraspinal swelling. Surgical wound: Incision healed well Neurological examination: Motor power upper extremities - Bilateral shoulder abductors, elbow flexors, triceps, wrist flexorsand extensors and intrinsic muscles of the hand is 5/5. Motor power lower extremities - Bilateral hip flexors (Iliopsoas), knee extensors (Quadriceps), ankle dorsiflexors (Tibialis anterior), plantar flexors (Gastro-soleus), EHL/EDL, FHL/FDL is 5/5. All modalities of sensation are grossly preserved in bilateral upper extremities. All modalities of sensation are grossly preserved in bilateral lower extremities. Radiological imaging: X-rays of the lumbar spine show presence of multilevel degenerative changes. Patient has loss of disc height in the lumbar disc spaces. She has grade 1-2 spondylolisthesis at L5-S1. MRI of the lumbar spine from the outside facility 12/25/2022: Presence of multilevel degenerative changes with mild to moderate stenosis at L3-4 right side, L4-5bilateral, L5-S1 spondylolisthesis with foraminal stenosis. There is presence of a T12 compression fracture which has been treated with kyphoplasty recently. Assessment/ Plan: Pt is a 77 year old female here for the postoperative follow-up. Status post T12 kyphoplasty-doing well Lumbosacral spondylolisthesis Lumbar spinal stenosis, L3-4, L4-5, L5 spinal Chronic low back pain with lower extremity radiculopathy Neurogenic claudication Chronic neck pain The is recovering well from the surgery and the mobility and function is gradually improving. The patient is symptomatic in relation to her chronic changes in the lumbar spine and the muscle deconditioning. Treatment recommendations: We discussed the findings, surgery and the expected postoperative course. She would benefit from physical therapy and pain management-referral made. Role of back brace discussed Patient encouraged to follow the recommendations of the university administrative assistant about treatment of osteoporosis. She is to continue follow-up with her primary care for a pain related needs as well as management of medical issues. The patient expressed understanding and agreement to the plan. Complexity of decision making: High I spent 30 minutes on 02/11/2023 in preparation, delivery and documentation of the care provided to the patient, excluding any time spent on the performance of the procedure are separately billable service. Mak Galloway MD This chart was completed in part utilizing [employer] Speech Voice Recognition Software. Grammatical errors, random word insertions, prounoun errors and incomplete sentences are an occasional consequence of this system due to software limitations, ambient noise, and hardware issues. Any formal questions or concerns about the content, text, or information contained within the body of this dictation should be directly addressed to the provider for clarification. documented in this encounter Nursing Notes * Gloria Gonzalez LPN - 02/11/2023 9:18 AM EDT F/U T12 kyphoplasty with vertebral biopsy 01/29/2023 Patient is wearing the brace during the day last 2 days. Patient notes was not wearing the brace last 2 days, patient note level of pain has increased. Patient notes has walked walked about 300 yards lower back starts hurting documented in this encounter Plan of Treatment Upcoming Encounters Date Type Specialty Care Team Description 02/19/2023 Nurse Only Ancillary Nurse, Int Manuel [address] [place] [address] 02/19/2023 Office Visit Otolaryngology Hakan Olivas DO [address] [place] [address] 02/25/2023 Office Visit Dermatology Lidya Jackson MD [address] [place] [address] 03/28/2023 Office Visit Cardiology [facility] Cardiology Florencio [address] [place] [address] 04/22/2023 Office Visit Orthopedic Surgery Mak Galloway MD [address] [place] [address] 04/23/2023 Imaging Radiology 04/24/2023 Office Visit Internal Medicine Evangelista Moran MD [address] [place] [address] 05/16/2023 Office Visit Orthopedic Surgery Mak Galloway MD [address] [place] [address] 02/09/2024 Office Visit Rheumatology Karl Conrad MD [address] [place] [address] Pending Results Name Type Priority Associated Diagnoses Date /Time XR THORACOLUMBAR SPINE MIN 2 VIEWS Medical Imaging Routine S/P kyphoplasty 02/11/2023 9:32 AM EDT Scheduled Referrals Name Type Priority Associated Diagnoses Orde r Schedule PAIN MEDICINE REFERRAL OP Referral Within 10 days (routine) Spondylolisthesis of lumbosacral region Spinal stenosis of lumbar region, unspecified whether neurogenic claudication present Ordered: 02/11/2023 PHYSICAL THERAPY REFERRAL OP Referral Within 10 days (routine) S/P kyphoplasty Spondylolisthesis of lumbosacral region Spinal stenosis of lumbar region, unspecified whether neurogenic claudication present Ordered: 02/11/2023 Health Maintenance Due Date Last Done Comments DTaP,Tdap,and Td Vaccines (2 - Td or Tdap) 06/21/2018 06/21/2008 *BISPHONATE OR OTHER ACCEPTABLE MEDICATION NEEDED FOR OSTEOPOROSIS (REFER TO SMARTSET #1146) 10/22/2018 DXA Scan 10/19/2020 10/19/2018, 0805/2009, 01/09/2010 COVID-19 Vaccine (3 - season) 2023 [...] D LEVEL ONCE IN A LIFETIME-USE SMARTSET# [id number] Completed 01/21/2023, 08/30/2021, 10/27/2019, Additional history exists [...] this encounter Medical Devices Implanted Type Area Guest Relations Associate Device Identifier Shelf Expiration Date Model / Serial / Lot Lens Intraoc 22.0 - [id number] - [id number] Implanted:Qty: 1 on 09/29/2019 by Edwin Carbone MD at OR [facility] Left: Eye [employer]CH [employer]OM[employer] 03/11/2024 [id number] / [id number] / [id number] Lens Intraoc 20.5 - [id number] - [id number] Implanted:Qty: 1 on 10/05/2019 by Edwin Carbone MD at OR [facility] Right: Eye [employer]OM[employer] 03/11/2024 [id number] / [id number] / [id number] Cement Hv-R C01a - [id number] Implanted:Qty: 1 on 01/29/2023 by Mak Galloway MD at OR [facility] Spine Thoracic [employer] : NEURO CARE 07/09/2025 [id number] / / [id number] Description:1.5 ml right 1.5 ml left documented as of this encounter Visit Diagnoses Diagnosis S/P kyphoplasty- Primary Osteoporotic compression fracture of vertebra with routine healing, subsequent encounter Spondylolisthesis of lumbosacral region Acquired spondylolisthesis Spinal stenosis of lumbar region, unspecified whether neurogenic claudication present documented in this encounter Advance Directives Latest Code Status on File Code Status Date Activated Date Inactivated Comments Full Code 01/29/2023 12:32 PM 01/29/2023 7:58 PM This order reflects the patients wishes and were consensually agreed upon. Question Answer Comments Discussion of Advance Directives occurred with: Patient Care Teams Canal Driver Relationship Specialty Start Date End Date Evangelista Moran MD [address] [place] [address], [place] [address] PCP - General Internal Medicine 08/27/17 documented as of this encounter
--- OUTSIDE RECORDS SUMMARY | 2023-07-25 14:05 | External Medical Summary | Summary of Care ---
Author Name Unknown Organization [facility] Address [address] [place] [address] Phone [phone] Care Team Providers Care Scrapper Name Role Phone Evangelista Moran MD Primary Care Provider + Reason for Visit * Auth/Cert Specialty Diagnoses / Procedures Referred By Contac t Referred To Contact Diagnoses T12 compression fracture (HCC) T12 compression fracture (HCC) [S22.080A] Procedures IR VERTEBRAL AUGMENTATION THORACIC PERCUTANEOUS VERTEBRAL AUGMENTATION THORACIC KYPHOPLASTY Referral ID Status Reason Start Date Expiration Date Visits Re quested Visits Authorized [id number] Encounter Details Date Type Department Care Team Description 01/29/2023 Hospital Encounter OR [facility], Operating Room, [facility] - 4th Floor [address] [facility] [place] [address] Mak Galloway MD [address] [facility] [place] [address] [place] [address] Allergies Active Allergy Reactions Severity Noted Date [...] Tablet by mouth at bedtime. 0 Active Rainelle-3 Fatty Acids (FISH OIL CONCENTRATE) 1000 MG [...] and 1 Capsule before bedtime. 0 Active documented as of this encounter (statuses [...] Sign Reading Time Taken Comments Blood Pressure 137/91 01/29/2023 3:44 PM EDT Pulse 83 01/29/2023 3:44 PM EDT Temperature 36.7 C (98.1 F) 01/29/2023 3:44 PM ED T Respiratory Rate 16 01/29/2023 3:44 PM EDT Oxygen Saturation 95% 01/29/2023 3:44 PM EDT Inhaled Oxygen Concentration - - Weight 81.2 kg (179 lb) 01/23/2023 3:18 PM EDT Height 153.7 cm (5' 0.5") 01/23/2023 3:18 PM EDT Body Mass Index 34.38 01/23/2023 3:18 PM EDT documented in this encounter Discharge Instructions * Discharge Instr - AVS* Mak Galloway MD - 01/29/2023 3:30 PM EDT KYPHOPLASTY DISCHARGE INSTRUCTIONS INCISIONAL CARE Your surgical incision will be located on your posterior thrunk (low back). Your surgical incision(s) will be closed with Steri-Strips your skin. You will also have a dry dressing to cover your wound after surgery. You should keep this dressing intact for 5-7 days. NO SHOWER for 5 days after surgery. It is important that the incision does not get wet in order to prevent infection. You may sponge bathe for the first 5 days in front of a sink. Do not stand or sit in a shower or tub. If you have had a revision or repeat surgery, sutures/ jessy will be used to close your incision.Do not get the dressing wet until the sutures are removed. No tub bath for 4 weeks after surgery. Please check your surgical area daily for signs of infection. Signs of infection include excessive redness, swelling, pain, or heat. If you experience a fever (temperature over 101.5 oF), chills, sweats, shaking chills, or abnormal drainage from your incision, please contact the office immediately. Do not use any creams, lotions, ointments, or alcohol near or on the incision. DEEP BREATHING AND COUGHING Deep breathing expands the lungs and coughing helps to clear any mucus that may have collected in your lungs. Usually, the most comfortable position for this activity is to lie in bed with the head of the bed raised. Deep breathing also can be done sitting on the side of the bed in a chair, flat on your backor even on your side. Relax, especially your neck and shoulder muscles. Rest your hands on the sides of your rib cage. Slowly take in a deep breath through your nose and hold it for 1 to 2 seconds. When you breathe in, your hands should be pushed out by your rib cage. Then, slowly blow it out through your mouth. As you exhale, you will feel the area under your hands relax. Take 2 or 3 deep breaths, then several normal breaths. Repeat 10 times each hour while awake for the first 2 days after your surgery. After several deep breaths, cough deeply to help clear the lungs of mucus. A hand-held device (incentive spirometer) is often used to promote deep breathing. Use the incentive spirometer as instructed by your nurse. You should take 10 breaths every hour that you are awake. In some cases, a respiratory therapist may assist you with coughing and deep breathing. For best results, follow the therapists guidelines. The therapist or your nurse can also answer any questions you may have about breathing treatments. ACTIVITY After surgery, no heavy lifting. No lifting greater than 10-15 pounds (about a gallon of milk). Avoid pushing and pulling heavy objects with your arms. No repetitive bending or twisting of the low back or waist. No bending over 60o. You should squat by bending your hips and knees. You may sit for any length of time based on your comfort level. You should change your position every 30 minutes. You may be a passenger in a vehicle. Driving is allowed after 4-5 days if comfortable No physical activity other than walking. You should avoid all impact activities. Walking should be done at a comfortable pace. Frequent, short walks will rebuild your strength and endurance. Walk on level surfaces. Be cautious walking out of doors due to the slippery or adverse conditions. Wear good walking shoes. You may use the stairs as long as you are careful of your footing. Take one step at a time and always use the handrails. If you experience increased pain after or with walking, reduce the amount of walking time and distance. Walking is important to promote blood flow and to prevent blood clots. These are general guidelines for a walking program: Day 1: Walk the length of the hallway at home 3-4 times or walk to the end of your driveway and back 3 times during the day. Day 2: Walk block 2-3 times during the day. Day 3: Walk 1 block 2-3 times during the day. Day 4: Walk 2 blocks 2-3 times during the day. Day 5: Walk 3 blocks 2-3 times during the day. Then increase distances as tolerated. Sleep either on your back, stomach, or side. It may be more comfortable to use pillows for support.Place pillows behind your knees when you are lying on your back, or place them behind your back andbetween your legs when lying on your side. PAIN You may have an increase in pain and numbness in the low back during the healing process. This is normal. It is caused by swelling of tissue in your low back and irritation of the muscles during surgery. You may reach out to your primary care if your pain is not controlled with the Tylenol and NSAIDs and other measures as mentioned below Acetaminophen You may supplement your medication with addition acetaminophen (Tylenol). It is important to note how mach acetaminophen is in the narcotic pain medication prescribed. You may take up to 3000 mg of acetaminophen in a 24 hour period. Non-steroidal anti-inflammatory (NSAIDs) You may take NSAIDs in addition to acetaminophen if no contraindication Ice Pack You may use an ice pack over your incision(s) to decrease swelling and discomfort. Always place a towel over your skin before applying ice in order to keep the incision(s) clean and dry. You should use ice for a minimum of 20 minutes every hour. Ice Bag 3 cups water, 1 cup rubbing alcohol, 2 quart size zip-lock bags. Mix above ingredients together, separate into bags, and freeze. PHONE NUMBERS If you have any questions or concerns, please call our office at [place]: [phone] & [facility]: [phone] documented in this encounter Progress Notes * Mak Galloway MD - 01/29/2023 3:28 PM EDT [address] [address] OUTPATIENT SURGERY DISCHARGE SUMMARY NOTE Name: Keisha Tapia Location: [facility]/[place] Date: 01/29/2023 Time: 3:28 PM Surgery Date: 01/29/2023 Procedure: Procedure(s): PERCUTANEOUS VERTEBRAL AUGMENTATION THORACIC KYPHOPLASTY N/A Surgeon: Surgeon(s): Mak Galloway MD Discharge Diagnosis: T12 osteoporotic compression fracture After examination of this patient, I have determined she is ready for discharge to home when the patient meets criteria. Discharge instructions were given to the patient. documented in this encounter H&P Notes * Mak Galloway MD - 01/29/2023 2:06 PM EDT HISTORY & PHYSICAL INTERVAL NOTE [facility]-[address] [place] [id number] History and Physical Update: Name: Keisha Tapia Location: OR [facility]/[place] Date: 01/29/2023 Time: 2:06 PM DATE OF HISTORY AND PHYSICAL: 01/29/2023 BP: 133 mmHg/93 mmHg (01/29/23 1241) Pulse: 100 (01/29/23 1241) Temp: 37.39 C (01/29/23 1241) Resp: 18 (01/29/23 1241) SpO2: 95 % (01/29/23 124) Did patient stop anticoagulants? None Heart Exam: regular rate and rhythm Lung Exam: Regular breathing Other Pertinent Physical Exam: Continues to have persistent back pain in relation to the T12 osteoporotic compression fracture this I have reviewed the H&P previously performed and examined the patient today. There are no new findings noted. Source Note - Eugenia Ridley PA-C - 01/09/2023 3:01 PM EDT Date of service: 01/09/2023 CHIEF COMPLAINT: Keisha Tapia is a 77 year old female presents with complaints/concerns of persistent low back pain. Patient states that she had a fall the week of mother's day of 2022. She states since then, she has had increased low back pain as well as muscle spasms and sharp shooting painin her mid/lower back. She states that she did see an orthopedic spine provider from a different health system a few weeks ago. She has failed conservative measures of back bracing and activity modification of no bending, lifting, twisting. She denies any acute neurological deficits, bowel or bladder disturbances or constitutional symptoms. She does state that she has chronic low back pain with episodes of lower extremity radiculopathy, but states that since the fall, her pain has been increasing with a sharp, stabbing sensation. 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: Spine investigations done and date: Xray: MRI:disk from [facility], will bring along CT scan: EMG/ NCV: Spine treatment so far: Medications: Ibuprofen Physical therapy within last year: Chiropractor therapy: Brace use: Pain management and Spinal epidural injections: Spine surgery - Surgeon and year: Significant Medical history: If diabetic HbA1c: On blood thinners:aspirin 81 mg Osteoporosis screenin10/2018 Tobacco/ Illicit drug use: Work profile Allergies: Corticosteroids, Shellfish allergy, Zetia [ezetimibe], and Cephalexin The past medical, surgical, medication, family and social history was reviewed and is documented elsewhere in the chart. ROS: Negative except as outlined in HPI Vitals: Temp 35.7 C (96.2 F) | Ht 1.533 m (5' 0.35") | Wt 82.7 kg (182 lb 4.8 oz) | BMI 35.19 kg/m | BSA 1.88 m Body mass index is 35.19 kg/m. Physical Exam: General: alert, healthy and no distress Constitutional: The general appearance appears normal. Respiratory: Breathing is nonlabored, thoracic. No use of accessory muscles. Cardiovascular system: Vascularity grossly preserved Gait: Ambulates with no assistive devices. Cervical spine: No paraspinal swelling. No restriction of range of motion. Thoracic spine - No deformity or swelling. Lumbar spine: No paraspinal swelling. There is tenderness. Minimal restriction of range of motion in the lumbosacral area. Neurological examination: Motor power upper extremities - Bilateral shoulder abductors, elbow flexors, triceps, wrist flexorsand extensors and intrinsic muscles of the hand is 5/5. Motor power lower extremities - Bilateral hip flexors (Iliopsoas), knee extensors (Quadriceps), ankle dorsiflexors (Tibialis anterior), plantar flexors (Gastro-soleus), EHL/EDL, FHL/FDL is 5/5. The deep tendon reflexes - Bilateral Biceps, triceps, brachioradialis, Patellar tendon, Achilles tendon are 2+ Dorian's sign is negative Rhomberg's sign is negative The cranial nerves grossly intact All modalities of sensation are grossly preserved bilaterally upper extremities. All modalities of sensation are grossly preserved bilaterally in the lower extremities. Examination of the bilateral upper, lower extremities including the SI joint is unremarkable Radiological imaging: I independently reviewed the relevant radiological imaging including x-rays ordered at this visit X-ray images of the thoracolumbar spine on 01/09/2023: T12 compression deformity unchanged from MRI on 12/25/2022. Spondylolisthesis of L5 over S1 noted. This is unchanged from images below. MRI of the lumbar spine on 12/25/2022: T12 compression deformity with surrounding edema on STIR image. Multilevel degenerative changes including spondylolisthesis of L5 over S1. Assessment & Plan: Pt is a 77 year old female here for the following problems/concerns: Osteoporotic compression deformity [id number] on MRI Recent fall Spondylolisthesis L5 over S1 Point tenderness Neurologically intact We discussed the diagnosis, the natural history and the treatment options. Based on the clinical and radiological findings various treatment options including the risks, benefits and alternatives were discussed. Explained to the patient in detail the nature of her fracture as well as possibility that her pain may be multifactorial in nature of her lumbar spine as she has a fracture as well as multilevel degenerative changes and a spondylolisthesis of L5 over S1. Patient understanding. She would like to cons ider a kyphoplasty procedure for her T12 compression deformity as she has failed the standard conservative measures of bracing, activity modification of no bending, lifting, twisting. Booking form has been placed for a T12 kyphoplasty and vertebral biopsy with related procedures as indicated intraoperatively. Consent taken. Labs placed. Chest x-ray done at today's visit. EKG ordered. Patient will need a PCP clearance. We will call the patient with a surgical date once it is available. Warning signs discussed. Encouraged patient to reach out with any other questions or concerns in the meantime. Additional recommendations: Activity modification Brace for spinal stabilization and pain relief as tolerated Pain medications as per the primary care. Adverse effects and appropriate precautions were discussed. If the patient has persistence or worsening of symptoms additional investigations will be recommended. Warning signs have been discussed. Follow up: after procedure for reassessment, earlier if any worsening of symptoms. The patient expressed understanding and agreement to the plan. Complexity of decision making: Medium to High I spent 45 minutes on 01/09/2023 in preparation, delivery and documentation of the care provided to the patient, excluding any time spent on the performance of the procedure are separately billable service. Eugenia Ridley PA-C Addendum: This patient was evaluated by me. She has acute worsening of the back pain in relation to a fall that she had recently. She was diagnosed to have a subacute L1 compression fracture which was being treated conservatively with brace and activity modification. She reports in adequate relief of symptoms with these measures and is keen on discussing different treatment options including kyphoplasty. Patient also has longstanding back problems in the form of L5-S1 spondylolisthesis with spinal stenosis but these are chronic issues at the baseline. Surgical indication: T12 osteoporotic compression fracture with persistent back pain affecting activities of daily living including sleep and ambulation. Failed conservative treatment including use of back brace and activity modification. Symptoms progressive and affecting her daily activities. Surgical plan: T12 kyphoplasty with vertebral biopsy and related procedures as indicated intraoperatively Surgical workup: 1. Clearance by the primary care 2. Investigations for medical optimization 3. Patient encouraged to discuss about evaluation and treatment of osteoporosis with her primary care. Surgical counseling: We discussed the various potential risks and complications associated with the procedure including but not limited to cement extravasation, cement embolism, surgical site infection, bleeding, hematoma, inadequate relief of symptoms, development adjacent level fractures, persistent back pain development of spinal malalignment, other known complications in relation to osteoporosis, need for repeat surgery, difficulty in finding the surgical level because of imaging problems, other medical, surgical and anesthesia complications. The patient was also made aware about the possibility of persistentback pain and related issues in spite of a successful kyphoplasty intervention. The patient understands the same and wants to proceed with the surgical intervention. The patient also understands thatshe is to follow up with her primary care for the management of osteoporosis especially with the increased risk of development of subsequent vertebral compression fractures. The patient is also aware that she has degenerative changes with spinal stenosis and spondylolisthesis in the lumbar spine which could be contributing to her chronic back discomfort and related symptoms. These will not be treated with the kyphoplasty procedure. If these become symptomatic, this would need additional evaluation and treatment as deemed appropriate. The patient was given the opportunity to ask questions. The patient adequately understands the above risks and wants to proceed with the intervention. Mak Galloway MD This chart was completed in part utilizing Fluency Speech Voice Recognition Software. Grammatical errors, random [...] documented in this encounter Nursing Notes * Priya Apodaca RN - 01/23/2023 3:40 PM EDT Patient identified by: name/birthdate Person taught: Patient Optimgiuliana case procedure confirmed with surgical consent Laterality confirmed as N/a Surgery date at time of Pre-Surgery Center Encounter: 01/29/2023. What procedure is patient having? PERCUTANEOUS VERTEBRAL AUGMENTATION THORACIC KYPHOPLASTY (85072) In an emergency, is patient willing to accept blood products or blood transfusion? Unknown. Do you need to place a blood bank order? No Anesthesia consent pool notified? N/A Anesthesia evaluation requested per case documentation? No Preop Evaluation Requested? Yes, follow-up will be documented on Anesthesia note- Pt's 01/23/2023 [facility] clearance note is in Epic. PATIENT EDUCATION SCREENING Person taught: Patient Motivation Level: Asks Questions and Eager to Learn Language Barrier: No Physical Barrier: N/A METHOD: Lecture-telephone interview Patient Preferred Learning Methods: Lecture-Telephone interview Health History interview completed, questions answered, and the following patient instructions provided via telephone interview: Preoperative bathing instructions General preoperative instructions Medication instructions NPO instructions - If your normal morning routine take Effexor, Levothyroxine, and Trintellix the morning of surgery. If you take metformin, hold it the evening before surgery as well. No tobacco products after midnight. Pt to call surgeon for low dose ASA and NSAID instructions. Pt instructed to stop her turmeric and fish oil now until after surgery. OUTCOME: State / Describe / Explain and Needs Reinforcement * Priya Apodaca RN - 01/22/2023 9:11 AM EDT Left message on mobile phone for return call @ [phone] by Patient at least one week prior to surgery date or to leave a number where they can be reached . Instructed clinic open hours are M-F 8:00a- 4:00p. * Priya Apodaca RN - 01/16/2023 10:34 AM EDT Left message on mobile phone for return call @ [phone] by Patient at least one week prior to surgery date or to leave a number where they can be reached . Instructed clinic open hours are M-F 8:00a- 4:00p. documented in this encounter OR Notes * OR Surgeon - Mak Galloway MD - 01/29/2023 3:11 PM EDT [place] [address] OPERATIVE REPORT Name: Keisha Tapia Date: 01/29/2023 Time: 3:11 PM Location: [facility] Service: Orthopedic Surgery Date of Operation: 01/29/2023 Preoperative diagnosis: 1. Subacute T12 osteoporotic compression fracture with delayed union 2. Chronic low back pain with acute worsening Postoperative diagnosis: 1. Subacute T12 osteoporotic compression fracture with delayed union 2. Chronic low back pain with acute worsening Procedure: 1. T12 Vertebral augmentation procedure using the Kyphoplasty technique 2. T12 Vertebral biopsy Operating surgeon: Dr Mak Galloway MD Mortarman: SHANA Anesthesia: IV General - MAC Blood loss: Minimal IV fluids: 200 ml Transfusion: Nil Drains: None Specimen: T12 vertebral biopsy Complications: Nil Disposition: In stable condition to the PACU for monitoring Implants: Nil Operative indications: Ms Tapia is a 77 -year-old patient with a symptomatic subacute T12 osteoporotic compression fracture with persistent low back pain with recent worsening which has failed conservative management. The patient comes in with progressive syndrome of back pain secondary to the compression fracture. The patient underwent a prolonged and multimodal course of conservative care without significant relief. The patient had tried brace, pain medications and home-based physical therapy without any relief. In fact, the symptoms appeared to be worsening with back exercises. The patients syndrome was refractory to any further conservative management and was affecting the mobility and activities of daily living. We discussed the various treatment options including continuing conservative managementas well as surgical treatment. The patient elected to undergo surgical treatment in view of the davion rity of symptoms. Prior to the procedure the patient was explained in detail about the possible risks which included but were not limited to risk of cement extravasation, cement embolism, nerve injury, persistent and/or worsening pain, infection and our meningitis, excessive bleeding, paralysis, , blindness, sexual dysfunction, blood vessel injury, injury to the surrounding visceral organs, need for further surgery, bowel and bladder dysfunction, instability, autonomic nervous system dysfunction, DVT as well as the potential for unforeseen medical and surgical complications. Also the purpose for the surgery was to to improve the structural stability of the compression fracture.. The surgery could facilit ate but could not guarantee pain relief, fracture healing or functional/ neurological recovery. Thepatient The patient is expected to follow up with his primary care for evaluation and treatment of for the evaluation and treatment of osteoporosis. The patient was given the partially to ask questions. The patient expressed understanding for the above and wants to proceed with the intervention. OPERATING PHYSICIAN: Dr. Mak Galloway MD CONSENT: After a detailed discussion of the procedure, risks, benefits and alternative treatment options, informed consent was obtained. TIME OUT: A time out procedure was performed in the presence of the OR team. The patient's identification was verified. Informed consent with agreement of procedure, site and position was obtained. All necessary equipment was available prior to procedure. COMPLICATIONS: None. ANESTHESIA: General MEDICATIONS: 0.5% Marcaine was used locally. Please see the MAR and anesthesia record for additional medications administered. PROCEDURE DESCRIPTION: The patient was placed on the radiolucent table, general anesthesia was administered and the patient was then placed in the prone position, preliminary fluoroscopic images were obtained in frontal and lateral projections to confirm the appropriate level to treat and the patient was then prepped anddraped in the usual sterile fashion. The skin was anesthetized and small paramedian incisions were made bilaterally at the T2 level. Using fluoroscopic guidance, a cannulated needle was advanced intothe midportion of the vertebral body in a transpedicular approach bilaterally. The needle was then removed from the cannula and a biopsy sample was obtained. A drill was advanced through both cannulas and voids was created for the expansion balloons. The balloons were advanced and inflated bilaterally. After adequate inflation had been obtained, the balloons were deflated and removed and polymethylmethracate was mixed and administered within the vertebral body through both cannulas under fluoroscopic guidance. The cannulas were removed, hemoatasis was confirmed. The incision was closed with steri strips and the site was dressed. I personally performed the procedure. FINDINGS: Front Desk Agent fluoroscopy images demonstrate the compression fracture at T12 level. Additional images demonstrate cannulated needle placement within the vertebral body, subsequent balloon inflation and polymethylmethacrylate administration. There was no concerning extra-vertebral leakage of polymethylmethacrylate. IMPRESSION: Successful T12 vertebral body biopsy and kyphoplasty. CONDITION: Stable. Patient tolerated the procedure well. PLAN: Pain control with acetaminophen and/or ibuprofen if/as needed. Resume normal activity and ambulation as tolerated. Continue the use of the brace. The patient is to follow up in the Orthopedic office in 10 days for reassessment. Warning signs discussed. documented in this encounter Plan of Treatment Upcoming Encounters Date Type Specialty Care Team Description 02/11/2023 Office Visit Orthopedic Surgery Mak Galloway MD [address] [place] [address] [place] [address] 02/19/2023 Nurse Only Ancillary Nurse, Int Med [address] [facility] [place] [address] 02/19/2023 Office Visit Otolaryngology Hakan Olivas DO [address] [place] [address] 02/25/2023 Office Visit Dermatology Lidya Jackson MD [address] [facility] [place] [address] 03/28/2023 Office Visit Cardiology [facility] [address] [facility] [place] [address] 04/24/2023 Office Visit Internal Medicine Evangelista Moran MD [address] [facility] [place] [address] Pending Results Name Type Priority Associated Diagnoses Date /Time SURGICAL PATHOLOGY Pathology Routine T12 compression fracture (HCC) 01/29/2023 2:58 PM EDT Scheduled Orders Name Type Priority Associated Diagnoses Orde r Schedule SURGICAL PATHOLOGY Pathology Routine T12 compression fracture (HCC) Release Upon Ordering for 1 Occurrences starting 01/29/2023, 1 completed Health Maintenance Due Date Last Done Comments [...] D LEVEL ONCE IN A LIFETIME-USE SMARTSET# [id number] Completed 01/21/2023, 08/30/2021, 10/27/2019, Additional history exists [...] this encounter Medical Devices Implanted Type Area Gas Dispatcher Device Identifier Shelf Expiration Date Model / Serial / Lot Lens Intraoc 22.0 - [id number] - [id number] Implanted:Qty: 1 on 09/29/2019 by Edwin Carbone MD at OR [facility] Left: Eye [employer]OMB 03/11/2024 [id number] / [id number] / [id number] Lens Intraoc 20.5 - [id number] - [id number] Implanted:Qty: 1 on 10/05/2019 by Edwin Carbone MD at OR [facility] Right: Eye [employer]OM[employer] 03/11/2024 [id number] / [id number] / [id number] Cement Hv-R C01a - [id number] Implanted:Qty: 1 on 01/29/2023 by Mak Galloway MD at OR [facility] Spine Thoracic [employer] : NEURO CARE 07/09/2025 [id number] / / [id number] Description:1.5 ml right 1.5 ml left documented as of this encounter Procedures Procedure Name Priority Date/Time Associated Diagnosis Comments XR INTRA-OP C-ARM CASE Routine 01/29/2023 3:15 PM EDT GLUCOSE METER, POINT OF CARE Routine 01/29/2023 1:20 PM EDT documented in this encounter Results * XR INTRA-OP C-ARM CASE (01/29/2023 3:15 PM EDT) Narrative Scheduling, Silent - 01/29/2023 3:16 PM EDT This procedure will not be read by a Radiologist. Please see operative note. Carmen Saunders PA-C RADIOLOGY (RAD GENERAL) * GLUCOSE METER, POINT OF CARE (01/29/2023 1:20 PM EDT) Glucose Meter 106 70 - 120 mg/dL 01/29/2023 1:30 PM EDT [facility] Blood 01/29/2023 1:20 PM EDT 01/29/2023 1:30 PM EDT Carmen Saunders PA-C LAB POINT OF C ARE TEST DOCKED DEVICE UNSOLICITED RESULTS [facility] [address] [facility] [place] [address] documented in this encounter Visit Diagnoses Diagnosis T12 compression fracture (HCC) Closed fracture of dorsal (thoracic) vertebra without mention of spinal cord injury documented in this encounter Administered Medications Inactive Administered Medications - up to 3 most recent administrations Medication Order MAR Action Action Date Dose Rate Site Acetaminophen (Tylenol) tab 975 mg 975 mg, Oral, PREOP, First dose on Fri01/29/23 at 1315, Last dose on Fri01/29/23 at 1315, For 1 dose, Maximum 4 g acetaminophen/day. Avoid in patients with severe hepatic impairment or severe active liver disease. Administer 60 minutes prior to OR., Pre-Op Given 01/29/2023 1:13 PM EDT 975 mg celecoxib (CeleBREX) cap 200 mg 200 mg, Oral, PREOP, First dose on Fri01/29/23 at 1315, Last dose on Fri01/29/23 at 1315, For 1 dose, Contraindicated in setting of CABG surgery. Do not use in patients with CrCl < 60, receiving ketorolac, bone fracture. Reduce to 200 mg PO if greater than 65 years old . Administer 60 minutes prior to OR., Pre-Op Given 01/29/2023 1:13 PM EDT 200 mg Chlorhexidine Gluconate (Scrub-Stat) 2% external solution External, PREOP, First dose on Fri01/29/23 at 1315, Last dose on Nu 01/30/23 at 0600, For 2 doses, Complete chlorhexidine wash of entire body, once the evening prior to surgery and once the morning of surgery prior to transporting patient to the pre-operative area , Pre-Op Given 01/29/2023 1:15 PM EDT gentamicin 300 mg in NSS 100 mL ivpb 300 mg, Intravenous, PREOP, 1 dose, First dose on Fri01/29/23 at 1315, Use ideal body weight for dose calculation. Use adjusted body weight if actual body weight is greater than 120% of ideal body weight. Administer 90 minutes prior to skin incision., Pre-Op New Bag 01/29/2023 1:30 PM EDT 300 mg 110 mL/hr isolyte-S pH 7.4 infusion Intravenous, at 10 mL/hr, Plasma-LYTE 148, isolyte-S, and isolyte-S pH 7.4 are considered equivalent - including for MAR barcode scanning., CONTINUOUS, Starting on Fri01/29/23 at 1315, Until Fri01/29/23 at 1958, Pre-Op Restarted 01/29/2023 2:21 PM EDT Continue from Pre-Op 01/29/2023 2:20 PM EDT 10 mL/hr New Bag 01/29/2023 1:26 PM EDT 10 mL/hr Povidone-Iodine nasal swab 1 Swab Dosing Unit 1 Swab Dosing Unit, Nasal, PREOP, First dose on Fri01/29/23 at 1315, Last dose on Fri01/29/23 at 1315, For 1 dose, Tilt the bottle slightly, dip one swab into solution and stir vigorously for 10 seconds. Withdraw the swab slowly to avoid wiping solution off during removal. Insert swab comfortably into one nostril and rotate for 15 seconds, covering all surfaces. Then focus on the inside tip of nostril and rotate for an additional 15 seconds. Using a new swab, Repeat above steps in the other nostril (Swab 2). Repeat the application in both nostrils using a fresh swab each times (Swab 3 and 4)., Pre-Op Given 01/29/2023 1:15 PM EDT 1 Swab Dosing Unit Pregabalin (Lyrica) cap 75 mg 75 mg, Oral, PREOP, First dose on Fri01/29/23 at 1315, Last dose on Fri01/29/23 at 1315, For 1 dose, Reduce dose as below for CrCl Level: CrCl less than 30 ml/min = 50 mg preop CrCl 30 - 60 ml/min = 150 mg preop CrCl greater than 60 ml/min = 300 mg preop Do not use with gabapentin. Administer 60 minutes prior to OR., Pre-Op Given 01/29/2023 1:13 PM EDT 75 mg documented in this encounter Active and Recently Administered Medications Times are shown in EDT. Scheduled Medication Order 01/27/2023 01/28/2023 01/29/2023 Acetaminophen (Tylenol) tab 975 mg (COMPLETED) 975 mg, Oral, PREOP, First dose on Fri01/29/23 at 1315, Last dose on Fri01/29/23 at 1315, For 1 dose, Maximum 4 g acetaminophen/day. Avoid in patients with severe hepatic impairment or severe active liver disease. Administer 60 minutes prior to OR., Pre-Op 1313 (Given - Provid er: Maude Kumar RN) ceFAZolin in dextrose (Ancef) ivpb 2 g (COMPLETED) 2 g, IV Piggyback, PREOP, 1 dose, First dose on Fri01/29/23 at 1315, Administer 60 minutes prior to skin incision, Pre-Op 1430 (Given - Provid er: Arianna Lee CRNA - Comment: Administered over 30 minutes) celecoxib (CeleBREX) cap 200 mg (COMPLETED) 200 mg, Oral, PREOP, First dose on Fri01/29/23 at 1315, Last dose on Fri01/29/23 at 1315, For 1 dose, Contraindicated in setting of CABG surgery. Do not use in patients with CrCl < 60, receiving ketorolac, bone fracture. Reduce to 200 mg PO if greater than 65 years old . Administer 60 minutes prior to OR., Pre-Op 1313 (Given - Provid er: Maude Kumar RN) Chlorhexidine Gluconate (Scrub-Stat) 2% external solution External, PREOP, First dose on Fri01/29/23 at 1315, Last dose on Nu 01/30/23 at 0600, For 2 doses, Complete chlorhexidine wash of entire body, once the evening prior to surgery and once the morning of surgery prior to transporting patient to the pre-operative area , Pre-Op 1315 (Given - Provid er: Maude Kumar RN) gentamicin 300 mg in NSS 100 mL ivpb (COMPLETED) 300 mg, Intravenous, PREOP, 1 dose, First dose on Fri01/29/23 at 1315, Use ideal body weight for dose calculation. Use adjusted body weight if actual body weight is greater than 120% of ideal body weight. Administer 90 minutes prior to skin incision., Pre-Op 1330 (New Bag - Prov ider: Maude Kumar RN) Povidone-Iodine nasal swab 1 Swab Dosing Unit (COMPLETED) 1 Swab Dosing Unit, Nasal, PREOP, First dose on Fri01/29/23 at 1315, Last dose on Fri01/29/23 at 1315, For 1 dose, Tilt the bottle slightly, dip one swab into solution and stir vigorously for 10 seconds. Withdraw the swab slowly to avoid wiping solution off during removal. Insert swab comfortably into one nostril and rotate for 15 seconds, covering all surfaces. Then focus on the inside tip of nostril and rotate for an additional 15 seconds. Using a new swab, Repeat above steps in the other nostril (Swab 2). Repeat the application in both nostrils using a fresh swab each times (Swab 3 and 4)., Pre-Op 131 (Given - Provid er: Maude Kumar RN - Comment: both nares) Pregabalin (Lyrica) cap 75 mg (COMPLETED) 75 mg, Oral, PREOP, First dose on Fri01/29/23 at 1315, Last dose on Fri01/29/23 at 1315, For 1 dose, Reduce dose as below for CrCl Level: CrCl less than 30 ml/min = 50 mg preop CrCl 30 - 60 ml/min = 150 mg preop CrCl greater than 60 ml/min = 300 mg preop Do not use with gabapentin. Administer 60 minutes prior to OR., Pre-Op 131 (Given - Provid er: Maude Kumar RN) Continuous Medication Order 01/27/2023 01/28/2023 01/29/2023 isolyte-S pH 7.4 infusion Intravenous, at 10 mL/hr, Plasma-LYTE 148, isolyte-S, and isolyte-S pH 7.4 are considered equivalent - including for MAR barcode scanning., CONTINUOUS, Starting on Fri01/29/23 at 1315, Until Fri01/29/23 at 1958, Pre-Op 1326 (New Bag - Prov ider: Maude Kumar RN)1420 (Continue from Pre-Op - Provider: Arianna Lee CRNA)1420 (Paused - Provider: Arianna Lee CRNA - Comment: Switch to gravity)1421 (Restarted - Provider: Arianna Lee CRNA - Comment: Administered in the pre-op area prior to anesthesia taking over care of the patient.)1509 (Anes Intra-Op Fluid - Provider: Arianna Lee CRNA) PRN Medication Order 01/27/2023 01/28/2023 01/29/2023 Bupivacaine-EPINEPHrine (Sensorcaine W/ Epi) 0.5% -1:120911 inj (CANCELED) ONCE PRN INTRA PROCEDURE, Starting on Fri01/29/23 at 1500, Until Fri01/29/23 at 1507, Intra-Op 1500 (Given - Provid er: Mak Galloway MD)1502 (Given - Provider: Mak Galloway MD) Iopamidol (Isovue M 300) inj (CANCELED) ONCE PRN INTRA PROCEDURE, Starting on Fri01/29/23 at 1500, Until Fri01/29/23 at 1507, Intra-Op 1500 (Given - Provid er: Mak Galloway MD - Comment: 1.5 ml right, 1.5 ml left) documented in this encounter Advance Directives Latest Code Status on File Code Status Date Activated Date Inactivated Comments Full Code 01/29/2023 12:32 PM 01/29/2023 7:58 PM This order reflects the patients wishes and were consensually agreed upon. Question Answer Comments Discussion of Advance Directives occurred with: Patient Care Teams Scrapper Relationship Specialty Start Date End Date Evangelista Moran MD [address] [place], [place] [address] PCP - General Internal Medicine 08/27/17 documented as of this encounter
--- OUTSIDE RECORDS SUMMARY | 2023-07-25 14:05 | External Medical Summary ---
Author Name Unknown Address Unknown Organization : Laboratory Report Ordering Provider Test Date Status MELLISA OSBORN 01/29/2023 13:20:17 Final Observation Date Value Abnormality Reference (Units ) Status Glucose Point of Care 01/29/2023 13:20:17 106 70-120 (mg/dL) Final Performing Location
--- NOTE | 2023-07-25 16:24 | Communication Note ---
Date of Service: July 25, 2023 By CMS guidelines, a determination that the admission or continued stay is not medically necessary has been made by a member of the UR committee and a phys ician for this hospital stay, therefore a Code 44 will be completed and the Inpatient admission will be changed to outpatient.
--- NOTE | 2023-07-25 16:33 | Discharge Summary ---
Discharge Summary Date of Service July 25, 2023 By CMS guidelines, a determination that the admission or continued stay is not medically necessary has been made by a member of the UR committee and a physician for this hospital stay, therefore a Code 44 will be completed and the Inpatient admission will be changed to outpatient. Notes For Next Care Provider Episode of apnea with slight anesthesia, would strongly recommend outpatient referral to Sleep Medicine clinic for polysomnography Medication Changes From Visit -Eliquis 5mg BID -Metoprolol XL 25mg BID Admission HPI Per Admitting Provider Ms. Tapia presented to the ED today with symptoms including QUIGLEY and weakness. She snowbirds in [place] and stopped taking her levothyroxine approximately 5-6 weeks ago. Over the past few days started to have increased weakness and fatigue with each day feeling worse and worse; including worsening appetite. Additional PMH includes H/O TIA x3 (20 years ago), Left brain aneurysm 12/2021 (s/p stent/coil x2 and one remaining smaller aneurysm on the right), HTN, hypothyroidism, H/O T12 compression fracture s/p kyphoplasty, and osteoporosis. In the ED, slight leukocytosis WBC 10.66, otherwise BMP and CBC unremarkable. Troponin slightly elevated 34.6; suspect more ischemic demand, rather than ACS. TSH 2.9 and BioFire and lactate pending. CHaDs VaSC: 4; indicating moderate to high stroke risk (age, sex, HTN). No known history of AMI or CVA. Pt denies tobacco, alcohol, and recreational drug use. Patients father had a CVA. ECG first degree AVB with bigeminy and underlying conduction disease. Patient complains of temporal/ocular headache, denies dizziness, shortness of breath, chest pain, palpitations, nausea, vomiting, diarrhea, dysuria, bowel or bladder changes, recent falls or trauma. She is sitting in her hospital bed in no apparent distress; heart monitor showing 130-140 despite Diltiazem gtt. She is euvolemic on examination. CTA lung sounds and irregular heart sounds. Patient will be admitted to PCU for further evaluation and management of new onset AF. Started on Diltiazem gtt with 10 mg IV bolus, ordered metoprolol 25 mg p.o. twice daily. Due to the patient's history of brain aneurysm in [address] prior to heparin drip initiation. Will order ECHO, trend troponin, check Mg+/Phos+ and await biofire results. Will keep NPO after MN pending any procedures with cardiology. Discussed on the phone with Dr. Cardenas. Admission Exam Per Admitting Provider Neuro: AAOx4, PERRLA, no aphagia, memory changes, CNII-XII grossly intact HEENT: head normocephalic, moist mucus membranes CV: Irregularly irregular, (-) M/G/R, (-) edema, cap refill < 3 seconds Resp: Lungs CTA in all holliday. On RA GI: Abdomen S/NT/ND, Ax4 bowel sounds, (-) CVA tenderness Musculoskeletal: 5/5 B/L UE strength, 5/5 B/L LE strength. No gait disturbance Skin: (-) rashes , (-) erythema. Psych: euthymic mood Principal Dx & Hospital Course #1 = Principal Diagnosis (1) New onset atrial fibrillation: (2) Weakness: (3) HTN (hypertension): (4) Hypothyroidism: (5) Hyperlipidemia: (6) Depression: Plan Ms. Tapia presented to the ED 07/24 with symptoms including QUIGLEY and weakness, and found to be in atrial fibrillation with RVR. It was reported that she discontinue levothyroxine a few weeks ago. Additionally, she noted the past few days started to have increased weakness and fatigue with each day feeling worse and worse; including worsening appetite. Additional PMH includes H/O TIA x3 (20 years ago), Left brain aneurysm 12/2021 (s/p stent/coil x2 and one remaining smaller aneurysm on the right), HTN, hypothyroidism, H/O T12 compression fracture s/p kyphoplasty, and osteoporosis. In the ED, slight leukocytosis WBC 10.66, otherwise BMP and CBC unremarkable. Troponin slightly elevated 34.6; suspect more ischemic demand CHaDs VaSC: 4. =ECG first degree AVB with bigeminy and underlying conduction disease. Patient admitted to PCU for further evaluation and management of new onset AF and remained on Diltiazem gtt overnight. Rates were controlled and patient transitioned to metoprolol 25 mg p.o. twice daily. Patient underwent KEISHA cardioversion on 07/24 with post-procedure cardioversion to sinus with rates in 60-70s and RBBB. Patient transitioned to eliquis. #New onset atrial fibrillation: acute multiple risk factors, nightly wine use, obesity, likely uncontrolled sleep apnea Continue to rule out organic causes Chads Vasc: 4 moderate to high risk of CVA. HR 140s on arrival Diltiazem 10 mg IV and drip, discontinued -Transitioned to Metoprolol Succinate 25mg BID -Transitioned to Eliquis 5mg BID Should undergo evaluation for sleep apnea at OP with referral to sleep clinic #H/O TIA: Chronic 20 + years ago Does not follow with Neurology #H/O Brain aneurysm: Chronic s/p stent/coil x 2 One smaller aneurysm remains Was taking Plavix; stopped 07/04 Takes baby aspirin; continue Follows with [facility] Most recent MRA 06/2022 -Continue ASA, plan to follow up OP with question regarding asa + eliquis use #HTN: chronic takes losartan; continue #Hypothyroidism: chronic TSH 2.9 Takes levothyroxine; stopped 6 weeks ago; restarted yesterday when she returned [place] #Depression: chronic takes Effexor; continue On day of discharge, patient was in normal sinus, without chest pain or acute symptoms and eager for discharge, Discharge Exam Constitutional WD/WN, vitals as above Respiratory normal respiratory effort, lungs clear to auscultation Cardiovascular RRR, no murmur, no edema Musculoskeletal no cyanosis or clubbing, extremities motor strength 5/5 Updated Medication List Medication Instructions Recorded Confirmed Type losartan 50 mg tablet 50 mg PO QAM 10/06/19 07/24/23 History aspirin 81 mg tablet,delayed 81 mg PO DAILY 07/24/23 07/24/23 History release calcium 275 mg-D3 12.5 mcg-K2 2 cap PO QAM 07/24/23 07/24/23 History 22.5 mcg and choline-silicon capsules cholecalciferol (vitamin D3) 125 125 mcg PO DAILY 07/24/23 07/24/23 History mcg (5,000 unit) capsule cyanocobalamin (vitamin B-12) 1,000 mcg IM MONTHLY 07/24/23 07/24/23 History 1,000 mcg/mL injection solution diclofenac sodium 1 % topical gel 2 g topical QID PRN Pain 07/24/23 07/24/23 History fish, borage, flaxseed oils-omega 1,200 cap PO DAILY 07/24/23 07/24/23 History 3,6,9 comb no.1 1,200 mg capsule ([place] 3-6-9) levothyroxine 50 mcg tablet 50 mcg PO DAILYBB 07/24/23 07/24/23 History magnesium citrate,mag oxide 250 mg 500 mg PO BID 07/24/23 07/24/23 History capsule melatonin 5 mg tablet 5 mg PO HS PRN Pain 07/24/23 07/24/23 History venlafaxine 37.5 mg 37.5 mg PO QAM 07/24/23 07/24/23 History capsule,extended release 24 hr venlafaxine 75 mg capsule,extended 75 mg PO QAM 07/24/23 07/24/23 History release 24 hr (Effexor XR) vitamins A,C,Q-yaov-nmtkpz 4,296 1 cap PO QAM 07/24/23 07/24/23 History mcg-226 mg-90 mg capsule (PreserVision AREDS) vortioxetine 5 mg tablet 20 mg PO 5XWK 07/24/23 07/24/23 History (Trintellix) apixaban 5 mg tablet (Eliquis) 5 mg PO BID@0600,1800 #60 tabs 07/25/23 Rx metoprolol succinate 25 mg 25 mg PO BID #60 tabs 07/25/23 Rx tablet,extended release 24 hr Hospital Stay Data Consultations 07/24/23 15:49 ED Decision to Admit Stat 07/24/23 15:56 Consult Cardiology Routine 07/25/23 09:23 Consult Anesthesiology Routine Procedures Performed Operation Date: 07/25/23 13:00 Actual Procedures s Cardioversion - Eric Cardenas DO p Echo Transesophageal - Eric Cardenas DO Diagnostic Imagining Performed 07/24/23 17:05 CT head/brain wo con Routine Pending Results Patient Have Any Pending Studies at Discharge: No Discharge Instructions Given to Patient (Per Discharging Provider) You were admitted for shortness of breath and found to be in an abnormal rhythm called "atrial fibrillation." You underwent cardioversion, which helped "jump" your heart back into normal rhythm. You will need start the following: -Eliquis 5mg two times a day, 6am and 6pm -Metoprolol XL 25mg two times a day to keep the rate in control You were noted to have an episode of "apnea" , difficulty to start breathing, during anesthesia. It is strongly recommended you request a referral to Sleep Clinic for a sleep study to assess for sleep apnea as this is a big risk factor for atrial fibrillation Total Time Total Time Spent Total Time Spent (In Minutes): 45
[2023-07-25] MEDS: APIXABAN 5 MG TABLET PO SCH (17:19)
--- NOTE | 2023-07-26 06:46 | Electrocardiogram Report ---
Test Reason : Blood Pressure : / mmHG Vent. Rate : 144 BPM Atrial Rate : 000 BPM P-R Int : 000 ms QRS Dur : 120 ms QT Int : 330 ms P-R-T Axes : 000 -11 016 degrees QTc Int : 510 ms Supraventricular tachycardia Right bundle branch block Abnormal ECG When compared with ECG of 24-MAR-2020 15:42, Supraventricular tachycardia has replaced Sinus rhythm Vent. rate has increased BY 65 BPM Confirmed by Rufino Barclay ([id number]) on 07/26/2023 6:46:13 AM Referred By: Confirmed By:Rufino Barclay
--- NOTE | 2023-07-26 06:56 | Electrocardiogram Report ---
Test Reason : Blood Pressure : / mmHG Vent. Rate : 094 BPM Atrial Rate : 094 BPM P-R Int : 210 ms QRS Dur : 132 ms QT Int : 376 ms P-R-T Axes : 083 -10 052 degrees QTc Int : 470 ms Atrial flutter with variable A-V block Right bundle branch block Abnormal ECG When compared with ECG of 24-JUL-2023 14:05, No significant change Confirmed by Rufino Barclay ([id number]) on 07/26/2023 6:56:27 AM Referred By: Confirmed By:Rufino Barclay
--- NOTE | 2023-07-26 06:56 | Electrocardiogram Report ---
Test Reason : Blood Pressure : / mmHG Vent. Rate : 114 BPM Atrial Rate : 125 BPM P-R Int : 194 ms QRS Dur : 130 ms QT Int : 358 ms P-R-T Axes : 083 014 063 degrees QTc Int : 493 ms Atrial flutter with rapid ventricular response Right bundle branch block Abnormal ECG When compared with ECG of 24-JUL-2023 12:48, No significant change Confirmed by Rufino Barclay ([id number]) on 07/26/2023 6:55:58 AM Referred By: Confirmed By:Rufino Barclay
--- NOTE | 2023-07-26 08:00 | Electrocardiogram Report ---
Test Reason : Blood Pressure : / mmHG Vent. Rate : 064 BPM Atrial Rate : 064 BPM P-R Int : 164 ms QRS Dur : 136 ms QT Int : 442 ms P-R-T Axes : 049 -27 041 degrees QTc Int : 455 ms Poor data quality, interpretation may be adversely affected Normal sinus rhythm Right bundle branch block Abnormal ECG When compared with ECG of 24-JUL-2023 14:08, Sinus rhythm has replaced Atrial flutter Confirmed by Rufino Barclay ([id number]) on 07/26/2023 8:00:02 AM Referred By: Evangelista Moran Confirmed By:Rufino Barclay
== END 2023-07-25 18:00 | disposition home or self-care (01) | DRG 309 ==
LOC: ED 12:31 → SUATTDRO 15:56 → 2S 15:56 → INTOOBSV 15:56 → 2S 18:13